=== PATIENT | female | born 1950 | race African-American/Black ===

== ENCOUNTER 2020-04-30 12:33 | Emergency (ER) | payer OTHER, SELFPAY ==
--- NOTE | ~2020-04-30 | CT_ITS ---
EXAMINATION: CT brain wo con DATE: 04/30/2020 16:44 INDICATION: Weakness. TECHNIQUE: Computed tomography (CT) of the head was performed without intravenous contrast. The mA wa s adjusted according to patient size. Iterative reconstruction technique was employed. The dose-lengt h product was 681.00 mGy-cm. COMPARISON: None FINDINGS: There is no intracranial hemorrhage, acute infarction, or abnormal intracranial mass lesion . The ventricles are normal in size. There are likely changes of ocular lens replacement surgeries. T here are mucous retention cysts in the maxillary sinuses. There is mild mucosal thickening in the par anasal sinuses. The mastoid air cells are normal. IMPRESSION: 1. Normal brain. Reviewed, dictated and finalized at location A. IMPRESSION: 1. Normal brain.
--- NOTE | ~2020-04-30 | XR_ITS ---
EXAMINATION: XR chest 2V DATE: 04/30/2020 13:10 INDICATION: Shortness of breath. Chest pain. TECHNIQUE: Frontal and lateral views of the chest were obtained. COMPARISON: Chest CT 12/08/2009 FINDINGS: There are airspace opacities at left lung base. No pleural effusion or pneumothorax. Cardio megaly is noted. There are surgical clips in right axilla. IMPRESSION: 1. Airspace opacities at left lung base, consistent with atelectasis versus pneumonia. 2. Cardiomegaly. Reviewed, dictated and finalized at location A. IMPRESSION: 1. Airspace opacities at left lung base, consistent with atelectasis versus pne umonia. 2. Cardiomegaly.
--- NOTE | 2020-04-30 12:38 | ECG_ITS ---
Measurements Intervals Atco Rate: 50 P: 36 TN: 202 QRS: -23 QRSD: 101 T: 4 QT: 461 QTc: 422 Interpretive Statements SINUS BRADYCARDIA VOLTAGE CRITERIA FOR LVH BASELINE ARTIFACT- I, II, AVR BORDERLINE ECG Electronically Signed On 04-30-2020 15:52:04 CDT by Maxi Castro D.O.
[2020-04-30 13:04] VITALS: BP 139/74; PULSE 54; RESP 14; TEMP 36.3; O2SAT 99
[2020-04-30 13:12] LABS: Add Urine Microscopic? NO; Appearance Urine Clear (Clear); Bilirubin Urine Negative (Negative); Blood Urine Negative (Negative); Color Urine Straw (Yellow); Glucose Urine UA Negative (Negative); Ketones Urine Negative (Negative); Leukocyte Esterase Ur Negative LEU/UL (Negative); Nitrate Urine Negative (Negative); Protein Urine Negative (Negative); Urobilinogen Urine Negative mg/dL (<2.0)
[2020-04-30 14:36] LABS: Basophils Percent Auto 0.3 % (0.2-1.2); Eosinophils Percent Auto 0.9 % (0-4.4); Hematocrit 42.1 % (37.0-47.0); Immature Granulocyte Absolute 0.01 K/mm3 (0.00-0.031); Immature Granulocyte Percent A 0.3 % (0-0.5); Lymphocytes Absolute Auto 1.38 K/mm3 (0.9-3.2); Lymphocytes Percent Auto 42.1 % (18.3-44.2); Mean Corpuscular HGB Conc 30.9 g/dl (32-36); Mean Corpuscular Hemoglobin 29.1 pg (26-34); Mean Corpuscular Volume 94.2 fl (80-100); Mean Platelet Volume 9.2 fl (7.4-10.4); Monocytes Absolute Auto 0.3 K/mm3 (0.1-0.6); Monocytes Percent Auto 7.9 % (2.6-8.5); Neutrophils Absolute Auto 1.6 K/mm3 (1.3-6.7); Neutrophils Percent Auto 48.5 % (45.5-73.1); Platelet Count Result 171 k/mm3 (150-375); Red Blood Count 4.47 M/mm3 (4.2-5.4); Red Cell Distribution Width 13.9 % (11.5-14.5); White Blood Count 3.3 K/mm3 (4.5-10.0)
[2020-04-30 14:47] LABS: INR 2.1; Lipase 83 U/L (23-300); Prothrombin Time 23.4 Seconds (11.1-14.7)
[2020-04-30 14:48] LABS: Partial Thromboplastin Time 33.3 SECONDS (22.3-36.8)
[2020-04-30 14:49] LABS: Blood Urea Nitrogen 19 mg/dL (7-17); Calcium 9.1 mg/dL (8.4-10.2); Carbon Dioxide 34 mmol/L (22-30); Chloride 97 mmol/L (98-107); Estimated CRCL calculation 48 ml/min; Estimated Glomerular Filt Rate > 60; Glucose 127 mg/dL (65-105); Potassium 3.9 mmol/L (3.4-5.0); Sodium 136 mmol/L (137-145)
[2020-04-30 15:00] LABS: Troponin I < 0.012 ng/mL (0.000-0.034)
[2020-04-30 15:22] VITALS: BP 155/83; PULSE 52; RESP 19
--- NOTE | 2020-04-30 15:30 | ED.CHESTPAIN ---
HPI - Chest Pain General Chief Complaint: Chest Pain Stated Complaint: SOB, CP, weakness, nausea Time Seen by Provider: 04/30/20 15:28 Source: patient and EMS Mode of arrival: EMS Limitations: no limitations History of Present Illness HPI narrative: Patient is a 70-year-old female who presents for evaluation of various symptoms including chest pressure, leg weakness, shortness of breath which is currently resolved. Patient states she noticed some chest pressure over the last 24 hours which is now resolved. She denies chest pain. No jaw pain, arm pain, or neck pain. No back pain. No pain with deep inspiration, no cough. Patient states that time she has felt short of breath with ambulation. Patient denies leg swelling, but reports weakness in her legs. She states that she has been ambulatory, but at times notices that her left leg is weak. Patient denies any abdominal pain, but reports nausea. She denies headache or vision changes. Related Data Home Medications Medication Instructions Recorded Confirmed acetaminophen 500 mg capsule 500 mg PO Q6H PRN 03/24/20 amiodarone 200 mg tablet 200 mg PO DAILY 03/24/20 furosemide 80 mg tablet 80 mg PO BID 03/24/20 losartan 100 mg tablet 100 mg PO DAILY 03/24/20 metoprolol tartrate 50 mg tablet 50 mg PO Q12H 03/24/20 potassium chloride 20 mEq 20 meq PO BID 03/24/20 tablet,extended release warfarin 2.5 mg tablet 2.5 mg PO DAILY 03/24/20 Allergies Allergy/AdvReac Type Severity Reaction Status Date / Time meperidine [From Demerol] Allergy Unknown Dizziness Verified 03/24/20 14:30 Review of Systems Review of Systems: Narrative: CONSTITUTIONAL: Denies fever, chills, or sweats. EYES: Denies visual changes, redness, or discharge. ENT: Denies rhinorrhea, congestion, sore throat, or otalgia. CARDIOVASCULAR: Reports chest pressure, now resolved, denies palpitations or edema RESPIRATORY: Denies cough, reports recurrent shortness of breath but none currently GASTROINTESTINAL: Denies abdominal pain, reports nausea without vomiting GENITOURINARY: Denies dysuria or hematuria. SKIN: Denies rash or itching. MUSCULOSKELETAL: Denies back pain, joint pain, or myalgia. NEUROLOGIC: Denies headache, reports left leg weakness PMFSH Past Medical History Medical History Abscess of Bartholin's gland Anemia Atrial fibrillation Benign hypertension Candidiasis Carpal tunnel syndrome Class 3 severe obesity due to excess calories with body mass index (BMI) of 40.0 to 44.9 in adult Diabetes Edema of lower extremity Hidradenitis suppurativa History of gastrointestinal procedure Hypertension Hypertensive disorder Impacted cerumen Incomplete uterovaginal prolapse Increased frequency of urination Lipoma of axilla Malignant tumor of breast Memory impairment Morbid obesity Open wound of anterior abdominal wall Osteoarthritis Pain in limb Sleep apnea Systemic lupus erythematosus Visual disturbance Vitamin D deficiency White blood cell disorder Surgical History Surgical History H/O colonoscopy H/O hernia repair H/O mastectomy History of delivery 3x History of esophagogastroduodenoscopy (EGD) Hx of total knee arthroplasty Family History Family History Mother Hypertension Breast cancer Hypothyroidism Heart disease Family history of cancer Father Heart disease Alzheimer disease Sibling Renal failure syndrome Diabetes mellitus Hypertension Sibling Diabetes mellitus Hypertension Social History Social History Smoking status: Former smoker Tobacco type: cigarettes Alcohol intake: never Substance use: never Gender identity (if verbalized by the patient): Female Exam Narrative: Exam Narrative: GENERAL: Awake, alert, conversant HEAD
[2020-04-30 16:14] LABS: Troponin I < 0.012 ng/mL (0.000-0.034)
[2020-04-30 17:22] VITALS: BP 155/80; PULSE 53; RESP 19; O2SAT 96
[2020-04-30] MEDS: ASPIRIN 81 MG CHEWABLE TABLET 324 MG PO (17:22)
[2020-04-30 17:41] VITALS: BP 150/84; PULSE 54; RESP 20; O2SAT 20
[2020-05-01 13:49] LABS: SARS-CoV-2 RNA PCR Negative
== END 2020-04-30 17:43 | disposition home or self-care (01) ==
PROVIDERS: Emergency Provider Emergency Medicine; PCP Family Medicine
DX: J18.9 Pneumonia, unspecified organism (principal); R07.89 Other chest pain; I48.91 Unspecified atrial fibrillation; Z79.01 Long term (current) use of anticoagulants; E11.9 Type 2 diabetes mellitus without complications; I10 Essential (primary) hypertension; M19.90 Unspecified osteoarthritis, unspecified site; G47.30 Sleep apnea, unspecified; M32.9 Systemic lupus erythematosus, unspecified; E55.9 Vitamin D deficiency, unspecified; Z90.10 Acquired absence of unspecified breast and nipple; Z96.659 Presence of unspecified artificial knee joint; E66.01 Morbid (severe) obesity due to excess calories; Z68.29 Body mass index [BMI] 29.0-29.9, adult; Z86.2 Personal history of diseases of the blood and blood-forming organs and certain disorders involving the immune mechanism
CPT/HCPCS: 36415; 70450; 71046; 80048; 81003; 83690; 84484; 85025; 85610; 85730; 87635; 93005; 99284; A9270; C9803; U0003

== ENCOUNTER 2020-06-22 07:08 | Outpatient (CLI) | payer OTHER, SELFPAY ==
--- NOTE | ~2020-06-22 | MR_ITS ---
EXAMINATION: MR lumbar spine wo con DATE: 06/22/2020 08:17 INDICATION: Low back pain. Chronic bilateral buttock and hip pain radiating down the legs. TECHNIQUE: Magnetic resonance imaging (MRI) of the lumbar spine was performed without intravenous con trast. Sequences included sagittal T2-weighted FSE, sagittal T2-weighted FS FSE, sagittal T1-weighted FSE, and axial T2-weighted FSE. COMPARISON: None FINDINGS: There is 8 degrees dextrocurvature of lumbar spine. There is 3 mm anterolisthesis of L4 on L5. Vertebral body heights are normal. There is moderately decreased disc height at L4-L5. There is l igamentum flavum hypertrophy at the disc levels from L1-L2 through L4-L5. The distal spinal cord sign al intensity is normal. The conus medullaris is at L1-L2. There are cysts in the kidneys measuring up to 13 mm on the right. The following disc levels are specifically discussed: L1-L2: There is a central protrusion. There is mild bilateral facet joint osteoarthritis. There is no neural foraminal stenosis. There is mild central canal stenosis. L2-L3: The disc is bulging and has an annular fissure. There is moderate right and mild left facet justice int osteoarthritis. There is mild bilateral neural foraminal stenosis. There is mild central canal st enosis. L3-L4: The disc is bulging and has an annular fissure. There is moderate right and severe left facet joint osteoarthritis. There is mild right and moderate left neural foraminal stenosis. There is mild central canal stenosis. L4-L5: The disc is bulging and has an annular fissure. There is severe bilateral facet joint osteoart hritis. There is moderate bilateral neural foraminal stenosis. There is severe central canal stenosis . L5-S1: The disc does not extend beyond the endplate margin. There is severe bilateral facet joint ost eoarthritis. There is mild bilateral neural foraminal stenosis. There is no central canal stenosis. IMPRESSION: 1. Severe lumbar spondylosis, worst at L4-L5. Reviewed, dictated and finalized at location A.
== END 2020-06-22 07:09 | disposition home or self-care (01) ==
PROVIDERS: PCP Family Medicine; Visit Provider Orthopaedic Surgery
DX: M47.896 Other spondylosis, lumbar region (principal)
CPT/HCPCS: 72148

== ENCOUNTER 2020-08-01 12:58 | Outpatient (CLI) | payer OTHER, SELFPAY ==
[2020-08-01 14:18] LABS: INR 1.6; Prothrombin Time 18.5 Seconds (11.1-14.7)
== END 2020-08-01 12:59 | disposition home or self-care (01) ==
PROVIDERS: PCP Family Medicine; Visit Provider Nurse Practitioner Family
DX: Z51.81 Encounter for therapeutic drug level monitoring (principal); Z79.01 Long term (current) use of anticoagulants
CPT/HCPCS: 36415; 85610

== ENCOUNTER 2020-09-18 13:11 | Emergency (ER) | payer OTHER, SELFPAY ==
--- NOTE | ~2020-09-18 | XR_ITS ---
EXAMINATION: XR chest 2V DATE: 09/18/2020 15:52 INDICATION: Weakness. Atrial fibrillation. Congestive heart failure. TECHNIQUE: Frontal and lateral views of the chest were obtained. COMPARISON: Chest 2 views 04/30/2020, chest CT 12/08/2009 FINDINGS: There are patchy airspace opacities in the mid and lower lung zones. No pleural effusion or pneumothorax. Cardiomegaly is noted. There are surgical clips in right axilla. IMPRESSION: 1. Patchy airspace opacities in the mid and lower lung zones, consistent with pulmonary edema versus pneumonia. 2. Cardiomegaly. Reviewed, dictated and finalized at location A. [employer] IMPRESSION: 1. Patchy airspace opacities in the mid and lower lung zones, consistent with p ulmonary edema versus pneumonia. 2. Cardiomegaly.
[2020-09-18 13:30] VITALS: BP 154/72; PULSE 65; RESP 17; TEMP 36.5; O2SAT 98
[2020-09-18 15:23] VITALS: BP 141/71; PULSE 54; RESP 15; O2SAT 98
[2020-09-18 15:37] LABS: Basophils Percent Auto 0.3 % (0.2-1.2); Hematocrit 35.1 % (37.0-47.0); Hemoglobin 11.1 g/dL (12.0-15.0); Immature Granulocyte Absolute 0.01 K/mm3 (0.00-0.031); Immature Granulocyte Percent A 0.3 % (0-0.5); Lymphocytes Absolute Auto 1.09 K/mm3 (0.9-3.2); Lymphocytes Percent Auto 36.7 % (18.3-44.2); Mean Corpuscular HGB Conc 31.6 g/dl (32-36); Mean Corpuscular Volume 91.6 fl (80-100); Mean Platelet Volume 8.9 fl (7.4-10.4); Monocytes Absolute Auto 0.2 K/mm3 (0.1-0.6); Monocytes Percent Auto 6.7 % (2.6-8.5); Neutrophils Absolute Auto 1.6 K/mm3 (1.3-6.7); Platelet Count Result 315 k/mm3 (150-375); Red Blood Count 3.83 M/mm3 (4.2-5.4)
[2020-09-18 15:53] LABS: Alanine Aminotransferase 28 U/L (4-35); Albumin Level 3.6 g/dL (3.5-5.1); Alkaline Phosphatase 97 U/L (38-126); Anion Gap 3 mmol/L (8-16); Aspartate Amino Transferase 37 U/L (14-36); Bilirubin,Total 0.3 mg/dL (0.2-1.3); Blood Urea Nitrogen 17 mg/dL (7-17); Calcium 9.3 mg/dL (8.4-10.2); Carbon Dioxide 35 mmol/L (22-30); Chloride 102 mmol/L (98-107); Estimated CRCL calculation 71 ml/min; Estimated Glomerular Filt Rate > 60; Glucose 146 mg/dL (65-105); Potassium 4.2 mmol/L (3.4-5.0); Sodium 140 mmol/L (137-145)
[2020-09-18 15:57] VITALS: BP 155/78; PULSE 54; RESP 20; O2SAT 98
--- NOTE | 2020-09-18 16:04 | PC.NURSE ---
Called lab to add on BNP
--- NOTE | 2020-09-18 16:36 | PC.NURSE ---
PT AMBULATED TO BATHROOM STANDBY ASSIST WITH STEADY GAIT
[2020-09-18 16:37] VITALS: BP 163/79; PULSE 56; RESP 20; O2SAT 99
[2020-09-18 16:43] LABS: Add Urine Microscopic? YES; Appearance Urine Clear (Clear); Bilirubin Urine Negative (Negative); Blood Urine Negative (Negative); Color Urine Yellow (Yellow); Glucose Urine UA Negative (Negative); Ketones Urine Negative (Negative); Leukocyte Esterase Ur Negative LEU/UL (Negative); Mucus Urine Rare /lpf; Nitrate Urine Negative (Negative); Protein Urine Negative (Negative); RBC Urine 0-2 /hpf (0-2); Specific Grav Ur 1.021 (1.001-1.035); Squamous Epithelial Cell Urine Few /hpf (Few); WBC Urine 0-3 /hpf
--- NOTE | 2020-09-18 17:05 | ED.WEAKNESS ---
HPI - Weakness General Chief complaint: Weakness Stated complaint: weakness Time Seen by Provider: 09/18/20 15:53 History of Present Illness HPI Narrative: Patient is a 70-year-old female who presents ER with weakness. Ongoing for last 2 weeks. Associated with sinus congestion and occasional cough. No orthopnea or weight gain or swelling of the legs. Denies chest pain. No known sick contacts. No loss of smell or taste. No alleviating factors. Related Data Home Medications Medication Instructions Recorded Confirmed acetaminophen 500 mg capsule 500 mg PO Q6H PRN 03/24/20 07/06/20 amiodarone 200 mg tablet 200 mg PO DAILY 03/24/20 07/06/20 furosemide 80 mg tablet 80 mg PO BID 03/24/20 07/06/20 losartan 100 mg tablet 100 mg PO DAILY 03/24/20 07/06/20 metoprolol tartrate 50 mg tablet 50 mg PO Q12H 03/24/20 07/06/20 potassium chloride 20 mEq 20 meq PO BID 03/24/20 07/06/20 tablet,extended release warfarin 2.5 mg tablet 2.5 mg PO DAILY 03/24/20 07/06/20 cholecalciferol (vitamin D3) 1,250 1,250 mcg PO WEEKLY 07/06/20 07/06/20 mcg (50,000 unit) capsule Allergies Allergy/AdvReac Type Severity Reaction Status Date / Time meperidine [From Demerol] Allergy Unknown Dizziness Verified 03/24/20 14:30 Review of Systems Review of Systems: All systems reviewed & are unremarkable except as noted in HPI and below Constitutional: Constitutional: Denies chills, Denies fever(s) and Denies weakness ENT: Reports nasal congestion and Denies sore throat Cardiovascular: Cardiovascular: Denies chest pain and Denies radiating jaw, neck or arm pain Respiratory: Respiratory: Reports cough, Denies dyspnea and Denies wheezing Gastrointestinal: Gastrointestinal: Denies abdominal pain, Denies nausea and Denies vomiting [facility] Past Medical History Medical History (Updated 09/18/20 @ 17:56 by Bryson Cid MD) Abscess of Bartholin's gland Anemia Atrial fibrillation Benign hypertension Candidiasis Carpal tunnel syndrome Class 3 severe obesity due to excess calories with body mass index (BMI) of 40.0 to 44.9 in adult Diabetes Edema of lower extremity Hidradenitis suppurativa History of gastrointestinal procedure Hypertension Hypertensive disorder Impacted cerumen Incomplete uterovaginal prolapse Increased frequency of urination Lipoma of axilla Malignant tumor of breast Memory impairment Morbid obesity Open wound of anterior abdominal wall Osteoarthritis Pain in limb Sleep apnea Systemic lupus erythematosus Visual disturbance Vitamin D deficiency White blood cell disorder Surgical History Surgical History H/O colonoscopy H/O hernia repair H/O mastectomy History of delivery 3x History of esophagogastroduodenoscopy (EGD) Hx of total knee arthroplasty Family History Family History Mother Hypertension Breast cancer Hypothyroidism Heart disease Family history of cancer Father Heart disease Alzheimer disease Sibling Renal failure syndrome Diabetes mellitus Hypertension Sibling Diabetes mellitus Hypertension Social History Social History Smoking status: Former smoker Tobacco type: cigarettes Alcohol intake: never Substance use: never Gender identity (if verbalized by the patient): Female Exam Narrative: Exam Narrative: GENERAL: Well-appearing, well-nourished, and in no acute distress. HEAD: Normocephalic, atraumatic. CHEST: Clear to auscultation. No respiratory distress. HEART: Regular rate and rhythm. Normal peripheral pulses. ABDOMEN: Soft, nontender, nondistended. EXTREMITIES: Normal range of motion. Trace edema. SKIN: Warm, dry, no rash. NEURO: Alert and oriented x3. PSYCH: Normal mood and affect. Course Course Emergency Course: Suspect Covid pneumonia but because is not confirmed patient will be start
[2020-09-18 17:24] LABS: NT Pro B Type Natriuretic Pept 227 PG/ML (5-100)
[2020-09-18 17:41] VITALS: BP 143/82; PULSE 60; RESP 20; O2SAT 99
[2020-09-18 18:12] VITALS: BP 141/78; PULSE 57; RESP 20; O2SAT 100
[2020-09-19 13:43] LABS: SARS-CoV-2 RNA PCR Positive
== END 2020-09-18 18:23 | disposition home or self-care (01) ==
PROVIDERS: Emergency Provider Emergency Medicine; PCP Family Medicine
DX: U07.1 COVID-19 (principal); J12.89 Other viral pneumonia; D64.9 Anemia, unspecified; I48.91 Unspecified atrial fibrillation; E11.9 Type 2 diabetes mellitus without complications; I10 Essential (primary) hypertension; M19.90 Unspecified osteoarthritis, unspecified site; G47.30 Sleep apnea, unspecified; E55.9 Vitamin D deficiency, unspecified; M32.9 Systemic lupus erythematosus, unspecified; E66.01 Morbid (severe) obesity due to excess calories; Z68.43 Body mass index [BMI] 50.0-59.9, adult; Z79.01 Long term (current) use of anticoagulants; Z85.3 Personal history of malignant neoplasm of breast; Z90.10 Acquired absence of unspecified breast and nipple; Z96.659 Presence of unspecified artificial knee joint; Z87.891 Personal history of nicotine dependence
CPT/HCPCS: 36415; 71046; 80053; 81001; 83880; 85025; 87635; 99283; C9803; U0003

== ENCOUNTER 2020-11-17 08:03 | Outpatient (CLI) | payer OTHER, SELFPAY ==
[2020-11-17 08:31] LABS: INR 1.1; Prothrombin Time 14.7 Seconds (11.1-14.7)
== END 2020-11-17 08:04 | disposition home or self-care (01) ==
PROVIDERS: Family Provider Family Medicine; PCP Family Medicine; Visit Provider Nurse Practitioner Family
DX: Z51.81 Encounter for therapeutic drug level monitoring (principal); Z79.01 Long term (current) use of anticoagulants
CPT/HCPCS: 36415; 85610

== ENCOUNTER 2021-01-04 08:00 | Outpatient (RCR) | payer OTHER, SELFPAY ==
--- NOTE | 2020-11-16 10:28 | PTOPEVAL ---
PHYSICAL THERAPY EVALUATION AND PLAN OF CARE 11-16-2020 Thank you for referring Ivanna Beckman to [facility].? She is scheduled to be seen for therapy? 2x/week for 4 weeks, for aquatic therapy and land treatments. Please review, sign, date and return this plan of care AUBREY. I agree with and certify that the following plan of care is medically necessary. Referring Physician Date Attending Provider: RAVI Sprague *PT Outpatient Evaluation Document 11/16/20 09:10 ELAN (Rec: 11/16/20 10:28 ELAN [id number]) Outpatient Past Medical History Past Medical History Source of Past Medical History Patient Neurological History Hx Neurological Disorders No Significant History Cardiovascular History Hx Atrial Fibrillation Yes: meds Hx Congestive Heart Failure Yes: meds Hx Hypertension Yes: meds Respiratory History Hx Sleep Apnea Yes: CPAP machine for sleep Gastrointestinal History Hx Cholecystectomy Yes Hx Gastroesophageal Reflux Disease Yes: meds Hx Hernia Yes: hernia surgery Genitourinary History Hx Other Genitourinary Disorders Yes: overactive bladder Musculoskeletal History Hx Arthritis Yes: all over body ; most pain in spine and shoulders, hands/fingers Hx Orthopedic Surgery Yes: R TKR~ 2016; need to have L TKR- putting it off Hematological History Hx Anemia Yes Endocrine History Hx Diabetes Yes: meds HEENT History Hx Other HEENT Disorders Yes: sinus and allergy issues Integumentary History Hx Skin Disorders No Significant History Reproductive History Hx Section Yes: 3x Hx Other Reproductive Disorders Yes: prolapse uterus Other History Hx Cancer Yes: breast cancer/mastectomy- surgery only treatment Hx Other Medical Conditions Yes: obesity Evaluation Information Problem Diagnosis low back pain, radiculopathy Onset about one year ago Subjective Information gradual increase in pain, no Query Text:As Reported By Patient/ recent injury or trauma to her Family back; have had 2 injections in back, have helped, to have 3rd injection tomorrow; Previous Treatments Previous Treatments For This Problem PT at another facility, in 2019,helped slightly-exercises for back; Prior Level of Function Activity Level (Last 3 Months) Occupation retired Cooking Yes Cleaning No Laundry Yes Driving No
--- NOTE | 2020-12-14 09:47 | PTOPEVAL ---
PHYSICAL THERAPY REEVALUATION AND UPDATED PLAN OF CARE 12-14-20 Refer to the clinical summary below for her status with today's reevaluation, compared to the initial evaluation. PT treatment is to continue 2x/week for 3 weeks. Thank you for referring Ivanna Beckman to [facility].? Please review, sign, date and return this plan of care [facility]. I agree with and certify that the following plan of care is medically necessary. Referring Physician Date Attending Provider: RAVI Sprague PT Outpatient Re-Evaluation Document 12/14/20 09:05 ELAN (Rec: 12/14/20 09:47 ELAN [id number]) Subjective Information Ivanna reports: like the water Query Text:As Reported By Patient/ exercises; easier to move and Family do exercises, compared to when did on land before; want to continue the water exercises to get better; will look into a fitness center with a pool, to continue water exercises; has been doing her leg exercises at home; Pain Assessment Timing of Pain Assessment Timing of Pain Assessment Assessment Pain Scale Pain Scale Used Numeric (1 - 10) Self Report Pain Assessment Bilateral Back Reported Pain Level 4 Pain Description Aching,Throbbing Radicular Pain Location into R and L LE, to ankle 75% day; was down to toes,not that far ~ 1wk ago Pain Frequency Chronic,Continuous Lowest Pain Intensity 3 Greatest Pain Intensity 5 Pain Aggravating Factors Sitting Other Pain Aggravating Factors cold weather; sit tolerance 2 hours, pain when go from sit to stand Pain Score Pain Score 4: Self Report Additional Pain Score Comments getting out of bed hurts; Oswestry self assessment functional score of 44% limitation in activity tolerance Interventions Used Interventions Used By Clinicians Exercise Pain Relief Interventions Used By Medication,Position Change Patient Other Alleviating Interventions take acetaminaphen PRN- not daily, mostly take when leaving home/going out Lower Extremity Muscle Strength Testing General Lower Extremity Strength Gross Lower Extremity Strength supine: SLR R 20/ L 12 reps; hip abduction R 30/ L x 20 reps; Posture Posture Standing Position Posture Evaluation View
--- NOTE | 2020-12-25 10:50 | PCPTNOTE ---
Patient called & cancelled scheduled appointment this date due to no transportation.
--- NOTE | 2021-01-04 08:44 | PTOPEVAL ---
PHYSICAL THERAPY DISCHARGE 01-04-21 Refer to the clinical summary below for her status, compared to the last reevaluation. She will be discharged from PT services at this time. The goals were partially achieved. Thank you for referring Ivanna Beckman to [facility].? Please review, sign, date and return this discharge AUBREY. I agree with and certify that the following plan of care is medically necessary. Referring Physician Date Attending Provider: RAVI Sprague Document 01/04/21 08:00 ELAN (Rec: 01/04/21 08:44 ELAN [id number]) Assessment Status Discharge Subjective Information Ivanna reports: walking is Query Text:As Reported By Patient/ better and pain is not as Family intense in the past week; can stand a little longer and stand up a little straighter; have been more active- going out and doing more; use cane when go out, but in the house do not always use it- have been better and leave it behind when going room/room; more pain in shoulders and hands- whole body hurts sometimes; has not joined a fitness center yet; and she agrees to discharge from PT. Pain Assessment Timing of Pain Assessment Timing of Pain Assessment Assessment Pain Scale Pain Scale Used Numeric (1 - 10) Self Report Pain Assessment Bilateral Back Reported Pain Level 4 Pain Description Aching,Throbbing Radicular Pain Location R and L LE radicular to feet- numb/tingling,intermittent with activity Pain Frequency Chronic,Continuous Lowest Pain Intensity 4 Greatest Pain Intensity 6 Pain Aggravating Factors Exercise/Activity,Prolonged Position,Walking,Weight Bearing/Standing Other Pain Aggravating Factors when awaken in AM; Pain Behaviors Anxious,Grimacing,Guarding Pain Score Pain Score 4: Self Report Additional Pain Score Comments Oswestry self assessment functional score 44% limitation in activity Interventions Used Interventions Used By Clinicians Education,Exercise Lower Extremity Muscle Strength Testing General Lower Extremity Strength Gross Lower Extremity Strength supine SLR: L 30/ R 30 reps; supine/sit from mat, indep, labored with increased time
== END 2021-01-05 10:50 | disposition home or self-care (01) ==
LOC: ANHPT 08:00
PROVIDERS: Family Provider Family Medicine; PCP Family Medicine; Visit Provider Nurse Practitioner Family
DX: M54.5 Low back pain (principal); M54.16 Radiculopathy, lumbar region
CPT/HCPCS: 97014; 97110; 97113; 97162; G0283

== ENCOUNTER 2021-01-05 13:31 | Outpatient (CLI) | payer OTHER, SELFPAY ==
--- NOTE | ~2021-01-05 | US_ITS ---
EXAMINATION: US venous doppler UE RT DATE: 01/05/2021 14:02 INDICATION: Right upper limb edema. TECHNIQUE: Grayscale ultrasound images without and with compression and Doppler ultrasound images of the right upper extremity veins were obtained. COMPARISON: None. FINDINGS: The visualized portions of the right internal jugular vein, subclavian vein, axillary vein, brachial veins, basilic vein, cephalic vein, radial vein, and ulnar vein are patent. IMPRESSION: 1. No deep venous thrombosis. Reviewed, dictated and finalized at location A.
== END 2021-01-05 13:32 | disposition home or self-care (01) ==
PROVIDERS: PCP Family Medicine; Visit Provider Family Medicine
DX: R60.0 Localized edema (principal)
CPT/HCPCS: 93971

== ENCOUNTER 2021-04-13 08:04 | Outpatient (CLI) | payer OTHER, SELFPAY ==
[2021-04-13 08:42] LABS: INR 1.2; Prothrombin Time 16.1 Seconds (11.1-14.7)
== END 2021-04-13 08:05 | disposition home or self-care (01) ==
PROVIDERS: PCP Family Medicine; Visit Provider Nurse Practitioner Family
DX: Z79.01 Long term (current) use of anticoagulants (principal)
CPT/HCPCS: 36415; 85610

== ENCOUNTER 2021-05-29 18:39 | Emergency (ER) | payer OTHER, SELFPAY ==
[2021-05-29 18:39] VITALS: BP 163/77; PULSE 70; RESP 20; TEMP 36.9; O2SAT 99
--- NOTE | 2021-05-29 19:33 | ED.GENADULT ---
HPI - General Adult General Chief complaint: Unspecified Stated complaint: BIT TONGUE Time Seen by Provider: 05/29/21 19:04 History of Present Illness HPI narrative: 71 yo female on eliquis presents to the ED c/o tongue laceration. She accidentally bit the tip of her tongue a few hours ago and she has not been able to get it to stop bleeding since that time. No dizziness, weakness, SOB. Additionally she mentions that her tongue has been peeling constantly. Related Data Home Medications Medication Instructions Recorded Confirmed acetaminophen 500 mg capsule 500 mg PO Q6H PRN 03/24/20 11/03/20 amiodarone 200 mg tablet 200 mg PO DAILY 03/24/20 11/03/20 furosemide 80 mg tablet 80 mg PO BID 03/24/20 11/03/20 losartan 100 mg tablet 100 mg PO DAILY 03/24/20 11/03/20 metoprolol tartrate 50 mg tablet 50 mg PO Q12H 03/24/20 11/03/20 potassium chloride 20 mEq 20 meq PO BID 03/24/20 11/03/20 tablet,extended release warfarin 2.5 mg tablet 2.5 mg PO DAILY 03/24/20 11/03/20 cholecalciferol (vitamin D3) 1,250 1,250 mcg PO WEEKLY 07/06/20 11/03/20 mcg (50,000 unit) capsule glipizide 5 mg tablet 5 mg PO DAILY 11/03/20 11/03/20 pregabalin 75 mg capsule 75 mg PO BID 11/03/20 11/03/20 Allergies Allergy/AdvReac Type Severity Reaction Status Date / Time meperidine [From Demerol] Allergy Unknown Dizziness Verified 05/29/21 18:51 Review of Systems Review of Systems: All systems reviewed & are unremarkable except as noted in HPI and below PMFSH Past Medical History Medical History Abscess of Bartholin's gland Anemia Atrial fibrillation Benign hypertension Candidiasis Carpal tunnel syndrome Class 3 severe obesity due to excess calories with body mass index (BMI) of 40.0 to 44.9 in adult Diabetes Edema of lower extremity Hidradenitis suppurativa History of gastrointestinal procedure Hypertension Hypertensive disorder Impacted cerumen Incomplete uterovaginal prolapse Increased frequency of urination Lipoma of axilla Malignant tumor of breast Memory impairment Morbid obesity Open wound of anterior abdominal wall Osteoarthritis Pain in limb Sleep apnea Systemic lupus erythematosus Visual disturbance Vitamin D deficiency White blood cell disorder Surgical History Surgical History H/O colonoscopy H/O hernia repair H/O mastectomy History of delivery 3x History of esophagogastroduodenoscopy (EGD) Hx of total knee arthroplasty Family History Family History Mother Hypertension Breast cancer Hypothyroidism Heart disease Family history of cancer Father Heart disease Alzheimer disease Sibling Renal failure syndrome Diabetes mellitus Hypertension Sibling Diabetes mellitus Hypertension Social History Social History Smoking status: Former smoker Tobacco type: cigarettes Alcohol intake: never Substance use: never Gender identity (if verbalized by the patient): Female Exam Const: General: cooperative, comfortable and no acute distress Nutritional Appearance: average body habitus Orientation/consciousness: patient oriented x3 HENMT: Head: normal to inspection Mouth: Yes moist mucous membranes abnormal (shedding of MM) Other: 1 cm laceration to tongue with active bleeding Resp: Effort & Inspection: normal respiratory effort Auscultation: clear to auscultation bilaterally Cardio: Rate: regular rate Rhythm: regular rhythm Skin: General skin exam: normal color Neuro: General: patient oriented x3 and moves all extremities Cognition (Neuro): normal cognition Course Vital Signs Vital signs: Vital Signs Temperature 36.9 C 05/29/21 18:39 Pulse Rate 70 05/29/21 18:39 Respiratory Rate 20 05/29/21 18:39 Blood Pressure 163/77 H 05/29/21 18:39 Pulse Ox
[2021-05-29] MEDS: SILVER NITRATE (*SP) STICK 1 EACH TOPICAL (20:11)
[2021-05-29] MEDS: LIDO 1%/EPINEPHRINE 1:100,000 20 ML VIAL INFILTRATE (20:11)
[2021-05-29 20:37] VITALS: BP 130/62; PULSE 62; RESP 18; O2SAT 100
== END 2021-05-29 21:04 | disposition home or self-care (01) ==
PROVIDERS: Emergency Provider Emergency Medicine; PCP Family Medicine
DX: S01.512A Laceration without foreign body of oral cavity, initial encounter (principal); I10 Essential (primary) hypertension; I48.91 Unspecified atrial fibrillation; E11.9 Type 2 diabetes mellitus without complications; M19.90 Unspecified osteoarthritis, unspecified site; Z85.3 Personal history of malignant neoplasm of breast; G47.30 Sleep apnea, unspecified; M32.9 Systemic lupus erythematosus, unspecified; E55.9 Vitamin D deficiency, unspecified; E66.01 Morbid (severe) obesity due to excess calories; Z68.43 Body mass index [BMI] 50.0-59.9, adult; Z79.01 Long term (current) use of anticoagulants; Z87.891 Personal history of nicotine dependence; Z90.10 Acquired absence of unspecified breast and nipple; Z96.659 Presence of unspecified artificial knee joint; X58.XXXA Exposure to other specified factors, initial encounter
CPT/HCPCS: 41250; 99283

== ENCOUNTER 2021-06-02 09:17 | Outpatient (CLI) | payer OTHER, SELFPAY ==
--- NOTE | ~2021-06-02 | XR_ITS ---
EXAMINATION: XR chest 2V DATE: 06/02/2021 09:48 INDICATION: Shortness of breath. TECHNIQUE: Frontal and lateral views of the chest were obtained. COMPARISON: Chest 2 views 09/18/2020 FINDINGS: There are mild airspace opacities in left lower lung zone. No pleural effusion or pneumotho rax. Cardiomegaly is noted. There are surgical clips in right axilla. IMPRESSION: 1. Mild airspace opacities in left lower lung zone, consistent with atelectasis versus pneumonia. 2. Cardiomegaly. Reviewed, dictated and finalized at location A.
== END 2021-06-02 09:18 | disposition home or self-care (01) ==
LOC: ANHIMG 09:25
PROVIDERS: PCP Family Medicine; Visit Provider Internal Medicine Cardiovascular Disease
DX: J12.81 Pneumonia due to SARS-associated coronavirus (principal); J44.9 Chronic obstructive pulmonary disease, unspecified; R06.02 Shortness of breath; R53.83 Other fatigue; I51.9 Heart disease, unspecified
CPT/HCPCS: 71046

== ENCOUNTER 2021-06-12 09:37 | Emergency (ER) | payer OTHER, SELFPAY ==
[2021-06-12 09:42] VITALS: BP 146/76; PULSE 66; RESP 18; TEMP 36.8; O2SAT 95
[2021-06-12 10:17] LABS: Add Urine Microscopic? YES; Appearance Urine Cloudy (Clear); Bacteria Urine Trace /hpf; Bilirubin Urine Negative (Negative); Blood Urine 1+ (Negative); Color Urine Yellow (Yellow); Glucose Urine UA Negative (Negative); Ketones Urine Negative (Negative); Leukocyte Esterase Ur 3+ LEU/UL (Negative); Mucus Urine Rare /lpf; Nitrate Urine Negative (Negative); Protein Urine Negative (Negative); Specific Grav Ur 1.017 (1.001-1.035); Squamous Epithelial Cell Urine Few /hpf (Few); WBC Urine >75 /hpf
--- NOTE | 2021-06-12 10:34 | ED.FEMALEGU ---
HPI - Female Genitourinary General Chief complaint: Urogenital-Female <Eva Hamilton PA-C - Last Filed: 06/12/21 10:40> Stated complaint: bladder infection <Eva Hamilton PA-C - Last Filed: 06/12/21 10:40> Time Seen by Provider: 06/12/21 10:10 <Eva Hamilton PA-C - Last Filed: 06/12/21 10:40> Source: patient <ZOE Jason Last Filed: 06/12/21 10:40> Mode of arrival: ambulatory <ZOE Jason Last Filed: 06/12/21 10:40> Limitations: no limitations <OZE Jason Last Filed: 06/12/21 10:40> History of Present Illness HPI Narrative: This is a 71-year-old female that presents to the emergency department for urinary symptoms x3 days. Reports dysuria and frequency. Denies fever, abdominal pain, vomiting, flank pain, hematuria. <Eva Hamilton PA-C - Last Filed: 06/12/21 10:40> Related Data Home medications: Home Medications Medication Instructions Recorded Confirmed acetaminophen 500 mg capsule 500 mg PO Q6H PRN 03/24/20 06/07/21 amiodarone 200 mg tablet 200 mg PO DAILY 03/24/20 06/07/21 furosemide 80 mg tablet 80 mg PO BID 03/24/20 06/07/21 losartan 100 mg tablet 100 mg PO DAILY 03/24/20 06/07/21 metoprolol tartrate 50 mg tablet 50 mg PO Q12H 03/24/20 06/07/21 potassium chloride 20 mEq 20 meq PO BID 03/24/20 06/07/21 tablet,extended release cholecalciferol (vitamin D3) 1,250 1,250 mcg PO WEEKLY 07/06/20 06/07/21 mcg (50,000 unit) capsule glipizide 5 mg tablet 5 mg PO DAILY 11/03/20 06/07/21 pregabalin 75 mg capsule 75 mg PO BID 11/03/20 06/07/21 rivaroxaban 20 mg tablet 20 mg PO DAILY 06/07/21 06/07/21 <Eva Hamilton PA-C - Last Filed: 06/12/21 10:40> Allergies/Adverse reactions: Allergies Allergy/AdvReac Type Severity Reaction Status Date / Time meperidine [From Demerol] Allergy Unknown Dizziness Verified 06/07/21 08:52 <Eva Hamilton PA-C - Last Filed: 06/12/21 10:40> Review of Systems Review of Systems: CONSTITUTIONAL: Denies fever GASTROINTESTINAL: Denies abdominal pain, nausea, vomiting GENITOURINARY: Reports dysuria. Denies hematuria. <ZOE Jason Last Filed: 06/12/21 10:40> All systems reviewed & are unremarkable except as noted in HPI and below <Eva Hamilton PA-C - Last Filed: 06/12/21 10:40> [facility] Past Medical History Medical History: Medical History Abscess of Bartholin's gland Anemia Atrial fibrillation Benign hypertension Candidiasis Carpal tunnel syndrome Class 3 severe obesity due to excess calories with body mass index (BMI) of 40.0 to 44.9 in adult Diabetes Edema of lower extremity Hidradenitis suppurativa History of gastrointestinal procedure Hypertension Hypertensive disorder Impacted cerumen Incomplete uterovaginal prolapse Increased frequency of urination Lipoma of axilla Malignant tumor of breast Memory impairment Morbid obesity Open wound of anterior abdominal wall Osteoarthritis Pain in limb Sleep apnea Systemic lupus erythematosus Visual disturbance Vitamin D deficiency White blood cell disorder <Eva Hamilton PA-C - Last Filed: 06/12/21 10:40> Surgical History Surgical History: Surgical History H/O colonoscopy H/O hernia repair H/O mastectomy History of delivery 3x History of esophagogastroduodenoscopy (EGD) Hx of total knee arthroplasty <ZOE Jason Last Filed: 06/12/21 10:40> Family History Family History: Family History Mother Hypertension Breast cancer Hypothyroidism Heart disease Family history of cancer Father Heart disease Alzheimer disease Sibling Renal failure syndrome Diabetes mellitus Hypertension Sibling Diabetes mellitus Hypertension <Eva Hamilton PA-C - Last Filed: 06/12/21 10:40> Social History Social History
[2021-06-12] MEDS: CEFDINIR 300 MG CAPSULE PO (11:02)
== END 2021-06-12 11:16 | disposition home or self-care (01) ==
PROVIDERS: Emergency Provider General Practice; PCP Family Medicine
DX: N30.00 Acute cystitis without hematuria (principal); I48.91 Unspecified atrial fibrillation; Z79.01 Long term (current) use of anticoagulants; I10 Essential (primary) hypertension; E11.9 Type 2 diabetes mellitus without complications; E66.01 Morbid (severe) obesity due to excess calories; Z68.42 Body mass index [BMI] 45.0-49.9, adult; G47.30 Sleep apnea, unspecified; M32.9 Systemic lupus erythematosus, unspecified; E55.9 Vitamin D deficiency, unspecified; Z90.10 Acquired absence of unspecified breast and nipple; Z85.3 Personal history of malignant neoplasm of breast; Z87.891 Personal history of nicotine dependence
CPT/HCPCS: 81001; 87077; 87086; 87088; 87186; 99283; A9270

== ENCOUNTER 2021-07-05 11:17 | Outpatient (CLI) | payer OTHER, SELFPAY | END 2021-07-05 11:18 | disposition home or self-care (01) | PROVIDERS: PCP Family Medicine | DX: R39.15 Urgency of urination (principal) | CPT/HCPCS: 87086; 87088 ==

== ENCOUNTER 2021-09-15 07:52 | Outpatient (CLI) | payer OTHER, SELFPAY ==
--- NOTE | 2021-09-15 15:02 | WPDPFTINT ---
PFT Procedure Performed PFT Procedure Performed Plethysmography (Lung Vol) Diffusing Cap (DLCO) Flow Vol Loop Spirometry w/o Bronchodil PFT Interpretation This is a pulmonary function test with spirometry, plethysmography and diffusing capacity. The test was performed and results interpreted in accordance with the 2019 and 2005 ATS/ERS Task Force guidelines respectively using the Global Lung Function Initiative-2012 reference equations. Patient demonstrated good effort and cooperation. Reproducibility criteria were met. The quality of the spirometry maneuver was Grade A. Findings: Spirometry: The the contour the inspiratory and expiratory flow tracing are normal. The FVC is 2.30 L, 84% predicted. The FEV1 is 1.58 L, 75% predicted. The FEV1: FVC ratio 69%. Plethysmography: The total lung capacity is 5.33 L, 107% predicted. The functional residual capacity is 3.33 L, 101% predicted. The residual volume is 2.87 L, 127% predicted. Diffusing capacity: The absolute diffusion capacity is 23.2, 106% predicted. The diffusing capacity corrected for alveolar volume is 5.40, 133% predicted. Impression: The spirometry is normal without evidence of an obstructive abnormality. The lung volumes are normal. The diffusing capacity is normal. There are no prior studies for comparison
== END 2021-09-15 07:53 | disposition home or self-care (01) ==
LOC: ANHPFT 07:55
PROVIDERS: PCP Family Medicine; Visit Provider Family Medicine
DX: R06.02 Shortness of breath (principal); R55 Syncope and collapse
CPT/HCPCS: 94375; 94726; 94729

== ENCOUNTER 2021-09-21 12:02 | Emergency (ER) | payer OTHER, SELFPAY ==
[2021-09-21 12:23] VITALS: BP 155/73; PULSE 55; RESP 16; TEMP 37.1; O2SAT 98
--- NOTE | 2021-09-21 12:37 | ED.FEMALEGU ---
HPI - Female Genitourinary General Chief complaint: Urogenital-Female Stated complaint: uti Time Seen by Provider: 09/21/21 12:38 Source: patient and RN notes reviewed Mode of arrival: ambulatory Limitations: no limitations History of Present Illness HPI Narrative: 71-year-old female with history of diabetes and hypertension presents with concern for 4-day history of dysuria, frequency, suprapubic pressure. She denies vomiting, reports nausea. She denies new back pain. Denies fever, body aches, chills. MD elicited complaint: UTI Related Data Home Medications Medication Instructions Recorded Confirmed amiodarone 200 mg tablet 200 mg PO DAILY 03/24/20 06/07/21 furosemide 80 mg tablet 80 mg PO BID 03/24/20 06/07/21 losartan 100 mg tablet 100 mg PO DAILY 03/24/20 06/07/21 metoprolol tartrate 50 mg tablet 50 mg PO Q12H 03/24/20 06/07/21 potassium chloride 20 mEq 20 meq PO BID 03/24/20 06/07/21 tablet,extended release cholecalciferol (vitamin D3) 1,250 1,250 mcg PO WEEKLY 07/06/20 06/07/21 mcg (50,000 unit) capsule glipizide 5 mg tablet 5 mg PO DAILY 11/03/20 06/07/21 pregabalin 75 mg capsule 75 mg PO BID 11/03/20 06/07/21 rivaroxaban 20 mg tablet 20 mg PO DAILY 06/07/21 06/07/21 Allergies Allergy/AdvReac Type Severity Reaction Status Date / Time meperidine [From Demerol] Allergy Unknown Dizziness Verified 09/21/21 12:08 Review of Systems Review of Systems: CONSTITUTIONAL: Denies malaise, chills, sweats, or fever. GASTROINTESTINAL: Denies abdominal pain, vomiting, diarrhea, bloody, or mucous stools. Reports nausea GENITOURINARY: Reports dysuria, frequency, suprapubic pressure. Denies flank pain or hematuria. MUSCULOSKELETAL: Denies myalgia. All systems reviewed & are unremarkable except as noted in HPI and below PMFSH Past Medical History Medical History Abscess of Bartholin's gland Anemia Atrial fibrillation Benign hypertension Candidiasis Carpal tunnel syndrome Class 3 severe obesity due to excess calories with body mass index (BMI) of 40.0 to 44.9 in adult Diabetes Edema of lower extremity Hidradenitis suppurativa History of gastrointestinal procedure Hypertension Hypertensive disorder Impacted cerumen Incomplete uterovaginal prolapse Increased frequency of urination Lipoma of axilla Malignant tumor of breast Memory impairment Morbid obesity Open wound of anterior abdominal wall Osteoarthritis Pain in limb Sleep apnea Systemic lupus erythematosus Visual disturbance Vitamin D deficiency White blood cell disorder Surgical History Surgical History H/O colonoscopy H/O hernia repair H/O mastectomy History of delivery 3x History of esophagogastroduodenoscopy (EGD) Hx of total knee arthroplasty Family History Family History Mother Hypertension Breast cancer Hypothyroidism Heart disease Family history of cancer Father Heart disease Alzheimer disease Sibling Renal failure syndrome Diabetes mellitus Hypertension Sibling Diabetes mellitus Hypertension Social History Social History Smoking status: Former smoker Tobacco type: cigarettes Alcohol intake: never Substance use: never Gender identity (if verbalized by the patient): Female Sexual Orientation (if Verbalized by the Patient): Straight or Heterosexual Comments At time of signature, agree with nursing past medical, surgical, social and family history. There is no relevant family history pertinent to the presenting complaint Exam Narrative: GENERAL: Well-appearing, well-nourished, and in no acute distress. HEAD: Normocephalic. EYES: PERRLA, conjunctivae clear. NECK: Supple. No lymphadenopathy CHEST: Clear to auscultation. No respiratory distress. HEART: Regular rate and rhythm. ABDOMEN: Soft, non
== END 2021-09-21 13:00 | disposition home or self-care (01) ==
PROVIDERS: Emergency Provider Nurse Practitioner; PCP Family Medicine
DX: N39.0 Urinary tract infection, site not specified (principal); Z87.891 Personal history of nicotine dependence; D64.9 Anemia, unspecified; I48.91 Unspecified atrial fibrillation; E11.9 Type 2 diabetes mellitus without complications; I10 Essential (primary) hypertension; M19.90 Unspecified osteoarthritis, unspecified site; G47.30 Sleep apnea, unspecified; M32.9 Systemic lupus erythematosus, unspecified
CPT/HCPCS: 81003; 87077; 87086; 87088; 87186; 99213; G0463

== ENCOUNTER 2021-10-07 09:47 | Emergency (ER) | payer OTHER, SELFPAY ==
[2021-10-07 10:01] VITALS: BP 156/88; PULSE 55; RESP 16; TEMP 36.4; O2SAT 99
--- NOTE | 2021-10-07 10:11 | ECG_ITS ---
Measurements Intervals [place] Rate: 52 P: [place]: 0 QRS: -28 QRSD: 102 T: 17 QT: 452 QTc: 422 Interpretive Statements SINUS BRADYCARDIA WITH FIRST DEGREE AV BLOCK VOLTAGE CRITERIA FOR LVH ABNORMAL ECG Electronically Signed On 10-07-2021 12:06:29 CERTIFIED TUMOR REGISTRAR by Maxi Castro D.O.
--- NOTE | 2021-10-07 10:16 | ED.GENADULT ---
HPI - General Adult General Chief complaint: Weakness Stated complaint: Weak and Tired Source: patient and family Mode of arrival: ambulatory Limitations: no limitations History of Present Illness HPI narrative: Patient is a 71-year-old -[place]ong[place] female who presents to the [facility] via POV for evaluation of weakness that began approximately 3 weeks ago. Additionally, she reports fatigue, dry cough, a little shortness of breath, left chest pain, left shoulder pain, and left arm pain. She also reports feeling gassy for approximately 1 week. Denies taking OTC meds for symptoms. Nothing improves or worsen symptoms. She states she had a visited her PCP a few days ago and had high blood pressure therefore her PCP prescribed her hydralazine although she has yet to take this medication. She was diagnosed at this facility with a UTI on September 21, 2021. Related Data Home Medications Medication Instructions Recorded Confirmed amiodarone 200 mg tablet 200 mg PO DAILY 03/24/20 10/07/21 furosemide 80 mg tablet 80 mg PO BID 03/24/20 10/07/21 losartan 100 mg tablet 100 mg PO DAILY 03/24/20 10/07/21 metoprolol tartrate 50 mg tablet 50 mg PO Q12H 03/24/20 10/07/21 potassium chloride 20 mEq 20 meq PO BID 03/24/20 10/07/21 tablet,extended release cholecalciferol (vitamin D3) 1,250 1,250 mcg PO WEEKLY 07/06/20 10/07/21 mcg (50,000 unit) capsule glipizide 5 mg tablet 5 mg PO DAILY 11/03/20 10/07/21 pregabalin 75 mg capsule 75 mg PO BID 11/03/20 10/07/21 rivaroxaban 20 mg tablet 20 mg PO DAILY 06/07/21 10/07/21 Allergies Allergy/AdvReac Type Severity Reaction Status Date / Time meperidine [From Demerol] Allergy Unknown Dizziness Verified 10/07/21 10:04 Review of Systems Review of Systems: Pertinent negatives: fever, chills, sweats, change in appetite, poor p.o. intake, headache, dizziness, lymphadenopathy, vision changes, swelling, erythema, syncope, vertigo, LOC, seizure activity, memory loss, difficulty with coordination/gait/equilibrium, paresthesias, abdominal pain, nausea, vomiting, diarrhea, constipation, and heart palpitations/murmurs. PMFSH Past Medical History Medical History Abscess of Bartholin's gland Anemia Atrial fibrillation Benign hypertension Candidiasis Carpal tunnel syndrome Class 3 severe obesity due to excess calories with body mass index (BMI) of 40.0 to 44.9 in adult Diabetes Edema of lower extremity Hidradenitis suppurativa History of gastrointestinal procedure Hypertension Hypertensive disorder Impacted cerumen Incomplete uterovaginal prolapse Increased frequency of urination Lipoma of axilla Malignant tumor of breast Memory impairment Morbid obesity Open wound of anterior abdominal wall Osteoarthritis Pain in limb Sleep apnea Systemic lupus erythematosus Visual disturbance Vitamin D deficiency White blood cell disorder Surgical History Surgical History H/O colonoscopy H/O hernia repair H/O mastectomy History of delivery 3x History of esophagogastroduodenoscopy (EGD) Hx of total knee arthroplasty Family History Family History Mother Hypertension Breast cancer Hypothyroidism Heart disease Family history of cancer Father Heart disease Alzheimer disease Sibling Renal failure syndrome Diabetes mellitus Hypertension Sibling Diabetes mellitus Hypertension Social History Social History Smoking status: Former smoker Tobacco type: cigarettes Alcohol intake: never Substance use: never Gender identity (if verbalized by the patient): Female Sexual Orientation (if Verbalized by the Patient): Straight or Heterosexual Comments I have reviewed and agree with the patient's past medical, surgical, social, and fa
== END 2021-10-07 11:10 | disposition short-term general hospital (02) ==
PROVIDERS: Emergency Provider Nurse Practitioner Family; PCP Family Medicine
DX: R53.1 Weakness (principal); R07.9 Chest pain, unspecified; I44.0 Atrioventricular block, first degree; Z20.822 Contact with and (suspected) exposure to COVID-19; Z87.891 Personal history of nicotine dependence; I48.91 Unspecified atrial fibrillation; I10 Essential (primary) hypertension; E11.9 Type 2 diabetes mellitus without complications; E66.01 Morbid (severe) obesity due to excess calories; Z68.43 Body mass index [BMI] 50.0-59.9, adult; M19.90 Unspecified osteoarthritis, unspecified site; M32.9 Systemic lupus erythematosus, unspecified; E55.9 Vitamin D deficiency, unspecified; Z85.3 Personal history of malignant neoplasm of breast; Z90.10 Acquired absence of unspecified breast and nipple
CPT/HCPCS: 81003; 87426; 87804; 93005; 99215; C9803; G0463

== ENCOUNTER 2021-10-07 11:29 | Emergency (ER) | payer OTHER, SELFPAY ==
[2021-10-07] VITALS (8 sets, daily range): BP systolic 136–153; BP diastolic 70–88; PULSE 51–68; RESP 15–24; TEMP 36.2; O2SAT 94–100
--- NOTE | ~2021-10-07 | XR_ITS ---
EXAMINATION: XR chest 2V DATE: 10/07/2021 12:51 INDICATION: Chest pain and cough. TECHNIQUE: Frontal and lateral views of the chest were obtained. COMPARISON: Chest 2 views 06/02/2021, chest CT 12/08/2009 FINDINGS: There is mild atelectasis in the lower lung zones. No pleural effusion or pneumothorax. Car diomegaly is noted. There are surgical clips in right axilla. IMPRESSION: 1. Mild atelectasis in the lower lung zones. 2. Cardiomegaly. Reviewed, dictated and finalized at location A. OR CLINICAL CONSULTANT
--- NOTE | 2021-10-07 11:44 | ECG_ITS ---
Measurements Intervals [place] Rate: 56 P: 255 [place]: 168 QRS: -18 QRSD: 109 T: 37 QT: 451 QTc: 436 Interpretive Statements SINUS BRADYCARDIA BORDERLINE AV CONDUCTION DELAY BASELINE ARTIFACT- I, II, III, AVR, AVL, AVF, V1-V3 BORDERLINE ECG Electronically Signed On 10-07-2021 13:19:52 STAGE TECHNICIAN by Maxi Castro D.O.
[2021-10-07 12:06] LABS: Eosinophils Percent Auto 0.7 % (0-4.4); Hematocrit 38.2 % (37.0-47.0); Hemoglobin 12.1 g/dL (12.0-15.0); Lymphocytes Absolute Auto 1.31 K/mm3 (0.9-3.2); Lymphocytes Percent Auto 46.3 % (18.3-44.2); Mean Corpuscular HGB Conc 31.7 g/dl (32-36); Mean Corpuscular Hemoglobin 29.2 pg (26-34); Mean Platelet Volume 8.9 fl (7.4-10.4); Monocytes Absolute Auto 0.2 K/mm3 (0.1-0.6); Monocytes Percent Auto 6.4 % (2.6-8.5); Neutrophils Absolute Auto 1.3 K/mm3 (1.3-6.7); Neutrophils Percent Auto 46.6 % (45.5-73.1); Platelet Count Result 188 k/mm3 (150-375); Red Blood Count 4.15 M/mm3 (4.2-5.4); Red Cell Distribution Width 14.6 % (11.5-14.5)
[2021-10-07 12:12] LABS: Alanine Aminotransferase 30 U/L (4-35); Albumin Level 4.3 g/dL (3.5-5.1); Alkaline Phosphatase 83 U/L (38-126); Anion Gap 4 mmol/L (8-16); Aspartate Amino Transferase 32 U/L (14-36); Bilirubin,Total 0.5 mg/dL (0.2-1.3); Blood Urea Nitrogen 18 mg/dL (7-17); Calcium 9.5 mg/dL (8.4-10.2); Carbon Dioxide 29 mmol/L (22-30); Chloride 104 mmol/L (98-107); Estimated CRCL calculation 59 ml/min; Estimated Glomerular Filt Rate 54; Glucose 108 mg/dL (65-110); Lipase 59 U/L (23-300); Potassium 4.4 mmol/L (3.4-5.0); Sodium 137 mmol/L (137-145)
[2021-10-07 12:13] LABS: INR 2.3
[2021-10-07 12:14] LABS: Partial Thromboplastin Time 34.4 SECONDS (22.3-36.8)
[2021-10-07 12:26] LABS: Troponin I < 0.012 ng/mL (0.000-0.034)
[2021-10-07] MEDS: ASPIRIN 81 MG CHEWABLE TABLET 324 MG PO (13:24)
--- NOTE | 2021-10-07 14:32 | PC.NURSE ---
Pt to restroom to provide urine sample.
[2021-10-07 15:12] LABS: Troponin I < 0.012 ng/mL (0.000-0.034)
--- NOTE | 2021-10-07 15:22 | ED.WEAKNESS ---
HPI - Weakness General Chief complaint: Weakness Stated complaint: weakness x3 weeks Time Seen by Provider: 10/07/21 12:41 History of Present Illness HPI Narrative: Patient is a 71-year-old female who presents ER with weakness and fatigue. Ongoing for 3 weeks. Associated with cough that is wet but nonproductive. Denies fevers or chills or sweats. She was seen at an urgent care today and had a negative Covid and flu swab. Patient reports she is also been having discomfort in her left upper chest wall moving to her shoulder. Is worse with movement but not necessarily exertion. Usually when she is using her arm she feels a discomfort. Unsure of any alleviating factors. She does take Xarelto. Related Data Home Medications Medication Instructions Recorded Confirmed amiodarone 200 mg tablet 200 mg PO DAILY 03/24/20 10/07/21 furosemide 80 mg tablet 80 mg PO BID 03/24/20 10/07/21 losartan 100 mg tablet 100 mg PO DAILY 03/24/20 10/07/21 metoprolol tartrate 50 mg tablet 50 mg PO Q12H 03/24/20 10/07/21 potassium chloride 20 mEq 20 meq PO BID 03/24/20 10/07/21 tablet,extended release cholecalciferol (vitamin D3) 1,250 1,250 mcg PO WEEKLY 07/06/20 10/07/21 mcg (50,000 unit) capsule glipizide 5 mg tablet 5 mg PO DAILY 11/03/20 10/07/21 pregabalin 75 mg capsule 75 mg PO BID 11/03/20 10/07/21 rivaroxaban 20 mg tablet 20 mg PO DAILY 06/07/21 10/07/21 Allergies Allergy/AdvReac Type Severity Reaction Status Date / Time meperidine [From Demerol] Allergy Unknown Dizziness Verified 10/07/21 10:04 Review of Systems Review of Systems: All systems reviewed & are unremarkable except as noted in HPI and below Constitutional: Constitutional: Denies chills, Reports fatigue, Denies fever(s) and Reports weakness ENT: Denies sore throat Cardiovascular: Cardiovascular: Reports chest pain, Denies rapid heart rate and Reports radiating jaw, neck or arm pain Respiratory: Respiratory: Reports cough, Denies dyspnea and Denies wheezing Gastrointestinal: Gastrointestinal: Denies nausea and Denies vomiting [facility] Past Medical History Medical History Abscess of Bartholin's gland Anemia Atrial fibrillation Benign hypertension Candidiasis Carpal tunnel syndrome Class 3 severe obesity due to excess calories with body mass index (BMI) of 40.0 to 44.9 in adult Diabetes Edema of lower extremity Hidradenitis suppurativa History of gastrointestinal procedure Hypertension Hypertensive disorder Impacted cerumen Incomplete uterovaginal prolapse Increased frequency of urination Lipoma of axilla Malignant tumor of breast Memory impairment Morbid obesity Open wound of anterior abdominal wall Osteoarthritis Pain in limb Sleep apnea Systemic lupus erythematosus Visual disturbance Vitamin D deficiency White blood cell disorder Surgical History Surgical History H/O colonoscopy H/O hernia repair H/O mastectomy History of delivery 3x History of esophagogastroduodenoscopy (EGD) Hx of total knee arthroplasty Family History Family History Mother Hypertension Breast cancer Hypothyroidism Heart disease Family history of cancer Father Heart disease Alzheimer disease Sibling Renal failure syndrome Diabetes mellitus Hypertension Sibling Diabetes mellitus Hypertension Social History Social History Smoking status: Former smoker Tobacco type: cigarettes Alcohol intake: never Substance use: never Gender identity (if verbalized by the patient): Female Sexual Orientation (if Verbalized by the Patient): Straight or Heterosexual Exam Narrative: GENERAL: Well-appearing, well-nourished, and in no acute distress. HEAD: Normocephalic, atraumatic. EYES: PERRL and EOMI. ENT: Mucous
== END 2021-10-07 16:25 | disposition home or self-care (01) ==
PROVIDERS: Emergency Provider Emergency Medicine; PCP Family Medicine
DX: R53.1 Weakness (principal); I48.91 Unspecified atrial fibrillation; I10 Essential (primary) hypertension; E11.9 Type 2 diabetes mellitus without complications; Z87.891 Personal history of nicotine dependence
CPT/HCPCS: 36415; 71046; 80053; 83690; 84484; 85025; 85610; 85730; 93005; 99284; A9270

== ENCOUNTER 2021-10-14 10:12 | Emergency (ER) | payer OTHER, SELFPAY ==
[2021-10-14 10:29] VITALS: BP 142/64; PULSE 55; RESP 16; O2SAT 98
--- NOTE | 2021-10-14 11:03 | ED.FEMALEGU ---
HPI - Female Genitourinary General Chief complaint: Urogenital-Female Stated complaint: uti Source: patient and RN notes reviewed Mode of arrival: ambulatory History of Present Illness HPI Narrative: This is a 71-year-old female who presented to urgent care with complaints of painful urination that she has been experiencing for 3 days. He denies taking anything at home for. The patient denies SOB, CP, palpitation, extremity numbness, lightheadedness, dizziness, constipation, diarrhea, chills, hematuria, urgency frequency, pelvic pain, abdominal pain, incontinence or fever. UA positive for leukocytes Related Data Home Medications Medication Instructions Recorded Confirmed amiodarone 200 mg tablet 200 mg PO DAILY 03/24/20 10/07/21 furosemide 80 mg tablet 80 mg PO BID 03/24/20 10/07/21 losartan 100 mg tablet 100 mg PO DAILY 03/24/20 10/07/21 metoprolol tartrate 50 mg tablet 50 mg PO Q12H 03/24/20 10/07/21 potassium chloride 20 mEq 20 meq PO BID 03/24/20 10/07/21 tablet,extended release cholecalciferol (vitamin D3) 1,250 1,250 mcg PO WEEKLY 07/06/20 10/07/21 mcg (50,000 unit) capsule rivaroxaban 20 mg tablet 20 mg PO DAILY 06/07/21 10/07/21 acetaminophen 10/14/21 atorvastatin 10/14/21 chlorhexidine gluconate 10/14/21 dapagliflozin [Farxiga] mg 10/14/21 hydralazine 10/14/21 solifenacin mg PO 10/14/21 Allergies Allergy/AdvReac Type Severity Reaction Status Date / Time meperidine [From Demerol] Allergy Unknown Dizziness Verified 10/07/21 10:04 Review of Systems Review of Systems: A 14 organ system Review of Systems was performed and pertinent positives included in the HPI, otherwise remaining ROS is negative. [facility] Past Medical History Medical History Abscess of Bartholin's gland Anemia Atrial fibrillation Benign hypertension Candidiasis Carpal tunnel syndrome Class 3 severe obesity due to excess calories with body mass index (BMI) of 40.0 to 44.9 in adult Diabetes Edema of lower extremity Hidradenitis suppurativa History of gastrointestinal procedure Hypertension Hypertensive disorder Impacted cerumen Incomplete uterovaginal prolapse Increased frequency of urination Lipoma of axilla Malignant tumor of breast Memory impairment Morbid obesity Open wound of anterior abdominal wall Osteoarthritis Pain in limb Sleep apnea Systemic lupus erythematosus Visual disturbance Vitamin D deficiency White blood cell disorder Surgical History Surgical History H/O colonoscopy H/O hernia repair H/O mastectomy History of delivery 3x History of esophagogastroduodenoscopy (EGD) Hx of total knee arthroplasty Family History Family History Mother Hypertension Breast cancer Hypothyroidism Heart disease Family history of cancer Father Heart disease Alzheimer disease Sibling Renal failure syndrome Diabetes mellitus Hypertension Sibling Diabetes mellitus Hypertension Social History Social History Smoking status: Former smoker Tobacco type: cigarettes Alcohol intake: never Substance use: never Gender identity (if verbalized by the patient): Female Sexual Orientation (if Verbalized by the Patient): Straight or Heterosexual Exam Narrative: GENERAL: This is a well-nourished, well-developed patient, in no apparent distress. HEAD: normocephalic, atraumatic. EYES: PERRL. Sclera clear/white. Vision is grossly intact. EARS: External ears normal, auditory canals clear and without drainage, TMs normal without perforation. Hearing grossly intact. NOSE: External nose normal with no obvious nasal discharge, nares without redness, no rhinorrhea. THROAT: Mucous membranes moist, posterior pharynx clear. NECK: Neck supple, non-tender without lymphadenopath
== END 2021-10-14 11:14 | disposition home or self-care (01) ==
PROVIDERS: Emergency Provider Nurse Practitioner; PCP Family Medicine
DX: N39.0 Urinary tract infection, site not specified (principal); I48.91 Unspecified atrial fibrillation; E11.9 Type 2 diabetes mellitus without complications; I10 Essential (primary) hypertension
CPT/HCPCS: 81003; 87077; 87086; 87186; 99213; G0463

== ENCOUNTER 2021-11-08 09:55 | Outpatient (CLI) | payer OTHER, SELFPAY ==
--- NOTE | ~2021-11-08 | MMUS_ITS ---
EXAMINATION: MM diagnostic kianna LT w osmany, US breast LT complete HISTORY: Left breast thickening TECHNIQUE: Additional 3-D tomosynthesis images of the left breast were performed and synthetic 2-D im ages were generated. CAD analysis was submitted and interpreted. High resolution complete left breast ultrasound was performed. COMPARISON: None BREAST PARENCHYMAL COMPOSITION: Breast composed of scattered areas of fibroglandular density. FINDINGS: MAMMOGRAPHIC FINDINGS: There is asymmetry in the upper outer quadrant of the left breast with possible architectural distort ion superiorly, best seen on medial lateral spot view. No discrete mass or suspicious calcifications are identified. ULTRASOUND: Complete bilateral US of all 4 quadrants of the the left and retroareolar region was reviewed. Normal heterogeneous echotexture without focal mass. No findings to correspond to the area of mammographic concern. IMPRESSION: 1. Asymmetric soft tissue upper aspect of the left breast without sonographic correlate. 2. Comparison to previous outside mammograms recommended. BI-RADS Category 0: Incomplete: Needs additional imaging evaluation. Reviewed, dictated and finalized at location B. AL SALES REPRESENTATIVE IMPRESSION: 1. Asymmetric soft tissue upper aspect of the left breast without sonographic c orrelate. 2. Comparison to previous outside mammograms recommended. BI-RADS Category 0: Incomplete: Needs additional imaging evaluation.
--- NOTE | ~2021-11-08 | US_ITS ---
EXAMINATION: US abdomen limited EXAM DATE: 11/08/2021 10:31 INDICATION: Abnormal CT. TECHNIQUE: Multiple grayscale and Doppler images of the abdomen right upper quadrant were obtained (geneva y a technologist who performed the scan) and subsequently reviewed. There is no prior study for otf barbour. No recent prior abnormal CT at this institution. FINDINGS: The pancreatic head and body are normal in appearance. The pancreatic tail is not visualized. The l iver has normal echogenicity and contour. There are no focal liver lesions identified. There is no evidence of intrahepatic biliary duct dilation. Portal venous flow was seen in the hepatopedal, nor mal direction and has normal Doppler waveform. No right-sided hydronephrosis. Common bile duct measures 5 mm, which is normal. The gallbladder fossa is unremarkable. IMPRESSION: 1. Unremarkable abdominal ultrasound exam. Reviewed, dictated and finalized at location G. CH AND PROSIZE MIXER
== END 2021-11-08 09:56 | disposition home or self-care (01) ==
PROVIDERS: PCP Family Medicine; Visit Provider Family Medicine
DX: R93.5 Abnormal findings on diagnostic imaging of other abdominal regions, including retroperitoneum (principal); N63.20 Unspecified lump in the left breast, unspecified quadrant; R92.8 Other abnormal and inconclusive findings on diagnostic imaging of breast
CPT/HCPCS: 76641; 76705; 77061; 77065; G0279

== ENCOUNTER 2022-01-04 07:40 | Outpatient (CLI) | payer OTHER, SELFPAY ==
--- NOTE | ~2022-01-04 | MR_ITS ---
EXAMINATION: MR brain/brain stem wo con DATE: 01/04/2022 08:41 INDICATION: Dizziness. TECHNIQUE: Magnetic resonance imaging (MRI) of the brain and brainstem was performed without intraven ous contrast. Sequences included sagittal and axial T1-weighted FSE, axial diffusion-weighted FS EPI, axial T2*-weighted GRE, axial T2-weighted FLAIR Propeller, and axial T2-weighted Propeller. Apparent diffusion coefficient (ADC) maps were created. COMPARISON: Head CT 04/30/2020 FINDINGS: There are scattered areas of nonspecific increased T2-weighted signal intensity in the cere bral white matter, which is within normal limits for the patient's age. There is no intracranial hemo rrhage, acute infarction, or abnormal intracranial mass lesion. The ventricles are normal in size. Th ere are likely changes of ocular lens replacement surgeries. There are mucous retention cysts in the maxillary sinuses. The mastoid air cells are normal. IMPRESSION: 1. Normal aging brain. Reviewed, dictated and finalized at location A. IMPRESSION: 1. Normal aging brain.
== END 2022-01-04 07:41 | disposition home or self-care (01) ==
LOC: ANHIMG 07:46
PROVIDERS: PCP Family Medicine; Visit Provider Family Medicine
DX: R42 Dizziness and giddiness (principal); R53.1 Weakness; J34.1 Cyst and mucocele of nose and nasal sinus
CPT/HCPCS: 70551

== ENCOUNTER 2022-03-07 12:23 | Emergency (ER) | payer OTHER, SELFPAY ==
--- NOTE | 2022-03-07 12:29 | ED.FEMALEGU ---
HPI - Female Genitourinary General Chief complaint: Urogenital-Female Stated complaint: UTI Time Seen by Provider: 03/07/22 12:29 Source: patient, family, RN notes reviewed and old records reviewed Mode of arrival: ambulatory Limitations: no limitations History of Present Illness HPI Narrative: 72-year-old female with a history of UTIs presents to the [facility] with complaints of I think I have another UTI. Symptoms started 2 days ago. No treatment prior to arrival. Patient reports that urinary frequency, urgency and suprapubic pressure for 2 days. Denies flank pain, abdominal pain. Denies fevers. No nausea vomiting or diarrhea. MD elicited complaint: UTI Related Data Home Medications Medication Instructions Recorded Confirmed amiodarone 200 mg tablet 200 mg PO DAILY 03/24/20 03/07/22 furosemide 80 mg tablet 80 mg PO BID 03/24/20 03/07/22 losartan 100 mg tablet 100 mg PO DAILY 03/24/20 03/07/22 metoprolol tartrate 50 mg tablet 50 mg PO Q12H 03/24/20 03/07/22 potassium chloride 20 mEq 20 meq PO BID 03/24/20 03/07/22 tablet,extended release cholecalciferol (vitamin D3) 1,250 1,250 mcg PO WEEKLY 07/06/20 03/07/22 mcg (50,000 unit) capsule rivaroxaban 20 mg tablet 20 mg PO DAILY 06/07/21 03/07/22 acetaminophen 500 mg PO DAILY 10/14/21 03/07/22 atorvastatin 80 mg PO DAILY 10/14/21 03/07/22 dapagliflozin [Farxiga] 10 mg PO DAILY 10/14/21 03/07/22 hydralazine 25 mg PO DAILY 10/14/21 03/07/22 glipizide 5 mg PO DAILY 03/07/22 03/07/22 Allergies Allergy/AdvReac Type Severity Reaction Status Date / Time meperidine [From Demerol] Allergy Unknown Dizziness Verified 03/07/22 12:44 Review of Systems Review of Systems: All systems reviewed & are unremarkable except as noted in HPI and below Constitutional: Constitutional: Reports no additional constitutional complaints, Denies chills and Denies fatigue Eyes: Eyes: Reports no additional eye complaints ENT: Reports system reviewed and no additional complaints, except as documented Cardiovascular: Cardiovascular: Reports no additional cardiovascular complaints Respiratory: Respiratory: Reports no additional respiratory complaints Gastrointestinal: Gastrointestinal: Reports no additional gastrointestinal complaints, Denies abdominal pain, Denies diarrhea, Denies nausea and Denies vomiting Genitourinary: Genitourinary: Reports as per HPI, Reports nocturia, Reports dysuria, Denies flank pain, Denies urinary incontinence, Reports urinary hesitancy, Reports urinary urgency and Denies vaginal discharge Musculoskeletal: Musculoskeletal: Reports no additional musculoskeletal complaints and Denies back pain Integumentary/Breasts: Skin/Breast: Reports system reviewed and no additional complaints, except as docu Neurologic: Reports system reviewed and no additional complaints, except as documented Psychiatric: Psychiatric: Reports no additional psychiatric complaints Endocrine: Endocrine: Denies fatigue Allergic/Immunologic: Allergic/Immunologic: Reports no additional allergic/immunologic complaints PMFSH Past Medical History Medical History Abscess of Bartholin's gland Anemia Atrial fibrillation Benign hypertension Candidiasis Carpal tunnel syndrome Class 3 severe obesity due to excess calories with body mass index (BMI) of 40.0 to 44.9 in adult Diabetes Edema of lower extremity Hidradenitis suppurativa History of gastrointestinal procedure Hypertension Hypertensive disorder Impacted cerumen Incomplete uterovaginal prolapse Increased frequency of urination Lipoma of axilla Malignant tumor of breast Memory impairment Morbid obesity Open wound of anterior abdominal wall Osteoarthritis Pain in limb Sleep apnea Systemic lupus erythematosus Visual disturbance Vitamin D deficiency White blood cell disorder Surgical History Surgical History H/O colonoscop
[2022-03-07 12:34] VITALS: BP 156/70; PULSE 56; RESP 16; TEMP 36.8; O2SAT 96
== END 2022-03-07 13:00 | disposition home or self-care (01) ==
PROVIDERS: Emergency Provider Nurse Practitioner; PCP Family Medicine
DX: N39.0 Urinary tract infection, site not specified (principal); Z87.891 Personal history of nicotine dependence; I48.91 Unspecified atrial fibrillation; I10 Essential (primary) hypertension; E66.01 Morbid (severe) obesity due to excess calories; Z68.41 Body mass index [BMI] 40.0-44.9, adult; E11.9 Type 2 diabetes mellitus without complications; M19.90 Unspecified osteoarthritis, unspecified site; G47.30 Sleep apnea, unspecified; M32.9 Systemic lupus erythematosus, unspecified; E55.9 Vitamin D deficiency, unspecified; Z85.3 Personal history of malignant neoplasm of breast; Z90.10 Acquired absence of unspecified breast and nipple
CPT/HCPCS: 81003; 87086; 87088; 99213; G0463

== ENCOUNTER 2022-06-07 13:31 | Emergency (ER) | payer OTHER, SELFPAY ==
[2022-06-07 13:41] VITALS: BP 223/106; PULSE 67; RESP 20; TEMP 36.6; O2SAT 100
--- NOTE | 2022-06-07 13:43 | ED.FEMALEGU ---
HPI - Female Genitourinary General Chief complaint: Urogenital-Female Stated complaint: UTI Symptoms Time Seen by Provider: 06/07/22 13:41 Source: patient, RN notes reviewed and old records reviewed Mode of arrival: ambulatory Limitations: no limitations History of Present Illness HPI Narrative: 72-year-old female presents to the [facility] with I think I have a UTI. Patient originally had a left mastectomy. Reports frequency and urgency, no burning as of yet for the last 2 days. States it feels like her last UTIs. Per patient her sugars were 116 this morning MD elicited complaint: UTI Related Data Home Medications Medication Instructions Recorded Confirmed amiodarone 200 mg tablet 200 mg PO DAILY 03/24/20 06/07/22 furosemide 80 mg tablet 80 mg PO BID 03/24/20 06/07/22 losartan 100 mg tablet 100 mg PO DAILY 03/24/20 06/07/22 metoprolol tartrate 50 mg tablet 50 mg PO Q12H 03/24/20 06/07/22 potassium chloride 20 mEq 20 meq PO BID 03/24/20 06/07/22 tablet,extended release cholecalciferol (vitamin D3) 1,250 1,250 mcg PO WEEKLY 07/06/20 06/07/22 mcg (50,000 unit) capsule rivaroxaban 20 mg tablet (Xarelto) 20 mg PO DAILY 06/07/21 06/07/22 acetaminophen 500 mg tablet 500 mg PO DAILY 10/14/21 06/07/22 atorvastatin 80 mg tablet 80 mg PO DAILY 10/14/21 06/07/22 dapagliflozin 10 mg tablet 10 mg PO DAILY 10/14/21 06/07/22 (Farxiga) hydralazine 25 mg tablet 25 mg PO DAILY 10/14/21 06/07/22 glipizide 5 mg tablet, extended 5 mg PO DAILY 03/07/22 06/07/22 release 24 hr Allergies Allergy/AdvReac Type Severity Reaction Status Date / Time meperidine [From Demerol] Allergy Unknown Dizziness Verified 06/07/22 13:32 Review of Systems Review of Systems: All systems reviewed & are unremarkable except as noted in HPI and below Constitutional: Constitutional: Reports no additional constitutional complaints, Denies chills and Denies fatigue Eyes: Eyes: Reports no additional eye complaints ENT: Reports system reviewed and no additional complaints, except as documented Cardiovascular: Cardiovascular: Reports no additional cardiovascular complaints Respiratory: Respiratory: Reports no additional respiratory complaints Gastrointestinal: Gastrointestinal: Reports no additional gastrointestinal complaints, Denies abdominal pain, Denies diarrhea, Denies nausea and Denies vomiting Genitourinary: Genitourinary: Reports as per HPI (Urgency, frequency), Denies hematuria, Reports dysuria, Denies flank pain and Denies vaginal discharge Musculoskeletal: Musculoskeletal: Reports no additional musculoskeletal complaints and Denies back pain Integumentary/Breasts: Skin/Breast: Reports system reviewed and no additional complaints, except as docu Neurologic: Reports system reviewed and no additional complaints, except as documented Psychiatric: Psychiatric: Reports no additional psychiatric complaints Endocrine: Endocrine: Denies fatigue Allergic/Immunologic: Allergic/Immunologic: Reports no additional allergic/immunologic complaints [facility] Past Medical History Medical History (Updated 06/07/22 @ 19:43 by Bernie Peterson APRN) Abscess of Bartholin's gland Anemia Atrial fibrillation Benign hypertension Candidiasis Carpal tunnel syndrome Class 3 severe obesity due to excess calories with body mass index (BMI) of 40.0 to 44.9 in adult Diabetes Edema of lower extremity Hidradenitis suppurativa History of gastrointestinal procedure Hypertension Hypertensive disorder Impacted cerumen Incomplete uterovaginal prolapse Increased frequency of urination Lipoma of axilla Malignant tumor of breast Memory impairment Morbid obesity Open wound of anterior abdominal wall Osteoarthritis Pain in limb Sleep apnea Systemic lupus erythematosus Visual disturbance Vitamin D deficiency White blood cell disorder Surgical History Surgical History (Updated 06/07/22 @ 13:52 by Bernie Peterson APRN) H/O colonoscopy H/O hernia repair H/O left
[2022-06-07 14:00] VITALS: BP 153/73
== END 2022-06-07 14:05 | disposition home or self-care (01) ==
PROVIDERS: Emergency Provider Nurse Practitioner; PCP Family Medicine
DX: N39.0 Urinary tract infection, site not specified (principal); Z87.891 Personal history of nicotine dependence; I48.91 Unspecified atrial fibrillation; I10 Essential (primary) hypertension; E66.01 Morbid (severe) obesity due to excess calories; Z68.42 Body mass index [BMI] 45.0-49.9, adult; E11.9 Type 2 diabetes mellitus without complications; M19.90 Unspecified osteoarthritis, unspecified site; G47.30 Sleep apnea, unspecified; M32.9 Systemic lupus erythematosus, unspecified; E55.9 Vitamin D deficiency, unspecified; Z90.12 Acquired absence of left breast and nipple
CPT/HCPCS: 81003; 87077; 87086; 87186; 99213; G0463

== ENCOUNTER 2022-09-09 10:26 | Outpatient (CLI) | payer OTHER, SELFPAY ==
[2022-09-09 10:50] LABS: Basophils Percent Auto 0.4 % (0.2-1.2); Eosinophils Percent Auto 0.2 % (0-4.4); Hematocrit 33.5 % (37.0-47.0); Lymphocytes Absolute Auto 0.68 K/mm3 (0.9-3.2); Lymphocytes Percent Auto 13.7 % (18.3-44.2); Mean Corpuscular HGB Conc 29.9 g/dl (32-36); Mean Corpuscular Hemoglobin 30.1 pg (26-34); Mean Corpuscular Volume 100.9 fl (80-100); Monocytes Absolute Auto 0.5 K/mm3 (0.1-0.6); Monocytes Percent Auto 10.1 % (2.6-8.5); Neutrophils Absolute Auto 3.6 K/mm3 (1.3-6.7); Neutrophils Percent Auto 73.6 % (45.5-73.1); Nucleated Red Blood Cells Perc 0.4 % (0.0-0.2); Platelet Count Result 118 k/mm3 (150-375); Red Blood Count 3.32 M/mm3 (4.2-5.4); Red Cell Distribution Width 20.4 % (11.5-14.5)
[2022-09-09 11:04] LABS: Alanine Aminotransferase 23 U/L (6-35); Albumin Level 4.1 g/dL (3.5-5.1); Alkaline Phosphatase 95 U/L (38-126); Aspartate Amino Transferase 21 U/L (14-36); Bilirubin,Total 0.7 mg/dL (0.2-1.3)
[2022-09-09 11:11] LABS: Platelet Estimate Decreased (Adequate)
[2022-09-09 11:12] LABS: Hypochromasia 1+ (NORMAL)
[2022-09-09 11:13] LABS: Anisocytosis 2+ (NORMAL); Target Cells 1+ (NORMAL)
[2022-09-09 11:14] LABS: Ovalocytes 1+ (NORMAL); Schistocytes 1+ (NORMAL)
[2022-09-09 11:15] LABS: Hemoglobin A1C 6.8 % (<5.7)
[2022-09-09 12:27] LABS: Folic Acid 13.5 ng/mL (2.76->20); Vitamin B12 > 1000.0 pg/mL (239-931)
== END 2022-09-09 10:27 | disposition home or self-care (01) ==
PROVIDERS: PCP Family Medicine; Visit Provider Family Medicine
DX: E78.5 Hyperlipidemia, unspecified (principal); E11.9 Type 2 diabetes mellitus without complications; E53.8 Deficiency of other specified B group vitamins; I10 Essential (primary) hypertension
CPT/HCPCS: 36415; 80076; 82607; 82746; 83036; 85025

== ENCOUNTER 2022-09-29 17:18 | Inpatient (IN) | payer OTHER, SELFPAY ==
--- NOTE | ~2022-09-29 | CT_ITS ---
EXAMINATION: CT abdomen pelvis w con DATE: 09/29/2022 21:25 INDICATION: Abdomen pain. Hematochezia. TECHNIQUE: Computed tomography (CT) of the abdomen and pelvis was performed with 100 cc Omnipaque 350 intravenous contrast. The dose-length product was 1635.00 mGy-cm. Automated exposure control and ite rative reconstruction technique were employed. COMPARISON: CT dated 07/24/2009 FINDINGS: There is a 5 mm right lower lobe nodule, unchanged from prior examination, benign. There is a 4 mm left lower lobe nodule, unchanged from prior study. Small right pleural effusion. Cardiomegal y. Small hiatal hernia. There is hepatomegaly. There are cholecystectomy clips. The spleen, pancreas, adrenal glands are unremarkable. There are small bilateral subcentimeter renal hypodensities, too sm all to characterize. The largest in the left kidney measures 1.9 cm and is compatible with a cyst. No hydronephrosis. Nonobstructive bowel gas pattern. There is a ventral hernia containing nonobstructed bowel. There is fecal impaction of the rectum which is moderately distended. There is mild perirecta l fatty infiltration, although no significant rectal wall thickening. Severe lumbar spondylosis with grade 1 degenerative spondylolisthesis at L4-5. There is mild osteoarthritis of the hips. There is mi ld dextroscoliosis of the thoracolumbar spine. IMPRESSION: 1. Small right pleural effusion. 2: Cardiomegaly. 3: Ventral hernia containing nonobstructed bowel. 4: Moderate fecal impaction of the rectum with mild surrounding perirectal infiltration. Cannot excl ude early stercoral proctitis. 5: Hepatomegaly. Reviewed, dictated and finalized at location A. E ASSEMBLER IMPRESSION: 1. Small right pleural effusion. 2: Cardiomegaly. 3: Ventral hernia containing nonobstructed bowel. 4: Moderate fecal impaction of the rectum with mild surrounding perirectal inf iltration. Cannot exclude early stercoral proctitis. 5: Hepatomegaly.
--- NOTE | ~2022-09-29 | XR_ITS ---
EXAMINATION: XR abdomen/kub 1V DATE: 10/02/2022 13:53 INDICATION: Constipation. TECHNIQUE: A supine view of the abdomen on 3 radiographs was obtained. COMPARISON: CT abdomen and pelvis 09/29/2022 FINDINGS: There are no dilated loops of bowel. There is a large volume of stool in the colon. There i s a ventral hernia containing bowel. Surgical clips in the right upper quadrant are likely from diogenes cystectomy. IMPRESSION: 1. Ventral hernia containing nonobstructed bowel. Reviewed, dictated and finalized at location A. RD MITIGATION OFFICER
[2022-09-29 17:24] VITALS: BP 159/101; PULSE 64; RESP 16; TEMP 36.2; O2SAT 98
[2022-09-29 17:53] LABS: Alanine Aminotransferase 22 U/L (6-35); Albumin Level 4.1 g/dL (3.5-5.1); Alkaline Phosphatase 82 U/L (38-126); Anion Gap 4 mmol/L (8-16); Aspartate Amino Transferase 19 U/L (14-36); Blood Urea Nitrogen 17 mg/dL (7-17); Calcium 8.5 mg/dL (8.4-10.2); Carbon Dioxide 29 mmol/L (22-30); Chloride 102 mmol/L (98-107); Estimated CRCL calculation 79 ml/min; Estimated Glomerular Filt Rate > 60; Glucose 134 mg/dL (65-110); Lipase 69 U/L (23-300); Potassium 4.3 mmol/L (3.4-5.0); Sodium 135 mmol/L (137-145)
[2022-09-29 17:58] LABS: Hematocrit 34.3 % (37.0-47.0); Hemoglobin 10.7 g/dL (12.0-15.0); Immature Platelet Fraction Pct 4.3 % (0.9-11.2); Mean Corpuscular HGB Conc 31.2 g/dl (32-36); Mean Corpuscular Hemoglobin 31.1 pg (26-34); Mean Corpuscular Volume 99.7 fl (80-100); Mean Platelet Volume 10.7 fl (7.4-10.4); Platelet Count Result 75 k/mm3 (150-375); Red Blood Count 3.44 M/mm3 (4.2-5.4); Red Cell Distribution Width 19.2 % (11.5-14.5); White Blood Count 2.2 K/mm3 (4.5-10.0)
[2022-09-29 18:36] LABS: Band Neutrophils Percent 3 % (0-6); Lymphocytes Absolute Manual 0.22 K/mm3 (1.1-4.5); Lymphocytes Percent Manual 10 % (18-44); Monocytes Absolute Manual 0.11 K/mm3 (0.1-0.90); Monocytes Percent Manual 5 % (3-9); Neutrophils Absolute Manual 1.87 K/mm3 (1.7-7.2); Neutrophils Percent Manual 82 % (46-73); Nucleated Red Blood Cells 1 %; Platelet Estimate Decreased (Adequate); Total Cells Counted 100
[2022-09-29 18:37] LABS: Anisocytosis 2+ (NORMAL); Burr Cells 2+ (NORMAL); Schistocytes None Seen (NORMAL)
[2022-09-29 20:40] VITALS: BP 152/64; PULSE 62; RESP 18; O2SAT 100
--- NOTE | 2022-09-29 21:06 | ED.ABDPAIN ---
HPI - Abdominal Pain General Chief Complaint: Abdominal Pain <Eva Hamilton PA-C - Last Filed: 09/30/22 02:04> Stated Complaint: CONSTIPATION X1WK <Eva Hamliton PA-C - Last Filed: 09/30/22 02:04> Time Seen by Provider: 09/29/22 20:27 <Eva Hamilton PA-C - Last Filed: 09/30/22 02:04> Source: patient <ZOE Jason Last Filed: 09/30/22 02:04> Mode of arrival: ambulatory <ZOE Jason Last Filed: 09/30/22 02:04> Limitations: no limitations <ZOE Jason Last Filed: 09/30/22 02:04> History of Present Illness HPI narrative: This is a 72 year old female that presents to the ER for abdominal pain and constipation. Ongoing over the last week. Reports she does have chronic problems with constipation. She has been taking laxatives the last couple of days with little relief. She has history of breast cancer and is currently on chemotherapy. Her last Chemo was 09/23. Reports she has seen bright red blood on the tissue when she wipes. She is on Rivaroxaban for history of atrial fibrillation. Denies fever or vomiting. <Eva Hamilton PA-C - Last Filed: 09/30/22 02:04> Related Data Home Medications: Home Medications Medication Instructions Recorded Confirmed amiodarone 200 mg tablet 200 mg PO DAILY 03/24/20 10/04/22 losartan 100 mg tablet 100 mg PO DAILY 03/24/20 10/04/22 metoprolol tartrate 50 mg tablet 50 mg PO Q12H 03/24/20 10/04/22 potassium chloride 20 mEq 20 meq PO BID 03/24/20 10/04/22 tablet,extended release cholecalciferol (vitamin D3) 1,250 1,250 mcg PO WEEKLY 07/06/20 10/04/22 mcg (50,000 unit) capsule rivaroxaban 20 mg tablet (Xarelto) 20 mg PO DAILY 06/07/21 10/04/22 acetaminophen 500 mg tablet 500 mg PO DAILY 10/14/21 10/04/22 atorvastatin 80 mg tablet 80 mg PO DAILY 10/14/21 10/04/22 dapagliflozin 10 mg tablet 10 mg PO DAILY 10/14/21 10/04/22 ([facility]) hydralazine 25 mg tablet 25 mg PO DAILY 10/14/21 10/04/22 glipizide 5 mg tablet, extended 5 mg PO DAILY 03/07/22 10/04/22 release 24 hr furosemide 80 mg tablet 80 mg PO DAILY 09/30/22 10/04/22 letrozole 2.5 mg tablet 2.5 mg PO DAILY 09/30/22 10/04/22 venlafaxine 37.5 mg 37.5 mg PO DAILY 09/30/22 10/04/22 capsule,extended release 24 hr <Eva Hamilton PA-C - Last Filed: 09/30/22 02:04> Allergies/Adverse Reactions: Allergies Allergy/AdvReac Type Severity Reaction Status Date / Time meperidine [From Demerol] Allergy Unknown Dizziness Verified 09/27/22 09:30 <Eva Hamilton PA-C - Last Filed: 09/30/22 02:04> Review of Systems Review of Systems: CONSTITUTIONAL: Denies fever ENT: Denies congestion, sore throat RESPIRATORY: Denies cough CARDIOVASCULAR: Denies chest pain GASTROINTESTINAL: Reports abdominal pain. Denies nausea, vomiting, or diarrhea. GENITOURINARY: Denies dysuria or hematuria. SKIN: Denies rash MUSCULOSKELETAL: Denies back pain NEUROLOGIC: Denies weakness. PSYCHIATRIC: Denies anxiety <Eva Hamilton PA-C - Last Filed: 09/30/22 02:04> All systems reviewed & are unremarkable except as noted in HPI and below <Eva Hamilton PA-C - Last Filed: 09/30/22 02:04> [facility] Past Medical History Medical History: Medical History (Updated 10/04/22 @ 18:17 by Nader Valdes MD) Abscess of Bartholin's gland Anemia Atrial fibrillation Benign hypertension Candidiasis Carpal tunnel syndrome Class 3 severe obesity due to excess calories with body mass index (BMI) of 40.0 to 44.9 in adult Congestive heart failure Diabetes Edema of lower extremity Hidradenitis suppurativa History of gastrointestinal procedure Hypertension Hypertensive disorder Impacted cerumen Incomplete uterovaginal prolapse Increased frequency of urination Lipoma of axilla Malignant tumor of breast Memory impairment Morbid obesity Open wound of anterior abdominal wall Osteoarthritis Pain in limb Sleep apnea Systemic lupus erythematosus Visual disturbance Vitamin D defi
[2022-09-29 21:46] LABS: INR 1.5; Prothrombin Time 17.3 Seconds (11.1-14.7)
[2022-09-29 21:47] LABS: Partial Thromboplastin Time 28.2 SECONDS (22.3-36.8)
[2022-09-29 22:14] LABS: Appearance Urine Clear (Clear); Bilirubin Urine Negative (Negative); Blood Urine Trace-intact (Negative); Color Urine Yellow (Yellow); Glucose Urine UA 3+ mg/dL (Negative); Ketones Urine Negative (Negative); Leukocyte Esterase Ur Negative LEU/UL (Negative); Nitrate Urine Negative (Negative); Protein Urine Negative (Negative); Specific Grav Ur <= 1.005 (1.001-1.035)
[2022-09-29] MEDS: BISACODYL 10 MG SUPPOSITORY RECTAL (22:25)
[2022-09-29 22:30] LABS: Bacteria Urine Trace /hpf; Mucus Urine Rare /lpf; Squamous Epithelial Cell Urine Occasional /hpf (Few); WBC Urine 0-3 /hpf
[2022-09-29 22:36] LABS: Add Urine Microscopic? YES
[2022-09-30] VITALS (9 sets, daily range): BP systolic 138–176; BP diastolic 62–89; PULSE 59–72; RESP 14–28; TEMP 36.4–37.3; O2SAT 90–100; BMI 44.2
[2022-09-30] MEDS: diphenhydrAMINE HCl INJ 50 MG/ML VIAL 25 MG IV PUSH (03:14)
[2022-09-30] MEDS: MAGNESIUM HYDROXIDE SUSP 30 ML UDC PO (03:15)
--- NOTE | 2022-09-30 04:55 | ADMGEN ---
This patient, Ivanna Beckman, was admitted to [facility] Room 304-01. Patient/family oriented to hospital policies and general routines including ID bracelet, bed and alarms, visiting hours, pain management, procedures, bathroom and other care routines, personal items, smoking policy, room service/diet, and visiting hours. Information on how to activate the Rapid Response Team has been discussed. Patient/Family are encouraged to report perceived risks to care and to ask questions if they do not understand what they are told or what they should do.
--- NOTE | 2022-09-30 05:34 | PC.NURSE ---
This patient, Ivanna Beckman, was transferred to [facility] on 09/29/22 at 2030. Personal belongings sent with patient. Report given to Susan by day shift nurse, Gillian. Appropriate documentation sent with patient.
--- NOTE | 2022-09-30 05:41 | PC.NURSE ---
Patient was found unresponsive by staff while doing vital signs. Patient was last seen around 0500 asleep in bed. Pulse was checked by several staff plus Charge nurse, chest was not rising and falling. Patient is a DNR
--- NOTE | 2022-09-30 08:14 | PM.IMHP ---
H&P: HPI History of Present Illness Date/Time: 09/30/22 08:14 Chief Complaint: Constipation Narrative: 72-year-old female with a history of diabetes, AFib, hypertension, breast cancer, CHF in a medically induced tremor. Patient presents to the ED on 09/29/2022 due to constipation, rectal pain and blood on her toilet paper. Patient states that her last bowel movement was 09/23/2022. Patient does have a history of constipation states that she typically has up to 3 bowel movements a week. Patient does take MiraLax intermittently. Patient stated that she arrived to the ER due to [facility] telling her that she needed to go due to blood on the toilet paper. Patient's hemoglobin stable. White blood cell count 2.2. No evidence of UTI on UA. CT scan of abdomen and pelvis showed fecal impaction with mild surrounding perirectal infiltration cannot exclude early proctitis. Patient was given suppository and milk of magnesia in the ER without relief. Patient admitted to observation. Further questioning of patient patient states that she had 3 laxatives at home and was not sure of what kind. Patient also states that she tried MiraLax a couple times without any success. Patient is not on chronic MiraLax but says that she takes it occasionally. Patient does have history of breast cancer and is currently on chemotherapy. Patient's last chemotherapy was 09/23. On 09/30/2022 patient was started on biscodyl suppository q.a.m., MiraLax b.i.d., Colace b.i.d. and soapsuds suppository. Patient did have a medium-sized bowel movement after suppository was given. Patient states that there was no blood in the stool or on the toilet paper. She was only in a minimal amount of pain. Patient denies nausea, vomiting, fever, shortness of breath, and chest pain. Patient's white count was 1.1. ANC was 0.6. Neutropenia most likely due to chemotherapy. Review of Systems Review of Systems: All systems reviewed & are unremarkable except as noted in HPI and below PMFSH Past Medical History Medical History (Updated 09/30/22 @ 15:53 by Saira Morley PA-C) Abscess of Bartholin's gland Anemia Atrial fibrillation Benign hypertension Candidiasis Carpal tunnel syndrome Class 3 severe obesity due to excess calories with body mass index (BMI) of 40.0 to 44.9 in adult Congestive heart failure Diabetes Edema of lower extremity Hidradenitis suppurativa History of gastrointestinal procedure Hypertension Hypertensive disorder Impacted cerumen Incomplete uterovaginal prolapse Increased frequency of urination Lipoma of axilla Malignant tumor of breast Memory impairment Morbid obesity Open wound of anterior abdominal wall Osteoarthritis Pain in limb Sleep apnea Systemic lupus erythematosus Visual disturbance Vitamin D deficiency White blood cell disorder Surgical History Surgical History (Updated 09/30/22 @ 15:54 by Saira Morley PA-C) H/O colonoscopy H/O hernia repair H/O left mastectomy 05/12/22 H/O mastectomy right and left 04/2022 History of delivery 3x History of cholecystectomy History of esophagogastroduodenoscopy (EGD) Hx of total knee arthroplasty Family History Family History Mother Hypertension Breast cancer Hypothyroidism Heart disease Family history of cancer Father Heart disease Alzheimer disease Sibling Renal failure syndrome Diabetes mellitus Hypertension Sibling Diabetes mellitus Hypertension Social History Social History (Updated 09/30/22 @ 15:54 by Saira Morley PA-C) Social History: Patient has a 20 pack-year smoking history. Patient states that she quit smoking 20 years ago. Patient occasionally drinks alcohol but has not since her breast cancer diagnosis. Smoking status: Former smoker Tobacco type: cigarettes Alcohol intake: never Substance use: never Lack of Transportation: No Lack of Food: Never True Current Ho
[2022-09-30 08:40] LABS: Glucose Point of Care 99 mg/dl (65-105)
[2022-09-30 08:51] LABS: Hematocrit 33.3 % (37.0-47.0); Hemoglobin 10.2 g/dL (12.0-15.0); Immature Platelet Fraction Pct 4.2 % (0.9-11.2); Mean Corpuscular HGB Conc 30.6 g/dl (32-36); Mean Corpuscular Volume 101.2 fl (80-100); Platelet Count Result 66 k/mm3 (150-375); Red Blood Count 3.29 M/mm3 (4.2-5.4); Red Cell Distribution Width 19.1 % (11.5-14.5)
[2022-09-30 09:08] LABS: Anion Gap 4 mmol/L (8-16); Blood Urea Nitrogen 15 mg/dL (7-17); Calcium 8.6 mg/dL (8.4-10.2); Carbon Dioxide 31 mmol/L (22-30); Chloride 102 mmol/L (98-107); Estimated CRCL calculation 78 ml/min; Estimated Glomerular Filt Rate > 60; Glucose 106 mg/dL (65-110); Potassium 3.8 mmol/L (3.4-5.0); Sodium 137 mmol/L (137-145)
[2022-09-30 10:35] LABS: White Blood Count 1.1 K/mm3 (4.5-10.0)
[2022-09-30 11:13] LABS: Basophils Percent Auto 1.9 % (0.2-1.2); Eosinophils Percent Auto 1.9 % (0-4.4); Hematocrit 34.6 % (37.0-47.0); Hemoglobin 10.5 g/dL (12.0-15.0); Immature Platelet Fraction Pct 4.7 % (0.9-11.2); Lymphocytes Absolute Auto 0.27 K/mm3 (0.9-3.2); Lymphocytes Percent Auto 25.7 % (18.3-44.2); Mean Corpuscular HGB Conc 30.3 g/dl (32-36); Mean Corpuscular Hemoglobin 30.5 pg (26-34); Mean Corpuscular Volume 100.6 fl (80-100); Mean Platelet Volume 11.4 fl (7.4-10.4); Monocytes Absolute Auto 0.2 K/mm3 (0.1-0.6); Monocytes Percent Auto 15.2 % (2.6-8.5); Neutrophils Absolute Auto 0.6 K/mm3 (1.3-6.7); Neutrophils Percent Auto 55.3 % (45.5-73.1); Platelet Count Result 64 k/mm3 (150-375); Red Blood Count 3.44 M/mm3 (4.2-5.4); Red Cell Distribution Width 19.3 % (11.5-14.5)
[2022-09-30 11:31] LABS: White Blood Count 1.1 K/mm3 (4.5-10.0)
[2022-09-30 11:56] LABS: Glucose Point of Care 117 mg/dl (65-105)
[2022-09-30] MEDS: polyethylene glycoL 3350 17 GM POWD.PACK PO ×2 (12:33→17:39)
[2022-09-30] MEDS: DOCUSATE SODIUM 100 MG CAPSULE PO ×2 (12:33→20:46)
[2022-09-30] MEDS: POTASSIUM CHLORIDE 20 MEQ TABLET.ER PO ×2 (12:33→17:39)
[2022-09-30] MEDS: ATORVASTATIN 40 MG TABLET 80 MG PO (12:33)
[2022-09-30] MEDS: EMPAGLIFLOZIN 25 MG TABLET PO (12:34)
[2022-09-30] MEDS: ACETAMINOPHEN 500 MG TABLET PO (12:34)
[2022-09-30] MEDS: METOPROLOL TARTRATE 50 MG TAB PO ×2 (12:34→20:46)
[2022-09-30] MEDS: LOSARTAN POTASSIUM 100 MG TABLET PO (12:34)
[2022-09-30] MEDS: hydrALAZINE HCL 25 MG TABLET PO (12:34)
[2022-09-30] MEDS: AMIODARONE HCL 200 MG TABLET PO (12:35)
--- NOTE | 2022-09-30 15:13 | PCDIET ---
Brief nutrition note: Pt screened for MST 4, -24-33 lb weight loss and poor appetite. Pt has been in testing today, not able to see. Will follow up on Monday for full assessment. Minerva Ferguson RD LDN
[2022-09-30 16:36] LABS: Glucose Point of Care 138 mg/dl (65-105)
[2022-09-30] MEDS: RIVAROXABAN 20 MG TABLET PO (17:39)
[2022-09-30 22:11] LABS: Glucose Point of Care 135 mg/dl (65-105)
[2022-10-01 06:00] VITALS: BP 121/62; PULSE 54; RESP 20; TEMP 37.3; O2SAT 100
[2022-10-01 08:08] LABS: Potassium 4.3 mmol/L (3.4-5.0)
--- NOTE | 2022-10-01 08:22 | PM.IMPN ---
Progress Note: A&P Assessment and Plan (1) Fecal impaction: Code(s): K56.41 - Fecal impaction Status: Acute Assessment and Plan: -bisacodyl suppository scheduled -miralax BID scheduled. -soap suds enema -Colace BID -acetaminophen 650 mg q6 prn -Zosyn discontinued due to low probability of proctitis. Patient does not have a white blood cell count nor is she febrile. -medium size BM yesterday -another edema ordered (2) Neutropenia: Code(s): D70.9 - Neutropenia, unspecified Status: Acute Assessment and Plan: 09/30 White blood cell count 1.1 Absolute neutrophil count 0.6 continue to monitor CBC with diff Most likely due to recent chemotherapy 10/01 White blood cell count 0.6 ANC today 0.1 Oncology/hematology consulted and following patient. Appreciate their recommendations. Patient put on neutropenic precautions (3) Malignant tumor of breast: Code(s): C50.919 - Malignant neoplasm of unspecified site of unspecified female breast Status: Acute Assessment and Plan: Last chemotherapy 09/23 Patient has medication induced tremor due to a type of nausea vomiting medication given to her by oncologist. Patient has discontinued this medication on 09/23 Tremor still persist. (4) Hypertension: Code(s): I10 - Essential (primary) hypertension Status: Acute Assessment and Plan: Continue hydralazine, losartan, metoprolol as BP allows. (5) Atrial fibrillation: Code(s): I48.91 - Unspecified atrial fibrillation Status: Acute Assessment and Plan: Continue amiodarone and Xarelto (6) Diabetes: Code(s): E11.9 - Type 2 diabetes mellitus without complications Status: Acute Assessment and Plan: Continue farxiga, glipazide Time Spent With Patient Time with patient: Greater than 35 minutes Subjective Date/time seen: 10/01/22 08:22 Interval history: 72-year-old female with a history of diabetes, AFib, hypertension, breast cancer, CHF in a medically induced tremor.? Patient is sitting in chair eating breakfast during the interview. Patient has had 1 bowel movement since she has been in the hospital. Patient states that she still having some rectal discomfort but it has improved since her arrival to the ED. Patient denies abdominal pain, nausea, vomiting, fever, body aches, cough, chest pain, shortness a breath. Review of Systems Review of Systems: All systems reviewed & are unremarkable except as noted in HPI and below Exam Narrative: GENERAL: Comfortable, no acute distress, morbidly obese HENMT: moist mucous membranes EYES: EOM intact b/l NECK: no lymphadenopathy RESPIRATORY: clear to auscultation CARDIO: irregular rhythm, rate controlled CHEST: double mastectomy GI: soft, nontender, bowel sounds present SKIN: no rashes EXTREMITIES: no edema, redness or tenderness Objective Data Vital Signs Vital Signs: Vital Signs - 24 hr 09/30/22 12:34 09/30/22 12:35 09/30/22 14:00 Temperature 99.1 F Pulse Rate 72 72 63 Respiratory Rate 20 Blood Pressure 155/63 H Pulse Oximetry 98 Oxygen Delivery 09/30/22 20:46 09/30/22 22:16 09/30/22 20:00 Temperature Pulse Rate 72 Respiratory Rate 28 H Blood Pressure Pulse Oximetry Oxygen Delivery Autopap Room Air 09/30/22 22:00 10/01/22 06:00 Temperature 97.5 F L 99.1 F Pulse Rate 59 L 54 L Respiratory Rate 16 20 Blood Pressure 138/62 121/62 Pulse Oximetry 90 100 Oxygen Delivery Intake/Output Intake/Output: Intake & Output 09/28/22 09/29/22 09/30/22 10/01/22 23:59 23:59 23:59 23:59 Intake Total 1270 Output Total 200 Balance 1070 Meds/Results Medications: Active Medications Generic Name Dose Route Start Last Admin Trade Name Freq PRN Reason Stop Dose Admin Acetaminophen 500 mg 09/30/22 09:00 09/30/22 12:34 Acetaminophen 500 Mg Tablet PO 500 mg DAILY JOSE MIGUEL Administration Amiodarone HCl
[2022-10-01 08:31] VITALS: PULSE 66
[2022-10-01 08:31] LABS: Glucose Point of Care 95 mg/dl (65-105)
[2022-10-01] MEDS: AMIODARONE HCL 200 MG TABLET PO (08:31)
[2022-10-01] MEDS: POTASSIUM CHLORIDE 20 MEQ TABLET.ER PO ×2 (08:31→17:03)
[2022-10-01] MEDS: METOPROLOL TARTRATE 50 MG TAB PO ×2 (08:31→21:25)
[2022-10-01] MEDS: polyethylene glycoL 3350 17 GM POWD.PACK PO ×2 (08:31→17:03)
[2022-10-01] MEDS: BISACODYL 10 MG SUPPOSITORY RECTAL (08:31)
[2022-10-01] MEDS: DOCUSATE SODIUM 100 MG CAPSULE PO ×2 (08:31→21:25)
[2022-10-01] MEDS: hydrALAZINE HCL 25 MG TABLET PO (08:31)
[2022-10-01] MEDS: ACETAMINOPHEN 500 MG TABLET PO (08:31)
[2022-10-01] MEDS: EMPAGLIFLOZIN 25 MG TABLET PO (08:31)
[2022-10-01] MEDS: LOSARTAN POTASSIUM 100 MG TABLET PO (08:31)
[2022-10-01] MEDS: ATORVASTATIN 40 MG TABLET 80 MG PO (08:31)
[2022-10-01] MEDS: glipiZIDE 5 MG TABLET PO (08:31)
[2022-10-01 08:46] LABS: Alanine Aminotransferase 19 U/L (6-35); Albumin Level 3.4 g/dL (3.5-5.1); Alkaline Phosphatase 76 U/L (38-126); Anion Gap 4 mmol/L (8-16); Aspartate Amino Transferase 15 U/L (14-36); Basophils Percent Auto 1.8 % (0.2-1.2); Blood Urea Nitrogen 13 mg/dL (7-17); Calcium 8.3 mg/dL (8.4-10.2); Carbon Dioxide 30 mmol/L (22-30); Chloride 103 mmol/L (98-107); Eosinophils Percent Auto 5.4 % (0-4.4); Estimated CRCL calculation 78 ml/min; Estimated Glomerular Filt Rate > 60; Glucose 104 mg/dL (65-110); Hematocrit 31.2 % (37.0-47.0); Hemoglobin 9.8 g/dL (12.0-15.0); Immature Platelet Fraction Pct 5.8 % (0.9-11.2); Lymphocytes Absolute Auto 0.22 K/mm3 (0.9-3.2); Lymphocytes Percent Auto 39.3 % (18.3-44.2); Mean Corpuscular HGB Conc 31.4 g/dl (32-36); Mean Corpuscular Hemoglobin 31.7 pg (26-34); Mean Platelet Volume 11.2 fl (7.4-10.4); Monocytes Absolute Auto 0.2 K/mm3 (0.1-0.6); Monocytes Percent Auto 33.9 % (2.6-8.5); Neutrophils Absolute Auto 0.1 K/mm3 (1.3-6.7); Neutrophils Percent Auto 19.6 % (45.5-73.1); Platelet Count Result 60 k/mm3 (150-375); Potassium 4.6 mmol/L (3.4-5.0); Red Blood Count 3.09 M/mm3 (4.2-5.4); Red Cell Distribution Width 19.4 % (11.5-14.5); Sodium 137 mmol/L (137-145)
[2022-10-01 09:22] LABS: Acanthocytes 2+ (NORMAL); Ovalocytes 2+ (NORMAL); White Blood Count 0.6 K/mm3 (4.5-10.0)
[2022-10-01 09:23] LABS: Platelet Estimate Decreased (Adequate); Schistocytes 1+ (NORMAL); Tear Drop Cells 2+ (NORMAL)
[2022-10-01 11:56] LABS: Glucose Point of Care 79 mg/dl (65-105)
[2022-10-01] MEDS: FILGRASTIM-SNDZ 300 MCG/0.5 ML SYRINGE SUB-Q (11:57)
[2022-10-01 16:26] VITALS: BP 137/63; PULSE 60; RESP 18; TEMP 36.9; O2SAT 99
[2022-10-01 17:02] LABS: Glucose Point of Care 65 mg/dl (65-105)
[2022-10-01] MEDS: RIVAROXABAN 20 MG TABLET PO (17:03)
[2022-10-01 21:25] VITALS: PULSE 62
[2022-10-01 21:31] LABS: Glucose Point of Care 77 mg/dl (65-105)
[2022-10-01 22:00] VITALS: BP 144/50; PULSE 61; RESP 18; TEMP 36.9; O2SAT 97
[2022-10-02] VITALS (7 sets, daily range): BP systolic 132–146; BP diastolic 43–84; PULSE 60–68; RESP 14–24; TEMP 36.3–37.1; O2SAT 98–100
[2022-10-02 07:57] LABS: Basophils Percent Auto 0.7 % (0.2-1.2); Eosinophils Percent Auto 2.7 % (0-4.4); Hematocrit 33.1 % (37.0-47.0); Hemoglobin 9.9 g/dL (12.0-15.0); Immature Granulocyte Absolute 0.02 K/mm3 (0.00-0.031); Immature Granulocyte Percent A 1.4 % (0-0.5); Immature Platelet Fraction Pct 6.4 % (0.9-11.2); Lymphocytes Percent Auto 20.3 % (18.3-44.2); Mean Corpuscular HGB Conc 29.9 g/dl (32-36); Mean Corpuscular Hemoglobin 30.7 pg (26-34); Mean Corpuscular Volume 102.8 fl (80-100); Mean Platelet Volume 11.9 fl (7.4-10.4); Monocytes Absolute Auto 0.4 K/mm3 (0.1-0.6); Monocytes Percent Auto 23.6 % (2.6-8.5); Neutrophils Absolute Auto 0.8 K/mm3 (1.3-6.7); Neutrophils Percent Auto 51.3 % (45.5-73.1); Platelet Count Result 67 k/mm3 (150-375); Red Blood Count 3.22 M/mm3 (4.2-5.4); Red Cell Distribution Width 19.3 % (11.5-14.5)
[2022-10-02 08:10] LABS: Alanine Aminotransferase 18 U/L (6-35); Albumin Level 3.5 g/dL (3.5-5.1); Alkaline Phosphatase 72 U/L (38-126); Anion Gap 4 mmol/L (8-16); Aspartate Amino Transferase 16 U/L (14-36); Bilirubin,Total 0.6 mg/dL (0.2-1.3); Blood Urea Nitrogen 14 mg/dL (7-17); Calcium 8.4 mg/dL (8.4-10.2); Carbon Dioxide 28 mmol/L (22-30); Chloride 101 mmol/L (98-107); Estimated CRCL calculation 70 ml/min; Estimated Glomerular Filt Rate > 60; Glucose 80 mg/dL (65-110); Potassium 3.9 mmol/L (3.4-5.0); Sodium 133 mmol/L (137-145)
[2022-10-02 08:16] LABS: Glucose Point of Care 84 mg/dl (65-105)
[2022-10-02] MEDS: hydrALAZINE HCL 25 MG TABLET PO (08:37)
[2022-10-02] MEDS: DOCUSATE SODIUM 100 MG CAPSULE PO ×2 (08:38→20:25)
[2022-10-02] MEDS: POTASSIUM CHLORIDE 20 MEQ TABLET.ER PO ×2 (08:38→17:05)
[2022-10-02] MEDS: EMPAGLIFLOZIN 25 MG TABLET PO (08:38)
[2022-10-02] MEDS: ACETAMINOPHEN 500 MG TABLET PO (08:38)
[2022-10-02] MEDS: LOSARTAN POTASSIUM 100 MG TABLET PO (08:38)
[2022-10-02] MEDS: polyethylene glycoL 3350 17 GM POWD.PACK PO (08:38)
[2022-10-02] MEDS: glipiZIDE 5 MG TABLET PO (08:38)
[2022-10-02] MEDS: AMIODARONE HCL 200 MG TABLET PO (08:38)
[2022-10-02] MEDS: ATORVASTATIN 40 MG TABLET 80 MG PO (08:38)
[2022-10-02] MEDS: METOPROLOL TARTRATE 50 MG TAB PO ×2 (08:38→20:25)
[2022-10-02] MEDS: BISACODYL 10 MG SUPPOSITORY RECTAL (08:39)
[2022-10-02] MEDS: FILGRASTIM-SNDZ 300 MCG/0.5 ML SYRINGE SUB-Q (08:40)
--- NOTE | 2022-10-02 08:40 | PM.IMPN ---
Progress Note: A&P Assessment and Plan (1) Fecal impaction: Code(s): K56.41 - Fecal impaction Status: Acute Assessment and Plan: -bisacodyl suppository scheduled -miralax increase to t.i.d.. -soap suds enema -Colace BID -acetaminophen 650 mg q6 prn -Zosyn discontinued due to low probability of proctitis. Patient does not have a white blood cell count nor is she febrile. -medium size bowel movement on 09/30/2022 -patient has had small palpable sized bowel movements but nothing substantial on 10/02/2022 -continue soapsuds enema as needed -KUB findings: There are no dilated loops of bowel. There is large volume of stool in the colon. Ventral hernia containing bowel. Surgical clips in the right upper quadrant likely from cholecystectomy. (2) Neutropenia: Code(s): D70.9 - Neutropenia, unspecified Status: Acute Assessment and Plan: 09/30 White blood cell count 1.1 Absolute neutrophil count 0.6 continue to monitor CBC with diff Most likely due to recent chemotherapy 10/01 White blood cell count 0.6 ANC today 0.1 Oncology/hematology consulted and following patient. Appreciate their recommendations. Patient put on neutropenic precautions 10/02 Patient started on Neupogen per Hematology/Oncology (3) Malignant tumor of breast: Code(s): C50.919 - Malignant neoplasm of unspecified site of unspecified female breast Status: Acute Assessment and Plan: Last chemotherapy 09/23 Patient has medication induced tremor due to a type of nausea vomiting medication given to her by oncologist. Patient has discontinued this medication on 09/23 Tremor still persists. (4) Hypertension: Code(s): I10 - Essential (primary) hypertension Status: Acute Assessment and Plan: Continue hydralazine, losartan, metoprolol as BP allows. (5) Atrial fibrillation: Code(s): I48.91 - Unspecified atrial fibrillation Status: Acute Assessment and Plan: Continue amiodarone and Xarelto (6) Diabetes: Code(s): E11.9 - Type 2 diabetes mellitus without complications Status: Acute Assessment and Plan: Continue farxiga, glipazide Time Spent With Patient Time with patient: Greater than 35 minutes Subjective Date/time seen: 10/02/22 08:40 Interval history: 72-year-old female with a history of diabetes, AFib, hypertension, breast cancer, CHF in a medically induced tremor.? Patient states that she has had several small pebble size bowel movements. Patient is still having some rectal pain when she tries to use the bathroom. But otherwise denies abdominal pain, nausea, vomiting, fever, dizziness, shortness of breath and chest pain. Review of Systems Review of Systems: All systems reviewed & are unremarkable except as noted in HPI and below Exam Narrative: GENERAL: Comfortable, no acute distress, morbidly obese, resting tremor HENMT: moist mucous membranes EYES: EOM intact b/l NECK: no lymphadenopathy RESPIRATORY: clear to auscultation CARDIO: irregular rhythm, rate controlled CHEST: double mastectomy GI: soft, nontender, bowel sounds present SKIN: no rashes EXTREMITIES: no edema, redness or tenderness Objective Data Vital Signs Vital Signs: Vital Signs - 24 hr 10/01/22 09:41 10/01/22 16:26 10/01/22 21:25 Temperature 98.5 F Pulse Rate 60 62 Respiratory Rate 18 Blood Pressure 137/63 Pulse Oximetry 99 Oxygen Delivery Room Air 10/02/22 01:32 10/01/22 22:00 10/02/22 06:00 Temperature 98.5 F 98.7 F Pulse Rate 61 60 Respiratory Rate 24 H 18 17 Blood Pressure 144/50 H 140/43 L Pulse Oximetry 97 98 Oxygen Delivery Autopap Intake/Output Intake/Output: Intake & Output 09/29/22 09/30/22 10/01/22 10/02/22 23:59 23:59 23:59 23:59 Intake Total 1270 1415 Output Total 200 850 900 Balance 1070 565 -900 Meds/Results Medications: Active Medications Generi
[2022-10-02 08:57] LABS: White Blood Count 1.5 K/mm3 (4.5-10.0)
[2022-10-02 12:07] LABS: Glucose Point of Care 97 mg/dl (65-105)
[2022-10-02] MEDS: VENLAFAXINE HCL XR 37.5 MG CAP PO (14:18)
[2022-10-02] MEDS: LETROZOLE (*CHEMO) 2.5 MG TABLET PO (14:18)
[2022-10-02 16:58] LABS: Glucose Point of Care 79 mg/dl (65-105)
[2022-10-02] MEDS: RIVAROXABAN 20 MG TABLET PO (17:05)
[2022-10-02 20:57] LABS: Glucose Point of Care 97 mg/dl (65-105)
[2022-10-03 05:10] VITALS: BP 143/64; PULSE 60; RESP 12; TEMP 36.2; O2SAT 100
[2022-10-03] MEDS: glipiZIDE 5 MG TABLET PO (06:03)
[2022-10-03 06:58] LABS: Hematocrit 32.5 % (37.0-47.0); Hemoglobin 9.9 g/dL (12.0-15.0); Immature Platelet Fraction Pct 6.2 % (0.9-11.2); Mean Corpuscular HGB Conc 30.5 g/dl (32-36); Mean Corpuscular Hemoglobin 30.2 pg (26-34); Mean Corpuscular Volume 99.1 fl (80-100); Mean Platelet Volume 11.7 fl (7.4-10.4); Platelet Count Result 80 k/mm3 (150-375); Red Blood Count 3.28 M/mm3 (4.2-5.4); Red Cell Distribution Width 19.3 % (11.5-14.5); White Blood Count 7.4 K/mm3 (4.5-10.0)
[2022-10-03 07:05] LABS: Alanine Aminotransferase 22 U/L (6-35); Albumin Level 3.8 g/dL (3.5-5.1); Alkaline Phosphatase 89 U/L (38-126); Anion Gap 5 mmol/L (8-16); Aspartate Amino Transferase 23 U/L (14-36); Bilirubin,Total 0.7 mg/dL (0.2-1.3); Blood Urea Nitrogen 12 mg/dL (7-17); Calcium 8.5 mg/dL (8.4-10.2); Carbon Dioxide 30 mmol/L (22-30); Chloride 103 mmol/L (98-107); Estimated CRCL calculation 70 ml/min; Estimated Glomerular Filt Rate > 60; Glucose 76 mg/dL (65-110); Potassium 4.4 mmol/L (3.4-5.0); Sodium 138 mmol/L (137-145)
[2022-10-03 08:24] LABS: Glucose Point of Care 67 mg/dl (65-105)
[2022-10-03] MEDS: DOCUSATE SODIUM 100 MG CAPSULE PO ×2 (08:39→20:08)
[2022-10-03] MEDS: ATORVASTATIN 40 MG TABLET 80 MG PO (08:40)
[2022-10-03] MEDS: ACETAMINOPHEN 500 MG TABLET PO (08:40)
[2022-10-03 08:41] VITALS: PULSE 58
[2022-10-03] MEDS: METOPROLOL TARTRATE 50 MG TAB PO ×2 (08:41→20:08)
[2022-10-03] MEDS: LETROZOLE (*CHEMO) 2.5 MG TABLET PO (08:41)
[2022-10-03 08:42] VITALS: PULSE 58
[2022-10-03] MEDS: VENLAFAXINE HCL XR 37.5 MG CAP PO (08:42)
[2022-10-03] MEDS: hydrALAZINE HCL 25 MG TABLET PO (08:42)
[2022-10-03] MEDS: AMIODARONE HCL 200 MG TABLET PO (08:42)
[2022-10-03] MEDS: EMPAGLIFLOZIN 25 MG TABLET PO (08:42)
[2022-10-03] MEDS: LOSARTAN POTASSIUM 100 MG TABLET PO (08:42)
[2022-10-03] MEDS: LACTULOSE 20 GM/30 ML UDC PO (08:43)
[2022-10-03] MEDS: POTASSIUM CHLORIDE 20 MEQ TABLET.ER PO ×2 (08:43→16:42)
[2022-10-03] MEDS: FILGRASTIM-SNDZ 300 MCG/0.5 ML SYRINGE SUB-Q (08:48)
[2022-10-03 08:57] LABS: Glucose Point of Care 82 mg/dl (65-105)
[2022-10-03 10:53] LABS: Band Neutrophils Percent 25 % (0-6); Eosinophils Absolute Manual 0.14 K/mm3 (0.02-0.5); Eosinophils Percent Manual 2 % (0-4); Lymphocytes Absolute Manual 0.88 K/mm3 (1.1-4.5); Metamyelocytes Percent 3 %; Monocytes Absolute Manual 0.59 K/mm3 (0.1-0.90); Monocytes Percent Manual 8 % (3-9); Neutrophils Absolute Manual 5.55 K/mm3 (1.7-7.2); Neutrophils Percent Manual 50 % (46-73); Nucleated Red Blood Cells 1 %; Total Cells Counted 100
[2022-10-03 10:55] LABS: Acanthocytes 1+ (NORMAL); Ovalocytes 1+ (NORMAL); Schistocytes 1+ (NORMAL)
[2022-10-03 10:56] LABS: Poikilocytosis 2+ (NORMAL); Tear Drop Cells 1+ (NORMAL)
[2022-10-03 11:59] LABS: Glucose Point of Care 80 mg/dl (65-105)
--- NOTE | 2022-10-03 13:19 | PM.IMPN ---
Progress Note: A&P Assessment and Plan (1) Fecal impaction: Code(s): K56.41 - Fecal impaction Status: Acute Assessment and Plan: -bisacodyl suppository scheduled -miralax increase to t.i.d.. -soap suds enema -Colace BID -acetaminophen 650 mg q6 prn -Zosyn discontinued due to low probability of proctitis. Patient does not have a white blood cell count nor is she febrile. -medium size bowel movement on 09/30/2022 -patient has had small pebble sized bowel movements but nothing substantial on 10/02/2022 -continue soapsuds enema as needed -KUB findings: There are no dilated loops of bowel. There is large volume of stool in the colon. Ventral hernia containing bowel. Surgical clips in the right upper quadrant likely from cholecystectomy. 10/03 -enema and suppository canceled due to neutropenia. -Patient started on lactulose q.d. along with Colace. -probable discharge tomorrow. (2) Neutropenia: Code(s): D70.9 - Neutropenia, unspecified Status: Acute Assessment and Plan: 09/30 White blood cell count 1.1 Absolute neutrophil count 0.6 continue to monitor CBC with diff Most likely due to recent chemotherapy 10/01 White blood cell count 0.6 ANC today 0.1 Oncology/hematology consulted and following patient. Appreciate their recommendations. Patient put on neutropenic precautions 10/02 Patient started on Neupogen per Hematology/Oncology 10/03 Patient white blood cell count today 7.4. Neutropenic protocols discontinue Advise follow-up with oncologist/demurrage agent (3) Malignant tumor of breast: Code(s): C50.919 - Malignant neoplasm of unspecified site of unspecified female breast Status: Acute Assessment and Plan: Last chemotherapy 09/23 Patient has medication induced tremor due to a type of nausea vomiting medication given to her by oncologist. Patient has discontinued this medication on 09/23 Tremor still persists. (4) Hypertension: Code(s): I10 - Essential (primary) hypertension Status: Acute Assessment and Plan: Continue hydralazine, losartan, metoprolol as BP allows. (5) Atrial fibrillation: Code(s): I48.91 - Unspecified atrial fibrillation Status: Acute Assessment and Plan: Continue amiodarone and Xarelto (6) Diabetes: Code(s): E11.9 - Type 2 diabetes mellitus without complications Status: Acute Assessment and Plan: Continue farxiga, glipazide Subjective Date/time seen: 10/03/22 13:19 Interval history: 72-year-old female with a history of diabetes, AFib, hypertension, breast cancer, CHF in a medically induced tremor.? Patient states that she has had several small pebble size bowel movements. Patient states that rectal pain has resolved but is still unable to have a bowel movement. Patient denies chest pain, shortness a breath, nausea, vomiting, abdominal pain, diarrhea, fever, cough. Review of Systems Review of Systems: All systems reviewed & are unremarkable except as noted in HPI and below Exam Narrative: GENERAL: Comfortable, no acute distress, morbidly obese, resting tremor HENMT: moist mucous membranes EYES: EOM intact b/l NECK: no lymphadenopathy RESPIRATORY: clear to auscultation CARDIO: irregular rhythm, rate controlled CHEST: double mastectomy GI: soft, nontender, bowel sounds present SKIN: no rashes EXTREMITIES: no edema, redness or tenderness Objective Data Vital Signs Vital Signs: Vital Signs - 24 hr 10/02/22 14:00 10/02/22 20:25 10/02/22 21:30 Temperature 98.7 F 97.4 F L Pulse Rate 63 64 62 Respiratory Rate 16 14 Blood Pressure 146/84 H 132/59 L Pulse Oximetry 100 100 Oxygen Delivery 10/02/22 20:00 10/03/22 05:10 10/02/22 23:05 Temperature 97.2 F L Pulse Rate 60 62 Respiratory Rate 12 23 H Blood Pressure 143/64 H Pulse Oximetry 100 98 Oxygen Delivery Room Air [employer] 10/03/22 08:41 12
[2022-10-03 13:42] VITALS: BMI 44.2
[2022-10-03 14:00] VITALS: BP 114/67; PULSE 58; RESP 24; TEMP 37; O2SAT 98
[2022-10-03 16:47] LABS: Glucose Point of Care 57 mg/dl (65-105)
[2022-10-03] MEDS: RIVAROXABAN 20 MG TABLET PO (16:59)
[2022-10-03 17:07] LABS: Glucose Point of Care 64 mg/dl (65-105)
[2022-10-03 18:15] LABS: Glucose Point of Care 93 mg/dl (65-105)
[2022-10-03 20:08] VITALS: PULSE 59
[2022-10-03 21:52] LABS: Glucose Point of Care 84 mg/dl (65-105)
[2022-10-03 22:00] VITALS: BP 154/73; PULSE 64; RESP 23; TEMP 36.6; O2SAT 100
[2022-10-04 06:00] VITALS: BP 146/64; PULSE 108; RESP 15; TEMP 36.6; O2SAT 100
[2022-10-04 06:43] LABS: Basophils Percent Auto 0.1 % (0.2-1.2); Eosinophils Absolute Auto 0.1 K/mm3 (0-0.3); Eosinophils Percent Auto 0.4 % (0-4.4); Hematocrit 31.7 % (37.0-47.0); Hemoglobin 9.6 g/dL (12.0-15.0); Immature Granulocyte Absolute 1.37 K/mm3 (0.00-0.031); Immature Platelet Fraction Pct 5.8 % (0.9-11.2); Lymphocytes Absolute Auto 0.84 K/mm3 (0.9-3.2); Lymphocytes Percent Auto 6.1 % (18.3-44.2); Mean Corpuscular HGB Conc 30.3 g/dl (32-36); Mean Corpuscular Hemoglobin 30.8 pg (26-34); Mean Corpuscular Volume 101.6 fl (80-100); Mean Platelet Volume 10.6 fl (7.4-10.4); Monocytes Absolute Auto 1.2 K/mm3 (0.1-0.6); Monocytes Percent Auto 8.4 % (2.6-8.5); Neutrophils Absolute Auto 10.3 K/mm3 (1.3-6.7); Nucleated Red Blood Cells Perc 0.3 % (0.0-0.2); Platelet Count Result 94 k/mm3 (150-375); Red Blood Count 3.12 M/mm3 (4.2-5.4); Red Cell Distribution Width 19.8 % (11.5-14.5); White Blood Count 13.7 K/mm3 (4.5-10.0)
[2022-10-04 06:48] LABS: Alanine Aminotransferase 22 U/L (6-35); Albumin Level 3.5 g/dL (3.5-5.1); Alkaline Phosphatase 123 U/L (38-126); Anion Gap 1 mmol/L (8-16); Aspartate Amino Transferase 24 U/L (14-36); Bilirubin,Total 0.5 mg/dL (0.2-1.3); Blood Urea Nitrogen 10 mg/dL (7-17); Calcium 8.7 mg/dL (8.4-10.2); Carbon Dioxide 32 mmol/L (22-30); Chloride 101 mmol/L (98-107); Estimated CRCL calculation 70 ml/min; Estimated Glomerular Filt Rate > 60; Glucose 78 mg/dL (65-110); Potassium 4.1 mmol/L (3.4-5.0); Sodium 134 mmol/L (137-145)
[2022-10-04 07:45] LABS: Glucose Point of Care 83 mg/dl (65-105)
[2022-10-04 08:05] LABS: Acanthocytes 1+ (NORMAL); Burr Cells 1+ (NORMAL); Ovalocytes 1+ (NORMAL); Platelet Estimate Decreased (Adequate)
[2022-10-04 08:06] LABS: Schistocytes None Seen (NORMAL)
[2022-10-04 08:43] VITALS: PULSE 54
[2022-10-04] MEDS: AMIODARONE HCL 200 MG TABLET PO (08:43)
[2022-10-04] MEDS: hydrALAZINE HCL 25 MG TABLET PO (08:44)
[2022-10-04] MEDS: ACETAMINOPHEN 500 MG TABLET PO (08:44)
[2022-10-04] MEDS: POTASSIUM CHLORIDE 20 MEQ TABLET.ER PO (08:44)
[2022-10-04] MEDS: LETROZOLE (*CHEMO) 2.5 MG TABLET PO (08:44)
[2022-10-04] MEDS: LOSARTAN POTASSIUM 100 MG TABLET PO (08:44)
[2022-10-04] MEDS: VENLAFAXINE HCL XR 37.5 MG CAP PO (08:44)
[2022-10-04 08:45] VITALS: PULSE 54
[2022-10-04] MEDS: METOPROLOL TARTRATE 50 MG TAB PO (08:45)
[2022-10-04] MEDS: LACTULOSE 20 GM/30 ML UDC PO (08:45)
[2022-10-04] MEDS: ATORVASTATIN 40 MG TABLET 80 MG PO (08:45)
[2022-10-04] MEDS: DOCUSATE SODIUM 100 MG CAPSULE PO (08:45)
[2022-10-04] MEDS: EMPAGLIFLOZIN 25 MG TABLET PO (08:45)
--- NOTE | 2022-10-04 08:54 | PM.IMPN ---
Progress Note: A&P Assessment and Plan (1) Fecal impaction: Code(s): K56.41 - Fecal impaction Status: Acute Assessment and Plan: -bisacodyl suppository scheduled -miralax increase to t.i.d.. -soap suds enema -Colace BID -acetaminophen 650 mg q6 prn -Zosyn discontinued due to low probability of proctitis. Patient does not have a white blood cell count nor is she febrile. -medium size bowel movement on 09/30/2022 -patient has had small pebble sized bowel movements but nothing substantial on 10/02/2022 -continue soapsuds enema as needed -KUB findings: There are no dilated loops of bowel. There is large volume of stool in the colon. Ventral hernia containing bowel. Surgical clips in the right upper quadrant likely from cholecystectomy. 10/03 -enema and suppository canceled due to neutropenia. -Patient started on lactulose q.d. along with Colace. -probable discharge tomorrow. (2) Neutropenia: Code(s): D70.9 - Neutropenia, unspecified Status: Acute Assessment and Plan: 09/30 White blood cell count 1.1 Absolute neutrophil count 0.6 continue to monitor CBC with diff Most likely due to recent chemotherapy 10/01 White blood cell count 0.6 ANC today 0.1 Oncology/hematology consulted and following patient. Appreciate their recommendations. Patient put on neutropenic precautions 10/02 Patient started on Neupogen per Hematology/Oncology 10/03 Patient white blood cell count today 7.4. Neutropenic protocols discontinue Advise follow-up with oncologist/button breaker (3) Malignant tumor of breast: Code(s): C50.919 - Malignant neoplasm of unspecified site of unspecified female breast Status: Acute Assessment and Plan: Last chemotherapy 09/23 Patient has medication induced tremor due to a type of nausea vomiting medication given to her by oncologist. Patient has discontinued this medication on 09/23 Tremor still persists. (4) Hypertension: Code(s): I10 - Essential (primary) hypertension Status: Acute Assessment and Plan: Continue hydralazine, losartan, metoprolol as BP allows. (5) Atrial fibrillation: Code(s): I48.91 - Unspecified atrial fibrillation Status: Acute Assessment and Plan: Continue amiodarone and Xarelto (6) Diabetes: Code(s): E11.9 - Type 2 diabetes mellitus without complications Status: Acute Assessment and Plan: Continue farxiga, glipazide Subjective Date/time seen: 10/04/22 08:54 Interval history: 72-year-old female with a history of diabetes, AFib, hypertension, breast cancer, CHF in a medically induced tremor.? Exam Narrative: GENERAL: Comfortable, no acute distress, morbidly obese, resting tremor HENMT: moist mucous membranes EYES: EOM intact b/l NECK: no lymphadenopathy RESPIRATORY: clear to auscultation CARDIO: irregular rhythm, rate controlled CHEST: double mastectomy GI: soft, nontender, bowel sounds present SKIN: no rashes EXTREMITIES: no edema, redness or tenderness Objective Data Vital Signs Vital Signs: Vital Signs - 24 hr 10/03/22 14:00 10/03/22 20:08 10/03/22 20:00 Temperature 98.6 F Pulse Rate 58 L 59 L Respiratory Rate 24 H Blood Pressure 114/67 Pulse Oximetry 98 Oxygen Delivery Room Air 10/03/22 22:00 10/04/22 06:00 10/04/22 08:43 Temperature 97.8 F 98 F Pulse Rate 64 108 H 54 L Respiratory Rate 23 H 15 Blood Pressure 154/73 H 146/64 H Pulse Oximetry 100 100 Oxygen Delivery 10/04/22 08:45 Temperature Pulse Rate 54 L Respiratory Rate Blood Pressure Pulse Oximetry Oxygen Delivery Intake/Output Intake/Output: Intake & Output 10/01/22 10/02/22 10/03/22 10/04/22 23:59 23:59 23:59 23:59 Intake Total 1415 1380 1180 300 Output Total 850 1900 800 950 Balance 565 -520 380 -650 Meds/Results Medications: Active Medications Generic Name Dose Route Start Las
[2022-10-04 11:32] LABS: Glucose Point of Care 122 mg/dl (65-105)
--- NOTE | 2022-10-04 11:46 | PM.DS ---
DS: Admitting Diagnosis Discharge Date 10/04/22 Admitting Diagnosis constipation DS: Discharge Diagnosis Discharge Diagnosis (1) Fecal impaction: Code(s): K56.41 - Fecal impaction Status: Acute (2) Neutropenia: Code(s): D70.9 - Neutropenia, unspecified Status: Acute (3) Malignant tumor of breast: Code(s): C50.919 - Malignant neoplasm of unspecified site of unspecified female breast Status: Acute (4) Hypertension: Code(s): I10 - Essential (primary) hypertension Status: Acute (5) Atrial fibrillation: Code(s): I48.91 - Unspecified atrial fibrillation Status: Acute (6) Diabetes: Code(s): E11.9 - Type 2 diabetes mellitus without complications Status: Acute DS: Summary Hospital Course Reason for hospitalization: constipation Hospital Course: 72-year-old female with a history we of breast cancer, diabetes, hypertension and CHF. Presented to the ER on 09/29/2022 with chief complaint of constipation and bright red blood per rectum. On admission Patient started on MiraLax b.i.d., Colace b.i.d. suppository q.a.m. and soap suds enema. Patient had bowel movement on 1st day of admission. Patient was found to have a white blood cell count of 1.1 with the absolute neutrophil count of 0.06 on admission. Patient had chemotherapy on 09/23 and this was most likely the source of her neutropenia. Next day on 10/01/2022 patient's white blood cell count was 0.6 and ANC was 0.1. Patient was placed on neutropenic precautions and hematology/oncology consulted. Patient was put on Neupogen. Patient's enema and suppositories discontinued. White blood cell count has increased over patient's stay and patient is no longer needing neutropenic precautions. On discharge patient's white blood cell count 13.7, This is most likely reactive due to patient's recent chemotherapy. Patient denies fever, nausea, vomiting, diarrhea, body aches, chills , urinary symptoms and cough. patient has had small bowel movements during her stay and has flatulence. Patient being discharged in continuing p.o. laxatives at home. Time Spent with Patient Time attestation: Total time spent providing and/or coordinating discharge services: Exam Narrative: GENERAL: Comfortable, no acute distress, morbidly obese, resting tremor HENMT: moist mucous membranes EYES: EOM intact b/l NECK: no lymphadenopathy RESPIRATORY: clear to auscultation CARDIO: irregular rhythm, rate controlled CHEST: double mastectomy GI: soft, nontender, bowel sounds present SKIN: no rashes EXTREMITIES: no edema, redness or tenderness DS: Data Data Completed and Pending Labs on day of discharge: Labs from last 24 hours 10/04/22 10/04/22 10/04/22 11:28 07:41 06:01 WBC RBC Hgb Hct MCV MCH MCHC RDW Plt Count MPV Immature Gran % (Auto) Neut % (Auto) Lymph % (Auto) [place] % (Auto) Eos % (Auto) Baso % (Auto) Lymph # (Auto) [place] # (Auto) Eos # (Auto) Baso # (Auto) Abs Immat Gran (auto) Absolute Neuts (auto) Absolute Nucleated RBC Nucleated RBC % Platelet Estimate % Immature Plt Fraction Ovalocytes [place] Cells Acanthocytes (Spur) Schistocytes Sodium 134 L Potassium 4.1 Chloride 101 Carbon Dioxide 32 H Anion Gap 1 L BUN 10 Creatinine 0.90 Estim Creat Clear Calc 70 Estimated GFR > 60 Glucose 78 POC Capillary Glucose 122 H 83 Calcium 8.7 Total Bilirubin 0.5 AST 24 ALT 22 Alkaline Phosphatase 123 Total Protein 6.0 L Albumin 3.5 10/04/22 10/03/22 10/03/22 06:01 20:07 18:03 WBC 13.7 H RBC 3.12 L Hgb 9.6 L Hct 31.7 L MCV 101.6 H MCH 30.8 MCHC 30.3 L RDW 19.8 H Plt Count 94 L MPV 10.6 H Immature Gran % (Auto) 10.0 H Neut % (Auto) 75.0 H Lymph % (Auto) 6.1 L [place] % (Auto) 8.4 Eos % (Auto) 0.4 Baso %
--- NOTE | 2022-10-04 18:13 | PDONCCN ---
HPI - Date of Consult Date/Time: 10/04/22 18:13 Requesting Physician: Yolette Baez DO Primary Care Provider: Mimi Patrick, - Consult Narrative Reason for consult: Breast cancer neutropenia Narrative: Ivanna Beckman is a 72 year old female with history of stage III breast cancer status post lumpectomy and currently receiving chemotherapy and received chemotherapy on October 03 came into the hospital with constipation. Patient also has a history of atrial fibrillation, diabetes, hypertension and tremors. CT scan of abdomen pelvis showed fecal impaction with perirectal infiltration and proctitis. She was given milk of magnesium the ER without much relief. Labs showed WBC count of 1.1. Patient informed me that she receive Neulasta the day after her last chemotherapy. She denies any fevers and chills. Complain of tiredness and fatigue. Review of Systems - Review of Systems All systems reviewed & are unremarkable except as noted in HPI and [facility] Medical History: Medical History (Last Updated 09/30/22 @ 15:53 by Saira Morley PA-C) Abscess of Bartholin's gland Anemia Atrial fibrillation Benign hypertension Candidiasis Carpal tunnel syndrome Class 3 severe obesity due to excess calories with body mass index (BMI) of 40.0 to 44.9 in adult Congestive heart failure Diabetes Edema of lower extremity Hidradenitis suppurativa History of gastrointestinal procedure Hypertension Hypertensive disorder Impacted cerumen Incomplete uterovaginal prolapse Increased frequency of urination Lipoma of axilla Malignant tumor of breast Memory impairment Morbid obesity Open wound of anterior abdominal wall Osteoarthritis Pain in limb Sleep apnea Systemic lupus erythematosus Visual disturbance Vitamin D deficiency White blood cell disorder Surgical History: Surgical History (Last Updated 09/30/22 @ 15:54 by Saira Morley PA-C) H/O colonoscopy H/O hernia repair H/O left mastectomy 05/12/22 H/O mastectomy right and left 04/2022 History of delivery 3x History of cholecystectomy History of esophagogastroduodenoscopy (EGD) Hx of total knee arthroplasty Family History: Family History (Last Reviewed 09/30/22 @ 15:52 by Saira Morley PA-C) Mother Hypertension Breast cancer Hypothyroidism Heart disease Family history of cancer Father Heart disease Alzheimer disease Sibling Renal failure syndrome Diabetes mellitus Hypertension Sibling Diabetes mellitus Hypertension - Social History Social History: Social History (Last Updated 09/30/22 @ 15:54 by Saira Morley PA-C) Gender Identity: Gender identity (if verbalized by the patient): Female Sexual Orientation: Sexual Orientation (if Verbalized by the Patient): Straight or Heterosexual Alcohol Use: Alcohol intake: never Substance Use: Substance use: never Others: Spiritual care concerns: No Smoking Status: Smoking status: Former smoker Tobacco type: cigarettes Social Determinants of Health: Has the Lack of Transportation Kept You From Medical Appointments or From Getting Medications?: No Within the Past 12 Months, Were You Worried Whether Your Food Would Run Out Before You Got Money to Buy More?: Never True What is Your Housing Situation Today?: I Have Housing Are You Worried That in the Next 2 Months, You May Not Have Your Own Housing to Live In?: No Do You Have Trouble Paying Your Heating Or Electricity Bill?: No Do You Have Trouble Paying For Medicines?: No Are You Currently Unemployed and Looking for Work?: No Highest Level of Education Completed: High School Diploma/GED Do You Have Trouble With Childcare or the Care of a Family Member?: No Exam - Vital Signs Vital Signs - 24 hr 10/03/22 20:08 10/03/22 20:00 10/03/22 22:00 Temperature 36.6 C Pulse Rate 59 L 64 Respiratory Rate 23 H Blood Pressure
== END 2022-10-04 13:30 | disposition home or self-care (01) | DRG 247 ==
LOC: ANHED 09-30 02:04 → ANH3MEDSUR 09-30 03:40
PROVIDERS: Emergency Medicine; Internal Medicine Critical Care Medicine; Physician Assistant; Admitting Provider Internal Medicine; Emergency Provider Emergency Medicine; PCP Family Medicine; Visit Provider Internal Medicine
DX: K56.41 Fecal impaction (principal); I48.20 Chronic atrial fibrillation, unspecified; D70.1 Agranulocytosis secondary to cancer chemotherapy; M32.9 Systemic lupus erythematosus, unspecified; E66.01 Morbid (severe) obesity due to excess calories; I11.0 Hypertensive heart disease with heart failure; I50.9 Heart failure, unspecified; G25.1 Drug-induced tremor; C50.919 Malignant neoplasm of unspecified site of unspecified female breast; T45.0X5A Adverse effect of antiallergic and antiemetic drugs, initial encounter; T45.1X5A Adverse effect of antineoplastic and immunosuppressive drugs, initial encounter; E11.9 Type 2 diabetes mellitus without complications; E55.9 Vitamin D deficiency, unspecified; K43.9 Ventral hernia without obstruction or gangrene; M19.90 Unspecified osteoarthritis, unspecified site; R06.81 Apnea, not elsewhere classified; Z96.659 Presence of unspecified artificial knee joint; Z90.13 Acquired absence of bilateral breasts and nipples; Z79.01 Long term (current) use of anticoagulants; Z87.891 Personal history of nicotine dependence; Z68.41 Body mass index [BMI] 40.0-44.9, adult; Z79.84 Long term (current) use of oral hypoglycemic drugs
CPT/HCPCS: 36415; 74018; 74177; 80048; 80053; 81001; 82948; 83690; 83735; 84132; 85025; 85027; 85055; 85610; 85730; 94660; 96365; 96375; 97110; 97116; 97161; 97165; 97535; 99285; A9270; G0378; G0379; J1200; J2543; Q5101; Q9967

== ENCOUNTER 2023-02-15 13:06 | Emergency (ER) | payer OTHER, SELFPAY ==
[2023-02-15 13:10] VITALS: BP 164/81; PULSE 66; RESP 14; TEMP 36.8; O2SAT 97
--- NOTE | 2023-02-15 13:53 | ED.SKABFB ---
HPI - Skin/Abscess/Foreign Bdy General Chief complaint: Skin/Abscess/Foreign Body Stated complaint: boils Time Seen by Provider: 02/15/23 13:21 History of Present Illness HPI narrative: 73-year-old female presents to the emergency room for evaluation of multiple open wounds to her abdomen, pelvic region and gluteal region. Patient states that she has had multiple boils that have recently began draining. Patient denies fever. States has been putting Aquaphor on her wounds. Related Data Home Medications Medication Instructions Recorded Confirmed amiodarone 200 mg tablet 200 mg PO DAILY 03/24/20 10/04/22 losartan 100 mg tablet 100 mg PO DAILY 03/24/20 10/04/22 metoprolol tartrate 50 mg tablet 50 mg PO Q12H 03/24/20 10/04/22 potassium chloride 20 mEq 20 meq PO BID 03/24/20 10/04/22 tablet,extended release cholecalciferol (vitamin D3) 1,250 1,250 mcg PO WEEKLY 07/06/20 10/04/22 mcg (50,000 unit) capsule rivaroxaban 20 mg tablet (Xarelto) 20 mg PO DAILY 06/07/21 10/04/22 acetaminophen 500 mg tablet 500 mg PO DAILY 10/14/21 10/04/22 atorvastatin 80 mg tablet 80 mg PO DAILY 10/14/21 10/04/22 dapagliflozin 10 mg tablet 10 mg PO DAILY 10/14/21 10/04/22 (Farxiga) hydralazine 25 mg tablet 25 mg PO DAILY 10/14/21 10/04/22 glipizide 5 mg tablet, extended 5 mg PO DAILY 03/07/22 10/04/22 release 24 hr furosemide 80 mg tablet 80 mg PO DAILY 09/30/22 10/04/22 letrozole 2.5 mg tablet 2.5 mg PO DAILY 09/30/22 10/04/22 venlafaxine 37.5 mg 37.5 mg PO DAILY 09/30/22 10/04/22 capsule,extended release 24 hr Allergies Allergy/AdvReac Type Severity Reaction Status Date / Time meperidine [From Demerol] Allergy Unknown Dizziness Verified 09/27/22 09:30 Review of Systems Review of Systems: CONSTITUTIONAL: Denies fever, chills, or sweats. EYES: Denies visual changes, redness, or discharge. ENT: Denies rhinorrhea, congestion, sore throat, or otalgia. CARDIOVASCULAR: Denies chest pain, palpitations, or edema. RESPIRATORY: Denies cough or dyspnea. GASTROINTESTINAL: Denies abdominal pain, nausea, vomiting, or diarrhea. GENITOURINARY: Denies dysuria or hematuria. SKIN: Ulcers per HPI MUSCULOSKELETAL: Denies back pain, joint pain, or myalgia. NEUROLOGIC: Denies headache, numbness, dizziness, or weakness. PSYCHIATRIC: Denies anxiety or depression. [facility] Past Medical History Medical History Abscess of Bartholin's gland Anemia Atrial fibrillation Benign hypertension Candidiasis Carpal tunnel syndrome Class 3 severe obesity due to excess calories with body mass index (BMI) of 40.0 to 44.9 in adult Congestive heart failure Diabetes Edema of lower extremity Hidradenitis suppurativa History of gastrointestinal procedure Hypertension Hypertensive disorder Impacted cerumen Incomplete uterovaginal prolapse Increased frequency of urination Lipoma of axilla Malignant tumor of breast Memory impairment Morbid obesity Open wound of anterior abdominal wall Osteoarthritis Pain in limb Sleep apnea Systemic lupus erythematosus Visual disturbance Vitamin D deficiency White blood cell disorder Surgical History Surgical History H/O colonoscopy H/O hernia repair H/O left mastectomy 05/12/22 H/O mastectomy right and left 04/2022 History of delivery 3x History of cholecystectomy History of esophagogastroduodenoscopy (EGD) Hx of total knee arthroplasty Family History Family History Mother Hypertension Breast cancer Hypothyroidism Heart disease Family history of cancer Father Heart disease Alzheimer disease Sibling Renal failure syndrome Diabetes mellitus Hypertension Sibling Diabetes mellitus Hypertension Social History Social History Social History: Patient has a 20 pack-year smok
== END 2023-02-15 14:12 | disposition home or self-care (01) ==
PROVIDERS: Emergency Provider Nurse Practitioner Family; PCP Family Medicine
DX: L89.891 Pressure ulcer of other site, stage 1 (principal); I48.91 Unspecified atrial fibrillation; I50.9 Heart failure, unspecified; I11.0 Hypertensive heart disease with heart failure; E11.9 Type 2 diabetes mellitus without complications; E66.01 Morbid (severe) obesity due to excess calories; Z68.41 Body mass index [BMI] 40.0-44.9, adult; M32.9 Systemic lupus erythematosus, unspecified; M19.90 Unspecified osteoarthritis, unspecified site; E55.9 Vitamin D deficiency, unspecified; G47.30 Sleep apnea, unspecified; Z90.13 Acquired absence of bilateral breasts and nipples; Z90.49 Acquired absence of other specified parts of digestive tract; Z96.659 Presence of unspecified artificial knee joint; Z87.891 Personal history of nicotine dependence; Z79.01 Long term (current) use of anticoagulants; Z79.84 Long term (current) use of oral hypoglycemic drugs
CPT/HCPCS: 87070; 87205; 99283

== ENCOUNTER 2023-05-24 09:00 | Outpatient (RCR) | payer OTHER, SELFPAY ==
--- NOTE | 2023-05-01 14:28 | PTOPEVAL1 ---
Assessment and note entered by Kasey Cook, PT Evaluation Information Assessment Status Evaluation Diagnosis R and L shoulder rotator cuff tear and tendinopathy Onset about one year Subjective Information gradual increase in pain of shoulders--worse after having to hold arms up for radiation; had ultrasound testing and was told there were rotator cuff tears; had injection into R shoulder last week, helped a little with the pain; activity: R handed; live alone; son helps with cleaning and comes to her home to help her about 4x/wk; is limited with walking and activity due to SOB and back pain; problems with arms- not strong, not able to lift arms much and trouble opening things with hands; is able to do bathing and dressing, but more pain and hard to do; have not had any falls in the past 6 months; Reported Pain Level Pain Score Self Report Additional Pain Score Comments pain range in the past week: R shoulder 0-9/10 & L shoulder 0-8/10; neck pain R lateral neck to shoulder, seems to be connected to shoulder pain; R shoulder pain over top, anterior and lateral-- in the joint - down arm to fingers at worst- all numb; L shoulder pain: entire shoulder, in the joint - no radicular pain into L arm increase pain: move arm, cold weather; decrease pain: rest, acetaminophen; do not use heating pad- instruct on PRN use Assessment PT Clinical Summary Ivanna has the diagnosis of R and L rotator cuff tears and tendinopathy. Also pain into R fingers with numbness and neck pain. She reports onset of pain with radiation for breast cancer, and having to hold her arms up over her head during the treatment. Medical history includes back pain, obesity, a- fib, HTN, diabetes, systemic lupus, breast cancer R and L with radiation and chemotherapy. With the evaluation, she has decreased R and L shoulder ROM and strength with poor standing position of her neck and shoulders; decreased cervical rotation to R and L with increase pain and spasms over upper traps. NO ultrasound or electrical stim due to breast cancer. Skilled PT service
--- NOTE | 2023-05-01 14:29 | OPREHPOC ---
Outpatient Therapy Plan of Care This is a Multidisciplinary Plan of Care that may contain components documented by all disciplines (PT, OT, and ST.) PT Problem 1 PT Problem #1 Knowledge Deficit PT Goal 1 Goal 1* indep with home exercise program PT Problem 2 PT Problem #2 Pain PT Goal 1 Goal 1* pain R shoulder rating of 6/10 at worst 2* pain L shoulder rating of 6/10 at worst 3* pain into R LE to forearm at worst PT Problem 3 PT Problem #3 Impaired Strength PT Goal 1 Goal in sitting, active ROM x 5 reps: 1* R shoulder flexion 100' 2* R shoulder abduction 80' 3* L shoulder flexion 110' 4* L shoulder abduction 80' 5* R shoulder IR- reach behind back, palm to waist 6* L shoulder IR- reach behind back, palm to above waist
--- NOTE | 2023-05-24 09:16 | PTOPDC ---
Assessment and note entered by Kasey Cook, PT Evaluation Information Assessment Status Discharge Diagnosis R and L shoulder rotator cuff tear and tendinopathy Onset about one year Subjective Information Ivanna reports: therapy is going well for her shoulders; is moving better, can reach behind back to wash it; is able to do all of her normal things at home; doing the exercises at home; Reported Pain Level Pain Score Self Report Additional Pain Score Comments pain range in the past week 0-4/10; R shoulder into upper arm- proximal to elbow; L shoulder and medial upper arm/arm pit Assessment PT Clinical Summary Ivanna has received 6 PT sessions. Compared to the initial evaluation: R and L shoulder pain rating has decreased; active flexion , abduction, IR and ER motions all increased R and L; strength has improved with all motions of R and L shoulder; education completed for HEP. All of the goals were achieved. Discharge PT services, to continue with HEP. Plan of Care PT Services Indicated No
== END 2023-07-17 10:18 | disposition home or self-care (01) ==
LOC: ANHPT 09:00
PROVIDERS: PCP Family Medicine
DX: M75.121 Complete rotator cuff tear or rupture of right shoulder, not specified as traumatic (principal); M75.112 Incomplete rotator cuff tear or rupture of left shoulder, not specified as traumatic
CPT/HCPCS: 97110; 97140; 97162

== ENCOUNTER 2023-06-21 15:33 | Emergency (ER) | payer OTHER, SELFPAY ==
[2023-06-21 15:41] VITALS: BP 209/94; PULSE 60; RESP 16; TEMP 36.2; O2SAT 98
--- NOTE | 2023-06-21 17:06 | ED.GENADULT ---
HPI - General Adult General Chief complaint: Skin/Abscess/Foreign Body Stated complaint: red patches of skin Time Seen by Provider: 06/21/23 16:35 History of Present Illness HPI narrative: Patient is a 73-year-old female who presents ER with red patches to her arms bilaterally. Ongoing for 3 weeks. They sting and itch. No fevers or chills or sweats. No swelling to the arms or legs. No new creams or soaps or scents. Has not seen her PCP. Patient also reporting chronic low sciatic back pain. She has been taking Tylenol at home. She is on a blood thinner and cannot take any anti-inflammatories. No new trauma. No Neuse numbness or tingling to the legs or groin. Related Data Home Medications Medication Instructions Recorded Confirmed amiodarone 200 mg tablet 200 mg PO DAILY 03/24/20 10/04/22 losartan 100 mg tablet 100 mg PO DAILY 03/24/20 10/04/22 metoprolol tartrate 50 mg tablet 50 mg PO Q12H 03/24/20 10/04/22 rivaroxaban 20 mg tablet (Xarelto) 20 mg PO DAILY 06/07/21 10/04/22 acetaminophen 500 mg tablet 500 mg PO DAILY 10/14/21 10/04/22 atorvastatin 80 mg tablet 80 mg PO DAILY 10/14/21 10/04/22 dapagliflozin propanediol 10 mg 10 mg PO DAILY 10/14/21 10/04/22 tablet (Farxiga) hydralazine 25 mg tablet 25 mg PO DAILY 10/14/21 10/04/22 letrozole 2.5 mg tablet 2.5 mg PO DAILY 09/30/22 10/04/22 venlafaxine 37.5 mg 37.5 mg PO DAILY 09/30/22 10/04/22 capsule,extended release 24 hr ergocalciferol (vitamin D2) 1,250 1,250 mcg PO 03/28/23 mcg (50,000 unit) capsule (Vitamin D2) Allergies Allergy/AdvReac Type Severity Reaction Status Date / Time meperidine [From Demerol] Allergy Unknown Dizziness Verified 03/28/23 09:27 Review of Systems Review of Systems: All systems reviewed & are unremarkable except as noted in HPI and below Constitutional: Constitutional: Denies chills and Denies fever(s) ENT: Denies nasal congestion and Denies sore throat Cardiovascular: Cardiovascular: Denies chest pain and Denies rapid heart rate Musculoskeletal: Musculoskeletal: Reports back pain, Denies arthralgias, Denies joint swelling and Denies muscle cramps Integumentary/Breasts: Skin/Breast: Reports pruritus, Reports erythema and Reports rash Neurologic: Denies focal weakness and Denies numbness PMFSH Past Medical History Medical History Abscess of Bartholin's gland Anemia Atrial fibrillation Benign hypertension Candidiasis Carpal tunnel syndrome Class 3 severe obesity due to excess calories with body mass index (BMI) of 40.0 to 44.9 in adult Congestive heart failure Diabetes Edema of lower extremity Hidradenitis suppurativa History of gastrointestinal procedure Hypertension Hypertensive disorder Impacted cerumen Incomplete uterovaginal prolapse Increased frequency of urination Lipoma of axilla Malignant tumor of breast Memory impairment Morbid obesity Open wound of anterior abdominal wall Osteoarthritis Pain in limb Sleep apnea Systemic lupus erythematosus Visual disturbance Vitamin D deficiency White blood cell disorder Surgical History Surgical History H/O colonoscopy H/O hernia repair H/O left mastectomy 05/12/22 H/O mastectomy right and left 04/2022 History of delivery 3x History of cholecystectomy History of esophagogastroduodenoscopy (EGD) Hx of total knee arthroplasty Family History Family History Mother Hypertension Breast cancer Hypothyroidism Heart disease Family history of cancer Father Heart disease Alzheimer disease Sibling Renal failure syndrome Diabetes mellitus Hypertension Sibling Diabetes mellitus Hypertension Social History Social History Social History: Patient has a 20 pack-year smoking history. Patient states that she quit smo
== END 2023-06-21 17:34 | disposition home or self-care (01) ==
PROVIDERS: Emergency Provider Emergency Medicine; PCP Family Medicine
DX: L30.9 Dermatitis, unspecified (principal); M54.30 Sciatica, unspecified side; I48.91 Unspecified atrial fibrillation; I11.0 Hypertensive heart disease with heart failure; I50.9 Heart failure, unspecified; E11.9 Type 2 diabetes mellitus without complications; Z87.891 Personal history of nicotine dependence
CPT/HCPCS: 99283

== ENCOUNTER 2023-10-25 10:15 | Outpatient (RCR) | payer OTHER, SELFPAY ==
--- NOTE | 2023-09-27 10:28 | PTOPEVAL1 ---
Assessment and note entered by Ryland Delvalle Evaluation Information Assessment Status Evaluation Diagnosis nontraumatic tear right rotator cuff, bilateral shoulder pain Onset 03/28/23 Subjective Information Pt. reports that she developed bilateral shoulder pain about 6 months ago. She recalls that she had recent radiation treatment for breast cancer that required her to have her arms overhead. She states that pain developed shortly after having been in that position. She had recent testing that revealed rotator cuff tear in both shoulders. She reports that her pain will come and go, and is mostly noted with movement. She reports that pain will occasionally wake her at night. She reports pain is noted with reaching overhead, trying to reach across with washing under her arms and with laying on her side. She reports that she has trouble getting into her overhead cabinets at home. She reports that her goal is to decrease her bilateral shoulder pain. Reported Pain Level Pain Score 4,3: Self Report Assessment PT Clinical Summary Pt. is a 73 year old female who enters the clinic with bilateral shoulder pain. She presents with impaired active ROM at bilateral shoulder joints in all planes, impaired proximal u.e. strength, pain and functional decline. Continued skilled PT is indicated in order to improve these areas to allow for improved efficiency with overhead tasks and to decrease pain. Plan of Care Interventions Electrical Stimulation,Hot Pack/Cold Pack,Manual Therapy,Neuro Re-education,Patient/Caregiver Educati,Therapeutic Activities,Therapeutic Exercise PT Services Indicated Yes Treatment Frequency and 2x/week x 10 visits Duration These treatments will address the objective and functional deficits as defined above. The patient will be advanced safely and appropriately in order for the patient to progress towards his/her prior level of function. Additional exercises will be introduced and as well as a comprehensive home exercise program upon discharge, if needed, ?to ensure carryover of functional gains achieved in the clinic. This treatment plan has been reviewed and agreement upon by the patient.
--- NOTE | 2023-09-27 10:30 | OPREHPOC ---
Outpatient Therapy Plan of Care This is a Multidisciplinary Plan of Care that may contain components documented by all disciplines (PT, OT, and ST.) PT Problem 1 PT Problem #1 Knowledge Deficit PT Goal 1 Goal Independent with a HEP addressing strength and mobility at the bilateral u.e. Target Visit 2 PT Problem 2 PT Problem #2 Impaired Range of Motion PT Goal 1 Goal Pt. will achieve 135 degrees bilateral shoulder flexion active ROM to assist with improved ability to complete grooming activities and reaching in overhead cabinets Target Visit 10 PT Problem 3 PT Problem #3 Pain PT Goal 1 Goal pt. will report pain reduction to 3/10 at worst at both right and left shoulder with all overhead movements. Target Visit 10 PT Problem 4 PT Problem #4 Impaired Functional Mobil PT Goal 1 Goal Pt. will improve Quick DASH score to less than 40% limitation indicating improvement in overall function and comfort. Target Visit 10
--- NOTE | 2023-10-25 11:10 | PTOPDC ---
Assessment and note entered by Ryland Delvalle Discharge Information Assessment Status Discharge Diagnosis nontraumatic tear right rotator cuff, bilateral shoulder pain Onset 03/28/23 Subjective Information Pt. reports that her shoulder pain and mobility have improved slightly. She notes that she can reach overhead to do her hair with more ease. She reports that she is still limited by pain, but it is less intense. she reports that she will continue with her HEP and is ready for discharge at this time. Reported Pain Level Pain Score 7,3,3: Self Report Assessment PT Clinical Summary Pt. has demonstrated excellent progress in regards to shoulder strength and mobility. She continues to have mild proximal u.e. weakness, but much improved since eval. She demonstrates significant improvement in her Quick DASH score. She is encouraged to continue with her HEP and will be discharged from our care. Plan of Care PT Services Indicated D/C from PT to an independent HEP.
== END 2023-10-25 12:09 | disposition home or self-care (01) ==
LOC: ANHPT 10:15
PROVIDERS: PCP Family Medicine
DX: M75.121 Complete rotator cuff tear or rupture of right shoulder, not specified as traumatic (principal)
CPT/HCPCS: 97014; 97110; 97140; 97161; G0283

== ENCOUNTER 2024-03-05 16:09 | Emergency (ER) | payer OTHER, SELFPAY ==
[2024-03-05] VITALS (17 sets, daily range): BP systolic 135–177; BP diastolic 63–68; PULSE 66–72; RESP 16–18; TEMP 36.2–36.8; O2SAT 96–100
--- NOTE | ~2024-03-05 | CT_ITS ---
EXAMINATION: CT abdomen pelvis w con DATE: 03/05/2024 20:04 INDICATION: UTI sx's, recent botox procedure to bladder TECHNIQUE: Computed tomography (CT) of the abdomen and pelvis was performed with 100 mL Omnipaque-350 intravenous contrast. Automated exposure control and iterative reconstruction technique were employe d. The dose-length product was 1580.29 mGy-cm. COMPARISON: 09/29/2022. FINDINGS: Lower thorax: Cardiomegaly. Mitral calcification. Bibasilar scarring. Liver: Enlarged. Biliary/Gallbladder: Gallbladder is absent. No bile duct dilation. Pancreas: No mass or duct dilation. Spleen: Normal. Adrenals:No mass. Kidneys: No suspicious mass, obstructing stone, or hydronephrosis. Multiple bilateral simple renal cy sts and hypodensities that are too small to characterize. GI tract: No small or large bowel dilation. Normal appendix. Mesentery/Peritoneum: No ascites, mass, or free air. Retroperitoneum: No mass. Pelvis: Normal urinary bladder, uterus, and ovaries. Soft Tissues: Anterior abdominal wall diastasis. Bones: No acute osseous finding. IMPRESSION: No acute abdominopelvic process. Reviewed, dictated and finalized at location K.
--- NOTE | 2024-03-05 18:13 | ED.FEMALEGU ---
HPI - Female Genitourinary General Chief complaint: Urogenital-Female <ZOE Michele Last Filed: 03/05/24 18:20> Stated complaint: UTI symptoms <ZOE Michele Last Filed: 03/05/24 18:20> Time Seen by Provider: 03/05/24 18:13 <ZOE Michele Last Filed: 03/05/24 18:20> Focused HPI: Patient is a 74 y/o female who presents to the ED with c/o urinary complaints. Patient reports she underwent Botox procedure on her bladder on 02/26 at [facility] by Dr. Hamilton, urogynecologist. She developed dysuria, frequency, urgency, small amount of intermittent hematuria a few days after the procedure. She was Rx'd Macrobid and has since finished this, but c/o persistent sx's. She also reports yellow vaginal discharge. Denies significant abdominal or back pain, fever, N/V. GENERAL: Elderly, morbidly obese with BMI of 42.7, and in no acute distress. HEAD: Normocephalic, atraumatic. CHEST: Clear to auscultation. ?No respiratory distress. HEART: Regular rate and rhythm.? NEURO: ?Alert and oriented x3. Patient screened in triage and initial orders placed.? ?Additional care and disposition to be based upon?diagnostic testing and treatment. <Milly Holly PA-C - Last Filed: 03/05/24 18:20> Source: patient <ZOE Michele Last Filed: 03/05/24 18:20> Mode of arrival: ambulatory <ZOE Michele Last Filed: 03/05/24 18:20> Limitations: no limitations <ZOE Michele Last Filed: 03/05/24 18:20> History of Present Illness HPI Narrative: patient is a 74-year-old female presents emergency department with chief complaint of urinary symptoms. The patient reports that she had a recent bladder Botox procedure and was treated with prophylactic antibiotics patient states she has urinary frequency and dysuria reports that she continues to have symptoms and reported that she had some yellowish vaginal discharge. the patient denies fevers reports she has had some fullness present in her suprapubic region denies flank pain <Rolando Matthew MD - Last Filed: 03/05/24 20:51> Related Data Home medications: Home Medications Medication Instructions Recorded Confirmed amiodarone 200 mg tablet 200 mg PO DAILY 03/24/20 10/04/22 losartan 100 mg tablet 100 mg PO DAILY 03/24/20 10/04/22 metoprolol tartrate 50 mg tablet 50 mg PO Q12H 03/24/20 10/04/22 rivaroxaban 20 mg tablet (Xarelto) 20 mg PO DAILY 06/07/21 10/04/22 acetaminophen 500 mg tablet 500 mg PO DAILY 10/14/21 10/04/22 atorvastatin 80 mg tablet 80 mg PO DAILY 10/14/21 10/04/22 dapagliflozin propanediol 10 mg 10 mg PO DAILY 10/14/21 10/04/22 tablet (Farxiga) hydralazine 25 mg tablet 25 mg PO DAILY 10/14/21 10/04/22 letrozole 2.5 mg tablet 2.5 mg PO DAILY 09/30/22 10/04/22 venlafaxine 37.5 mg 37.5 mg PO DAILY 09/30/22 10/04/22 capsule,extended release 24 hr ergocalciferol (vitamin D2) 1,250 1,250 mcg PO 03/28/23 mcg (50,000 unit) capsule (Vitamin D2) <Milly Holly PA-C - Last Filed: 03/05/24 18:20> Allergies/Adverse reactions: Allergies Allergy/AdvReac Type Severity Reaction Status Date / Time meperidine [From Demerol] Allergy Unknown Dizziness Verified 03/28/23 09:27 vancomycin Allergy Unknown Verified 03/05/24 16:16 <Milly Holly PA-C - Last Filed: 03/05/24 18:20> Review of Systems Review of Systems: A 10 system review of systems was completed on the patient and is negative except for what is stated in the HPI. Nursing and ancillary documentation was reviewed. <Rolando Matthew MD - Last Filed: 03/05/24 20:51> PMFSH Past Medical History Medical History: Medical History Abscess of Bartholin's gland Anemia Atrial fibrillation Benign hypertension Candidiasis Carpal tunnel syndrome Class 3 severe obesity due to exces
[2024-03-05 18:54] LABS: Basophils Percent Auto 0.2 % (0.2-1.2); Eosinophils Percent Auto 0.5 % (0-4.4); Hemoglobin 11.6 g/dL (12.0-15.0); Immature Granulocyte Absolute 0.03 K/mm3 (0.00-0.031); Immature Granulocyte Percent A 0.5 % (0-0.5); Lymphocytes Absolute Auto 0.94 K/mm3 (0.9-3.2); Lymphocytes Percent Auto 16.6 % (18.3-44.2); Mean Corpuscular HGB Conc 30.5 g/dl (32-36); Mean Corpuscular Hemoglobin 29.8 pg (26-34); Mean Corpuscular Volume 97.7 fl (80-100); Mean Platelet Volume 9.4 fl (7.4-10.4); Monocytes Absolute Auto 0.4 K/mm3 (0.1-0.6); Monocytes Percent Auto 7.4 % (2.6-8.5); Neutrophils Absolute Auto 4.2 K/mm3 (1.3-6.7); Neutrophils Percent Auto 74.8 % (45.5-73.1); Platelet Count Result 160 k/mm3 (150-375); Red Blood Count 3.89 M/mm3 (4.2-5.4); Red Cell Distribution Width 15.8 % (11.5-14.5); White Blood Count 5.7 K/mm3 (4.5-10.0)
[2024-03-05 18:55] LABS: Appearance Urine Cloudy (Clear); Bacteria Urine Rare /hpf; Bilirubin Urine Negative (Negative); Blood Urine Non-Hemolyzed Trace (Negative); Budding Yeast Urine Present /hpf; Color Urine Yellow (Yellow); Glucose Urine UA 3+ mg/dL (Negative); Ketones Urine Negative (Negative); Leukocyte Esterase Ur 2+ LEU/UL (Negative); Need Manual Microscopic Reviewed; Nitrate Urine Negative (Negative); Non Pathogenic Casts 0-2; Protein Urine Negative (Negative); RBC Urine 0-2 /hpf (0-2); Squamous Epithelial Cell Urine Occasional /hpf (Few); WBC Urine 51-100 /hpf (0-3)
[2024-03-05 18:58] LABS: Specific Grav Ur 1.034 (1.001-1.035)
[2024-03-05 19:10] LABS: Add Urine Microscopic? YES
[2024-03-05 19:10] LABS: Alanine Aminotransferase 23 U/L (6-35); Alkaline Phosphatase 72 U/L (38-126); Anion Gap 6 mmol/L (4-12); Aspartate Amino Transferase 25 U/L (14-36); Bilirubin,Total 0.6 mg/dL (0.2-1.3); Blood Urea Nitrogen 16 mg/dL (7-17); Calcium 9.7 mg/dL (8.4-10.2); Carbon Dioxide 26 mmol/L (22-30); Chloride 108 mmol/L (98-107); Estimated CRCL calculation 67 ml/min; Estimated Glomerular Filt Rate > 60; Glucose 107 mg/dL (65-110); Lactic Acid Reflex 0.7 mmol/L (0.7-2.0); Potassium 4.2 mmol/L (3.4-5.0); Sodium 140 mmol/L (137-145)
== END 2024-03-05 22:05 | disposition home or self-care (01) ==
PROVIDERS: Physician Assistant; Emergency Provider Emergency Medicine; PCP Family Medicine
DX: N30.00 Acute cystitis without hematuria (principal); E66.01 Morbid (severe) obesity due to excess calories; Z68.41 Body mass index [BMI] 40.0-44.9, adult; I48.91 Unspecified atrial fibrillation; I50.9 Heart failure, unspecified; E55.9 Vitamin D deficiency, unspecified; M32.9 Systemic lupus erythematosus, unspecified; E11.9 Type 2 diabetes mellitus without complications; I11.0 Hypertensive heart disease with heart failure; Z79.01 Long term (current) use of anticoagulants; Z87.891 Personal history of nicotine dependence
CPT/HCPCS: 36415; 74177; 80053; 81001; 83605; 85025; 87086; 87088; 96365; 99284; J0696; Q9967

== ENCOUNTER 2024-08-07 12:36 | Emergency (ER) | payer OTHER, SELFPAY ==
--- NOTE | ~2024-08-07 | XR_ITS ---
XR chest 2V Ordering provider: Bryson Cid MD History: 74 years Female with . sob, ELEVATED HR . Comparison: October 07, 2021 FINDINGS: MEDIASTINUM: The cardiac silhouette is moderately enlarged. Slightly prominent right hilum. LUNGS: No infiltrates, effusions or pneumothorax. Prominent markings in the lower lobes more on the left. Early pneumonia is not excluded. OTHER: No free air under the diaphragm. IMPRESSION: Prominent markings in the lower lobes. Early pneumonia cannot be excluded. Follow-up advised. Reviewed, dictated and finalized at location A. IMPRESSION: Prominent markings in the lower lobes. Early pneumonia cannot be excluded. Foll ow-up advised.
--- NOTE | ~2024-08-07 | CT_ITS ---
CT brain wo con Ordering provider: Bryson Cid MD History: 74 years Female with . right leg weakness . Comparison: None. Technique: CT of the head without contrast. Radiation reduction technique utilized.The dose-length product was 605.33 mGy-cm. FINDINGS: BRAIN PARENCHYMA AND CSF SPACES: No midline shift, mass effect or hemorrhage. The brain parenchyma a nd CSF spaces are otherwise normal. Empty sella turcica. VISUALIZED PARANASAL SINUSES: Bilateral maxillary sinus disease. MASTOIDS: Well aerated. BONES: The bones appear intact. SOFT TISSUES: Visualized nasopharynx is normal. Superficial soft tissues are normal. IMPRESSION: No acute intracranial findings. Reviewed, dictated and finalized at location A.
--- NOTE | 2024-08-07 12:40 | ECG_ITS ---
Test Date: 2024-08-07 12:54:40 Measurements Intervals [place] Rate: 55 P: 21 MO: 198 QRS: -11 QRSD: 105 T: 46 QT: 461 QTc: 444 Interpretive Statements SINUS BRADYCARDIA POSSIBLE LEFT VENTRICULAR HYPERTROPHY [VOLTAGE CRITERIA PLUS LAE OR QRS WIDENING] No previous ECG available for comparison Electronically Signed On 08-07-2024 13:07:00 CDT by Kris Moon M.D.
[2024-08-07 12:47] VITALS: BP 184/76; PULSE 55; RESP 20; TEMP 36.8; O2SAT 100
[2024-08-07 13:14] LABS: Basophils Percent Auto 0.4 % (0.2-1.2); Eosinophils Percent Auto 0.9 % (0-4.4); Hemoglobin 12.1 g/dL (12.0-15.0); Lymphocytes Absolute Auto 0.72 K/mm3 (0.9-3.2); Lymphocytes Percent Auto 31.2 % (18.3-44.2); Mean Corpuscular HGB Conc 31.8 g/dl (32-36); Mean Corpuscular Hemoglobin 31.2 pg (26-34); Mean Corpuscular Volume 97.9 fl (80-100); Mean Platelet Volume 9.5 fl (7.4-10.4); Monocytes Absolute Auto 0.3 K/mm3 (0.1-0.6); Monocytes Percent Auto 10.8 % (2.6-8.5); Neutrophils Absolute Auto 1.3 K/mm3 (1.3-6.7); Neutrophils Percent Auto 56.7 % (45.5-73.1); Platelet Count Result 165 k/mm3 (150-375); Red Blood Count 3.88 M/mm3 (4.2-5.4); White Blood Count 2.3 K/mm3 (4.5-10.0)
[2024-08-07 13:26] LABS: Alanine Aminotransferase 19 U/L (6-35); Albumin Level 4.1 g/dL (3.5-5.1); Alkaline Phosphatase 59 U/L (38-126); Anion Gap 8 mmol/L (4-12); Aspartate Amino Transferase 28 U/L (14-36); Bilirubin,Total 0.8 mg/dL (0.2-1.3); Blood Urea Nitrogen 16 mg/dL (7-17); Calcium 9.2 mg/dL (8.4-10.2); Carbon Dioxide 25 mmol/L (22-30); Chloride 104 mmol/L (98-107); Estimated CRCL calculation 76 ml/min; Estimated Glomerular Filt Rate > 60; Glucose 118 mg/dL (65-110); Potassium 4.6 mmol/L (3.4-5.0); Sodium 137 mmol/L (137-145)
[2024-08-07 13:45] VITALS: BP 163/82; PULSE 55; RESP 16; O2SAT 100
[2024-08-07 14:30] VITALS: BP 177/79; PULSE 52; RESP 18; O2SAT 100
[2024-08-07 15:11] LABS: NT Pro B Type Natriuretic Pept 627 pg/mL (19.9-100)
[2024-08-07 15:40] LABS: INR 1.4; Partial Thromboplastin Time 31.9 Seconds (22.3-36.8); Prothrombin Time 17.2 Seconds (11.1-14.7)
--- NOTE | 2024-08-07 16:08 | PC.NURSE ---
Ambulatory in [place]. Pt reports sob while walking, spo2 lowest of 95%.
--- NOTE | 2024-08-07 16:56 | ED.SOB ---
HPI - SOB/Dyspnea General Chief Complaint: Shortness of Breath/Dyspnea Stated Complaint: SOB & weakness Time Seen by Provider: 08/07/24 13:00 History of Present Illness HPI Narrative: Patient is a 74-year-old female who presents ER with shortness of breath and weakness. Worsening over last 2-3 months. No significant twisting frame changer last couple days. No fevers or chills or sweats. No productive cough. Short of breath with walking. No chest pain. No alleviating factors. Reports she has sciatica on that causes right leg discomfort and weakness at times. no new edema orthopnea. Related Data Home Medications Medication Instructions Recorded Confirmed amiodarone 200 mg tablet 200 mg PO DAILY 03/24/20 06/17/24 losartan 100 mg tablet 100 mg PO DAILY 03/24/20 06/17/24 metoprolol tartrate 50 mg tablet 50 mg PO Q12H 03/24/20 06/17/24 rivaroxaban 20 mg tablet (Xarelto) 20 mg PO DAILY 06/07/21 06/17/24 acetaminophen 500 mg tablet 500 mg PO DAILY 10/14/21 06/17/24 atorvastatin 80 mg tablet 80 mg PO DAILY 10/14/21 06/17/24 dapagliflozin propanediol 10 mg 10 mg PO DAILY 10/14/21 06/17/24 tablet (Farxiga) hydralazine 25 mg tablet 25 mg PO DAILY 10/14/21 06/17/24 letrozole 2.5 mg tablet 2.5 mg PO DAILY 09/30/22 06/17/24 venlafaxine 37.5 mg 37.5 mg PO DAILY 09/30/22 06/17/24 capsule,extended release 24 hr ergocalciferol (vitamin D2) 1,250 1,250 mcg PO 03/28/23 06/17/24 mcg (50,000 unit) capsule (Vitamin D2) Allergies Allergy/AdvReac Type Severity Reaction Status Date / Time meperidine [From Demerol] Allergy Unknown Dizziness Verified 08/07/24 12:47 vancomycin Allergy Unknown Verified 08/07/24 12:47 Review of Systems Review of Systems: All systems reviewed & are unremarkable except as noted in HPI and below Constitutional: Constitutional: Reports no additional constitutional complaints ENT: Reports system reviewed and no additional complaints, except as documented Cardiovascular: Cardiovascular: Reports no additional cardiovascular complaints Respiratory: Respiratory: Reports no additional respiratory complaints Gastrointestinal: Gastrointestinal: Reports no additional gastrointestinal complaints Neurologic: Reports system reviewed and no additional complaints, except as documented [facility] Past Medical History Medical History Abscess of Bartholin's gland Anemia Atrial fibrillation Benign hypertension Candidiasis Carpal tunnel syndrome Class 3 severe obesity due to excess calories with body mass index (BMI) of 40.0 to 44.9 in adult Congestive heart failure Diabetes Edema of lower extremity Hidradenitis suppurativa History of gastrointestinal procedure Hypertension Hypertensive disorder Impacted cerumen Incomplete uterovaginal prolapse Increased frequency of urination Lipoma of axilla Malignant tumor of breast Memory impairment Morbid obesity Open wound of anterior abdominal wall Osteoarthritis Pain in limb Sleep apnea Systemic lupus erythematosus Visual disturbance Vitamin D deficiency White blood cell disorder Surgical History Surgical History H/O colonoscopy H/O hernia repair H/O left mastectomy 05/12/22 H/O mastectomy right and left 04/2022 History of delivery 3x History of cholecystectomy History of esophagogastroduodenoscopy (EGD) Hx of total knee arthroplasty Family History Family History Mother Hypertension Breast cancer Hypothyroidism Heart disease Family history of cancer Father Heart disease Alzheimer disease Sibling Renal failure syndrome Diabetes mellitus Hypertension Sibling Diabetes mellitus Hypertension Social History Social History Social History: Patient has a 20 pack-year smoking history. Patient states that she quit smoking 20 years ago. P
== END 2024-08-07 18:18 | disposition home or self-care (01) ==
PROVIDERS: Emergency Provider Emergency Medicine; PCP Nurse Practitioner Family
DX: R06.00 Dyspnea, unspecified (principal); I48.91 Unspecified atrial fibrillation; I11.0 Hypertensive heart disease with heart failure; I50.9 Heart failure, unspecified; E11.9 Type 2 diabetes mellitus without complications; E55.9 Vitamin D deficiency, unspecified; E66.813 Obesity, class 3; Z68.41 Body mass index [BMI] 40.0-44.9, adult; M32.9 Systemic lupus erythematosus, unspecified; M19.90 Unspecified osteoarthritis, unspecified site; G47.30 Sleep apnea, unspecified; Z96.659 Presence of unspecified artificial knee joint; Z85.3 Personal history of malignant neoplasm of breast; Z87.891 Personal history of nicotine dependence; Z90.13 Acquired absence of bilateral breasts and nipples; Z90.49 Acquired absence of other specified parts of digestive tract; Z79.899 Other long term (current) drug therapy; Z79.01 Long term (current) use of anticoagulants; R00.1 Bradycardia, unspecified; R94.31 Abnormal electrocardiogram [ECG] [EKG]
CPT/HCPCS: 36415; 70450; 71046; 80053; 83880; 85025; 85610; 85730; 93005; 96360; 99284

== ENCOUNTER 2024-09-09 11:42 | Outpatient (CLI) | payer OTHER, SELFPAY ==
--- NOTE | ~2024-09-09 | XR_ITS ---
XR chest 2V Ordering provider: Afshan Spears MD History: 74 years Female with . SOB, lower extremity weakness . Comparison: None. FINDINGS: MEDIASTINUM: The cardiac silhouette is slightly enlarged. Prominent both mahin. LUNGS: No infiltrates, effusions or pneumothorax. Emphysematous changes of the lungs. OTHER: No free air under the diaphragm. Degenerative changes of the spine. IMPRESSION: No acute cardiopulmonary pathology. Cardiomegaly. Reviewed, dictated and finalized at location A. [employer]
[2024-09-09 16:23] LABS: Alanine Aminotransferase 24 U/L (6-35); Albumin Level 4.2 g/dL (3.5-5.1); Alkaline Phosphatase 69 U/L (38-126); Anion Gap 8 mmol/L (4-12); Aspartate Amino Transferase 32 U/L (14-36); Bilirubin,Total 0.4 mg/dL (0.2-1.3); Blood Urea Nitrogen 22 mg/dL (7-17); Calcium 9.5 mg/dL (8.4-10.2); Carbon Dioxide 30 mmol/L (22-30); Chloride 102 mmol/L (98-107); Cholesterol 226 mg/dL (0-200); Estimated Glomerular Filt Rate > 60; Glucose 85 mg/dL (65-110); HDL Direct 56 mg/dL; Potassium 4.3 mmol/L (3.4-5.0); Sodium 140 mmol/L (137-145); Triglycerides 115 mg/dL (<150)
[2024-09-09 16:35] LABS: NT Pro B Type Natriuretic Pept 414 pg/mL (19.9-100)
[2024-09-09 16:38] LABS: LDL Cholesterol Direct 101 mg/dL
[2024-09-09 16:56] LABS: Total Triiodothyronine (T3) 0.89 NG/ML (0.97-1.69)
[2024-09-09 17:24] LABS: Hemoglobin A1C 6.4 % (<5.7)
== END 2024-09-09 11:43 | disposition home or self-care (01) ==
LOC: ANHIMG 11:49
PROVIDERS: PCP Nurse Practitioner Family; Visit Provider Internal Medicine Cardiovascular Disease
DX: I11.9 Hypertensive heart disease without heart failure (principal); I48.91 Unspecified atrial fibrillation; E78.5 Hyperlipidemia, unspecified; E11.9 Type 2 diabetes mellitus without complications; R55 Syncope and collapse; M54.9 Dorsalgia, unspecified; R53.83 Other fatigue; M12.9 Arthropathy, unspecified; E66.9 Obesity, unspecified; C50.919 Malignant neoplasm of unspecified site of unspecified female breast; G47.30 Sleep apnea, unspecified; R60.9 Edema, unspecified; B97.21 SARS-associated coronavirus as the cause of diseases classified elsewhere; Z13.6 Encounter for screening for cardiovascular disorders
CPT/HCPCS: 36415; 71046; 80053; 80061; 83036; 83880; 84439; 84443; 84480

== ENCOUNTER 2024-09-30 07:12 | Outpatient (CLI) | payer OTHER, SELFPAY | END 2024-09-30 07:13 | disposition home or self-care (01) | LOC: ANHPFT 07:14 | PROVIDERS: PCP Nurse Practitioner Family; Visit Provider Internal Medicine Cardiovascular Disease | DX: J44.9 Chronic obstructive pulmonary disease, unspecified (principal); Z91.89 Other specified personal risk factors, not elsewhere classified | CPT/HCPCS: 94375; 94726; 94729 ==

== ENCOUNTER 2024-09-30 12:56 | Emergency (ER) | payer OTHER, SELFPAY ==
[2024-09-30 13:11] VITALS: BP 160/62; PULSE 55; RESP 16; TEMP 36.6; O2SAT 98
[2024-09-30 13:19] LABS: EDUAAPPEAR Cloudy; EDUABILI Negative (Negative); EDUABLOOD Negative (Negative); EDUACOLOR1 Yellow; EDUAGLUCOSE 3+ (Negative); EDUAKETONE Negative (Negative); EDUALEUKO Trace (Negative); EDUANITRATE Positive (Negative); EDUAPH 5.5; EDUAPROTEIN Negative (Negative)
[2024-09-30 13:44] LABS: Glucose Point of Care 81 mg/dl (65-105)
--- NOTE | 2024-09-30 13:53 | ED.FEMALEGU ---
HPI - Female Genitourinary General Chief complaint: Urogenital-Female Stated complaint: UTI Time Seen by Provider: 09/30/24 14:17 Source: patient, RN notes reviewed and old records reviewed Mode of arrival: ambulatory Limitations: no limitations History of Present Illness HPI Narrative: Patient presents with complaints of 2 weeks of foul-smelling urine. Patient self caths, reports that she gets frequent UTIs. She denies any fever, chills, sweats. She denies any abdominal pain or back pain. Only clue that she hand that she has UTI is foul-smelling urine and darkened urine. Related Data Home Medications Medication Instructions Recorded Confirmed amiodarone 200 mg tablet 200 mg PO DAILY 03/24/20 06/17/24 losartan 100 mg tablet 100 mg PO DAILY 03/24/20 06/17/24 metoprolol tartrate 50 mg tablet 50 mg PO Q12H 03/24/20 06/17/24 rivaroxaban 20 mg tablet (Xarelto) 20 mg PO DAILY 06/07/21 06/17/24 acetaminophen 500 mg tablet 500 mg PO DAILY 10/14/21 06/17/24 atorvastatin 80 mg tablet 80 mg PO DAILY 10/14/21 06/17/24 dapagliflozin propanediol 10 mg 10 mg PO DAILY 10/14/21 06/17/24 tablet (Farxiga) hydralazine 25 mg tablet 25 mg PO DAILY 10/14/21 06/17/24 letrozole 2.5 mg tablet 2.5 mg PO DAILY 09/30/22 06/17/24 venlafaxine 37.5 mg 37.5 mg PO DAILY 09/30/22 06/17/24 capsule,extended release 24 hr ergocalciferol (vitamin D2) 1,250 1,250 mcg PO 03/28/23 06/17/24 mcg (50,000 unit) capsule (Vitamin D2) Allergies Allergy/AdvReac Type Severity Reaction Status Date / Time meperidine [From Demerol] Allergy Unknown Dizziness Verified 08/07/24 12:47 vancomycin Allergy Unknown Verified 08/07/24 12:47 Review of Systems Review of Systems: All systems reviewed & are unremarkable except as noted in HPI and below Constitutional: Constitutional: Reports as per HPI and Reports no additional constitutional complaints ENT: Reports system reviewed and no additional complaints, except as documented Cardiovascular: Cardiovascular: Reports as per HPI and Reports no additional cardiovascular complaints Respiratory: Respiratory: Reports as per HPI and Reports no additional respiratory complaints Gastrointestinal: Gastrointestinal: Reports no additional gastrointestinal complaints Genitourinary: Genitourinary: Reports no additional female genitourinary complaints, Reports as per HPI and Reports other (Darkened and foul-smelling urine) [facility] Past Medical History Medical History Abscess of Bartholin's gland Anemia Atrial fibrillation Benign hypertension Candidiasis Carpal tunnel syndrome Class 3 severe obesity due to excess calories with body mass index (BMI) of 40.0 to 44.9 in adult Congestive heart failure Diabetes Edema of lower extremity Hidradenitis suppurativa History of gastrointestinal procedure Hypertension Hypertensive disorder Impacted cerumen Incomplete uterovaginal prolapse Increased frequency of urination Lipoma of axilla Malignant tumor of breast Memory impairment Morbid obesity Open wound of anterior abdominal wall Osteoarthritis Pain in limb Sleep apnea Systemic lupus erythematosus Visual disturbance Vitamin D deficiency White blood cell disorder Surgical History Surgical History H/O colonoscopy H/O hernia repair H/O left mastectomy 05/12/22 H/O mastectomy right and left 04/2022 History of delivery 3x History of cholecystectomy History of esophagogastroduodenoscopy (EGD) Hx of total knee arthroplasty Family History Family History Mother Hypertension Breast cancer Hypothyroidism Heart disease Family history of cancer Father Heart disease Alzheimer disease Sibling Renal failure syndrome Diabetes mellitus Hypertension Sibling Diabetes mellitus Hypertension Social History Social History Social History: Patient has a 20 pack-year smoking history. Patient states that she quit smoking 20 years ago. Patient occasionally drinks alcohol but has not since her breast cancer diagnosis. Smoking status: Former smoker Tobacco type: cigarettes Alcohol intake: never Substance use: never Lack of Transportation: No Lack of Food: Never True Current Housing: I Have Housing Concerned About Future Housing: No Difficulty Paying Gas/Electric Bills: No Difficulty Paying for Meds: No Currently Unemployed: No Education: High School Diploma/GED Difficulty w/ Childcare or Family Care: No Living arrangements: alone Gender identity (if verbalized by the patient): Female Sexual Orientation (if Verbalized by the Patient): Straight or Heterosexual Spiritual care concerns: No Comments At the time of my signature, I reviewed and agree with the nursing past medical, surgical, social, and family history. There is no relevant family history pertinent to the patient complaint. Exam Const: General: cooperative, no acute distress, alert and awake Orientation/consciousness: oriented to person, oriented to place and oriented to time Other: Smells of urine HENMT: Head: normal to inspection Resp: Effort & Inspection: normal respiratory effort and able to speak in complete sentences Auscultation: clear to auscultation bilaterally, no crackles, no rales, no rhonchi and no wheezes Cardio: Palpation: normal PMI Rate: regular rate Rhythm: regular rhythm Heart sounds: S1 normal heart sound present and S2 normal heart sound present Neuro: General: oriented to person, oriented to place and oriented to time Cranial nerves: Yes CN's II-XII intact bilaterally Psych: Appearance: grossly normal Thought process: Normal thought process present Insight: Good insight present (Psych) Judgement: Good judgement present (Psych) Course Course Level of Care: Express Care Visit Vital Signs Vital signs: Vital Signs Temperature 97.9 F 09/30/24 13:11 Pulse Rate 55 L 09/30/24 13:11 Respiratory Rate 16 09/30/24 13:11 Blood Pressure 160/62 H 09/30/24 13:11 Pulse Oximetry 98 09/30/24 13:11 Oxygen Delivery Room Air 09/30/24 13:11 Temperature 97.9 F 09/30/24 13:11 Pulse Rate 55 L 09/30/24 13:11 Respiratory Rate 16 09/30/24 13:11 Blood Pressure 160/62 H 09/30/24 13:11 Pulse Oximetry 98 09/30/24 13:11 Oxygen Delivery Room Air 09/30/24 13:11 Reviewed MDM - Female Genitourinary MDM Narrative Medical decision making narrative: UA concerning for UTI. Start Macrobid. Follow with primary care provider. Patient nontoxic appearing, stable for discharge home on p.o. antibiotic therapy. Culture is pending. Discharge instructions reviewed with patient, as well as provided in writing per nursing staff. The instructions also include specific and strict return/GO TO THE ER as well as f/u information. All questions have been answered, and the patient deny any further questions with discharge and discharge plan. Some parts of this dictation were generated by voice recognition software and may contain typographical and/or grammatical inaccuracies. Differential Diagnosis Differential diagnosis: Likely urinary tract infection and cystitis Medical Records Attestation: I reviewed the patient's medical records. Lab Data Attestation: I reviewed the patient's lab results. Labs: Lab Results 09/30/24 09/30/24 Range/Units 13:07 13:41 POC Capillary Glucose 81 (65-105) mg/dl POC Urine Color Yellow POC Urine Clarity Cloudy POC Urine pH 5.5 POC Ur Specif [place] 1.010 POC Urine Protein Negative (Negative) POC Ur Glucose (UA) 3+ (Negative) POC Urine Ketones Negative (Negative) POC Urine Blood Negative (Negative) POC Urine Nitrite Positive (Negative) POC Urine Bilirubin Negative (Negative) POC Urine Urobilinogen 1.0 POC U Leukocyte Esteras Trace (Negative) Discharge Plan Discharge Clinical Impression: Acute UTI Patient Disposition: Home, Self-Care Condition: Stable Instructions: Antibiotic Form, Urinary Tract Infection in Women (ED) Additional Instructions: Take medications as prescribed. Follow with primary care provider. Emergency department for new or worse symptoms Patient Language: [place] Prescriptions: New nitrofurantoin monohyd/m-cryst [Macrobid] 100 mg capsule 100 mg PO Q12H 7 Days Qty: 14 0RF Rx Instructions: must administer with a meal/food No Action atorvastatin 80 mg tablet 80 mg PO DAILY hydralazine 25 mg tablet 25 mg PO DAILY acetaminophen 500 mg tablet 500 mg PO DAILY Farxiga 10 mg tablet 10 mg PO DAILY ergocalciferol (vitamin D2) [Vitamin D2] 1,250 mcg (50,000 unit) capsule 1,250 mcg PO amiodarone 200 mg tablet 200 mg PO DAILY losartan 100 mg tablet 100 mg PO DAILY metoprolol tartrate 50 mg tablet 50 mg PO Q12H Xarelto 20 mg tablet 20 mg PO DAILY Rx Instructions: must administer with evening meal venlafaxine 37.5 mg capsule,extended release 24hr 37.5 mg PO DAILY letrozole 2.5 mg tablet 2.5 mg PO DAILY polyethylene glycol 3350 [ClearLax] 17 gram powder in packet 17 g PO BID Qty: 100 0RF tramadol 50 mg tablet 50 mg PO Q6H PRN (Reason: pain) Qty: 14 0RF doxycycline hyclate 100 mg tablet 100 mg PO BID Qty: 14 0RF Follow-up/Referrals: Maurice,Severiano Johnson APRN [Primary Care Provider] - 2 Weeks Time of Disposition: 14:25
== END 2024-09-30 15:40 | disposition home or self-care (01) ==
PROVIDERS: Emergency Provider Nurse Practitioner Family; PCP Nurse Practitioner Family
DX: N39.0 Urinary tract infection, site not specified (principal); B96.20 Unspecified Escherichia coli [E. coli] as the cause of diseases classified elsewhere; Z87.891 Personal history of nicotine dependence; I48.91 Unspecified atrial fibrillation; I11.0 Hypertensive heart disease with heart failure; I50.9 Heart failure, unspecified; E11.9 Type 2 diabetes mellitus without complications; M32.9 Systemic lupus erythematosus, unspecified; E66.01 Morbid (severe) obesity due to excess calories; Z68.41 Body mass index [BMI] 40.0-44.9, adult; M19.90 Unspecified osteoarthritis, unspecified site; E55.9 Vitamin D deficiency, unspecified; Z85.3 Personal history of malignant neoplasm of breast; Z90.13 Acquired absence of bilateral breasts and nipples
CPT/HCPCS: 81003; 82948; 87077; 87086; 87186; 99213; G0463

== ENCOUNTER 2024-11-22 08:12 | Emergency (ER) | payer OTHER, SELFPAY ==
[2024-11-22 08:15] VITALS: BP 143/68; PULSE 58; RESP 20; TEMP 37; O2SAT 98
--- NOTE | 2024-11-22 08:36 | ED_ITS ---
HPI - Female Genitourinary General Chief complaint: Urogenital-Female Stated complaint: UTI Time Seen by Provider: 11/22/24 08:40 Source: patient and RN notes reviewed Mode of arrival: ambulatory Limitations: no limitations History of Present Illness HPI Narrative: 74-year-old female presents concern for urine frequency and slightly foul- smelling urine. She reports history of overactive bladder. She reports wor sened in the last 2 days with increased urine frequency. She reports she has had in her urine for 1 week. She denies fever, aches, chills, sweats, nausea, vomiting, back pain, abdominal pain MD elicited complaint: UTI Related Data Home Medications ?Medication ?Instructions ?Recorded ?Confirmed ?Last Taken ?Type amiodarone 200 mg tablet 200 mg PO DAILY 03/24/20 06/17/24 09/29/22 History metoprolol tartrate 50 mg tablet 50 mg PO Q12H 03/24/20 06/17/24 09/29/22 History rivaroxaban 20 mg tablet (Xarelto) 20 mg PO DAILY 06/07/21 06/17/24 09/29/22 History acetaminophen 500 mg tablet 500 mg PO DAILY 10/14/21 06/17/24 09/29/22 History atorvastatin 80 mg tablet 80 mg PO DAILY 10/14/21 06/17/24 09/29/22 History dapagliflozin propanediol 10 mg 10 mg PO DAILY 10/14/21 06/17/24 09/29/22 History tablet (Farxiga) hydralazine 25 mg tablet 25 mg PO DAILY 10/14/21 06/17/24 09/29/22 History letrozole 2.5 mg tablet 2.5 mg PO DAILY 09/30/22 06/17/24 Unknown History venlafaxine 37.5 mg 37.5 mg PO DAILY 09/30/22 06/17/24 Unknown History capsule,extended release 24 hr ergocalciferol (vitamin D2) 1,250 1,250 mcg PO 03/28/23 06/17/24 Unknown History mcg (50,000 unit) capsule (Vitamin D2) furosemide 20 mg tablet mg 11/22/24 Unknown History Allergies Allergy/AdvReac Type Severity Reaction Status Date / Time meperidine (From Demerol) Allergy Unknown Dizziness Verified 11/22/24 08:26 vancomycin Allergy Unknown Verified 11/22/24 08:26 Review of Systems Review of Systems: CONSTITUTIONAL: Denies malaise, chills, sweats, or fever. CARDIOVASCULAR: Denies chest pain, palpitations, or edema. RESPIRATORY: Denies cough or dyspnea. GASTROINTESTINAL: Denies abdominal pain, nausea, vomiting, diarrhea GENITOURINARY: Denies dysuria, suprapubic pressure. Reports urine frequency, urgency, foul-smelling urine. Denies flank pain or hematuria. SKIN: Denies rash or itching. MUSCULOSKELETAL: Denies back pain or myalgia. All systems reviewed & are unremarkable except as noted in HPI and below PMFSH Past Medical History Medical History Abscess of Bartholin's gland Anemia Atrial fibrillation Benign hypertension Candidiasis Carpal tunnel syndrome Class 3 severe obesity due to excess calories with body mass index (BMI) of 40.0 to 44.9 in adult Congestive heart failure Diabetes Edema of lower extremity Hidradenitis suppurativa History of gastrointestinal procedure Hypertension Hypertensive disorder Impacted cerumen Incomplete uterovaginal prolapse Increased frequency of urination Lipoma of axilla Malignant tumor of breast Memory impairment Morbid obesity Open wound of anterior abdominal wall Osteoarthritis Pain in limb Sleep apnea Systemic lupus erythematosus Visual disturbance Vitamin D deficiency White blood cell disorder Surgical History Surgical History H/O colonoscopy H/O hernia repair H/O left mastectomy 05/12/22 H/O mastectomy right and left 04/2022 History of delivery 3x History of cholecystectomy History of esophagogastroduodenoscopy (EGD) Hx of total knee arthroplasty Family History Family History Mother Hypertension Breast cancer Hypothyroidism Heart disease Family history of cancer Father Heart disease Alzheimer disease Sibling Renal failure syndrome Diabetes mellitus Hypertension Sibling Diabetes mellitus Hypertension Social History Social History Social History: Patient has a 20 pack-year smoking history. Patient states that she quit smoking 20 years ago. Patient occasionally drinks alcohol but has not since her breast cancer diagnosis. Smoking status: Former smoker Tobacco type: cigarettes Alcohol intake: never Substance use: never Lack of Transportation: No Lack of Food: Never True Current Housing: I Have Housing Concerned About Future Housing: No Difficulty Paying Gas/Electric Bills: No Difficulty Paying for Meds: No Currently Unemployed: No Education: High School Diploma/GED Difficulty w/ Childcare or Family Care: No Living arrangements: alone Gender identity (if verbalized by the patient): Female Sexual Orientation (if Verbalized by the Patient): Straight or Heterosexual Spiritual care concerns: No Comments At time of signature, agree with nursing past medical, surgical, social and family history. There is no relevant family history pertinent to the presenting complaint Exam Narrative: GENERAL: Well-appearing, well-nourished, and in no acute distress. HEAD: Normocephalic. EYES: PERRLA, conjunctivae clear. NECK: Supple. No lymphadenopathy CHEST: Clear to auscultation. No respiratory distress. HEART: Regular rate and rhythm. ABDOMEN: Soft, nontender upon palpation, nondistended, normal active bowel sounds, no palpable or pulsatile masses, no guarding. No CVA tenderness SKIN: Warm, dry, no rash. NEURO: Alert and oriented x3. PSYCH: Normal mood and affect Course Course Emergency Course: Patient is aware of diagnosis, understands and agrees to treatment plan. Anticipatory guidance given. Patient agrees to follow-up as directed and is aware of reasons to seek care at the emergency department. Portions of this record may have been created with voice recognition software Level of Care: Express Care Visit Vital Signs Vital signs: Reviewed. MDM - Female Genitourinary MDM Narrative Medical decision making narrative: Exam findings and UA show no acute concerns or changes; patient is non-toxic appearing and is in no distress. Patient is appropriate for outpatient treatment and follow-up. Differential Diagnosis Differential diagnosis: Likely urinary tract infection and cystitis Critical Care Time Critical Care Time Critical Care Time: No Discharge Plan Discharge Clinical Impression: Urine frequency Patient Disposition: Home, Self-Care Condition: Stable Instructions: Urinary Urgency and Frequency (DC) Additional Instructions: We will send a urine culture to the lab; if the culture identifies an organism that requires antibiotic, you will receive a phone call from an urgent care staff member and an appropriate antibiotic will be prescribed. -Increase water intake. Tylenol/ibuprofen as needed for pain or fever -Follow-up with your primary care provider or seek ER visit if condition worsens with high fever, nausea, vomiting and severe back pain. Patient Language: [place] Prescriptions: No Action furosemide 20 mg tablet atorvastatin 80 mg tablet 80 mg PO DAILY hydralazine 25 mg tablet 25 mg PO DAILY acetaminophen 500 mg tablet 500 mg PO DAILY Farxiga 10 mg tablet 10 mg PO DAILY ergocalciferol (vitamin D2) [Vitamin D2] 1,250 mcg (50,000 unit) capsule 1,250 mcg PO amiodarone 200 mg tablet 200 mg PO DAILY metoprolol tartrate 50 mg tablet 50 mg PO Q12H Xarelto 20 mg tablet 20 mg PO DAILY Rx Instructions: must administer with evening meal venlafaxine 37.5 mg capsule,extended release 24hr 37.5 mg PO DAILY letrozole 2.5 mg tablet 2.5 mg PO DAILY polyethylene glycol 3350 [ClearLax] 17 gram powder in packet 17 g PO BID Qty: 100 0RF tramadol 50 mg tablet 50 mg PO Q6H PRN (Reason: pain) Qty: 14 0RF Follow-up/Referrals: Richards,Severiano Johnson APRN [Primary Care Provider] - Time of Disposition: 08:52
[2024-11-22 08:51] LABS: EDUAAPPEAR Clear; EDUABILI Negative (Negative); EDUABLOOD Negative (Negative); EDUACOLOR1 Yellow; EDUAGLUCOSE 2+ (Negative); EDUAKETONE Negative (Negative); EDUALEUKO Negative (Negative); EDUANITRATE Negative (Negative); EDUAPH 5.5; EDUAPROTEIN Negative (Negative); EDUAUROBILI 0.2
== END 2024-11-22 09:05 | disposition home or self-care (01) ==
PROVIDERS: Emergency Provider Nurse Practitioner; PCP Nurse Practitioner Family
DX: R35.0 Frequency of micturition (principal); Z87.891 Personal history of nicotine dependence; I48.91 Unspecified atrial fibrillation; I11.0 Hypertensive heart disease with heart failure; I50.9 Heart failure, unspecified; E11.9 Type 2 diabetes mellitus without complications; M32.9 Systemic lupus erythematosus, unspecified; E66.01 Morbid (severe) obesity due to excess calories; Z68.41 Body mass index [BMI] 40.0-44.9, adult; M19.90 Unspecified osteoarthritis, unspecified site; Z85.3 Personal history of malignant neoplasm of breast; Z90.13 Acquired absence of bilateral breasts and nipples; Z79.01 Long term (current) use of anticoagulants
CPT/HCPCS: 81003; 87086; 87186; 99213; G0463

== ENCOUNTER 2024-12-23 09:09 | Emergency (ER) | payer OTHER, SELFPAY ==
--- NOTE | 2024-12-23 09:19 | ED.FEMALEGU ---
HPI - Female Genitourinary General Chief complaint: Urogenital-Female Stated complaint: urinary issue Time Seen by Provider: 12/23/24 09:40 Source: patient, RN notes reviewed and old records reviewed Mode of arrival: ambulatory Limitations: no limitations History of Present Illness HPI Narrative: 74-year-old female presents to the [facility] with concerns of a continued UTI. Patient was seen 1 month ago. Continuing to have pressure, discomfort with urination, increased fatigue. Was placed on Bactrim and subsequently changed to Augmentin. Reviewed the microbiology Patient reports symptoms have gotten worse over last couple of days. Since she was seen last has not followed up with urology. Has taken Tylenol Related Data Home Medications ?Medication ?Instructions ?Recorded ?Confirmed ?Last Taken ?Type amiodarone 200 mg tablet 200 mg PO DAILY 03/24/20 06/17/24 09/29/22 History metoprolol tartrate 50 mg tablet 50 mg PO Q12H 03/24/20 06/17/24 09/29/22 History rivaroxaban 20 mg tablet (Xarelto) 20 mg PO DAILY 06/07/21 06/17/24 09/29/22 History atorvastatin 80 mg tablet 80 mg PO DAILY 10/14/21 06/17/24 09/29/22 History dapagliflozin propanediol 10 mg 10 mg PO DAILY 10/14/21 06/17/24 09/29/22 History tablet (Farxiga) letrozole 2.5 mg tablet 2.5 mg PO DAILY 09/30/22 06/17/24 Unknown History venlafaxine 37.5 mg 37.5 mg PO DAILY 09/30/22 06/17/24 Unknown History capsule,extended release 24 hr ergocalciferol (vitamin D2) 1,250 1,250 mcg PO 03/28/23 06/17/24 Unknown History mcg (50,000 unit) capsule (Vitamin D2) losartan 100 mg tablet mg 12/23/24 Unknown History sacubitril 24 mg-valsartan 26 mg tablet 12/23/24 Unknown History tablet (Entresto) Allergies Allergy/AdvReac Type Severity Reaction Status Date / Time meperidine (From Demerol) Allergy Unknown Dizziness Verified 12/23/24 09:37 vancomycin Allergy Unknown Verified 12/23/24 09:37 Review of Systems Review of Systems: All systems reviewed & are unremarkable except as noted in HPI and below Constitutional: Constitutional: Reports no additional constitutional complaints ENT: Reports system reviewed and no additional complaints, except as documented Cardiovascular: Cardiovascular: Reports no additional cardiovascular complaints, Denies chest pain and Denies dyspnea Respiratory: Respiratory: Reports no additional respiratory complaints, Denies chest congestion, Denies cough and Denies dyspnea Genitourinary: Genitourinary: Reports as per HPI Musculoskeletal: Musculoskeletal: Reports no additional musculoskeletal complaints Integumentary/Breasts: Skin/Breast: Reports system reviewed and no additional complaints, except as docu PMFSH Past Medical History Medical History Congestive heart failure Hypertension History of gastrointestinal procedure Sleep apnea Diabetes Abscess of Bartholin's gland Visual disturbance Hidradenitis suppurativa Carpal tunnel syndrome White blood cell disorder Candidiasis Class 3 severe obesity due to excess calories with body mass index (BMI) of 40.0 to 44.9 in adult Osteoarthritis Memory impairment Hypertensive disorder Vitamin D deficiency Anemia Malignant tumor of breast Morbid obesity Open wound of anterior abdominal wall Incomplete uterovaginal prolapse Lipoma of axilla Impacted cerumen Increased frequency of urination Benign hypertension Edema of lower extremity Systemic lupus erythematosus Pain in limb Atrial fibrillation Surgical History Surgical History History of cholecystectomy H/O left mastectomy 05/12/22 H/O hernia repair H/O mastectomy right and left 04/2022 H/O colonoscopy History of esophagogastroduodenoscopy (EGD) History of delivery 3x Hx of total knee arthroplasty Family History Family History Mother Hypertension Breast cancer Hypothyroidism Heart disease Family history of cancer Father Heart disease Alzheimer disease Sibling Renal failure syndrome Diabetes mellitus Hypertension Sibling Diabetes mellitus Hypertension Social History Social History Social History: Patient has a 20 pack-year smoking history. Patient states that she quit smoking 20 years ago. Patient occasionally drinks alcohol but has not since her breast cancer diagnosis. Smoking status: Former smoker Tobacco type: cigarettes Alcohol intake: never Substance use: never Lack of Transportation: No Lack of Food: Never True Current Housing: I Have Housing Concerned About Future Housing: No Difficulty Paying Gas/Electric Bills: No Difficulty Paying for Meds: No Currently Unemployed: No Education: High School Diploma/GED Difficulty w/ Childcare or Family Care: No Living arrangements: alone Gender identity (if verbalized by the patient): Female Sexual Orientation (if Verbalized by the Patient): Straight or Heterosexual Spiritual care concerns: No Comments At the time of my signature, I reviewed and agree with the nursing past medical, surgical, social, and family history. There is no relevant family history pertinent to the patient complaint. Exam Const: General: cooperative, healthy appearing, comfortable, no acute distress, well developed, alert and well nourished Nutritional Appearance: well nourished and obese morbidly obese Orientation/consciousness: patient oriented x3 Limitations: no limitations HENMT: Head: normal to inspection Eyes: General: appearance normal, both eyes and all related structures Alignment and Position: alignment normal Neck: Neck: normal visual inspection, full ROM, no lymphadenopathy and no meningeal signs Chest: Chest palpation & inspection: normal inspection of the chest Resp: Effort & Inspection: normal respiratory effort and able to speak in complete sentences Auscultation: clear to auscultation bilaterally, no crackles, no rales, no rhonchi and no wheezes Cardio: Rate: regular rate GI: GI Palp: No abdominal tenderness : General: Yes no CVA tenderness Skin: General skin exam: normal color and no rashes or lesions noted Neuro: General: patient oriented x3, gait normal, moves all extremities and no meningeal signs Cognition (Neuro): normal cognition Speech: normal speech Gait exam (Neuro): Normal gait present Extrem: General: normal to inspection, full ROM, capillary refill normal and normal gait Psych: Appearance: grossly normal and well kempt Mental Status: mental status grossly normal Speech and movement: Normal speech and movement present and Clear speech present Affect: normal affect Attitude: cooperative Course Course Level of Care: Express Care Visit Vital Signs Vital signs: Vital Signs Temperature 99.0 F 12/23/24 09:22 Pulse Rate 54 L 12/23/24 09:22 Respiratory Rate 16 12/23/24 09:22 Blood Pressure 154/86 H 12/23/24 09:22 Pulse Oximetry 98 12/23/24 09:22 Oxygen Delivery Room Air 12/23/24 09:22 Temperature 99.0 F 12/23/24 09:22 Pulse Rate 54 L 12/23/24 09:22 Respiratory Rate 16 12/23/24 09:22 Blood Pressure 154/86 H 12/23/24 09:22 Pulse Oximetry 98 12/23/24 09:22 Oxygen Delivery Room Air 12/23/24 09:22 Reviewed MDM - Female Genitourinary MDM Narrative Medical decision making narrative: Patient sitting in exam room. Nontoxic, vitals are stable except blood pressure mildly elevated. Patient presents with continued urinary symptoms. Patient with nitrates in urine, will cover with antibiotic. Encouraged patient to call urologist for further Evaluation. Discussed in great detail signs and symptoms proceed to the emergency room which she verbalized understand Discharge instructions reviewed with patient, as well as provided in writing per nursing staff. The instructions also include specific and strict return/GO TO THE ER as well as f/u information. All questions have been answered, and the patient deny any further questions with discharge and discharge plan. Some parts of this dictation were generated by voice recognition software and may contain typographical and/or grammatical inaccuracies. Differential Diagnosis Differential diagnosis: Likely urinary tract infection and cystitis Lab Data Labs: Lab Results 12/23/24 12/23/24 Range/Units 09:52 10:09 POC Capillary Glucose 124 H (65-105) mg/dl POC Urine Color Yellow POC Urine Clarity Clear POC Urine pH 5.5 POC Ur Specif [place] 1.015 POC Urine Protein Negative (Negative) POC Ur Glucose (UA) 3+ (Negative) POC Urine Ketones Negative (Negative) POC Urine Blood Negative (Negative) POC Urine Nitrite Positive (Negative) POC Urine Bilirubin Negative (Negative) POC Urine Urobilinogen 0.2 POC U Leukocyte Esteras Negative (Negative) Reviewed Critical Care Time Critical Care Time Critical Care Time: No Discharge Plan Discharge Clinical Impression: Acute UTI Patient Disposition: Home, Self-Care Condition: Stable Instructions: Antibiotic Form, Urinary Tract Infection in Older Adults (ED) Additional Instructions: Increased water intake Take Tylenol as needed for pain Take antibiotic as prescribed Today your urine dip showed a probability of a UTI. You have been prescribed an antibiotic. Your urine will be sent to our lab for a culture. If at that time a bacteria grows that is not covered by the antibiotic prescribed you will be notified. Follow-up with primary care for follow-up as well as a blood pressure check. Today your blood pressure check is 154/86. Due to ongoing or frequent UTIs the most important part of your care is following up with urology. Call today and try to get a close follow-up. For new or worsening symptoms go directly to the emergency room Patient Language: [place] Prescriptions: New cefuroxime axetil 500 mg tablet 500 mg PO BID Qty: 10 0RF No Action atorvastatin 80 mg tablet 80 mg PO DAILY Farxiga 10 mg tablet 10 mg PO DAILY losartan 100 mg tablet sacubitril-valsartan [Entresto] 24-26 mg tablet ergocalciferol (vitamin D2) [Vitamin D2] 1,250 mcg (50,000 unit) capsule 1,250 mcg PO amiodarone 200 mg tablet 200 mg PO DAILY metoprolol tartrate 50 mg tablet 50 mg PO Q12H Xarelto 20 mg tablet 20 mg PO DAILY Rx Instructions: must administer with evening meal venlafaxine 37.5 mg capsule,extended release 24hr 37.5 mg PO DAILY letrozole 2.5 mg tablet 2.5 mg PO DAILY polyethylene glycol 3350 [ClearLax] 17 gram powder in packet 17 g PO BID Qty: 100 0RF tramadol 50 mg tablet 50 mg PO Q6H PRN (Reason: pain) Qty: 14 0RF Follow-up/Referrals: Hernesto Molina MD [Primary Care Provider] - 3 Days ([facility] follow up. Blood pressure check, 154/86) Time of Disposition: 09:58
[2024-12-23 09:22] VITALS: BP 154/86; PULSE 54; RESP 16; TEMP 37.2; O2SAT 98
[2024-12-23 09:55] LABS: Glucose Point of Care 124 mg/dl (65-105)
[2024-12-23 10:10] LABS: EDUAAPPEAR Clear; EDUABILI Negative (Negative); EDUABLOOD Negative (Negative); EDUACOLOR1 Yellow; EDUAGLUCOSE 3+ (Negative); EDUAKETONE Negative (Negative); EDUALEUKO Negative (Negative); EDUANITRATE Positive (Negative); EDUAPH 5.5; EDUAPROTEIN Negative (Negative); EDUASPGRAVITY 1.015; EDUAUROBILI 0.2
== END 2024-12-23 10:00 | disposition home or self-care (01) ==
PROVIDERS: Emergency Provider Nurse Practitioner; PCP Family Medicine
DX: N39.0 Urinary tract infection, site not specified (principal); B96.20 Unspecified Escherichia coli [E. coli] as the cause of diseases classified elsewhere; I11.0 Hypertensive heart disease with heart failure; I50.9 Heart failure, unspecified; E11.9 Type 2 diabetes mellitus without complications; M32.9 Systemic lupus erythematosus, unspecified; M19.90 Unspecified osteoarthritis, unspecified site; E66.01 Morbid (severe) obesity due to excess calories; Z68.41 Body mass index [BMI] 40.0-44.9, adult; I48.91 Unspecified atrial fibrillation; Z79.01 Long term (current) use of anticoagulants
CPT/HCPCS: 81003; 82948; 87086; 87186; 99213; G0463

== ENCOUNTER 2025-01-10 13:39 | Emergency (ER) | payer OTHER, SELFPAY ==
--- NOTE | 2025-01-10 13:45 | ED_ITS ---
HPI - Female Genitourinary General Chief complaint: Urogenital-Female Stated complaint: urinary issue Time Seen by Provider: 01/10/25 13:50 Source: patient Mode of arrival: ambulatory Limitations: no limitations History of Present Illness HPI Narrative: Ivanna is a 74-year-old female patient presenting to the clinic today requesting for her urine to be tested. She has had frequent recurrent UTIs and finished the antibiotics (cefuroxime) and is just wanting her urine checked. States she is still having some urinary frequency. Denies any fevers, chills, body aches, back pain, or abdominal pain. Related Data Home Medications ?Medication ?Instructions ?Recorded ?Confirmed ?Last Taken ?Type amiodarone 200 mg tablet 200 mg PO DAILY 03/24/20 06/17/24 09/29/22 History metoprolol tartrate 50 mg tablet 50 mg PO Q12H 03/24/20 06/17/24 09/29/22 History rivaroxaban 20 mg tablet (Xarelto) 20 mg PO DAILY 06/07/21 06/17/24 09/29/22 History atorvastatin 80 mg tablet 80 mg PO DAILY 10/14/21 06/17/24 09/29/22 History dapagliflozin propanediol 10 mg 10 mg PO DAILY 10/14/21 06/17/24 09/29/22 History tablet (Farxiga) letrozole 2.5 mg tablet 2.5 mg PO DAILY 09/30/22 06/17/24 Unknown History ergocalciferol (vitamin D2) 1,250 1,250 mcg PO 03/28/23 06/17/24 Unknown History mcg (50,000 unit) capsule (Vitamin D2) losartan 100 mg tablet mg 12/23/24 Unknown History sacubitril 24 mg-valsartan 26 mg tablet 12/23/24 Unknown History tablet (Entresto) Allergies Allergy/AdvReac Type Severity Reaction Status Date / Time meperidine (From Demerol) Allergy Unknown Dizziness Verified 01/10/25 13:51 vancomycin Allergy Unknown Verified 01/10/25 13:51 Review of Systems Review of Systems: Pertinent positives per HPI. Patient denies any fever, chills, rash, headache, visual changes, dizziness, cough, shortness of breath, chest pain, palpitations, nausea, vomiting, diarrhea, constipation, abdominal pain. [facility] Past Medical History Medical History Congestive heart failure Hypertension History of gastrointestinal procedure Sleep apnea Diabetes Abscess of Bartholin's gland Visual disturbance Hidradenitis suppurativa Carpal tunnel syndrome White blood cell disorder Candidiasis Class 3 severe obesity due to excess calories with body mass index (BMI) of 40.0 to 44.9 in adult Osteoarthritis Memory impairment Hypertensive disorder Vitamin D deficiency Anemia Malignant tumor of breast Morbid obesity Open wound of anterior abdominal wall Incomplete uterovaginal prolapse Lipoma of axilla Impacted cerumen Increased frequency of urination Benign hypertension Edema of lower extremity Systemic lupus erythematosus Pain in limb Atrial fibrillation Surgical History Surgical History History of cholecystectomy H/O left mastectomy 05/12/22 H/O hernia repair H/O mastectomy right and left 04/2022 H/O colonoscopy History of esophagogastroduodenoscopy (EGD) History of delivery 3x Hx of total knee arthroplasty Family History Family History Mother Hypertension Breast cancer Hypothyroidism Heart disease Family history of cancer Father Heart disease Alzheimer disease Sibling Renal failure syndrome Diabetes mellitus Hypertension Sibling Diabetes mellitus Hypertension Social History Social History Social History: Patient has a 20 pack-year smoking history. Patient states that she quit smoking 20 years ago. Patient occasionally drinks alcohol but has not since her breast cancer diagnosis. Smoking status: Former smoker Tobacco type: cigarettes Alcohol intake: never Substance use: never Lack of Transportation: No Lack of Food: Never True Current Housing: I Have Housing Concerned About Future Housing: No Difficulty Paying Gas/Electric Bills: No Difficulty Paying for Meds: No Currently Unemployed: No Education: High School Diploma/GED Difficulty w/ Childcare or Family Care: No Living arrangements: alone Gender identity (if verbalized by the patient): Female Sexual Orientation (if Verbalized by the Patient): Straight or Heterosexual Spiritual care concerns: No Comments At the time of my signature, I reviewed and agree with the nursing past medical, surgical, social, and family history. There is no relevant family history pertinent to the patient complaint. Exam Narrative: General: Well-developed, morbidly obese, in no apparent distress. Head: Normocephalic, atraumatic. Cardio: Regular rate and rhythm, s1 and s2 normal, no murmur appreciated. Resp: Clear to auscultation bilaterally, no rhonchi, rales, wheezing or rubs. Abdomen: Soft, pliable, bowel sounds present in all quadrants, non-tender to palpation, no organomegly, no CVAT tenderness. Course Course Emergency Course: Portions of this record may have been created with voice recognition software. Level of Care: Express Care Visit Vital Signs Vital signs: Vital Signs Temperature 37.1 C 01/10/25 13:55 Pulse Rate 60 01/10/25 13:55 Respiratory Rate 16 01/10/25 13:55 Blood Pressure 179/69 H 01/10/25 13:55 Pulse Oximetry 98 01/10/25 13:55 Oxygen Delivery Room Air 01/10/25 13:55 Temperature 37.1 C 01/10/25 13:55 Pulse Rate 60 01/10/25 13:55 Respiratory Rate 16 01/10/25 13:55 Blood Pressure 179/69 H 01/10/25 13:55 Pulse Oximetry 98 01/10/25 13:55 Oxygen Delivery Room Air 01/10/25 13:55 Vital signs reviewed MDM - Female Genitourinary MDM Narrative Medical decision making narrative: At the time of visit patient is resting comfortably on the exam table. Patient appears to be nontoxic. Labs: Urinalysis positive for nitrates, protein, glucose. We will send for culture. Plan: When reviewing the sensitivity in culture that was completed on December 25, 2024 patient was placed on cefuroxime and it appears that this is resistant to the E coli bacteria that is growing. Patient reports that she finished this antibiotic and has not had any relief of her symptoms. Looking at the culture and sensitivity report from 12/25/24. Augmentin is susceptible so I will place her on a 10 day course of Augmentin and have her have a close follow-up with her PCP/urogynecologist. If symptoms worsen she may need to go to the ER for IV antibiotics. Supportive measures were discussed with the patient and they voiced understanding discharge instructions and agrees to treatment plan. Return precautions reviewed Differential Diagnosis Differential diagnosis: Likely urinary tract infection and cystitis Discharge Plan Discharge Clinical Impression: Acute lower UTI Patient Disposition: Home, Self-Care Condition: Stable Instructions: Antibiotic Form, Urinary Tract Infection in Older Adults (ED) Additional Instructions: Urinalysis positive for nitrates, protein, and 3+ glucose. Take Augmentin as prescribed Increase fluids and stay well hydrated Wipe front to back. May use wet wipes. Avoid tub baths If sexually active- pee before and after intercourse. Wear cotton panties Avoid tight clothing up against the genitals Follow up with your PCP in 1 week if symptoms persist. 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 as scheduled Patient Language: Macedonian Prescriptions: New amoxicillin-pot clavulanate 875-125 mg tablet 1 tablet PO Q12H 10 Days Qty: 20 0RF No Action atorvastatin 80 mg tablet 80 mg PO DAILY Farxiga 10 mg tablet 10 mg PO DAILY losartan 100 mg tablet sacubitril-valsartan [Entresto] 24-26 mg tablet ergocalciferol (vitamin D2) [Vitamin D2] 1,250 mcg (50,000 unit) capsule 1,250 mcg PO amiodarone 200 mg tablet 200 mg PO DAILY metoprolol tartrate 50 mg tablet 50 mg PO Q12H Xarelto 20 mg tablet 20 mg PO DAILY Rx Instructions: must administer with evening meal letrozole 2.5 mg tablet 2.5 mg PO DAILY polyethylene glycol 3350 [ClearLax] 17 gram powder in packet 17 g PO BID Qty: 100 0RF Follow-up/Referrals: Hernesto Molina MD [Primary Care Provider] - Time of Disposition: 14:06 Quality NIHSS Nursing Documentation ED NIHSS nursing documentation: reviewed/agree
[2025-01-10 13:55] VITALS: BP 179/69; PULSE 60; RESP 16; TEMP 37.1; O2SAT 98
[2025-01-10 14:24] LABS: EDUAAPPEAR Clear; EDUABILI Negative (Negative); EDUABLOOD Negative (Negative); EDUACOLOR1 Yellow; EDUAGLUCOSE 3+ (Negative); EDUAKETONE Negative (Negative); EDUALEUKO Negative (Negative); EDUANITRATE Positive (Negative); EDUAPH 5.5; EDUAPROTEIN Trace (Negative); EDUASPGRAVITY 1.015; EDUAUROBILI 0.2
== END 2025-01-10 14:10 | disposition home or self-care (01) ==
PROVIDERS: Emergency Provider Nurse Practitioner Family; PCP Family Medicine
DX: N39.0 Urinary tract infection, site not specified (principal); Z87.891 Personal history of nicotine dependence; I11.0 Hypertensive heart disease with heart failure; I50.9 Heart failure, unspecified; E11.9 Type 2 diabetes mellitus without complications; M32.9 Systemic lupus erythematosus, unspecified; M19.90 Unspecified osteoarthritis, unspecified site; Z68.42 Body mass index [BMI] 45.0-49.9, adult; E66.01 Morbid (severe) obesity due to excess calories; I48.91 Unspecified atrial fibrillation; E55.9 Vitamin D deficiency, unspecified; Z79.01 Long term (current) use of anticoagulants
CPT/HCPCS: 81003; 87086; 87186; 99213; G0463

== ENCOUNTER 2025-04-14 07:27 | Outpatient (CLI) | payer OTHER, SELFPAY ==
--- NOTE | 2025-04-14 14:41 | WPDPFTINT ---
PFT Procedure Performed PFT Procedure Performed Plethysmography (Lung Vol) Diffusing Cap (DLCO) Flow Vol Loop Spirometry w/o Bronchodil PFT Interpretation This is a pulmonary function test with spirometry, plethysmography and diffusing capacity. The test was performed and results interpreted in accordance with the 2019 and 2005 ATS/ERS Task Force guidelines respectively using the Global Lung Function Initiative-2012 reference equations. Patient demonstrated good effort and cooperation. Reproducibility criteria were met. The quality of the spirometry maneuver was Grade A. Findings: Spirometry: The contour the inspiratory and expiratory flow tracing are normal. The FVC is 2.33 L, 89% predicted. The FEV1 is 1.62 L, 81% predicted. The FEV1: FVC ratio 70%. Plethysmography: The total lung capacity is 4.96 L, 99% predicted. The functional residual capacity is 3.23 L, 98% predicted. The residual volume is 2.52 L, 108% predicted. Diffusing capacity: The diffusing capacity unadjusted for hemoglobin and carboxyhemoglobin is 19.6, 91% predicted. The diffusing capacity adjusted for alveolar volume is 4.82, 120% predicted. In comparison to previous pulmonary function testing on 09/15/2021 the FVC is unchanged from 2.30 L to 2.33 L. The FEV1 is unchanged from 1.58 L to 1.62 L. The total lung capacity is unchanged from 5.33 L to 4.96 L. The functional residual capacity is unchanged from 3.33 L to 3.23 L. The residual volume is unchanged from 2.87 L to 2.52 L. The diffusing capacity unadjusted for hemoglobin and carboxyhemoglobin is decreased from 23.2 to 19.6. The diffusing capacity unadjusted for hemoglobin and carboxyhemoglobin is unchanged from 5.40 to 4.82. Impression: The spirometry is normal without evidence of an obstructive abnormality. The lung volumes are normal. The diffusing capacity is normal. In comparison to previous pulmonary function testing on 09/15/2021 there has been a greater than anticipated time dependent increase in the diffusing capacity unadjusted for hemoglobin and carboxyhemoglobin with no significant change in the FVC, FEV1, total lung capacity, functional residual capacity, residual volume and diffusing capacity adjusted for alveolar volume. Clinical correlation is recommended.
== END 2025-04-14 07:28 | disposition home or self-care (01) ==
PROVIDERS: PCP Family Medicine; Visit Provider Internal Medicine
DX: I50.42 Chronic combined systolic (congestive) and diastolic (congestive) heart failure (principal)
CPT/HCPCS: 94375; 94726; 94729

== ENCOUNTER 2025-04-22 08:16 | Emergency (ER) | payer OTHER, SELFPAY ==
[2025-04-22 08:25] VITALS: BP 180/64; PULSE 51; RESP 16; TEMP 36.2; O2SAT 96
[2025-04-22 08:45] LABS: EDUAAPPEAR Clear; EDUABILI Negative (Negative); EDUABLOOD Negative (Negative); EDUACOLOR1 Yellow; EDUAGLUCOSE 3+ (Negative); EDUAKETONE Negative (Negative); EDUALEUKO Trace (Negative); EDUANITRATE Negative (Negative); EDUAPH 5.5; EDUAPROTEIN Negative (Negative); EDUASPGRAVITY 1.015; EDUAUROBILI 0.2
--- NOTE | 2025-04-22 08:53 | ED.FEMALEGU ---
HPI - Female Genitourinary General Chief complaint: Urogenital-Female Stated complaint: urinary irritation Time Seen by Provider: 04/22/25 08:40 Source: patient and RN notes reviewed Mode of arrival: ambulatory Limitations: no limitations History of Present Illness HPI Narrative: 75-year-old female presents Express Care complaining of urinary symptoms for approximately 4 months. Patient states she was last here in December with urinary symptoms was treated with a UTI with Augmentin. Patient reports having increased frequency, hesitancy, and incontinence. Patient is scheduled to see urologist for her urinary symptoms is currently being evaluated by them. Does have a history of an overactive bladder. Patient denies any fevers, abdominal pain, dysuria, hematuria, flank pain, back pain, body aches, chills, vaginal bleeding, vaginal discharge, vaginal itchiness, nausea, vomiting, diarrhea, or weakness. Patient has not taken anything [id number] for symptoms. Patient has a history of atrial fibrillation, hypertension, and heart failure. Related Data Home Medications ?Medication ?Instructions ?Recorded ?Confirmed ?Last Taken ?Type amiodarone 200 mg tablet 200 mg PO DAILY 03/24/20 06/17/24 09/29/22 History metoprolol tartrate 50 mg tablet 50 mg PO Q12H 03/24/20 06/17/24 09/29/22 History rivaroxaban 20 mg tablet (Xarelto) 20 mg PO DAILY 06/07/21 06/17/24 09/29/22 History atorvastatin 80 mg tablet 80 mg PO DAILY 10/14/21 06/17/24 09/29/22 History dapagliflozin propanediol 10 mg 10 mg PO DAILY 10/14/21 06/17/24 09/29/22 History tablet (Farxiga) letrozole 2.5 mg tablet 2.5 mg PO DAILY 09/30/22 06/17/24 Unknown History ergocalciferol (vitamin D2) 1,250 1,250 mcg PO 03/28/23 06/17/24 Unknown History mcg (50,000 unit) capsule (Vitamin D2) losartan 100 mg tablet mg 12/23/24 Unknown History sacubitril 24 mg-valsartan 26 mg tablet 12/23/24 Unknown History tablet (Entresto) Allergies Allergy/AdvReac Type Severity Reaction Status Date / Time meperidine (From Demerol) Allergy Unknown Dizziness Verified 04/22/25 08:17 vancomycin Allergy Unknown Verified 04/22/25 08:17 Review of Systems Review of Systems: CONSTITUTIONAL: Denies fever, chills, body aches, or sweats. EYES: Denies visual changes, redness, or discharge. ENT: Denies rhinorrhea, congestion, sore throat, or otalgia. CARDIOVASCULAR: Denies chest pain, palpitations, or edema. RESPIRATORY: Denies cough or dyspnea. GASTROINTESTINAL: Denies abdominal pain, nausea, vomiting, or diarrhea. GENITOURINARY: Positive for hesitancy, increased frequency, incontinence. Negative for hematuria, suprapubic pain, vaginal bleeding, vaginal discharge. SKIN: Denies rash or itching. MUSCULOSKELETAL: Denies back pain, joint pain, or myalgia. NEUROLOGIC: Denies headache, numbness, or weakness. PSYCHIATRIC: Denies anxiety or depression. All other systems reviewed are negative, except as documented in HPI. COUNTS INCLUDE 234 BEDS AT THE [facility] Past Medical History Medical History Congestive heart failure Hypertension History of gastrointestinal procedure Sleep apnea Diabetes Abscess of Bartholin's gland Visual disturbance Hidradenitis suppurativa Carpal tunnel syndrome White blood cell disorder Candidiasis Class 3 severe obesity due to excess calories with body mass index (BMI) of 40.0 to 44.9 in adult Osteoarthritis Memory impairment Hypertensive disorder Vitamin D deficiency Anemia Malignant tumor of breast Morbid obesity Open wound of anterior abdominal wall Incomplete uterovaginal prolapse Lipoma of axilla Impacted cerumen Increased frequency of urination Benign hypertension Edema of lower extremity Systemic lupus erythematosus Pain in limb Atrial fibrillation Surgical History Surgical History History of cholecystectomy H/O left mastectomy 05/12/22 H/O hernia repair H/O mastectomy right and left 04/2022 H/O colonoscopy History of esophagogastroduodenoscopy (EGD) History of delivery 3x Hx of total knee arthroplasty Family History Family History Mother Hypertension Breast cancer Hypothyroidism Heart disease Family history of cancer Father Heart disease Alzheimer disease Sibling Renal failure syndrome Diabetes mellitus Hypertension Sibling Diabetes mellitus Hypertension Social History Social History (Reviewed 04/22/25 @ 08:57 by BRUCE Michaels Social History: Patient has a 20 pack-year smoking history. Patient states that she quit smoking 20 years ago. Patient occasionally drinks alcohol but has not since her breast cancer diagnosis. Smoking status: Former smoker Tobacco type: cigarettes Alcohol intake: never Substance use: never Lack of Transportation: No Lack of Food: Never True Current Housing: I Have Housing Concerned About Future Housing: No Difficulty Paying Gas/Electric Bills: No Difficulty Paying for Meds: No Currently Unemployed: No Education: High School Diploma/GED Difficulty w/ Childcare or Family Care: No Living arrangements: alone Gender identity (if verbalized by the patient): Female Sexual Orientation (if Verbalized by the Patient): Straight or Heterosexual Spiritual care concerns: No Comments At the time of my signature, I reviewed and agree with the nursing past medical, surgical, social, and family history. There is no relevant family history pertinent to the patient complaint. Exam Narrative: GENERAL: This is a well-nourished, well-developed adult, in no apparent distress. They are non ill-appearing, nontoxic appearing. Patient is obese. Physical exam limited due to large body habitus. Patient uses a walker. HEAD: normocephalic, atraumatic. EYES: Sclera clear/white. Vision is grossly intact. Conjunctiva normal bilaterally. Extraocular movements intact. EARS: External ears normal,Hearing grossly intact. NOSE: External nose normal THROAT: Mucous membranes moist NECK: Normal range of motion CARDIOVASCULAR: Regular rate and rhythm. Normal S1-S2. No clicks, gallops, rubs, murmurs. RESPIRATORY: Respiratory rate normal, respiratory effort nonlabored, no respiratory distress. Lung sounds clear to auscultation throughout. Lung sounds equal bilaterally. No adventitious lung sounds. GASTROINTESTINAL: Abdomen large, soft, flat, non-tender, nondistended. Bowel sounds are active. No hepato-splenomegaly, or palpable masses. No guarding or rigidity. No rebound tenderness. SKIN: warm, Dry, intact with no suspicious lesions or rash, good texture and turgor. NEURO: awake, alert, and oriented to person, place and time. There were no obvious focal neurologic abnormalities. EXTREMITIES: No joint tenderness, effusion, or edema noted. BACK: Nontender without deformity. No CVA tenderness. Course Course Emergency Course: Portions of this record may have been created with voice recognition software Level of Care: Express Care Visit Vital Signs Vital signs: Vital Signs Temperature 97.2 F L 04/22/25 08:25 Pulse Rate 51 L 04/22/25 08:25 Respiratory Rate 16 04/22/25 08:25 Blood Pressure 180/64 H 04/22/25 08:25 Pulse Oximetry 96 04/22/25 08:25 Oxygen Delivery Room Air 04/22/25 08:25 Temperature 97.2 F L 04/22/25 08:25 Pulse Rate 51 L 04/22/25 08:25 Respiratory Rate 16 04/22/25 08:25 Blood Pressure 180/64 H 04/22/25 08:25 Pulse Oximetry 96 04/22/25 08:25 Oxygen Delivery Room Air 04/22/25 08:25 MDM - Female Genitourinary MDM Narrative Medical decision making narrative: Urine dipstick shows glucose and leukocytes. Urine culture pending. Patient's symptoms are not consistent with urinary tract infection. No CVA tenderness or suprapubic pain. There are leukocytes presents, no nitrates, no blood, urine yellow and clear. Through shared decision making with patient she has elected to go ahead and wait for urine culture results prior to starting any antibiotic therapy. Patient is hemodynamically stable without any systemic signs of infection. Patient's symptoms may be related to the Farxiga she is taking as well, advice her to discuss this medication with her long term care social worker and to continue following up with urology for her urinary symptoms. Discussed physical exam findings. Advised supportive measures and signs/symptoms to go to the ER including but not limited to abdominal pain, fevers, nausea, vomiting, hematuria, dysuria, confusion, weakness. Pt is appropriate for outpt treatment and f/u. Differential Diagnosis Differential diagnosis: Likely urinary tract infection, cystitis and other (Pyelonephritis, overactive bladder, urinary incontinence, medication side effect) Lab Data Attestation: I reviewed the patient's lab results. Labs: Lab Results 04/22/25 Range/Units 08:36 POC Urine Color Yellow POC Urine Clarity Clear POC Urine pH 5.5 POC Ur Specif [place] 1.015 POC Urine Protein Negative (Negative) POC Ur Glucose (UA) 3+ (Negative) POC Urine Ketones Negative (Negative) POC Urine Blood Negative (Negative) POC Urine Nitrite Negative (Negative) POC Urine Bilirubin Negative (Negative) POC Urine Urobilinogen 0.2 POC U Leukocyte Esteras Trace (Negative) Discharge Plan Discharge Clinical Impression: Increased urinary frequency Patient Disposition: Home Condition: Stable Instructions: Urinary Urgency and Frequency (DC) Additional Instructions: Your urine will be sent of for a culture to determine if bacteria is causing your symptoms. If the culture shows a UTI, you will be notified and an antibiotic will be called in for you. you will need to follow up with your PCP for further evaluation and treatment if symptoms persist, call today to schedule follow-up appointment in 3-5 days. Go to the ER for any worsening symptoms such as abdominal pain, fevers, nausea, vomiting, weakness, confusion, or any other serious concerns. Patient Language: Maltese Prescriptions: No Action atorvastatin 80 mg tablet 80 mg PO DAILY Farxiga 10 mg tablet 10 mg PO DAILY losartan 100 mg tablet sacubitril-valsartan [Entresto] 24-26 mg tablet ergocalciferol (vitamin D2) [Vitamin D2] 1,250 mcg (50,000 unit) capsule 1,250 mcg PO amiodarone 200 mg tablet 200 mg PO DAILY metoprolol tartrate 50 mg tablet 50 mg PO Q12H Xarelto 20 mg tablet 20 mg PO DAILY Rx Instructions: must administer with evening meal letrozole 2.5 mg tablet 2.5 mg PO DAILY polyethylene glycol 3350 [ClearLax] 17 gram powder in packet 17 g PO BID Qty: 100 0RF Follow-up/Referrals: Hernesto Molina MD [Primary Care Provider] - Time of Disposition: 08:51
== END 2025-04-22 08:55 | disposition home or self-care (01) ==
PROVIDERS: PCP Family Medicine
DX: R35.0 Frequency of micturition (principal); Z87.891 Personal history of nicotine dependence; I11.0 Hypertensive heart disease with heart failure; I50.9 Heart failure, unspecified; E11.9 Type 2 diabetes mellitus without complications; M19.90 Unspecified osteoarthritis, unspecified site; E55.9 Vitamin D deficiency, unspecified; E66.01 Morbid (severe) obesity due to excess calories; Z68.41 Body mass index [BMI] 40.0-44.9, adult; M32.9 Systemic lupus erythematosus, unspecified; I48.91 Unspecified atrial fibrillation; Z85.3 Personal history of malignant neoplasm of breast; Z90.13 Acquired absence of bilateral breasts and nipples; Z79.01 Long term (current) use of anticoagulants
CPT/HCPCS: 81003; 87086; 87186; 99213; G0463

== ENCOUNTER 2025-05-08 09:51 | Outpatient (CLI) | payer OTHER, SELFPAY ==
--- OUTSIDE RECORDS SUMMARY | 2025-05-08 10:05 | XMS_ITS ---
Author Organization [facility] Address [address] [place] [address] Care Team Providers Care Curriculum Assistant Name Role Phone Lesli Kinney MD Unavailable [phone] Monika Doyle MD Unavailable Aft, Doreen Oliva MD PhD Unavailable [phone] Pamella Henry PhD Unavailable [phone] Stephen Phan NP Primary Care Provider [phone] Active Problems Problem Noted Date Diagnosed Date Chronic combined systolic and diastolic heart fa ilure 04/08/2025 USP (current) use of aromatase inhibitors 03/24/2025 Uterine polyp 12/08/2022 Overview (12/08/2022): Added automatically from request for surgery [id number] History of bilateral breast cancer 11/29/2022 Postmenopausal bleeding 10/31/2022 Overview (01/20/2023): - 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 Alternative sources include urinary vs. Rectal - Patient reports last pap was in 2015 and no history of abnormal paps, unable to obtain records - 10/31 exam without any identified bleeding, no obvious cancers or masses - Pelvic US 12/05: EMS 1.9mm, fluid within endometrial cavity, polyp seen [id number] - s/p hysteroscopy, polypectomy 12/22/22, 3 polyps visualized, benign pathology, no e/o hyperplasia or malignancy Plan: - CTM symptoms Encounter for person encountering health service s 07/04/2022 Urge urinary incontinence 05/18/2021 Overview (05/18/2021): Added automatically from request for surgery [id number] OAB (overactive bladder) 05/18/2021 Overview (05/18/2021): Added automatically from request for surgery [id number] Urinary incontinence 03/17/2021 Vaginal prolapse 03/17/2021 Overview (01/20/2023): - St 3 uterovaginal prolapse on IGY - Previously tried pessary with outside provider, reports they tried two types but it fell out in clinic - Attempted pessary placement in OR on 12/22/22, but per op note: pessary placement was attempted with size 3 and 5 gellhorn pessary but aborted due to difficult placement - post op visit 01/20: discussed options include trying to fit pessary in clinic vs surgical management. Declined pessary fitting. Reports she would like to discuss surgical options. Referral to urogynecology placed for urgency urinary incontinence and pelvic organ prolapse Discussed importance of medical/cardiac clearance prior to surgery. Patient last saw merchandising lead 3 months ago. Renal lesion 03/17/2021 Malignant neoplasm of overla pping sites of left breast in female, estrogen receptor positive 04/19/2018 Cancer Staging:Pathologic stage from 05/12/2022:No Stage Recommended(ypT3, pN2a, cM0, G2, ER+, AR+, HER2-) - Signed by Kurt Wheeler MD on 06/30/2022 Monoclonal gammopathy 04/19/2018 Open wound 12/17/2010 Hypertension 11/30/2010 Diabetes mellitus 11/30/2010 Current Treatment and Therapy Plans IV Maintenance Therapy Plan* Plan Start Date:07/15/2022 Plan Provider:Lesli Kinney MD Linked Problems Malignant neoplasm of overla pping sites of left breast in female, estrogen receptor positive (HCC) Treatment Medications No medications scheduled. Past Treatment and Therapy Plans Oncology Chemotherapy Treatment Plan Name Start Date Discontinue Date Treatment Medications Discontinue Reason Plan Provider Cycles CMF: (Cyclophospham christy IV / Methotrexate IVP / Fluorouracil IVP) 21 Day Cycles - Breast 07/15/20 22 05/01/2025 cycloPHOSphamide IVPB in 250 mL (vial 200 mg/mL)([id number])fluo rouracil (ADRUCIL)methotre xate 25 mg/mL Automatic discontinuation of dormant plans Lesli Kinney MD 6 of 6 cycles started Radiation Treatments * Course [id number]/06/2022 - 01/06/2023 Treatment Period Energy Fraction Dose Fractions Total Dose Plans Planned [facility] 12/26/2022 - 01/06/2023 266 10 / 2,660 [facility] 12/06/2022 - 12/13/2022 266 6 / 4,256 Reference Points Delivered [facility] [address] 12/06/2022 - 01/06/2023 4,256 Lifetime Dose Tracking * Chemical Lifetime Dose Automatic Entry Manual Entr y Fluoro Time 2.177 minutes 2.177 minutes 0 minutes cyclophosphamide 3,668.75 mg/m2 (9,360 mg) 3,668.75 mg/m2 (9,360 mg) 0 mg/m2 (0 mg) Air kerma at the reference point (Ka,r) 140.28 mGy 140.28 mGy 0 mGy DLP 6,911 mGycm 6,911 mGycm 0 mGycm Resolved Problems Problem Noted Date Diagnosed Date Resolved Date Malignant neoplasm of left breast 04/06/2022 06/27/2022
--- OUTSIDE RECORDS SUMMARY | 2025-05-08 10:05 | XMS_ITS | Encounter Summary ---
Author Organization [facility] Address [address] [place] [address] Care Team Providers Care Card Folder Name Role Phone Unavailable Primary Care Provider Unavailabl e Reason for Visit * Diagnostic Imaging (Routine) - Closed Specialty Diagnoses / Procedures Referred By Contac t Referred To Contact Procedures Breast Imaging Diagnostic Outside Reference Aft, Doreen Oliva MD PhD [address] [place] [id number] Phone: tel: fax: Referral ID Status Reason Start Date Expiration Date Visits Re quested Visits Authorized [id number] Closed 01/20/2022 02/19/2023 1 1 Encounter Details Date Type Department Care Team (Late st Contact Info) Description 01/06/2017 Hospital Encounter [facility] [address] [place] [address] [id number] Social History Tobacco Use Types Packs/Day Years [...] on file Legal 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 Never 10/04/2023 9:33 AM AUTOMOTIVE MAINTENANCE TECHNICIAN Nelia Cabrera i Q2: How many drinks containing alcohol do you have on a typical day when you are drinking? Patient does not drink 03/29/2023 9:24 AM CDT Tano Hays RN Q3: How often do you have six or more drinks on one occasion? Never 12/22/2022 2:31 PM AUTOMOTIVE MAINTENANCE TECHNICIAN Patricia Gerardo, ISIS documented as of this [...] only and have not been reviewed by [facility]. There will be no report generated by a [facility]iologist. Narrative [facility] - 01/20/2022 4:39 PM CDT EXAMINATION: Images For Reference Purposes Only us Doreen Patricia MD PhD IMG MAMMO PROCEDURES Final Result [facility] documented in this encounter Visit Diagnoses Not on filedocumented in this encounter
--- OUTSIDE RECORDS SUMMARY | 2025-05-08 10:05 | XMS_ITS | Clinical Summary ---
Author Organization [facility] Address [address] [place] [address] Care Team Providers Care Laboratory Animal Facility Supervisor Name Role Phone Mimi Patrick MD Primary Care Provider [phone] Source Comments [facility],non-owned Affiliates and Associated Physician Practices is amultiple site organization consisting of ambulatory clinics and hospital sitesin [place], [place], [place] and [place]. This disclosure is being madepursuant to the Care Everywhere program and may not contain all information available regarding this patient. Last updated 18.[facility] Allergies Active Allergy Reactions Criticality Noted Date Comments Limonene Dizziness High 07/08/2013 Meperidine Other Low 05/02/2017 Dizziness and confusion Medications * Be aware that medications may not be up to date on this document. Alwaysverify current medications with the patient. metoprolol tartrate (LOPRESSOR) 50 MG tablet 4 7 Active losartan (COZAAR) 100 MG tablet Take 100 mg by mouth once daily Active amiodarone (CORDARONE) 200 MG tablet Take 200 mg by mouth once daily Active warfarin (COUMADIN) 2.5 MG tablet Take 2.5 mg by mouth once daily 0 Active furosemide (LASIX) 40 MG tablet Take 40 mg by mouth once daily 8 Active Potassium (POTASSIMIN PO) Take 20 mEq by mouth Active acetaminophen (TYLENOL) 500 MG tablet Take 500 mg by mouth every 4 hours as needed for Fever or Pain Maximum allowable Acetaminophen amount = 4 Grams (4000 mg) / 24 hours. Active VITAMIN D PO Take 50,000 mg by mouth Active GLIPIZIDE ER PO Take 5 mg by mouth Active atorvastatin (LIPITOR) 80 MG tablet Take 80 mg by mouth at bedtime Active [place]-3 Fatty Acids (FISH OIL) 1000 MG capsule Active Active Problems Problem Noted Date Diagnosed Date FAZRAD positive 05/24/2021 Family History Medical History Relation Name Comments Hypertension Brother None Known Father None Known Maternal Aunt None Known Maternal Grandfather Osteoporosis Maternal Grandmother None Known Maternal Uncle Diabetes - Type 2 Mother Hypertension Mother Osteoporosis Mother Psoriasis Other Diabetes - Type 2 Paternal Aunt None Known Paternal Grandfather None Known Paternal Grandmother None Known Paternal Uncle Diabetes - Type 2 Sister 1 Hypertension Sister 2 Asthma Neg Hx CVA Neg Hx Cancer - Breast Neg Hx Cancer - Other Neg Hx Cancer - Skin, Melanoma Neg Hx Cancer - Skin, Non Melanoma Neg Hx Eczema Neg Hx Hemophilia Neg Hx Relation Name Status Comments Brother Father Maternal Aunt Maternal Grandfather Maternal Grandmother Maternal Uncle Mother Other Paternal Aunt Paternal Grandfather Paternal Grandmother Paternal Uncle Sister 1 Sister 2 Social History Tobacco Use Types Packs/Day Years Used Date Smoking Tobacco: Former Cigarettes Smokeless Tobacco: Never Alcohol Use Standard Drinks/Week Comments No 0 (1 standard drink = 0.6 oz pur e alcohol) Comments Unknown Sex and Gender Information Value Date Recorded Sex Assigned at Not on file 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 Gender Identity Not on file Sexual Orientation Not on file Last Filed Vital Signs Vital Sign Reading Time Taken Comments Blood Pressure 124/88 05/24/2021 10:25 AM CDT Pulse 68 05/16/2017 8:36 AM CDT Temperature 36.8 C (98.3 F) 05/24/2021 10:25 AM CDT Respiratory Rate - - Oxygen Saturation - - Inhaled Oxygen Concentration - - Weight 150 kg (330 lb 12.8 oz) 05/24/2021 10:25 AM CDT Height 172.7 cm (5' 8) 05/24/2021 10:25 AM CDT Body Mass Index 50.3 05/24/2021 10:25 AM CDT Plan of Treatment Health Maintenance Due Date Last Done Comments BONE DENSITY TESTING 1950 HEPATITIS C SCREENING 01/23/1967 DTAP/TDAP/TD VACCINES (1 - Tdap) 01/28/1968 PNEUMOCOCCAL VACCINE 50+ (1 of 1 - PCV) 1999 ZOSTER VACCINE (1 of 2) 1999 Respiratory Syncytial Virus (RSV) Vaccine Pt: or over 60 yrs (1 - 1-dose 75+ series) 01/28/2024 COVID-19 VACCINE ( season) 2024 DEPRESSION SCREENING 10/23/2024 INFLUENZA VACCINE (#1) 2025 7, 09/26/2016, 03/17/2016, Additional history exists HEPATITIS B VACCINE Aged Out No longe r eligible based on patient's age to complete this topic HIB VACCINE Aged Out No longer eligi ble based on patient's age to complete this topic HPV VACCINE Aged Out No longer eligi ble based on patient's age to complete this topic MENINGOCOCCAL (Group B) VACCINE SHARED DECISION-MAKING Aged Out No longer eligible based on patient's age to complete this topic MENINGOCOCCAL GROUPS A/C/Y/W VACCINE Aged Out No longer eligible based on patient's age to complete this topic Insurance * Guarantor: Ivanna Beckman Account Type Relation to Patient Date of Phone Billing Address Personal/Family Self 1950 [address] [place] [address] [facility] Care Teams Laboratory Animal Facility Supervisor Relationship Specialty Start Date End Date Mimi Patrick MD [address] [place] [address] PCP - General 02/20/17
--- OUTSIDE RECORDS SUMMARY | 2025-05-08 10:05 | XMS_ITS | Clinical Summary ---
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
--- OUTSIDE RECORDS SUMMARY | 2025-05-08 10:05 | XMS_ITS | Referral Summary ---
Author Organization [facility] Address [address] [place] [address] Care Team Providers Care Mobile Home Servicer Name Role Phone Lesli Kinney MD Unavailable [phone] Monika Doyle MD Unavailable Aft, Doreen Oliva MD PhD Unavailable Pamella Henry PhD Unavailable [phone] Stephen Phan NP Primary Care Provider [phone] Encounters Date Type Department Care Team Description 05/05/2025 Telephone [facility] Obstetrics and Gynecology [address] [facility] 7th Floor [address] [place] [address] Clarissa Clay RN 04/16/2025 Telephone [facility] Medical [facility] Cardiology [address] [place] [address] [place] [phone] Fareed Hyde MD 04/16/2025 Results Follow-Up [facility] Cardiology [address] [facility] [address] [place] [phone] Jennifer Orlando RN Transthoracic Echo (TTE) Complete W Doppler/CF 04/15/2025 11:15 AM CDT Ancillary Procedure [facility] Cardiology [address] [place] [address] [address] [place] [address] Chronic combined systolic and diastolic heart failure (HCC) 04/14/2025 Telephone [facility] Cardiology [address] [facility] [address] [place] [address] Fareed Hyde MD 04/09/2025 Orders Only [facility] Oncology [address] [facility] [address] [place] [address] Patricia Goyal RN Malignant neoplasm of left breast in female, estrogen receptor positive, unspecified site of breast (HCC) 04/08/2025 10:00 AM CDT Office Visit [facility] Medical Group Cardiology [address] [facility] [address] [place] [address] Fareed Hyde MD Shortness of breath (Primary Dx); Lipid screening; Chronic combined systolic and diastolic heart failure (HCC) 03/28/2025 8:45 AM CDT Office Visit [facility] Oncology [address] [facility] Floor 8 [place] [address] Lesli Kinney MD Malignant neoplasm of overlapping sites of left breast in female, estrogen receptor positive (HCC) (Primary Dx); 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 03/19/2025 Telephone [facility] [address] [place] [address] 3rd Floor [address] [place] [address] Deborah Peterson RN 03/06/2025 Telephone [facility] [address] [place] [address] 3rd Floor [address] [place] [address] Ronnell Naik MD 03/03/2025 1:00 PM CDT Office Visit [facility] [address] [place] [address] 3rd Floor [address] [place] [address] Urinary frequency (Primary Dx); Retention of urine; Recurrent UTI; Incomplete uterovaginal prolapse 02/27/2025 8:30 AM CDT Clinical Support [address] 5th [place] [address] [place] [address] Post-menopausal (Primary Dx); Malignant neoplasm of overlapping sites of left breast in female, estrogen receptor positive (HCC); 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; Other specified disorders of bone density and structure, left thigh; longterm (current) use of anticoagulants from Last 3 Months Allergies Active Allergy Reactions Criticality Noted Date Comments Meperidine Other (See comments) Low 08/24/2015 (Demerol) Dizziness and confusion Vancomycin Hives,Itching,Rash Medium 07/19/2021 Medications metoprolol (LOPRESSOR) 50 mg tabletIndication s:hypertension Take 1 tablet (50 mg total) by mouth 2 (two) times a day 04/17/20 18 Active ergocalciferol (VITAMIN D) 50,000 unit capsuleIndicatio ns:Vitamin D Deficiency,Maggy y Take 1 capsule (50,000 Units total) by mouth once a week monday 0 04/05/20 18 Active amiodarone (PACERONE) 200 mg tabletIndication s:A Fib Take 1 tablet (200 mg total) by mouth nightly 02/28/20 21 Active OneTouch Delica Plus Lancet 33 gauge misc every morning Daily in the morning 07/07/20 21 Active Farxiga 10 mg tabletIndication s:type 2 diabetes mellitus Take 1 tablet (10 mg total) by mouth every morning 01/08/[address] (PROTONIX) 40 mg EC tabletIndication s:Stress Ulcer Prophylaxis,hear tburn Take 1 tablet (40 mg total) by mouth every morning 01/16/20 22 Active OneTouch Verio test strips strip 03/17/20 22 Active polyethylene glycol (MIRALAX) 17 gram/dose powderIndication s:constipation Take 17 g by mouth as needed 05/13/20 22 Active Xarelto 20 mg tabletIndication s:atrial fibrillation Take 1 tablet (20 mg total) by mouth nightly Hold Xarelto for 5 days after surgery and then start taking normally. 12/04/19 23 Active acetaminophen (TYLENOL) 500 mg tablet Take 1 tablet (500 mg total) by mouth every 6 (six) hours as needed for pain Active atorvastatin (LIPITOR) 80 mg tablet Take 1 tablet (80 mg total) by mouth nightly 04/02/20 23 Active furosemide (LASIX) 20 mg tablet Take 1 tablet (20 mg total) by mouth daily 12/01/19 25 Active Entresto 24-26 mg tablet Take 1 tablet by mouth 2 (two) times a day Active hydrALAZINE (APRESOLINE) 50 mg tablet Take 1 tablet (50 mg total) by mouth 3 (three) times a day 12/01/19 25 Active letrozole (FEMARA) 2.5 mg tabletIndication s:Early Breast Cancer HR Positive and Postmenopausal,b reast cancer Take 1 tablet (2.5 mg total) by mouth every morning 90 tablet 3 04/09/20 25 026 Active letrozole (FEMARA) 2.5 mg tabletIndication s:Early Breast Cancer HR Positive and Postmenopausal,b reast cancer Take 1 tablet (2.5 mg total) by mouth every morning 90 tablet 3 04/05/20 24 025 Discontinued Active Problems Problem Noted Date Diagnosed Date Chronic combined systolic and diastolic heart fa ilure 04/08/2025 longterm (current) use of aromatase inhibitors 03/24/2025 Uterine polyp 12/08/2022 Overview (12/08/2022): Added automatically from request for surgery [id number] History of bilateral breast cancer 11/29/2022 Postmenopausal bleeding 10/31/2022 Overview (01/20/2023): - P/w 2 episodes of 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 Alternative sources include urinary vs. Rectal - Patient reports last pap was in 2015 and no history of abnormal paps, unable to obtain records - 10/31 exam without any identified bleeding, no obvious cancers or masses - Pelvic US 12/05: EMS 1.9mm, fluid within endometrial cavity, polyp seen [id number] - s/p hysteroscopy, polypectomy 12/22/22, 3 polyps visualized, benign pathology, no e/o hyperplasia or malignancy Plan: - CTM symptoms Encounter for person encountering health service s 07/04/2022 Urge urinary incontinence 05/18/2021 Overview (05/18/2021): Added automatically from request for surgery [id number] OAB (overactive bladder) 05/18/2021 Overview (05/18/2021): Added automatically from request for surgery [id number] Urinary incontinence 03/17/2021 Vaginal prolapse 03/17/2021 Overview [...] clearance prior to surgery. 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 Renal lesion 03/17/2021 Malignant neoplasm of overla pping sites of left breast in female, estrogen receptor positive 04/19/2018 Cancer Staging:Pathologic stage from 05/12/2022:No Stage Recommended(ypT3, pN2a, cM0, G2, ER+, UT+, HER2-) - Signed by Kurt Wheeler MD on 06/30/2022 Monoclonal gammopathy 04/19/2018 Open wound 12/17/2010 Hypertension 11/30/2010 Diabetes mellitus 11/30/2010 Resolved Problems Problem Noted Date Diagnosed Date Resolved Date Malignant neoplasm of left breast 04/06/2022 06/27/2022 Immunizations Immunization Administration Dates Next Due Influenza, Unspecified 04/04/2017,2015,03/17/2016,09/04/2015, 5,11/18/2014,09/23/2014,07/22/2014,05/27/2014, 014,01/23/2014,10/17/2013 [facility]OSTER LIVE 04/04/2017,09/26/2016 Social History Tobacco Use Types Packs/Day Years Used Date Smoking Tobacco: Former Cigarettes 1 31.7 1 969 - 07/09/2000 Smokeless Tobacco: Never Tobacco Cessation:Counseling Given: Not Answered Alcohol Use Standard Drinks/Week Comments No 0 [...] on file 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 Gender Identity Female 04/20/2018 8:43 AM CDT Sexual Orientation Not on file Last Filed Vital Signs Vital Sign Reading Time Taken Comments Blood Pressure 136/70 04/08/2025 9:23 AM CDT Pulse 61 04/08/2025 9:23 AM CDT Temperature 36.6 C (97.8 F) 03/28/2025 8:28 AM CDT Respiratory Rate 16 04/08/2025 9:23 AM CDT Oxygen Saturation 99% 04/08/2025 9:23 AM CDT Inhaled Oxygen Concentration - - Weight 129.7 kg (286 lb) 04/08/2025 9:23 AM CDT Height 172.7 cm (5' 8) 04/08/2025 9:23 AM CDT Body Mass Index 43.49 04/08/2025 9:23 AM CDT Plan of Treatment Not on file Medical Devices Implanted Type Area Teacher Adventure Education Device Identifier Shelf Expiration Date Model / Serial / Lot Rt Total Knee Arthroplasty Knee Explanted Type Area Teacher Adventure Education Device Identifier Shelf Expiration Date Model / Serial / Lot Metronic Inc [id number] Interstim 100cm Percutaneous Electrode Insulated Kit - [id number] Implanted:Qty: 1 on 07/19/2021 by Antony Mark MD at [facility] Explanted:Qty: 1 on 08/02/2021 by Brian Arana MD at [facility] Neurostimulator Left: Other - see comments Medtronic Inc 04/29/2023 [id number] / / [id number] Description:Implant intact Metronic Inc [id number] Interstim 28cm Quadripolar Mri Hub Associate Neurostimulator - [id number] Implanted:Qty: 1 on 07/19/2021 by Antony Mark MD at [facility] Explanted:Qty: 1 on 08/02/2021 by Brian Arana MD at [facility] Neurostimulator Left: Other - see comments [employer] 10/01/2022 [id number] / / [id number] Description:Implanted in the lower back Explant intact [employer] Powerport Clearvue Airguard 8fr 1 Lumen Lightweight Intermediate Latex Free [id number] - [id number] Implanted:Qty: 1 on 07/14/2022 by Doreen Patricia MD PhD at [facility] Explanted:Qty: 1 on 11/29/2022 by Doreen Patricia MD PhD at [facility] Right: Chest [employer] [id number] / / Procedures Procedure Name Priority Date/Time Associated Diagnosis Comments TRANSTHORACIC ECHO (TTE) COMPLETE W DOPPLER/CF WO CONTRAST Routine 04/15/2025 12:45 PM CDT Chronic combined systolic and diastolic heart failure (HCC) POCT LIPID PANEL Routine 04/08/2025 9:13 AM CDT Lipid screening ELECTROCARDIOGRAM REPORT Routine 04/08/2025 Shortness of breath Lipid screening URINALYSIS, MICROSCOPIC ONLY Routine 03/03/2025 4:16 PM CDT Recurrent UTI URINE CULTURE Routine 03/03/2025 4:16 PM CDT URINALYSIS AND REFLEX TO MICROSCOPIC AND CULTURE Routine 03/03/2025 4:16 PM CDT Recurrent UTI DEXA AXIAL SKELETON BONE DENSITY 1 OR MORE SITES Schedule Routine, Read Routine (OP Routine) 02/27/2025 8:49 AM CDT Malignant neoplasm of overlapping sites of left breast in female, estrogen receptor positive (HCC) 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 [place] [address] [address] [address] [facility] [address], [place] [address] P:[phone] P:[phone] Echocardiographic Report Patient Name: IVANNA BECKMAN E : 1950 Study Date: 04/15/2025 11:26:22 AM Gender: F Leg Man: Raisa Canales)([place]), [facility] Location: [facility] Provider: FAREED HYDE Height(Cm): 173 BSA: 2.5 Weight(Kg): 129.7 Heart Rate: 61 BP: 136 / 70 Quality: Good Order Provider: FAREED HYDE PROCEDURES: Echocardiographic Report: Transthoracic echocardiogram with complete 2D, M-Mode, and color Doppler examination. With Strain Analysis. INDICATIONS: I50.42 Chronic combined systolic (congestive) and diastolic (congestive) heart failure. MEASUREMENTS: 2D/MM Value Range Doppler Value Range EF Mod BP 64 % [ 54 - 74 ] GUNNAR Vmax 2.15 cm2 [ 2.00 - 4.00 ] Estimated EF 60-65 % AV Mean PG 5 mmHg LVIDd 2D 5.78 cm [ 3.80 - 5.20 ] AV Peak Kirby 1.62 m/s [ 1.00 - 1.70 ] LVIDs 2D 3.79 cm [ 2.20 - 3.50 ] AV Peak PG 11 mmHg LVPWd 2D 1.06 cm [ 0.60 - 0.90 ] AV VTI 40.24 cm IVSd 2D 1.06 cm [ 0.60 - 0.90 ] LVOT Diam 2.00 cm [ 1.70 - 2.10 ] LA Volume Index 72 cc/m2 [ 16 - 34 ] LVOT Peak Kirby 1.01 m/s [ 0.70 - 1.10 ] LVOT VTI 22.33 cm PV Peak Kirby 0.93 m/s [ 0.40 - 0.80 ] TR Peak Kirby 3.40 m/s [ 1.00 - 2.80 ] TR Peak PG 46 mmHg 2D/MM Value Range Doppler Value Range - FINDINGS: Interpretation Site: Exam was interpreted at [facility]. Left Ventricle: Normal left ventricular systolic function. No focal wall motion abnormalities. Mild concentric left ventricular hypertrophy. Mild enlargement of left ventricle cavity. Diastolic dysfunction is present. Ejection fraction is measured at 64 %. Ejection Fraction is visually estimated to be 60-65 %. Global Longitudinal Strain is -21 %. GLS is normal. Right Ventricle: Normal right ventricular size. Normal right ventricular systolic function. Left Atrium: There is severe enlargement of left atrium. Right Atrium: There is mild enlargement of right atrium. Atrial Septum: Normal atrial septum. Mitral Valve: Mitral valve leaflets appear mildly thickened. Mild mitral annular calcification. Moderate mitral valve regurgitation. The regurgitation jet is eccentrically directed which may underestimate the severity of mitral regurgitation. There is no hemodynamically significant mitral stenosis by Doppler. Aortic Valve: No evidence of hemodynamically significant aortic stenosis by Doppler. Valve area of 2.1 cm2. Aortic cusps appear moderately calcified. Trileaflet aortic valve. Mild aortic valve regurgitation. Tricuspid Valve: Normal appearance of the tricuspid valve. Severe pulmonary hypertension based on right ventricular systolic pressure. Estimated peak RVSP is 61 mmHg. Moderate tricuspid regurgitation. Pulmonic Valve: Normal appearance of the pulmonic valve. No pulmonic stenosis. Moderate pulmonic regurgitation. Pericardium: Trivial pericardial effusion. Aorta: No aortic root dilation. IVC: Dilated inferior vena cava with poor inspiratory collapse consistent with elevated right atrial pressures. CONCLUSIONS: Normal left ventricular systolic function. No focal wall motion abnormalities. Mild concentric left ventricular hypertrophy. Mild enlargement of left ventricle cavity. Diastolic dysfunction is present. Ejection fraction is measured at 64 %. Ejection Fraction is visually estimated to be 60-65 %. Global Longitudinal Strain is -21 %. GLS is normal. There is severe enlargement of left atrium. There is mild enlargement of right atrium. Mitral valve leaflets appear mildly thickened. Mild mitral annular calcification. Moderate mitral valve regurgitation. The regurgitation jet is eccentrically directed which may underestimate the severity of mitral regurgitation. Valve area of 2.1 cm2. Aortic cusps appear moderately calcified. Mild aortic valve regurgitation. Severe pulmonary hypertension based on right ventricular systolic pressure. Estimated peak RVSP is 61 mmHg. Moderate tricuspid regurgitation. Moderate pulmonic regurgitation. Normal sinus rhythm. Electronically Signed By: Colby Lynn MD 04/15/2025 1:43:03 PM CDT Procedure Note Colby Lynn MD - 04/15/2025 [facility] Medical Group Cardiology [address] [facility] [address], [place] [address] [address] [facility] [address] [place], [place] [address] P:[phone] P:[phone] Echocardiographic Report Patient Name: IVANNA BECKMAN E : 1950 Study Date: 04/15/2025 11:26:22 AM Gender: F Leg Man: Raisa Canales)(CT), [facility] Location: [facility] Provider: FAREED HYDE Height(Cm): 173 BSA: 2.5 Weight(Kg): 129.7 Heart Rate: 61 BP: 136 / 70 Quality: Good Order Provider: FAREED HYDE PROCEDURES: Echocardiographic Report: Transthoracic echocardiogram with complete 2D, M-Mode, and color Dopplerexamination. With Strain Analysis. INDICATIONS: I50.42 Chronic combined systolic (congestive) and diastolic (congestive)heart failure. MEASUREMENTS: 2D/MM Value Range Doppler ValueRange EF Mod BP 64 % [ 54 - 74 ] GUNNAR Vmax 2.15cm2 [ 2.00 - 4.00 ] Estimated EF 60-65 % AV Mean PG 5mmHg LVIDd 2D 5.78 cm [ 3.80 - 5.20 ] AV Peak Kirby 1.62m/s [ 1.00 - 1.70 ] LVIDs 2D 3.79 cm [ 2.20 - 3.50 ] AV Peak PG 11mmHg LVPWd 2D 1.06 cm [ 0.60 - 0.90 ] AV VTI 40.24cm IVSd 2D 1.06 cm [ 0.60 - 0.90 ] LVOT Diam 2.00 cm[ 1.70 - 2.10 ] LA Volume Index 72 cc/m2 [ 16 - 34 ] LVOT Peak Kirby 1.01m/s [ 0.70 - 1.10 ] LVOT VTI 22.33 cm PV Peak Kirby 0.93 m/s [ 0.40 - 0.80 ] TR Peak Kirby 3.40 m/s [ 1.00 - 2.80 ] TR Peak PG 46 mmHg 2D/MM Value Range Doppler ValueRange - FINDINGS: Interpretation Site: Exam was interpreted at [facility]. Left Ventricle: Normal left ventricular systolic function. No focal wall motionabnormalities. Mild concentric left ventricular hypertrophy. Mild enlargement of leftventricle cavity. Diastolic dysfunction is present. Ejection fraction is measured at 64 %.Ejection Fraction is visually estimated to be 60-65 %. Global Longitudinal Strainis -21 %. GLS is normal. Right Ventricle: Normal right ventricular size. Normal right ventricular systolicfunction. Left Atrium: There is severe enlargement of left atrium. Right Atrium: There is mild enlargement of right atrium. Atrial Septum: Normal atrial septum. Mitral Valve: Mitral valve leaflets appear mildly thickened. Mild mitral annularcalcification. Moderate mitral valve regurgitation. The regurgitation jet iseccentrically directed which may underestimate the severity of mitral regurgitation. There is nohemodynamically significant mitral stenosis by Doppler. Aortic Valve: No evidence of hemodynamically significant aortic stenosis by Doppler.Valve area of 2.1 cm2. Aortic cusps appear moderately calcified. Trileaflet aortic valve.Mild aortic valve regurgitation. Tricuspid Valve: Normal appearance of the tricuspid valve. Severe pulmonary hypertensionbased on right ventricular systolic pressure. Estimated peak RVSP is 61 mmHg. Moderatetricuspid regurgitation. Pulmonic Valve: Normal appearance of the pulmonic valve. No pulmonic stenosis. Moderatepulmonic regurgitation. Pericardium: Trivial pericardial effusion. Aorta: No aortic root dilation. IVC: Dilated inferior vena cava with poor inspiratory collapse consistent withelevated right atrial pressures. CONCLUSIONS: Normal left ventricular systolic function. No focal wall motionabnormalities. Mild concentric left ventricular hypertrophy. Mild enlargement of leftventricle cavity. Diastolic dysfunction is present. Ejection fraction is measured at 64 %.Ejection Fraction is visually estimated to be 60-65 %. Global Longitudinal Strainis -21 %. GLS is normal. There is severe enlargement of left atrium. There is mild enlargement of right atrium. Mitral valve leaflets appear mildly thickened. Mild mitral annularcalcification. Moderate mitral valve regurgitation. The regurgitation jet iseccentrically directed which may underestimate the severity of mitral regurgitation. Valve area of 2.1 cm2. Aortic cusps appear moderately calcified. Mildaortic valve regurgitation. Severe pulmonary hypertension based on right ventricular systolicpressure. Estimated peak RVSP is 61 mmHg. Moderate tricuspid regurgitation. Moderate pulmonic regurgitation. Normal sinus rhythm. Electronically Signed By: Colby Lynn MD 04/15/2025 1:43:03 PM CDT us Fareed Hyde MD CV ECHO PROCEDURES Final Result * POCT lipid panel (04/08/2025 9:13 AM CDT) Cholesterol, POC 169 <200 MG/DL HDL, POC 57 >=40 mg/dL Triglycerides, POC 80 <=149 mg/dL LDL Cholesterol POC 96 <=129 mg/dL Chol/HDL Ratio, POC 1.7 NONE Non-HDL Cholesterol, POC 113 NONE mg/dL Cholesterol Total, POC 169 30 - 199 mg/dL Capillary blood 04/08/2025 9 :13 AM CDT Fareed Hyde MD POINT OF CARE TEST ORDERABLES Fi nal Result * Electrocardiogram Report (04/08/2025) 04/08/2025 Fareed Hyde MD ECG ORDERABLES Edited Result - Final * (ABNORMAL) Urinalysis reflex to microscopic and culture Urine, clean voided (03/03/2025 4:16 PM CDT) Color, ur Yellow Yellow Clarity, ur Cloudy(A) Clear [facility] Specific gravity, ur 1.029 1.003 - 1.030 [facility] pH, urine 5.5 [facility] Comment: Interpretive Data U rine pH is affected by diet, medications, systemic acid-base disturbances, and renal tubular function. pH may affect urinary stone formation. For example, urine pH below 6.0 may help reduce the tendency for calcium phosphate stones and pH greater than 6.0 may reduce the tendency for uric acid stone formation. Source: [facility] NeuralStem Current Interpretive Data was last revised on 2017 Protein, ur ql Negative Negative [facility] Glucose, ur ql 4+(A) Negative [facility] Ketones, ur Negative Negative [facility] Bilirubin, ur Negative Negative [facility] Blood, ur Negative Negative [facility] Urobilinogen, ur <2.0 <2.0 mg/dL [facility] Nitrite, ur Negative Negative [facility] Leukocyte esterase, ur 2+(A) Negative [facility] UA reflex comment Reflex to microscopic UA will be performed. [facility] Urine, clean voided 03/03/2025 4:16 PM CDT 03/03/2025 4:40 PM CDT Ronnell Naik MD LAB MICROBIOLOGY - GENERA L ORDERABLES Final Result Performing Organization Address City/[facility] de Phone Number [facility] Department [place] [address] * (ABNORMAL) Urinalysis, microscopic only (03/03/2025 4:16 PM CDT) WBC, ur 21-50(A) 0 - 5 /HPF RBC, ur 0-2 0 - 2 /HPF [facility] Epithelial cells, squamous, ur 1-5 0 - 5 /HPF [facility] Bacteria, ur 2+(A) [facility] Mucous, ur Present(A) [facility] Culture Reflex Comment Reflex to urine culture will be performed. [facility] Urine, clean voided 03/03/2025 4:16 PM CDT 03/03/2025 4:40 PM CDT Ronnell Naik MD LAB URINE ORDERABLES Kimberli l Result Performing Organization Address [facility] de Phone Number [facility] Department [place] [address] * (ABNORMAL) Urine culture Urine, clean voided (03/03/2025 4:16 PM CDT) Report Final Report: Greater than or equal to 100,000 colonies/mL of Escherichia coli Plus growth of clinically insignificant bacterial johnathan. (.) Organism ESCHERICHIA COLI [facility] Organism PLUS GROWTH OF CLINICALLY INSIGNIFICANT JOHNATHAN. [facility] Urine, clean voided 03/03/2025 4:16 PM CDT 03/03/2025 8:26 PM CDT Narrative [facility] - 03/05/2025 11:16 AM CDT Urine culture reflexed based upon urinalysis results. Testing performed by [facility] ([phone]) Organism Antibiotic Method Susceptibility Escherichia coli Ampicillin INTERPRETATION Intermediate Escherichia coli Cefazolin INTERPRETATION Susceptible Escherichia coli Nitrofurantoin INTERPRETATION Susceptible Escherichia coli Gentamicin INTERPRETATION Susceptible Escherichia coli Trimethoprim with Sulfamethoxazole IN TERPRETATION Susceptible Escherichia coli Meropenem INTERPRETATION Susceptible Escherichia coli Cefepime INTERPRETATION Susceptible Escherichia coli Ciprofloxacin INTERPRETATION Susceptible Escherichia coli Ceftazidime INTERPRETATION Susceptible Escherichia coli Ceftriaxone INTERPRETATION Susceptible Escherichia coli Piperacillin/Tazobactam INTERPRETATIO N Susceptible Escherichia coli Cephalexin INTERPRETATION Susceptible Escherichia coli Cefuroxime-axetil INTERPRETATION Susceptible Escherichia coli Cefdinir INTERPRETATION Susceptible us Ronnell Naik MD LAB MICROBIOLOGY - GENERA L ORDERABLES Final Result [facility] Department [place] [address] * Dexa Axial Skeleton Bone Density 1 or 2 Site (02/27/2025 8:49 AM CDT) Anatomical Region Laterality Modality Body N/A Radiographic Ashley ging Narrative 02/27/2025 9:49 AM CDT Patient Name: Ivanna Beckman Date of : 1950 Date of scan: 02/27/2025 Bone mineral density was performed on a HoloUnata Discovery Densitometer. Based on machine cross-calibration and precision studies the least significant changes of this densitometer is 0.024 g/cm2 at the spine, 0.020 g/cm2 at the total proximal femur, and 0.014g/cm2 at the forearm. HISTORY: This is a 75 y.o. postmenopausal female with a history of breast cancer and vitamin D deficiency. She reports that she quit smoking about 24 years ago. Her smoking use included cigarettes. She started smoking about 56 years ago. She has a 31.7 pack-year smoking history. She has never used smokeless tobacco. Currently on treatment with vitamin D, aromatase inhibitor, anticoagulants, and diuretics, previously treated with tamoxifen, and current complaint of arm pain, back pain, and leg pain. INDICATIONS: Menopause status, treatment monitoring, vitamin D deficiency, and aromatase inhibitor therapy. FINDINGS: BONE MINERAL DENSITY OF THE LUMBAR SPINE Bone Mineral Density (BMD) of the lumbar spine was measured from L1-L3 and the average density was calculated to be 1.168 gm/cm2. This corresponds to a T-score (standard deviations from the mean of young adults) of 1.4. When compared to the previous study of 02/24/2023 there has been a -0.085 gm/cm (-6.8%) decrease in bone density that is considered significant. BONE MINERAL DENSITY OF THE PROXIMAL FEMUR Bone Mineral Density (BMD) of the left hip total was found to be 0.989 gm/cm2. This corresponds to a T-score standard deviations from the mean of young adults of 0.4. Femoral neck is 0.677 gm/cm2 with a T-score (standard deviations from the mean of young adults) of -1.6. When compared to the previous study of 02/24/2023 there has been a -0.063 gm/cm (-6.0%) decrease in bone density that is considered significant. SUMMARY: Bone mineral density shows evidence of low bone mass at the proximal femur and moderately increased fracture risk (Osteopenia). There has been a significant decrease in bone density since previous measurement. L4 excluded from bone mineral density analysis of the lumbar spine due to bone density being more than 1 standard deviation discrepant relative to one adjacent vertebra. Clinical correlation is recommended. Please note that the previous lumbar spine scan has been reanalyzed to also exclude L4. ADDITIONAL COMMENTS: Postmenopausal Women and Men Over 50: Diagnostic criteria: Osteoporosis: BMD at or below -2.5 T-score; Osteopenia (low bone mass): BMD between -1.0 and -2.5 T-score. If the patient has a history of a fragility fracture, a fracture that occurred with trauma equivalent to a fall from a standing position or less, then the diagnosis is osteoporosis regardless of bone density. Following recommendations from the International Society of Clinical Densitometry, we use reference standards for calculating and reporting T scores for all women and men above 50, since fracture rate is the same for people with similar bone density regardless of ethnicity, and the reference is the largest available. The history and data sections of the bone mineral density scan were prepared by Silvia Dang(Hallie)(Simeon)(BD) CBDT who is accredited by the International Society of Clinical Densitometry. The overall patient assessment and scan interpretation were performed by Juliet Santo M.D. who is certified by the International Society of Clinical Densitometry. [id number] Lesli Kinney MD Aminah DXA PROCEDURES F inal Result * eGFR (01/30/2025 8:49 AM CDT) eGFR 73 >=60 mL/min/1. 73 m2 Comment: Interpretive Data Reference Interval Normal >/= 90 mL/min/1.73m2 Mildly decreased* 60 - 89 mL/min/1.73m2 Mildly to moderately decreased 45 - 59 mL/min/1.73m2 Moderately to severely decreased 30 - 44 mL/min/1.73m2 Severely decreased 15 - 29 mL/min/1.73m2 Kidney Failure < 15 mL/min/1.73m2 *Relative to young adult level Estimated glomerular filtration rate is determined by the 2020 CKD-EPI equation recommended by the National Kidney Foundation (A Unifying Approach to GFR Estimation: Recommendations of the NKF-ASK Task Force on Reassessing the Inclusion of Race in Diagnosing Kidney Disease, JASN 2020). The CKD-EPI equation should not be used for patients with unstable renal function and has not been validated in children and those over 70. Current interpretive data was last reviewed 2021. Blood 01/30/2025 8:49 AM CDT 01/30/2025 9:10 AM CDT us Kathi Wick NP LAB BLOOD ORDERABLES Final R esult [facility] Department [place] [address] * (ABNORMAL) Hemoglobin A1c (10/06/2023 9:07 AM SENIOR JAVA DATA ARCHITECT) Pathologist [facility] Hgb A1C 6.9(H) 4.0 - 5.6 % [facility] Estimated Average Glucose 151 mg/dL [facility] Comment: The ADA recommends reporting an estimated Average Glucose (eAG) with all Hemoglobin A1c results using the equation derived from a study of 507 normal and diabetic adults. Minority populations were underrepresented and children were not included. (Diabetes Care 2020; 43(S1): S66-S76). The eAG is not equivalent to a fasting glucose. Blood 10/06/2023 9:07 AM SENIOR JAVA DATA ARCHITECT 10/06/2023 9:19 AM SENIOR JAVA DATA ARCHITECT us Mimi Patrick MD LAB BLOOD ORDERABLES Fin al Result [facility] Department [place] [address] from Last 3 Months or Most Recently Relevant to Health Maintenance Insurance [facility] Advance Directives For more information, please contact: [phone] * Full Code (Latest Code Status on File) Date Activated Date Inactivated Comments 05/12/2022 6:55 PM 05/13/2022 9:06 PM Care Teams Mobile Home Servicer Relationship Specialty Start Date End Date Stephen Phan BEAM WARPER [address] [place] [address] PCP - General Family Practice 04/08/25 Lesli Kinney MD [address] [place] [address] Medical Oncologist/Counselor Manager Medical Oncology 05/17/22 Monika Doyle MD [address] [facility] [address] [place] [address] Radiation Oncologist Radiation Oncology 06/27/22 Doreen Patricia MD PhD [address] [place] [address] Surgeon Surgical Oncology 06/27/22 Pamella Henry, PhD [address] [place] [address] Nurse Practitioner Radiation Oncology 01/16/23
--- OUTSIDE RECORDS SUMMARY | 2025-05-08 10:05 | XMS_ITS | Clinical Summary ---
Author Organization [facility] Address [address] [place] [address] Care Team Providers Care Wellness Program Coordinator Name Role Phone Lesli Kinney MD Unavailable [phone] Monika Doyle MD Unavailable Aft, Doreen Oliva MD PhD Unavailable [phone] Pamella Henry PhD Unavailable [phone] Stephen Phan NP Primary Care Provider Allergies Active Allergy Reactions Criticality Noted Date [...] (12/08/2022): Added automatically from request for surgery [id number] History of bilateral breast cancer 11/29/2022 Postmenopausal bleeding 10/31/2022 Overview (01/20/2023): - P/w 2 episodes of possible 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 Alternative sources include urinary vs. Rectal - Patient reports last pap was in 2016 and no history of abnormal paps, unable to obtain records - 10/31 exam without any identified bleeding, no obvious cancers or masses - Pelvic US 12/05: EMS 1.9mm, fluid within endometrial cavity, polyp seen [id number] - s/p hysteroscopy, polypectomy 12/22/22, 3 polyps visualized, benign pathology, no e/o hyperplasia or malignancy Plan: - CTM symptoms Encounter for person encountering health service s 07/04/2022 Urge urinary incontinence 05/18/2021 Overview (05/18/2021): Added automatically from request for surgery [id number] OAB (overactive bladder) 05/18/2021 Overview (05/18/2021): Added automatically from request for surgery [id number] Urinary incontinence 03/17/2021 Vaginal prolapse 03/17/2021 Overview [...] clearance prior to surgery. Patient last saw iso coordinator 3 months ago. Renal lesion 03/17/2021 Malignant neoplasm of overla pping sites of left breast in female, estrogen receptor positive 04/19/2018 Cancer Staging:Pathologic stage from 05/12/2022:No Stage Recommended(ypT3, pN2a, cM0, G2, ER+, ID+, HER2-) - Signed by Kurt Wheeler MD on 06/30/2022 Monoclonal gammopathy 04/19/2018 Open wound 12/17/2010 Hypertension 11/30/2010 Diabetes mellitus 11/30/2010 Resolved Problems Problem Noted Date Diagnosed Date Resolved Date Malignant neoplasm of left breast 04/06/2022 06/27/2022 Encounters Date Type Department Care Team Description 05/05/2025 Telephone [facility] Obstetrics and Gynecology [address] [facility] [facility] [address] 7th [address] [place] [address] Clarissa Clay RN 04/16/2025 Telephone [facility] Cardiology [address] [address] [address] [place] [address] Fareed Hyde MD 04/16/2025 Results Follow-Up [facility] Cardiology [address] [facility] [address], [place] [address] Jennifer Orlando RN Transthoracic Echo (TTE) Complete W Doppler/CF 04/15/2025 11:15 AM CDT Ancillary Procedure [facility] Cardiology [address] [place] [address] [address] [place] [address] Chronic combined systolic and diastolic heart failure (HCC) 04/14/2025 Telephone [facility] Cardiology [address] [place] [address] [place] [phone] Fareed Hyde MD 04/09/2025 Orders Only [facility] Oncology [address] [facility] [address] [place] [phone] Patricia Goyal RN Malignant neoplasm of left breast in female, estrogen receptor positive, unspecified site of breast (HCC) 04/08/2025 10:00 AM CDT Office Visit [facility] Cardiology [address] [place] [address] [address] [place] [phone] Fareed Hyde MD Shortness of breath (Primary Dx); Lipid screening; Chronic combined systolic and diastolic heart failure (HCC) 03/28/2025 8:45 AM CDT Office Visit [facility] Oncology [address] [facility] Floor [address] [place] [phone] NirmalLesli rodriguez MD Malignant neoplasm of overlapping sites of left breast in female, estrogen receptor positive (HCC) (Primary Dx); longterm (current) use of aromatase inhibitors 03/19/2025 Telephone [facility] [address] [place] [address] Health 3rd Floor [address] [place] [phone] Deborah Peterson RN 03/06/2025 Telephone [facility] [address] [place] [address] 3rd Floor [address] [place] [phone] Ronnell Naik MD 03/03/2025 1:00 PM CDT Office Visit [facility] [address] [place] [address] 3rd Floor [address] [place] [phone] Urinary frequency (Primary Dx); Retention of urine; Recurrent UTI; Incomplete uterovaginal prolapse 02/27/2025 8:30 AM CDT Clinical Support [address] 5th [place] [address] [place] [phone] Post-menopausal (Primary Dx); Malignant neoplasm of overlapping sites of left breast in female, estrogen receptor positive (HCC); intermodal dispatcher (current) use of aromatase inhibitors; Other specified disorders of bone density and structure, left thigh; intermodal dispatcher (current) use of anticoagulants from Last 3 Months Immunizations Immunization Administration Dates Next Due Influenza, Unspecified 04/04/2017,2015,03/17/2016,09/04/2015, 5,11/18/2014,09/23/2014,07/22/2014,05/27/2014, 014,01/23/2014,10/17/2013 ZOSTER LIVE 04/04/2017,09/26/2016 Surgical History Surgery Date Site/Laterality Comments COLONOSCOPY 10/23/2019 - 10/22/2020 REPLACEMENT TOTAL KNEE 06/23/2012 - 07/22/2012 Right CATARACT EXTRACTION 10/23/2017 - 10/22/2018 Bilateral cataract surgery CHOLECYSTECTOMY 10/23/1989 - 10/22/1990 SECTION 1980,1981,1984 HERNIA REPAIR 10/23/2010 - 10/22/2011 w/ mesh BREAST BIOPSY 02/02/2022 Left US GUIDED BIOPSY LYMPH NODE SUPERFICIAL LEFT 02/02/2022 N/A MASTECTOMY 10/23/2010 - 10/22/2011 Right CYST REMOVAL back, chest and under arm BLADDER SURGERY 07/19/2021 InsterStim 1 insertion BLADDER SURGERY 08/02/2021 Removal InterStim CATARACT EXTRACTION 10/23/2017 - 10/22/2018 MASTECTOMY 05/12/2022 Left PORTACATH PLACEMENT 07/14/2022 Right removed FLUORO GUIDED INJECTION SHOULDER RIGHT 04/27/2023 Right Medical History Medical History Date Comments Breast cancer (HCC) Right Breast CA dx s/p mastectomy 2011 with recurrence Left 01/2022 s/p mastectomy, chemo (last 10/2022) and radiation (last 12/12/2022) Hypertension Constipation Back pain Sleep apnea CPAP machine nig htly with O2 Overweight Heart disease Arthritis Breast cancer, right breast (HCC) 04/19/2018 Malignant neoplasm of right breast (HCC) 04/06/2022 Malignant neoplasm of left b reast (HCC) 04/06/2022 Diabetes mellitus, type 2 (HCC) Dxd ~2007 Hiatal hernia Atrial fibrillation (HCC) Prolapsed uterus Kidney cysts Congestive heart failure (CHF) (HCC) On home oxygen therapy History of chemotherapy 10/2022 Open wound 12/17/2010 Family History Medical History Relation Name Comments Kidney disease Brother 1 Kidney disease Brother 2 Stomach cancer Maternal Grandmother Breast cancer Mother Diabetes type II Sister Hypertension Son 1 Sleep apnea Son 1 Hypertension Son 2 Sleep apnea Son 2 Anesthesia problems Neg Hx Relation Name Status Comments Brother 1 Brother 2 Maternal Grandmother Mother Sister Alive Son 1 Alive Son 2 Alive Social History Tobacco Use Types Packs/Day Years [...] on file Legal Sex Female 9:06 AM 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 Gender Identity Female 04/20/2018 8:43 AM CDT Sexual Orientation Not on file Obstetrics History Para Term AB IAB SAB Ectopic Multiple Livin g Live Births 5 5 Date Outcome GA Total Labor Labor/2nd/3rd Weight Sex Type Anes PTL Khadijah A1 A5 Name Clin Para Para Para Para Para Last Filed Vital Signs Vital Sign Reading [...] 04/08/2025 9:23 AM CDT Plan of Treatment Health Maintenance Due Date Last Done Comments Albumin Creatinine Ratio, Urine 1950 Depression Screening 1950 Hepatitis C Screening 1950 Dilated Eye Exam 1950 Foot Exam 1950 DTaP/Tdap/Td Vaccine (1 - Tdap) 01/28/1960 Hepatitis B Screening 1967 Pneumococcal vaccine 65+ (1 of 2 - PCV) 01/28/1968 Well Visit 65+ 2014 Zoster Vaccine (1 of 2) 05/30/2017 04/04/2017, 09/26 Fall Risk Assessment 12/23/2023 12/22/2022, 06/30/20 22 Hemoglobin A1C 04/06/2024 10/06/2023, 08/05/2022 Influenza Vaccine (#1) 2025 7, 09/26/2016, 03/17/2016, Additional history exists eGFR 01/30/2026 01/30/2025, 07/23, 05/02/2024, Additional history exists Lipid Panel 04/08/2026 04/08/2025, 09/22, 08/05/2022 Osteoporosis Screening-Bone Density Scan 02/27/2027 02/27/2025, 02/24/2023 Medical Devices Implanted Type Area Floor Coverer Device Identifier Shelf Expiration Date Model / Serial / Lot Rt Total Knee Arthroplasty Knee Explanted Type Area Floor Coverer Device Identifier Shelf Expiration Date Model / Serial / Lot Metronic Inc [id number] Interstim 100cm Percutaneous Electrode Insulated Kit - [id number] Implanted:Qty: 1 on 07/19/2021 by Antony Mark MD at [facility] Explanted:Qty: 1 on 08/02/2021 by Brian Arana MD at [facility] Neurostimulator Left: Other - see comments [employer] 04/29/2023 [id number] / / [id number] Description:Implant intact [employer] [id number] Interstim 28cm Quadripolar Mri Warehouse Receiving Clerk Neurostimulator - [id number] Implanted:Qty: 1 on 07/19/2021 by Antony Mark MD at [facility] Explanted:Qty: 1 on 08/02/2021 by Brian Arana MD at [facility] Neurostimulator Left: Other - see comments [employer] 10/01/2022 [id number] / / [id number] Description:Implanted in the lower back Explant intact [employer] Powerport Clearvue Airguard 8fr 1 Lumen Lightweight Intermediate Latex Free [id number] - [id number] Implanted:Qty: 1 on 07/14/2022 by Doreen Patricia MD PhD at [facility] Explanted:Qty: 1 on 11/29/2022 by Doreen Patricia MD PhD at [facility] Right: Chest [employer] [id number] / / Procedures Procedure Name Priority Date/Time [...] breast in female, estrogen receptor positive (HCC) intermodal dispatcher (current) use of aromatase inhibitors EGFR Routine 01/30/2025 8:49 AM CDT Neutropenia, unspecified type HEMOGLOBIN A1C Routine 10/06/2023 9:07 AM RECRUITING SPECIALIST from Last 3 Months or Most Recently Relevant to Health Maintenance Results * TRANSTHORACIC ECHO (TTE) COMPLETE W DOPPLER/CF WO CONTRAST (04/15/2025 12:45 PM CDT) Estimated EF 60-65 % CONS SCIMAGE EF Mod BP 64 % CONS SCIMAGE Anatomical Region Laterality Modality Ultrasound 04/15/2025 11:2 6 AM CDT Narrative 04/15/2025 1:43 PM CDT [facility] Cardiology [address], [place] [address] [address] [facility] [address], [address] [address] P:[phone] P:[phone] Echocardiographic Report Patient Name: IVANNA BECKMAN E : 1950 Study Date: 04/15/2025 11:26:22 AM Gender: F Clinical Application Consultant: Raisa Canales)(CT), [facility] Location: [facility] Provider: FAREED HYDE Height(Cm): 173 BSA: 2.5 [...] FINDINGS: Interpretation Site: Exam was interpreted at [facility]. Left Ventricle: Normal left ventricular systolic function. [...] Procedure Note Colby Lynn MD - 04/15/2025 [facility] Cardiology [address] [facility] [address], [place] [address] [address], [place] [address] P:[phone] P:[phone] Echocardiographic Report Patient Name: IVANNA BECKMAN E : 1950 Study Date: 04/15/2025 11:26:22 AM Gender: F Clinical Application Consultant: Raisa Canales)(CT), [facility] Location: [facility] Provider: FAREED HYDE Height(Cm): 173 BSA: 2.5 [...] FINDINGS: Interpretation Site: Exam was interpreted at [facility]. Left Ventricle: Normal left ventricular systolic function. [...] Capillary blood 04/08/2025 9 :13 AM CDT us Fareed Hyde MD POINT OF CARE TEST ORDERABLES Fi nal Result * Electrocardiogram Report (04/08/2025) 04/08/2025 us Fareed Hyde MD ECG ORDERABLES Edited Result - Final * (ABNORMAL) Urinalysis reflex to microscopic and culture Urine, clean voided (03/03/2025 4:16 PM CDT) Color, ur Yellow Yellow Clarity, ur Cloudy(A) Clear [facility] Specific gravity, ur 1.029 1.003 - 1.030 C[facility]ER B[facility] pH, urine 5.5 [facility] Comment: Interpretive Data U rine pH is affected by diet, medications, systemic acid-base disturbances, and renal tubular function. pH may affect urinary stone formation. For example, urine pH below 6.0 may help reduce the tendency for calcium phosphate stones and pH greater than 6.0 may reduce the tendency for uric acid stone formation. Source: [facility] Current Interpretive Data was last revised on 2017 Protein, ur ql Negative Negative [facility] Glucose, ur ql 4+(A) Negative [facility] Ketones, ur Negative Negative [facility] Bilirubin, ur Negative Negative [facility] Blood, ur Negative Negative [facility] Urobilinogen, ur <2.0 <2.0 mg/dL [facility] Nitrite, ur Negative Negative [facility] Leukocyte esterase, ur 2+(A) Negative [facility] UA reflex comment Reflex to microscopic UA will be performed. [facility] Urine, clean voided 03/03/2025 4:16 PM CDT 03/03/2025 4:40 PM CDT us Ronnell Naik MD LAB MICROBIOLOGY - GENERA L ORDERABLES Final Result [facility] Department [place] [address] * (ABNORMAL) Urinalysis, microscopic only (03/03/2025 4:16 PM CDT) WBC, ur 21-50(A) 0 - 5 /HPF RBC, ur 0-2 0 - 2 /HPF [facility] Epithelial cells, squamous, ur 1-5 0 - 5 /HPF [facility] Bacteria, ur 2+(A) [facility] Mucous, ur Present(A) [facility] Culture Reflex Comment Reflex to urine culture will be performed. [facility] Urine, clean voided 03/03/2025 4:16 PM CDT 03/03/2025 4:40 PM CDT us Ronnell Naik MD LAB URINE ORDERABLES Kimberli l Result Performing Organization Address [facility] de Phone Number [facility] Department [place] [address] * (ABNORMAL) Urine culture Urine, clean voided (03/03/2025 4:16 PM CDT) Report Final Report: Greater than or equal to 100,000 colonies/mL of Escherichia coli Plus growth of clinically insignificant bacterial johnathan. (.) Organism ESCHERICHIA COLI [facility] Organism PLUS GROWTH OF CLINICALLY INSIGNIFICANT JOHNATHAN. [facility] Urine, clean voided 03/03/2025 4:16 PM CDT 03/03/2025 8:26 PM CDT Narrative [facility] - 03/05/2025 11:16 AM CDT Urine culture reflexed based upon urinalysis results. Testing performed by [facility] ([phone]) Organism Antibiotic Method Susceptibility Escherichia coli Ampicillin [...] INTERPRETATION Susceptible Escherichia coli Cefdinir INTERPRETATION Susceptible Ronnell Naik MD LAB MICROBIOLOGY - GENERA L ORDERABLES Final Result Performing Organization Address [facility] Co de Phone Number [facility] Department [place] [address] * Dexa Axial Skeleton Bone Density 1 or 2 Site (02/27/2025 8:49 AM CDT) Anatomical Region Laterality Modality Body N/A Radiographic Ashley ging Narrative 02/27/2025 9:49 AM CDT Patient Name: Ivanna Beckman Date of : 1950 Date of scan: 02/27/2025 Bone mineral density was performed on a Hologic Discovery Densitometer. Based on machine cross-calibration and [...] by the International Society of Clinical Densitometry. [id number] Lesli Kinney MD [facility] [place]XA PROCEDURES F inal Result * eGFR [...] NP LAB BLOOD ORDERABLES Final R esult Performing Organization Address [facility] Co de Phone Number [facility] [place] [address] * (ABNORMAL) Hemoglobin A1c (10/06/2023 9:07 AM RECRUITING SPECIALIST) Hgb A1C 6.9(H) 4.0 - 5.6 % [facility] Estimated Average Glucose 151 mg/dL [facility] Comment: The ADA recommends reporting an estimated Average Glucose (eAG) with all Hemoglobin A1c results using the equation derived from a study of 507 normal and diabetic adults. Minority populations were underrepresented and children were not included. (Diabetes Care 2020; 43(S1): S66-S76). The eAG is not equivalent to a fasting glucose. Blood 10/06/2023 9:07 AM RECRUITING SPECIALIST 10/06/2023 9:19 AM RECRUITING SPECIALIST us Mimi Patrick MD LAB BLOOD ORDERABLES Fin al Result Performing Organization Address [facility] Co de Phone Number [facility] [place] [address] from Last 3 Months or Most Recently Relevant to Health Maintenance Insurance [facility] Advance Directives For more information, please contact: [phone] * Full Code (Latest Code Status on File) Date Activated Date Inactivated Comments 05/12/2022 6:55 PM 05/13/2022 9:06 PM Care Teams Wellness Program Coordinator Relationship Specialty Start Date End Date Stephen Phan NP [address] [place] [address] PCP - General Family Practice 04/08/25 Lesli Kinney MD [address] [place] [address] Medical Oncologist/Small Electric Engine Technician Medical Oncology 05/17/22 Monika Doyle MD [address] [facility] [address] [place] [address] Radiation Oncologist Radiation Oncology 06/27/22 AftDoreen MD PhD [address] [place] [address] Surgeon Surgical Oncology 06/27/22 Pamella Henry, PhD [address] [place] [address] Nurse Practitioner Radiation Oncology 01/16/23
--- OUTSIDE RECORDS SUMMARY | 2025-05-08 10:06 | XMS_ITS | Data Portability ---
Author Organization [facility] [employer], Main Office Address [address] [place] [address] Care Team Providers Care Humidifier Attendant Name Role Phone CATALINA PATRICK Primary Care Provider CATALINA PATRICK Referring Provider [phone] Assessment No assessment recorded. Plan of Treatment Reminders Order Date Submit Date Provider Last Modified By Organization Details Last Modified Time Details Appointments None recorded. Lab urinalysis, dipstick 2023 024 [facility] [address], [place], [address], 4 11:55:46 urinalysis complete, reflex culture 2023 024 [facility] (Lab), [address] [place], [address], 4 22:35:13 CBC w/ auto diff 2023 024 [email or web address] Not available 4 10:07:31 BMP, serum or plasma 2023 024 [email or web address] [email or web address] Not available 4 10:07:50 vitamin D3, 25-hydroxy, serum 2023 024 lauraou [email or web address] Not available 4 10:08:06 HbA1c (hemoglobin A1c), blood 2023 024 [email or web address] Not available 4 10:08:22 CBC w/ auto diff 2023 024 [email or web address] Not available 4 14:06:06 ferritin, serum or plasma 2023 024 [email or web address] Not available 4 10:08:50 iron + total iron-bindin g capacity (TIBC), serum 2023 024 [place] [id number] Not available 4 10:09:06 vitamin B12, serum 2023 024 [place] [address] Not available 4 10:09:19 lipid panel, serum 2023 024 [place] [address] Not available 4 10:07:02 hepatic function panel, serum 2023 024 [place] [address] Not available 4 10:07:17 vitamin D3, 25-hydroxy, serum 2022 023 [email or web address] Not available 4 08:00:42 CBC w/ auto diff 2022 023 [email or web address] Not available 4 08:00:41 BMP, serum or plasma 2022 023 [email or web address] Not available 4 08:00:42 HbA1c (hemoglobin A1c), blood 2022 023 [email or web address] 477 Not available 4 08:00:42 BMP, serum or plasma 2022 023 [email or web address] 477 Not available 4 08:00:42 lipid panel, serum 2022 023 [email or web address] 477 Not available 4 08:00:42 hepatic function panel, serum 2022 023 [email or web address] Not available 4 08:00:42 Referral None recorded. Procedures None recorded. Surgeries None recorded. Imaging MRI, lumbar spine, w/o contrast - *Please call pt to schedule* [email or web address] [place] [address] Imaging, [address], [place], [address], 4 09:22:18 Medication Orders albuterol sulfate HFA 90 mcg/actuati on aerosol inhaler 2023 024 [place] [facility] #[id number], [address], [place], [place], [id number], 4 11:49:32 cyanocobala min (vit B-12) 1,000 mcg tablet 2023 024 [facility] #41422, [address], [place], [place], [id number], 4 09:55:39 Trulance 3 mg tablet 2023 024 [email or web address] [facility] #84649, [address], [place], [place], [id number], 4 09:50:38 prednisone 20 mg tablet 2023 024 [facility] #03120, [address], [place], [place], [id number], 4 09:51:26 tramadol 50 mg tablet 2022 023 [place] [facility]364[facility], [address], [place], [place], [id number], 3 09:44:55 Patient TargetsNo targets recorded. Patient InstructionsNo instructions recorded. Reason for Referral None Reported. Results Created Date Observation Date Name Description Value Unit Range Abnormal Flag Note LastModifiedBy Organization Detail LastModifiedTime 12/04/19 24 12/04/2023 CBC/C OMPLE TE BLD COUNT W/DIF F white blood cells 2.2 x10'3 /uL 4.2-10 .8 low Not Available [facility] (Lab) [address] [place], [address], 12/04/2023 19:37:13 12/04/19 24 12/04/2023 CBC/C OMPLE TE BLD COUNT W/DIF F red blood cells 4.09 x10'6 /uL 3.80-5 .20 Not Available [facility] (Lab) [address] [place], [address], 12/04/2023 19:37:13 12/04/19 24 12/04/2023 CBC/C OMPLE TE BLD COUNT W/DIF F hemoglobin 12.5 g/dL 12.0-1 5.6 Not Available [facility] (Lab) [address] [place], [address], 12/04/2023 19:37:13 12/04/19 24 12/04/2023 CBC/C OMPLE TE BLD COUNT W/DIF F hematocrit 40.4 % 35.7-4 5.7 Not Available [facility] (Lab) [address] [place], [address], 12/04/2023 19:37:13 12/04/19 24 12/04/2023 CBC/C OMPLE TE BLD COUNT W/DIF F mean red cell volume 98.8 fL 82.0-9 9.0 Not Available [facility] (Lab) [address] [place], [address], 12/04/2023 19:37:13 12/04/19 24 12/04/2023 CBC/C OMPLE TE BLD COUNT W/DIF F mean red cell hemoglobin 30.6 pg 27.0-3 3.0 Not Available [facility] (Lab) [address] [place], [address], 12/04/2023 19:37:13 12/04/19 24 12/04/2023 CBC/C OMPLE TE BLD COUNT W/DIF F mean RBC HGB concentratio n 30.9 g/dL 31.0-3 6.0 low Not Available [facility] (Lab) [address] [place], [address], 12/04/2023 19:37:13 12/04/19 24 12/04/2023 CBC/C OMPLE TE BLD COUNT W/DIF F red cell distribution width 14.8 % 11.8-1 5.5 Not Available [facility] (Lab) [address] [place], [address], 12/04/2023 19:37:13 12/04/19 24 12/04/2023 CBC/C OMPLE TE BLD COUNT W/DIF F platelets 193 x10'3 /uL 150-40 0 Not Available [facility] (Lab) [address] [place], [address], 12/04/2023 19:37:13 12/04/19 24 12/04/2023 CBC/C OMPLE TE BLD COUNT W/DIF F mean platelet volume 9.8 fL 9.0-12 .4 Not Available [facility] (Lab) [address] [place], [address], 12/04/2023 19:37:13 12/04/19 24 12/04/2023 CBC/C OMPLE TE BLD COUNT W/DIF F neutrophils 51.8 % 39.0-7 2.0 Not Available [facility] (Lab) [address] [place], [address], 12/04/2023 19:37:13 12/04/19 24 12/04/2023 CBC/C OMPLE TE BLD COUNT W/DIF F lymphocytes 36.6 % 16.0-4 7.0 Not Available [facility] (Lab) [address] [place], [address], 12/04/2023 19:37:13 12/04/19 24 12/04/2023 CBC/C OMPLE TE BLD COUNT W/DIF F monocytes 10.2 % 5.0-12 .0 Not Available [facility] (Lab) [address] [place], [address], 12/04/2023 19:37:13 12/04/19 24 12/04/2023 CBC/C OMPLE TE BLD COUNT W/DIF F eosinophils 0.9 % 1.0-7. 0 low Not Available [facility] (Lab) [address] [place], [address], 12/04/2023 19:37:13 12/04/19 24 12/04/2023 CBC/C OMPLE TE BLD COUNT W/DIF F basophils 0.5 % 0.0-2. 0 Not Available [facility] (Lab) [address] [place], [address], 12/04/2023 19:37:13 12/04/1912/04/2023 CBC/C OMPLE TE BLD COUNT W/DIF F immature granulocytes 0.0 % 0.00-0 .50 Not Available [facility] (Lab) [address] [place], [address], 12/04/2023 19:37:13 12/04/19 24 12/04/2023 CBC/C OMPLE TE BLD COUNT W/DIF F neutrophils, absolute count 1.12 x10'3 /uL 1.5-8. 0 low Not Available [facility] (Lab) [address] [place], [address], 12/04/2023 19:37:13 12/04/19 24 12/04/2023 CBC/C OMPLE TE BLD COUNT W/DIF F lymphocytes, absolute count 0.79 x10'3 /uL 1.07-3 .43 low Not Available [facility] (Lab) [address] [place], [address], 12/04/2023 19:37:13 12/04/19 24 12/04/2023 CBC/C OMPLE TE BLD COUNT W/DIF F monocytes, absolute count 0.22 x10'3 /uL 0.29-0 .99 low Not Available [facility] (Lab) [address] [place], [address], 12/04/2023 19:37:13 12/04/19 24 12/04/2023 CBC/C OMPLE TE BLD COUNT W/DIF F eosinophils, absolute count 0.02 x10'3 /uL 0.02-0 .53 Not Available [facility] (Lab) [address] [place], [address], 12/04/2023 19:37:13 12/04/19 24 12/04/2023 CBC/C OMPLE TE BLD COUNT W/DIF F basophils, absolute count 0.01 x10'3 /uL 0.01-0 .08 Not Available [facility] (Lab) [address] [place], [address], 12/04/2023 19:37:13 12/04/19 24 12/04/2023 CBC/C OMPLE TE BLD COUNT W/DIF F immature granulocytes ,absolute 0.00 x10'3 /uL 0.00-0 .05 Not Available [facility] (Lab) [address] [place], [address], 12/04/2023 19:37:13 12/04/19 24 12/04/2023 CBC/C OMPLE TE BLD COUNT W/DIF F nucleated red blood cells 0.0 % -0 Not Available [facility] (Lab) [address] [place], [address], 12/04/2023 19:37:13 12/04/19 24 12/04/2023 CBC/C OMPLE TE BLD COUNT W/DIF F NRBC# 0.00 x10'3 /uL Not Available [facility] (Lab) [address] [place], [address], 12/04/2023 19:37:13 12/04/19 24 12/04/2023 IRON/ TIBC PANEL total iron binding capacity 305 mcg/d L 265-47 5 Not Available [facility] (Lab) [address] [place], [address], 12/04/2023 20:10:19 12/04/19 24 12/04/2023 IRON/ TIBC PANEL % transferrin saturation 29 % 20-55 Not Available [facility] (Lab) [address] [place], [address], 12/04/2023 20:10:19 12/04/19 24 12/04/2023 IRON/ TIBC PANEL unsaturated iron bind capacity 217 mcg/d L 126-38 2 Not Available [facility] (Lab) [address] [place], [address], 12/04/2023 20:10:19 12/04/19 24 12/04/2023 IRON/ TIBC PANEL iron 88 mcg/d L 42-175 Not Available [facility] (Lab) [address] [place], [address], 12/04/2023 20:10:19 12/04/19 24 12/04/2023 LIPID PANEL cholesterol 192 mg/dL 140-19 9 [facility] ELISEO NSUS RECOM MENDA TION FOR ABEL STERO L: ADULT CHILD LOW RISK: <200 <170 BORDE RLINE : <200- 239 ----- HIGH RISK: >240 >200 Not Available [facility] (Lab) [address] [place], [address], 12/04/2023 19:43:32 12/04/1912/04/2023 LIPID PANEL triglyceride s 107 mg/dL 0-150 [facility] ELISEO NSUS REPOR T RECOM MENDA TION FOR TRIGL YCERI EDWIN: ADULT CHILD LOW RISK: <150 ----- BODER LINE: 150-1 99 ----- HIGH RISK: >200 ----- Not Available [facility] (Lab) [address] [place], [address], 12/04/2023 19:43:32 12/04/19 24 12/04/2023 LIPID PANEL HDL cholesterol 66 mg/dL 40- Not Available [facility] (Lab) [address] [place], [address], 12/04/2023 19:43:32 12/04/19 24 12/04/2023 LIPID PANEL LDL cholesterol, calculated 105 mg/dL 0-130 [facility] ELISEO NSUS REPOR T RECOM MENDA TIONS FOR LDL: ADULT CHILD LOW RISK <130 <110 (OPTI MAL LDL) <100 ----- BORDE RLINE : 130-1 59 ----- HIGH RISK: >160 >130 A TRIGL YCERI DE RESUL T >400 INVAL IDATE S THE CALCU LATIO N FOR LDL FRACT IONAT ION - THE LDL RESUL T WILL NOT BE REPOR CHIKA. Not Available [facility] (Lab) [address] [place], [address], 12/04/2023 19:43:32 12/04/19 24 12/04/2023 HEPAT IC/LI ELIZABETH PANEL alkaline phosphatase 84 U/L 38-126 Not Available [facility] (Lab) [address] [place], [address], 12/04/2023 19:43:34 12/04/19 24 12/04/2023 HEPAT IC/LI ELIZABETH PANEL alanine aminotransfe rase 22 U/L 0-35 Not Available [facility] (Lab) [address] [place], [address], 12/04/2023 19:43:34 12/04/19 24 12/04/2023 HEPAT IC/LI ELIZABETH PANEL aspartate aminotransfe rase 27 U/L 15-37 Not Available [facility] (Lab) [address] [place], [address], 12/04/2023 19:43:34 12/04/19 24 12/04/2023 HEPAT IC/LI ELIZABETH PANEL bilirubin, total 0.70 mg/dL 0.20-1 .30 Not Available [facility] (Lab) [address] [place], [address], 12/04/2023 19:43:34 12/04/19 24 12/04/2023 HEPAT IC/LI ELIZABETH PANEL bilirubin, conjugated (direct) 0.00 mg/dL 0.00-0 .30 Not Available [facility] (Lab) [address] [place], [address], 12/04/2023 19:43:34 12/04/19 24 12/04/2023 HEPAT IC/LI ELIZABETH PANEL biliurubin,u ncong. (indirect) 0.40 mg/dL 0.00-1 .1 Not Available [facility] (Lab) [address] [place], [address], 12/04/2023 19:43:34 12/04/19 24 12/04/2023 HEPAT IC/LI ELIZABETH PANEL total protein 7.4 g/dL 6.3-8. 2 Not Available [facility] (Lab) [address] [place], [address], 12/04/2023 19:43:34 12/04/19 24 12/04/2023 HEPAT IC/LI ELIZABETH PANEL albumin 4.1 g/dL 3.0-4. 4 Not Available [facility] (Lab) [address] [place], [address], 12/04/2023 19:43:34 12/04/19 24 12/04/2023 HEPAT IC/LI ELIZABETH PANEL globulin 3.3 g/dL 2.6-4. 2 Not Available [facility] (Lab) [address] [place], [address], 12/04/2023 19:43:34 12/04/19 24 12/04/2023 HEPAT IC/LI ELIZABETH PANEL A/G ratio 1.2 ratio 1.0-2. 0 Not Available [facility] (Lab) [address] [place], [address], 12/04/2023 19:43:34 12/04/19 24 12/04/2023 BASIC METAB OLIC PANEL sodium 138 mmol/ L 137-14 5 Not Available [facility] (Lab) [address] [place], [address], 12/04/2023 19:43:38 12/04/19 24 12/04/2023 BASIC METAB OLIC PANEL potassium 4.2 mmol/ L 3.5-5. 1 Not Available [facility] (Lab) [address] [place], [address], 12/04/2023 19:43:38 12/04/19 24 12/04/2023 BASIC METAB OLIC PANEL chloride 104 mmol/ L 98-107 Not Available [facility] (Lab) [address] [place], [address], 12/04/2023 19:43:38 12/04/19 24 12/04/2023 BASIC METAB OLIC PANEL carbon dioxide 33 mmol/ L 22-30 high Not Available [facility] (Lab) [address] [place], [address], 12/04/2023 19:43:38 12/04/19 24 12/04/2023 BASIC METAB OLIC PANEL anion gap 5.2 mmol/ L 14-22 low Not Available [facility] (Lab) [address] [place], [address], 12/04/2023 19:43:38 12/04/19 24 12/04/2023 BASIC METAB OLIC PANEL glucose 115 mg/dL 70-99 high Not Available [facility] (Lab) [address] [place], [address], 12/04/2023 19:43:38 12/04/19 24 12/04/2023 BASIC METAB OLIC PANEL BUN 19 mg/dL 8-19 Not Available [facility] (Lab) [address] [place], [address], 12/04/2023 19:43:38 12/04/19 24 12/04/2023 BASIC METAB OLIC PANEL creatinine 0.99 mg/dL 0.66-1 .25 Not Available [facility] (Lab) [address] [place], [address], 12/04/2023 19:43:38 12/04/19 24 12/04/2023 BASIC METAB OLIC PANEL GFR 55 Refer ence Range : [place] ge GFR Healt hy Adult : >60 mL/mi n/1.7 3 m2 Chron ic Kidne y Disea se: 15-60 mL/mi n/1.7 3 m2 Kidne y Failu re: <15/m L/min /1.73 m2 www.n iddk. nih.g ov The MDRD study equat ion has not been valid ated in child jayleen <18 years of age; pregn ant women ; the elder ly >85 years of age; or in some racia l or ethni c subgr oups, such as Hisne nics. Outsi de the valid ated светлана eters , estim ated GFR is less accur ate, requi ring clini norma judgm ent on a case- by-ca se basis . Clini norma inter preta tion for other races and ages must be made by the clini peng. The MDRD study equat ion has not been valid ated for the evalu ation of serum creat inine relat ed to nutri duglas l statu s or medic ation usage . For perso ns <18 years of age, a pedia tric GFR calcu lator is avail able on the F websi te: https ://vasquez ashely.jaclyn rodriguez/pr ofess ional s/kdo qi/gf r_cal culat or Not Available [facility] (Lab) [address] [place], [address], 12/04/2023 19:43:38 12/04/19 24 12/04/2023 BASIC METAB OLIC PANEL calcium 9.6 mg/dL 8.4-10 .2 Not Available [facility] (Lab) [address] [place], [address], 12/04/2023 19:43:38 12/04/19 24 12/04/2023 VITAM IN D 25-HY DROXY vd25oh 37.6 NG/mL 30-100 Vitam in D Statu s: Defic ient: <20 ng/mL Insuf ficie nt: 20-29 ng/mL Suffi cient : 30-10 0 ng/mL Not Available [facility] (Lab) [address] [place], [address], 12/04/2023 20:10:06 12/04/19 24 12/04/2023 JAYA TIN ferritin 24 NG/mL 11.1-2 64 Not Available [facility] (Lab) [address] [place], [address], 12/04/2023 20:13:43 12/04/19 24 12/04/2023 VITAM IN B12 (JUHI TIFFANY ) vb12 386 pg/mL 239-93 1 Not Available [facility] (Lab) [address] [place], [address], 12/04/2023 20:34:25 12/04/19 24 12/04/2023 HEMOG LOBIN A1C HA1C 6.4 % 4.0-6. 0 high Diabe jun Scree sanjeev Crite susie: <5.7% Consi stent with absen ce of diabe jun 5.7-6 .4% Consi stent with incre ased risk for diabe jun (pred iabet es) >OR=6 .5% Consi stent with diabe jun REFER ENCE: Diabe jun Care 2016, 39(Grayson ppl.1 ):s13 -s22 Not Available [facility] (Lab) [address] [place], [address], 12/04/2023 20:52:38 08/21/2008/21/2024 urina lysis , dipst ick Leukocytes (reference range: negative rishi/ l) Negati ve Not Available [address], [place], [address], 08/21/2024 11:40:19 08/21/2008/21/2024 urina lysis , dipst ick Nitrite (reference rage: negative mg/dl) negati ve Not Available [address], [place], [address], 08/21/2024 11:40:19 08/21/2008/21/2024 urina lysis , dipst ick Urobilinogen (reference range: 0.2-1 mg/dl) 0.2 Not Available [address], [place], [address], 08/21/2024 11:40:19 08/21/20 24 08/21/2024 urina lysis , dipst ick Protein (reference range: negative mg/dl) Negati ve Not Available [address], [place], [address], 08/21/2024 11:40:19 08/21/20 24 08/21/2024 urina lysis , dipst ick pH (reference range: 5-7) 5.0 Not Available [address], [place], [address], 08/21/2024 11:40:19 08/21/20 24 08/21/2024 urina lysis , dipst ick Blood (reference range: negative Delano/ l) Negati ve Not Available [address], [place], [address], 08/21/2024 11:40:19 08/21/20 24 08/21/2024 urina lysis , dipst ick Specific [place] (reference range: 1.005-1.030) 1.015 Not Available [address], [place], [address], 08/21/2024 11:40:19 08/21/20 24 08/21/2024 urina lysis , dipst ick Ketone (reference range: negative mg/dl) Trace Not Available [address], [place], [address], 08/21/2024 11:40:19 08/21/2008/21/2024 urina lysis , dipst ick Bilirubin (reference range: negative mg/dl) Trace Not Available [address], [place], [address], 08/21/2024 11:40:19 08/21/20 24 08/21/2024 urina lysis , dipst ick Glucose (reference range: negative mg/dl) 500 Not Available [address], [place], [address], 08/21/2024 11:40:19 08/21/20 24 08/21/2024 urina lysis , dipst ick Appearance Clear Not Available [address], [place], [address], 08/21/2024 11:40:19 08/21/20 24 08/21/2024 urina lysis , dipst ick Color Yellow Not Available [address], [place], [address], 08/21/2024 11:40:19 03/05/20 24 03/05/2024 CT, abdom en + pelvi s, w/o contr ast No observ ation record ed. [email or web address] [address], [place], [address], 03/06/2024 14:04:53 08/07/20 24 08/07/2024 XR, chest , 2 view No observ ation record ed. [address], [place], [address], 08/08/2024 09:05:45 08/07/20 24 08/07/2024 CT, brain , w/o contr ast No observ ation record ed. [address], [place], [address], 08/08/2024 09:03:13 09/09/20 24 09/09/2024 XR, chest , 2 view No observ ation record ed. [email or web address] [address], [place], [address], 09/10/2024 08:10:29 10/04/20 24 10/04/2024 imagi ng/di agnos tic resul t No observ ation record ed. [email or web address] [facility] [address] [address], [place], [address], 11/28/2024 15:40:07 10/24/19 25 09/30/2024 imagi ng/di agnos tic resul t No observ ation record ed. [email or web address] [facility] [address], [place], [address], 11/28/2024 15:40:07 Result Notes None recorded. Problems Name Problem SNOMED Code Status Onset Date Resolution Date Notes Provider Name and Address Organization Details Recorded Time Edema of lower extremity 173247097 Active Not Available [facility] 4 05:02:01 Benign hypertension 25123472 Active Not Available [facility] 4 05:02:02 Increased frequency of urination 860400276 Active Not Available [facility] 4 05:02:02 Impacted cerumen 79487354 Active Not Available [facility] 4 05:02:02 Lipoma of axilla 827849057 Active Not Available [facility] 4 05:02:02 Incomplete uterovaginal prolapse 571270887 Active Not Available [facility] 4 05:02:02 Open wound of anterior abdominal wall 682140146 Active Not Available [facility] 4 05:02:02 Gastroesophag eal reflux disease 334692149 Active Not Available [facility] 4 05:02:02 Morbid obesity 155567123 Active Not Available [facility] 4 05:02:02 Malignant tumor of breast 129772327 Active Not Available [facility] 4 05:02:02 Anemia 290600013 Active Not Available [facility] 4 05:02:02 Mass of body structure 534456705 Active Not Available [facility] 4 05:02:02 Vitamin D deficiency 74535361 Active Not Available [facility] 4 05:02:02 Hypertensive disorder 65582855 Active Not Available [facility] 4 05:02:02 Memory impairment 085427426 Active Not Available [facility] 4 05:02:02 Osteoarthriti s 746971790 Active Not Available [facility] 4 05:02:02 Body mass index 40+ - severely obese 266922427 Active Not Available [facility] 4 05:02:02 Candidiasis of skin 68510934 Active Not Available [facility] 4 05:02:02 White blood cell disorder 18433930 Active Not Available [facility] 4 05:02:02 Hyperlipidemi a 41230023 Active Not Available [facility] 4 05:02:02 Carpal tunnel syndrome 77945891 Active Not Available [facility] 4 05:02:02 Hidradenitis suppurativa 54534009 Active Not Available [facility] 4 05:02:02 Visual disturbance 33460352 Active Not Available [facility] 4 05:02:02 Abscess of Bartholin's gland 53287918 Active Not Available [facility] 4 05:02:02 Diabetes mellitus 82168212 Active Not Available [facility] 4 05:02:02 Sleep apnea 83545590 Active Not Available [facility] 4 05:02:02 Urgent desire to urinate 13205294 Active Not Available [facility] 4 05:02:02 Pain in limb 00619914 Active Not Available [facility] 4 05:02:02 Systemic lupus erythematosus 81098147 Active 2016 Not Available [facility] 4 05:02:02 Atrial fibrillation 00272447 Active 2018 Not Available [facility] 4 05:02:02 Fatigue 18386114 Active 2022 Not Available [facility] 4 05:02:02 Lumbar spondylosis 826619389 Active 2022 Not Available [facility] 4 05:02:02 Rheumatoid arthritis 74895000 Active 2022 Not Available [facility] 4 05:02:02 Onychomycosis of toenails 639932902 Active 2022 Not Available [facility] 4 05:02:02 Constipation 40395077 Active 2022 Not Available [facility] 4 05:02:02 Chronic idiopathic constipation 22917558 Active 2023 Catalina Patrick MD [address], [place], [address] , [employer] [facility] [employer] [facility] 4 09:41:28 Degeneration of lumbar intervertebra l disc 15082004 Active 2023 Catalina Patrick MD [address], [place], [address] , [employer] [facility] [employer] [facility] 4 09:46:57 Dyspnea 453649873 Active 2023 CHRISTIAN Christine [address], [place], [address] , [employer] [facility] [employer] [facility] 4 09:34:41 Swelling of bilateral lower limbs 743006550 Active 2023 Severiano Romanvishal [facility] [address], [address], [place], [address] , [employer] 4 09:34:48 Weakness of bilateral lower limb Active 2023 Severiano Romanvishal [facility] [address], [address], [place], [address] , [employer] 4 09:36:58 Paresthesia of lower extremity 288550066 Active 2023 Severiano Richards, [facility] [address], [address], [place], [address] , [employer] 4 09:37:06 Dysuria 67409790 Active 2023 Severiano Romanvishal [facility] [address], [address], [place], [address] , [employer] 4 11:40:14 Cardiomegaly 6046917 Active 2023 Rhea Andrade APRN [address], [place], [address] , [employer] 4 08:10:14 Problem Notes None recorded. Procedures Surgical History Date Name Laterality Status Provider Name and Address Organization Details Recorded Time 08/03/20 23 Nail Debridement completed Wlimer Triplett DPM [address], [address], [place], [address], Linebacker 08/07/2023 09:34:44 11/17/19 16 Most Recent Bone Density completed Not Available [facility] 12/21/2022 01:12:40 10/26/19 14 Date of Last Colonoscopy completed Not Available [facility] 12/21/2022 01:12:40 10/23/18 84 section completed Aliyah Bolaños [employer] 08/03/2023 14:49:04 10/23/18 81 section completed Aliyah Bolaños Str[employer] 08/03/2023 14:49:00 10/23/18 80 section completed Aliyah Bolaños [place] [facility] 08/03/2023 14:48:58 Imaging Results None recorded. Procedure Notes None recorded. Medical Equipment None Reported. Allergies Allergen ID Allergen Name Allergen Category Reaction Reaction Severity Criticality Documentation Date Start Date Code Code System Note Provider Name and Address Organization Details Recorded Time 2887 Demerol medicatio n dizziness Not available Not available 12/21/2022 59416 1 RxNorm Not Available [facility] 3 01:42:00 Medications Name Sig Start Date Stop Date Status Note LastModified by Organization Details LastModified Time cyclobenzap rine 10 mg tablet TAKE 1 TABLET BY MOUTH EVERY 8 HOURS prn 12/12 completed Not Available Not Available Not Available amoxicillin 500 mg capsule 12/12 completed Not Available Not Available Not Available furosemide 40 mg tablet TK 2 TS PO QAM AND 1 T D AT NOON 12/12 completed Not Available Not Available Not Available atorvastati n 40 mg tablet TAKE 1 TABLET BY MOUTH EVERY DAY active Not Available Not Available No t Available silver sulfadiazin e 1 % topical cream APPLY TOPICALLY TO THE AFFECTED AREA DAILY active Not Available Not Available No t Available anastrozole 1 mg tablet 07/25 completed Not Available Not Available Not Available atorvastati n 80 mg tablet TAKE 1 TABLET BY MOUTH DAILY active Not Available Not Available No t Available venlafaxine ER 37.5 mg capsule,ext ended release 24 hr active Not Available Not Available Not Available doxycycline hyclate 100 mg capsule TK ONE C PO Q 12 H FOR 10 DAYS 07/25 completed Not Available Not Available Not Available clindamycin HCl 300 mg capsule Take 1 capsule every 6 hours by oral route for 7 days. active Not Available Not Available No t Available polyethylen e glycol 3350 17 gram oral powder packet DISSOLVE 17 GRAMS IN LIQUID AND DRINK TWICE DAILY active Not Available Not Available No t Available oxybutynin chloride ER 10 mg tablet,exte nded release 24 hr TAKE 1 TABLET BY MOUTH EVERY DAY DIRECTED 08/25 completed Not Available Not Available Not Available azithromyci n 250 mg tablet TAKE 2 TABLETS (500 MG) BY ORAL ROUTE ONCE DAILY FOR 1 DAY THEN 1 TABLET (250 MG) BY ORAL ROUTE ONCE DAILY FOR 4 DAYS active Not Available Not Available No t Available glyburide 5 mg tablet 1 po qAM-- 12/09 completed Not Available Not Available Not Available fluconazole 150 mg tablet active Not Available Not Available Not Available amiodarone 200 mg tablet TAKE 1 TABLET BY MOUTH DAILY active Not Available Not Available No t Available benzonatate 200 mg capsule Take 1 capsule 3 times a day by oral route as needed for 10 days. 12/12 completed Not Available Not Available Not Available hydrocodone 5 mg-acetamin ophen 325 mg tablet TK 1 T PO Q 6 H PRN active Not Available Not Available No t Available ondansetron HCl 8 mg tablet 07/20 completed Not Available Not Available Not Available meloxicam 15 mg tablet TK 1 T PO QD active Not Available Not Available No t Available famotidine 40 mg tablet TK 1 T PO QHS FOR REFLUX AND DYSPEPSIA 02/09 completed Not Available Not Available Not Available prednisone 20 mg tablet 3 po qday x 3 days then 2 po qday x 3 days then 1 po qday x 3 days then 1/2 po qday x 3 days then stop active Not Available Not Available No t Available miconazole nitrate 2 % vaginal cream Insert 1 applicato rful every day by vaginal route. active Not Available Not Available No t Available glipizide ER 5 mg tablet, extended release 24 hr TAKE 1 TABLET BY MOUTH EVERY MORNING WITH FOOD 07/25 completed Not Available Not Available Not Available metolazone 5 mg tablet 1-2 tabs po qAM active Not Available Not Available No t Available cyanocobala min (vit B-12) 1,000 mcg tablet Take 1 tablet every day by oral route for 90 days. 2023 active Not Available Not Available Not Avai lable warfarin 2.5 mg tablet TAKE 1 TABLET BY MOUTH DAILY 07/01 completed Not Available Not Available Not Available hydralazine 25 mg tablet TAKE 1 TABLET BY MOUTH THREE TIMES DAILY active Not Available Not Available No t Available nifedipine ER 30 mg tablet,exte nded release 12/12 completed Not Available Not Available Not Available acetaminoph en 300 mg-codeine 30 mg tablet TAKE 1 TABLET BY MOUTH EVERY 4 HOURS NEEDED FOR PAIN 09/04 completed Not Available Not Available Not Available ciprofloxac in 250 mg tablet 10/25 completed Not Available Not Available Not Available amlodipine 5 mg tablet 1/2 tab 07/22 completed Not Available Not Available Not Available bacitracin zinc 500 unit/gram topical ointment Apply thin layer to affected area TID and keep covered. active Not Available Not Available No t Available prochlorper azine maleate 10 mg tablet active Not Available Not Available No t Available ciprofloxac in 500 mg tablet Take 1 tablet every 12 hours by oral route for 5 days. 12/12 completed Not Available Not Available Not Available sulfamethox azole 800 mg-trimetho prim 160 mg tablet TAKE 1 TABLET BY MOUTH TWICE DAILY FOR 7 DAYS active Not Available Not Available No t Available omeprazole 40 mg capsule,del ayed release TK 1 C PO BID 05/09 completed Not Available Not Available Not Available tramadol 50 mg tablet TAKE 1 TABLET BY MOUTH EVERY 6 HOURS NEEDED active Not Available Not Available No t Available acetaminoph en 500 mg tablet TAKE TWO TABLETS BY MOUTH THREE TIMES A DAY active Not Available Not Available No t Available hydrocortis one acetate 25 mg rectal suppository Insert 1 supposito ry twice a day by rectal route for 14 days. 10/11 completed Not Available Not Available Not Available Kenalog 40 mg/mL suspension for injection 1 ml IM x 1 12/01 completed [facility]-0 [phone] Not Available Not Available Not Available potassium chloride ER 20 mEq tablet,exte nded release(par t/cryst) TAKE 1 TABLET BY MOUTH TWICE DAILY 07/20 completed Not Available Not Available Not Available famotidine 20 mg tablet active Not Available Not Available Not Available oxycodone-a cetaminophe n 10 mg-325 mg tablet TAKE 1 TABLET BY MOUTH EVERY 6 HOURS NEEDED FOR PAIN 09/04 completed Not Available Not Available Not Available furosemide 80 mg tablet TAKE 1 TABLET BY MOUTH TWICE DAILY active Not Available Not Available No t Available meclizine 25 mg tablet Take 1 tab eveyr 8 hours as needed for dizziness 05/24 completed Not Available Not Available Not Available doxycycline monohydrate 100 mg capsule TAKE 1 CAPSULE BY MOUTH TWICE DAILY 04/19 completed Not Available Not Available Not Available cephalexin 500 mg capsule TAKE 1 CAPSULE BY MOUTH THREE TIMES DAILY FOR 7 DAYS active Not Available Not Available No t Available pantoprazol e 40 mg tablet,jyothi yed release TAKE 1 TABLET BY MOUTH DAILY active Not Available Not Available No t Available metformin 1,000 mg tablet TK 1 T PO BID active Not Available Not Available No t Available fosinopril 40 mg tablet TK 1 T PO QD 04/04 completed Not Available Not Available Not Available triamcinolo ne acetonide 0.1 % topical ointment STEVEN EXT AA BID FOR 7 DAYS PRN 05/07 completed Not Available Not Available Not Available ranitidine 150 mg tablet TK 1 T PO BID active Not Available Not Available No t Available dexamethaso ne 4 mg tablet TAKE 2 TABLETS BY MOUTH ONCE DAILY ON DAYS 2 AND 3 OF EACH TREATMENT CYCLE 07/20 completed Not Available Not Available Not Available hyoscyamine 0.125 mg sublingual tablet DISSOLVE 2 TABLETS UNDER THE TONGUE AT BEDTIME active Not Available Not Available No t Available warfarin 5 mg tablet TK 1/2 T PO QD 12/12 completed Not Available Not Available Not Available metoprolol tartrate 50 mg tablet TAKE 1 TABLET BY MOUTH TWICE DAILY active Not Available Not Available No t Available docusate sodium 100 mg capsule TAKE 1 CAPSULE BY MOUTH EVERY 12 HOURS active Not Available Not Available No t Available gabapentin 300 mg capsule TK ONE C PO QHS active Not Available Not Available No t Available diclofenac sodium 75 mg tablet,jyothi yed release TK 1 T PO BID PRN 12/12 completed Not Available Not Available Not Available cephalexin 500 mg tablet Take 1 tablet twice a day by oral route. 07/25 completed Not Available Not Available Not Available lidocaine HCl 3 % topical cream APPLY A QUARTER SIZE AMOUNT OF CREAM ON SKIN ABOVE PORT-A-CA TH 30 MINUTES PRIOR TO APPOINTME NT. COVER WITH PLASTIC WRAP TO PROTECT CLOTHING 07/25 completed Not Available Not Available Not Available hydralazine 50 mg tablet TAKE 1 TABLET BY MOUTH THREE TIMES DAILY active Not Available Not Available No t Available hydrochloro thiazide 25 mg tablet TK 1 T PO QD 12/01 completed Not Available Not Available Not Available mupirocin 2 % topical ointment APPLY TOPICALLY TO THE AFFECTED AREA THREE TIMES DAILY active Not Available Not Available No t Available furosemide 20 mg tablet TAKE 1 TABLET BY MOUTH DAILY active Not Available Not Available No t Available ibuprofen 600 mg tablet 07/25 completed Not Available Not Available Not Available cefuroxime axetil 500 mg tablet TAKE 1 TABLET BY MOUTH TWICE DAILY active Not Available Not Available No t Available polyethylen e glycol 3350 17 gram/dose oral powder DISSOLVE 17 GRAMS IN 4 TO 8 OUNCES OF LIQUID AND TAKE BY MOUTH DAILY NEEDED FOR CONSTIPAT ION active Not Available Not Available No t Available levofloxaci n 500 mg tablet TAKE 1 TABLET BY MOUTH DAILY 07/25 completed Not Available Not Available Not Available levofloxaci n 750 mg tablet TAKE 1 TABLET BY MOUTH DAILY FOR 5 DAYS 12/20 completed Not Available Not Available Not Available letrozole 2.5 mg tablet TAKE 1 TABLET BY MOUTH EVERY MORNING active Not Available Not Available No t Available methylpredn isolone 4 mg tablets in a dose pack TK DIRECTED active Not Available Not Available No t Available albuterol sulfate HFA 90 mcg/actuati on aerosol inhaler INHALE 2 PUFFS BY MOUTH EVERY 4 HOURS NEEDED active Not Available Not Available No t Available Vitamin D2 1,250 mcg (50,000 unit) capsule TAKE 1 CAPSULE BY MOUTH EVERY WEEK active Not Available Not Available No t Available ketoconazol e 2 % topical cream APPLY TO TO THE AFFECTED AREA ON TOENAILS ONCE DAILY active Not Available Not Available No t Available cefdinir 300 mg capsule TAKE 1 CAPSULE BY MOUTH EVERY 12 HOURS FOR 1 WEEK 08/25 completed Not Available Not Available Not Available losartan 100 mg tablet TAKE ONE TABLET BY MOUTH DAILY active Not Available Not Available No t Available fluticasone propionate 50 mcg/actuati on nasal spray,suspe nsion SHAKE WELL AND U 1 SPR IEN QD 05/07 completed Not Available Not Available Not Available doxycycline hyclate 100 mg tablet TAKE 1 TABLET BY MOUTH TWICE DAILY active Not Available Not Available No t Available tamoxifen 20 mg tablet TK 1 T PO DAILY active Not Available Not Available No t Available gentamicin 0.1 % topical ointment active Not Available Not Available Not Available amoxicillin 875 mg-potassiu m clavulanate 125 mg tablet TAKE 1 TABLET BY MOUTH EVERY 12 HOURS FOR 10 DAYS active Not Available Not Available No t Available amoxicillin 500 mg-potassiu m clavulanate 125 mg tablet TAKE 1 TABLET BY MOUTH EVERY 12 HOURS FOR 7 DAYS active Not Available Not Available No t Available oxycodone 5 mg tablet 07/20 completed Not Available Not Available Not Available Coricidin HBP Flu 2 mg-15 mg-500 mg tablet Take per package direction s 05/24 completed Not Available Not Available Not Available azithromyci n 500 mg tablet active Not Available Not Available Not Available cyclobenzap rine 5 mg tablet Take 1 tablet 3 times a day by oral route. 08/08 completed Not Available Not Available Not Available Premarin 0.625 mg/gram vaginal cream active Not Available Not Available Not Available nitrofurant oin monohydrate /macrocryst als 100 mg capsule TAKE 1 CAPSULE BY MOUTH EVERY 12 HOURS FOR 7 DAYS active Not Available Not Available No t Available duloxetine 20 mg capsule,del ayed release 08/25 completed Not Available Not Available Not Available lactulose 10 gram/15 mL oral solution Take 15 mL every day by oral route for 30 days. active Not Available Not Available No t Available solifenacin 5 mg tablet 07/25 completed Not Available Not Available Not Available pregabalin 75 mg capsule 07/01 completed Not Available Not Available Not Available diazepam 5 mg-7.5 mg-10 mg rectal kit Insert 10 mg by rectal route. 02/15 completed [facility] [place]# [phone] Not Available Not Available Not Available chlorhexidi ne gluconate 0.12 % mouthwash Place 15 mL twice a day by mucous membrane route. 07/25 completed Not Available Not Available Not Available famotidine 08/17 completed Not Available Not Available Not Available potassium Cl-calcium phos-mag 07/25 completed Not Available Not Available Not Available Amitiza 24 mcg capsule Take 1 capsule twice a day by oral route. 05/07 completed Not Available Not Available Not Available Amitiza 8 mcg capsule Take 1 capsule twice a day by oral route. 01/02 completed Not Available Not Available Not Available Dexilant 60 mg capsule, delayed release Take 1 capsule every day by oral route for 56 days. 11/08 completed Not Available Not Available Not Available Xarelto 20 mg tablet active Not Available Not Available No t Available OneTouch Verio test strips USE TO TEST THREE TIMES DAILY dx e11.9 active Not Available Not Available No t Available Myrbetriq 25 mg tablet,exte nded release Take 1 tablet every day by oral route. 12/29 completed Not Available Not Available Not Available Myrbetriq 50 mg tablet,exte nded release Take 1 tablet every day by oral route. 09/04 completed Not Available Not Available Not Available Linzess 145 mcg capsule TAKE 1 CAPSULE BY MOUTH EVERY DAY 12/12 completed Not Available Not Available Not Available Linzess 290 mcg capsule Take 1 capsule every day by oral route. 05/07 completed Not Available Not Available Not Available Farxiga 10 mg tablet TAKE 1 TABLET BY MOUTH DAILY active Not Available Not Available No t Available potassium chloride ER 20 mEq tablet,exte nded release Take 1 tablet twice a day by oral route. 12/04 completed Not Available Not Available Not Available Entresto 24 mg-26 mg tablet TAKE 1 TABLET BY MOUTH TWICE DAILY active Not Available Not Available No t Available OneTouch Verio Flex Meter TEST TID active Not Available Not Available Not Available Trulance 3 mg tablet Take 1 tablet every day by oral route. 2023 active Not Available Not Available Not Avai lable OneTouch Delica Plus Lancet 33 gauge USE TO TEST THREE TIMES DAILY dx e11.9 active Not Available Not Available No t Available Voltaren Arthritis Pain 1 % topical gel APPLY 2 GRAMS TO THE AFFECTED AREA(S) BY TOPICAL ROUTE 4 TIMES PER DAY 08/25 completed Not Available Not Available Not Available Vitals Date Recorded Body height Body temperature Heart rate Oxygen saturation Oxygen saturation in Arterial blood by Pulse oximetry Systolic And Diastolic Provider Name and Address Organization Details Last Updated DateTime 4 172.72 cm 97.3 [degF] 55 /min 94 % 94 % 170/80 mm[Hg] Estefanía Dillard RN [facility] [employer] [facility] 4 09:13:47 Date Recorded Body height Body mass index (BMI) Body weight Body temperature Heart rate Oxygen saturation Oxygen saturation in Arterial blood by Pulse oximetry Systolic And Diastolic Provider Name and Address Organization Details Last Updated DateTime 4 172.72 cm 42.7 kg/m2 356015. 46 g 97.9 [degF] 70 /min 97 % 97 % 160/70 mm[Hg] Estefanía Dillard RN [facility] [employer] [facility] 4 09:26:04 Date Recorded Body height Body mass index (BMI) Body weight Body temperature Heart rate Oxygen saturation Oxygen saturation in Arterial blood by Pulse oximetry Systolic And Diastolic Provider Name and Address Organization Details Last Updated DateTime 4 172.72 cm 43.3 kg/m2 626274. 83 g 97.1 [degF] 67 /min 94 % 94 % 144/86 mm[Hg] Liliam Millard RN [facility] [employer] [facility] 4 09:12:32 Date Recorded Body height Body mass index (BMI) Body weight Body temperature Heart rate Oxygen saturation Oxygen saturation in Arterial blood by Pulse oximetry Systolic And Diastolic Provider Name and Address Organization Details Last Updated DateTime 4 172.72 cm 43.8 kg/m2 528403. 6 g 96.7 [degF] 87 /min 97 % 97 % 178/86 mm[Hg] Liliam Millard RN [facility] [employer] [facility] 4 11:26:17 Date Recorded Body height Body mass index (BMI) Body weight Body temperature Heart rate Oxygen saturation Oxygen saturation in Arterial blood by Pulse oximetry Systolic And Diastolic Provider Name and Address Organization Details Last Updated DateTime 3 172.72 cm 42.3 kg/m2 337363. 68 g 97.5 [degF] 52 /min 88 % 88 % 148/80 mm[Hg] Estefanía Dillard RN [facility] [employer] [facility] 3 09:25:01 Social History Question Answer Notes LastModified by Organization Details LastModified Time Tobacco Smoking Status Former Smoker Not Available [facility] 12/21/2022 01:08:23 Do You Wear A Helmet When Biking? No [id number] Information not available 12/21/2022 Are You Blind Or Do You Have Difficulty Seeing? Yes [id number] Information not available 12/21/2022 What Is Your Level Of Caffeine Consumption? Occasional [id number] Information not available 12/21/2022 In The 14 Days Before Symptom Onset, Have You Had Close Contact With A Laboratory-confi rmed COVID-19 While That Case Was Ill? No [id number] Information not available 12/21/2022 In The 14 Days Before Symptom Onset, Have You Had Close Contact With A Person Who Is Under Investigation For COVID-19 While That Person Was Ill? No [id number] Information not available 12/21/2022 Are You Deaf Or Do You Have Serious Difficulty Hearing? Yes [id number].[id number] [id number] Information not available 12/21/2022 What Type Of Diet Are You Following? REGULAR MIGRATION.0301 [id number] Information not available 12/21/2022 What Is The Highest Grade Or Level Of School You Have Completed Or The Highest Degree You Have Received? [id number] MIGRATION.030 [id number] Information not available 12/21/2022 Have There Been Any Changes To Your Family Or Social Situation? No MIGRATION.0301 [id number] Information not available 12/21/2022 What Is The Fluoride Status Of Your Home? Unknown MIGRATION.0301 [id number] Information not available 12/21/2022 When Did You Quit Smoking? 15+yearssincelrossy taoradha Quit Age 44 MIGRATION.0301 [id number] Information not available 12/21/2022 Are There Any Guns Present In Your Home? No MIGRATION.0301 [id number] Information not available 12/21/2022 Do You Use Insect Repellent Routinely? Yes MIGRATION.0301 [id number] Information not available 12/21/2022 Where Do You Live? [place]House MIGRATION.0301 [id number] Information not available 12/21/2022 Do You Have Any Pets? No MIGRATION.0301 [id number] Information not available 12/21/2022 What Is Your Relationship Status? MIGRATION.0301 [id number] Information not available 12/21/2022 Do You Use Your Seat Belt Or Car Seat Routinely? Yes MIGRATION.0301 [id number] Information not available 12/21/2022 Do You Have Smoke And Carbon Monoxide Detectors In Your Home? Yes MIGRATION.0301 [id number] Information not available 12/21/2022 Are You Passively Exposed To Smoke? No MIGRATION.0301 [id number] Information not available 12/21/2022 Are There Any Smokers In Your House? No MIGRATION.0301 753502 Information not available 12/21/2022 Do You Use Sunscreen Routinely? No MIGRATION.0301 [id number] Information not available 12/21/2022 Has Tobacco Cessation Counseling Been Provided? No MIGRATION.0301 [id number] Information not available 12/21/2022 How Many Years Have You Smoked Tobacco? 6 MIGRATION.0301 [id number] Information not available 12/21/2022 Have You Recently Traveled Abroad? No MIGRATION.0301 130052 Information not available 12/21/2022 Do You Have Difficulty Walking Or Climbing Stairs? Yes MIGRATION.0301 [id number] Information not available 12/21/2022 Are You Currently In School? No MIGRATION.0301 167841 Information not available 12/21/2022 Sex: Unknown Functional Status Question Answer Note LastModified by Organizat ion Details LastModified Time Do you use any illicit or recreational drugs? No [id number] Information not available 12/21/2022 Do you or have you ever used any other forms of tobacco or nicotine? No MIGRATION.[id number] 026 Information not available 12/21/2022 What is your level of alcohol consumption? None MIGRATION.[id number] 026 Information not available 12/21/2022 Do you have transportation difficulties? No [id number] 026 Information not available 12/21/2022 Are you able to walk? YESASSIST MIGRATION.[id number] 026 Information not available 12/21/2022 Do you have difficulty doing errands alone? No MIGRATION.[id number] 026 Information not available 12/21/2022 Are you able to care for yourself? Yes MIGRATION.[id number] 026 Information not available 12/21/2022 What is your occupation? retired MIGRATION.[id number] 026 Information not available 12/21/2022 Do you have difficulty dressing or bathing? No MIGRATION.[id number] 026 Information not available 12/21/2022 What is your exercise level? None MIGRATION.[id number] 026 Information not available 12/21/2022 Mental Status Question Answer Note LastModified by Organizat ion Details LastModified Time Do you feel stressed (tense, restless, nervous, or anxious, or unable to sleep at night)? [id number] [id number] 26 Information not available 12/21/2022 Do you have difficulty concentrating, remembering or making decisions? Yes MIGRATION.[id number] 26 Information not available 12/21/2022 Family History Relationship Description Onset Age of this Age Resolved Age Notes LastModified by Organization Details LastModified Time Mother Hypertensive disorder MIGRATION.811 [id number] Not available 12/21/2022 01:12:53 Mother Heart disease MIGRATION.665 [id number] Not available 12/21/2022 01:12:53 Mother Family history of malignant neoplasm MIGRATION.708 [id number] Not available 12/21/2022 01:12:53 Mother Malignant tumor of breast MIGRATION.940 [id number] Not available 12/21/2022 01:12:53 Mother Hyperthyroid ism MIGRATION.966 [id number] Not available 12/21/2022 01:12:53 Brother Hypertensive disorder MIGRATION.581 [id number] Not available 12/21/2022 01:12:53 Brother Diabetes mellitus MIGRATION.560 [id number] Not available 12/21/2022 01:12:53 Sister Hypertensive disorder MIGRATION.621 [id number] Not available 12/21/2022 01:12:53 Sister Diabetes mellitus MIGRATION.568 [id number] Not available 12/21/2022 01:12:54 Sister Hyperthyroid ism MIGRATION.844 [id number] Not available 12/21/2022 01:12:54 Father Heart disease MIGRATION.084 [id number] Not available 12/21/2022 01:12:54 Father Alzheimer's disease MIGRATION.649 [id number] Not available 12/21/2022 01:12:54 Medical History Condition Response SLEEP APNEA Y MRSA N ALLERGIES/HAYFEVER N LUNG DISEASE/DISORDER N HISTORY OF DRUG ABUSE N INSOMNIA N RADIATION / CHEMOTHERAPY N COPD N HIGH CHOLESTEROL / HYPERLIPIDEMIA Y HYPERTHYROIDISM N BLOOD DISEASES N EAR OR HEARING PROBLEMS N HYPOTHYROIDISM N SHINGLES N DEPRESSION (INCLUDING POST ) N HAVE YOU BEEN HOSPITALIZED OR SEEN [facility] IN THE PAST YEAR ? N STROKE/TIA N ULCERS N OBESITY N ANEURYSM N HISTORY WITH COMPLICATIONS WITH ANESTHES IA ? N NO SIGNIFICANT PAST MEDICAL HISTORY N USE OF BLOOD THINNERS Y DIABETES, TYPE Y PARATHYROID DISEASE N ENT N SEASONAL ALLERGIES Y HEARTBURN / REFLUX Y HEPATITIS / LIVER DISEASE N SLEEP DISORDER N SEIZURES/EPILEPSY N HEADACHES/MIGRAINES N CHF N PACEMAKER N DIZZINESS N AIDS/HIV N HEART DISEASE/HEART PROBLEMS N FRACTURES N HYPERTENSION Y CANCER: SPECIFY Y TOURETTE'S N BLOOD TRANSFUSION Y ANEMIA/BLOOD DISORDER N ANESTHESIA COMPLICATIONS N CHRONIC EAR INFECTIONS N TUBERCULOSIS N Gynecological History Statement/Question Response Abnormal Pap N Current Control Method None Date of Last Colonoscopy 10/26/2013 Date of LMP Most Recent Bone Density 11/17/2015 Obstetrics History GPAL:G 5 P 0 0 0 5 Type Value Living 5 Total 5 Past Encounters Encounter ID Performer Location Encounter Start Date Encounter Closed Date Diagnosis/Indication Diagnosis SNOMED-CT Code Diagnosis ICD10 Code Diagnosis Note [id number] Catalina Patrick MD [facility] Primary [facility] [place] [address] [place] [address] 12/30/2020 00:00:00 12/30/2020 08:25:33 [id number] Catalina Patrick MD [facility] Primary Care [place] [address] [place] [address] 03/05/2021 00:00:00 03/08/2021 14:06:18 [id number] Catalina Patrick MD [facility] Primary Care [place] [address] [place] [address] 04/01/2021 00:00:00 04/20/2021 16:39:21 [id number] Catalina Patrick MD [facility] Primary Care [place] [address] [place] [address] 07/01/2021 00:00:00 07/02/2021 15:55:34 [id number] Latrell Sanz MD [facility] ENT [place] [address] [place] [address] 08/26/2021 00:00:00 08/26/2021 10:33:10 [id number] Catalina Patrick MD [facility] Primary Care [place] [address] [place] [address] 10/19/2021 00:00:00 10/21/2021 11:18:58 [id number] Catalina Patrick MD [facility] Primary Care [place] [address] [place] [address] 12/20/2021 00:00:00 12/20/2021 09:53:54 [id number] Catalina Patrick MD [facility] Primary Care [place] [address] [place] [address] 2022 00:00:00 02/13/2022 16:45:57 [id number] Catalina Patrick MD [facility] Primary Care [place] [address] [facility] [address] [place] [address] 07/25/2022 00:00:00 08/02/2022 09:12:19 [id number] Catalina Patrick MD [facility] Primary Care [address] [place] [address] 10/25/2022 00:00:00 10/25/2022 10:49:13 [id number] Catalina Patrick MD [facility] Primary Care [address] 140 [facility] [place] [place] [address] 12/29/2022 14:31:08 12/29/2022 14:54:18 [id number] Catalina Patrick MD 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 Primary Care [address] 140 [facility] [place] [address] 07/20/2023 08:51:33 07/20/2023 09:32:19 Lumbar spondylosis 882609652 M47.896 long h/o lumbar spondylosi s that is worseningp ain is radiating down buttocks and b/l legsshe has constant numbness/t ingling in b/l legs and feetlegs get weak and give out on her, she has to ambulate with walker at all timesshe has participat ed in PT and received epidural steroid injection in the past without improvemen tconcerned for spinal stenosis with leg weakness and paresthesi a, need MRI to evaluate furtherpt physically unable to participat e in PT due to lack of mobility and weaknessMR I ordered Rheumatoid arthritis 698 10263 M06.9 ESR 74RF 18.4Rheuma tology referral given Onychomyco sis of toenails 495600142 B35.1 [id number] Wilmer Triplett DPM [facility] Podiatry Ashley Perera [address] [place] [address] 08/03/2023 14:00:51 08/07/2023 11:49:34 Onychomycosis of toenails [id number] B35.1 educated the patient on treatment optionsWe will start topical ketoconazo Sandra patient returns in [facility] 3 months and has not improved we will perform total nail avulsion. [id number] Catalina Patrick MD [facility] Primary Care [facility] [address] [employer] [address] [place] [address] 09/04/2023 09:12:47 09/04/2023 09:51:25 Benign hypertension 54216515 I10 Diabetes mellitus 248733 09 E11.9 Vitamin D deficiency 347 41068 E55.9 Hyperlipidemia 51568200 E78.5 Z79.899 Lumbar spondylosis 07452 0009 M47.896 long h/o lumbar spondylosi s that is worseningp ain is radiating down buttocks and b/l legsshe has constant numbness/t ingling in b/l legs and feetlegs get weak and give out on her, she has to ambulate with walker at all timesshe has participat ed in PT and received epidural steroid injection in the past without improvemen tconcerned for spinal stenosis with leg weakness and paresthesi a, need MRI to evaluate furtherpt physically unable to participat e in PT due to lack of mobility and weaknessMR I ordered update 09/04/23: MRI declined, pt cannot participat e in PT, will hold off for nowtramado l 50 mg up to TID, new script sentdo not take before driving/wo rking [id number] Catalina Patrick MD [facility] Primary Care [facility] [address] [place] [address] 12/04/2023 09:07:36 12/04/2023 09:40:00 Hyperlipidemia 94402918 E78.5 Z79.899 Hypertensive disorder 38 809588 I10 Vitamin D deficiency 347 18431 E55.9 Diabetes mellitus 774142 09 E11.9 Anemia 659264466 D64.9 [id number] Catalina Patrick MD [facility] Primary Care [address] [place] [address] 02/05/2024 09:18:17 02/05/2024 11:03:37 Diabetes mellitus 49665649 E11.9 a1c 6.4 Chronic id iopathic constipation 87011606 K59.04 trial of trulanceco ntinue good fiber and fluid intake Degenerati on of lumbar intervertebral disc 35914660 M51.36 severe low back painh/o lumbar spondylosi sweakness in b/l LEparesthe perri b/l LEirregula r gaithas h/o rheumatoid arthritisc oncern for spinal stenosis, need MRI to evaluatePr ednisone taper with food, avoid other nsaidsrevi ewed s/s that warrant urgent/anderson rgent eval in meantime [id number] CHRISTIAN Christine [facility] Primary Care [address] [place] [address] 07/11/2024 08:55:06 07/11/2024 09:58:11 Swelling of bilateral lower limbs 105911320 M79.89 already seeing cardiologi , plans to call today to get an apptencour aged to take her furosemide , she has plenty, declines refilldisc ussed used of compressio n socks Weakness o f bilateral lower limb [id number] 29443 M62.81 currently using wheeled walker, unable to sit on her d/t her sizeROM and strength are greatly limitedmul tiple wheels on her walker are starting to shred, causing imbalancei mperative to get replacemen t walker repaired/e xchanged to decrease risk of falls Paresthesi a of lower extremity 638505989 R20.2 hx of trying many different meds for this, all with negative side effectsshe just tries to deal with the symptoms [id number] CHRISTIAN Christine [facility] Primary Care [address] [place] [address] 08/21/2024 10:59:28 08/21/2024 12:39:14 Dyspnea 632041060 R06.00 was in ER on 08/07 fro this issue, told it was CAPgiven doxy, completeds ome sob continuest rial albuterol inhaler Dysuria 07136124 R30.0 Health Concerns Section Related Observation LastModified by Organization Imtiaz drummond LastModified Time None Recorded Concern Status LastModified by Organization Details LastModified Time None Recorded Advance Directives Directive None Recorded Payers Insurance Date Sequence Insurance Name Policy Number Policy Baugh Covered Member ID Baugh Member ID Guarantor Name 01/22/2025 1 [facility] - DOS ON OR AFTER 21 (MEDICAID REPLACEMENT - HMO) Ivanna Beckman [id number] Ivanna Beckman Notes Date Note Type Note Provider Name and Address Organization Details Recorded Time 09/04/2023 text/html Home blood readings are 140s/80s. She is c/o severe daily back pain, can wax and wane in intensity. Pain is 9/10 in intensity at its worst. It is low back and radiates to buttocks, and b/l legs. She can't stand straight up, has to hunch forward. PT has not helped in the past. She has had injections in the back in the past which did help some at the time. She has failed gabapentin and tramadol. update 09/04/23: Her back pain improved with prednisone but now back to baseline. MRI declined, pt does not want to go back through PT since it did not help her previously. Catalina Patrick MD [address] [place] [address], [facility] [address], [place], [address], [facility] [employer] 09/04/2023 09:44:56 12/04/2023 text/html Home blood readings are 140s/80s. She is c/o severe daily back pain, can wax and wane in intensity. Pain is 9/10 in intensity at its worst. It is low back and radiates to buttocks, and b/l legs. She can't stand straight up, has to hunch forward. PT has not helped in the past. She has had injections in the back in the past which did help some at the time. She has failed gabapentin and tramadol. update 09/04/23: Her back pain improved with prednisone but now back to baseline. MRI declined, pt does not want to go back through PT since it did not help her previously. update 12/04/23: Home blood pressures are running up to 140s-150s on high end. Has cardiology appt upcoming and they monitor her bp remotely. Home blood sugars are running well. Her joint pain is not in good control, has not heard from rheumatology yet. Catalina Patrick MD [address], [place], [address], [employer] [facility] 12/21/2023 17:58:59 02/05/2024 text/html Home blood readings are 140s/80s. She is c/o severe daily back pain, can wax and wane in intensity. Pain is 9/10 in intensity at its worst. It is low back and radiates to buttocks, and b/l legs. She can't stand straight up, has to hunch forward. PT has not helped in the past. She has had injections in the back in the past which did help some at the time. She has failed gabapentin and tramadol. update 09/04/23: Her back pain improved with prednisone but now back to baseline. MRI declined, pt does not want to go back through PT since it did not help her previously. update 12/04/23: Home blood pressures are running up to 140s-150s on high end. Has cardiology appt upcoming and they monitor her bp remotely. Home blood sugars are running well. Her joint pain is not in good control, has not heard from rheumatology yet. update 02/05/24: Cardiology continues to manage blood pressure. Has not heard yet from rheumatology. Has been having some severe lower back pain, pain with movement. Standing, walking, sitting are very painful. She has chronic constipation, has gotten worse recently. She seems to only have a small bowel movement at at time, has to strain, no sense of complete evacuation. She has increased gas, nausea. She takes miralax daily. She has used otc laxatives and stool softeners. She is having increased numbness/tingling in legs/feet, bilateral legs are increasingly weak. Catalina Patrick MD [address], [place], [address], [employer] [facility] 02/25/2024 18:26:11 07/11/2024 text/html Pt is here for micaela/u CHRISTIAN Lacey [address] [address], [place], [address], [facility] [employer] [facility] 07/11/2024 09:57:10 08/21/2024 text/html pt is here for micaela/u CHRISTIAN Lacey [address] [address], [place], [address], [facility] [employer] [facility] 08/21/2024 11:50:49 OBGyn Episode No OBEpisode recorded.
--- OUTSIDE RECORDS SUMMARY | 2025-05-08 10:06 | XMS_ITS | Encounter Summary ---
Author Organization [facility] Healthcare Address [address] [place] [address] Care Team Providers Care Rail Filler Name Role Phone Mimi Patrick MD Primary Care Provider + Lesli Kinney MD Unavailable [phone] Monika Doyle MD Unavailable Aft, Doreen Oliva MD PhD Unavailable [phone] Pamella Henry PhD Unavailable [phone] Stephen Phan NP Primary Care Provider [phone] Encounter Details Date Type Department Care Team (Late st Contact Info) Description 04/26/2023 Telephone [facility] ([facility]) [address] [place] [address] Diego Grewal, RT Social History Tobacco Use Types Packs/Day Years Used Date Smoking Tobacco: Former Cigarettes 1 31.7 1 969 - 07/09/2000 Smokeless Tobacco: Never Alcohol Use Standard Drinks/Week Comments No 0 (1 standard drink = 0.6 oz pur e alcohol) AUDIT-C Answer Date Recorded Q1: How often do you have a drink containing alcohol? Never 04/05/2023 Q2: How many drinks containi ng alcohol do you have on a typical day when you are drinking? Patient does not drink Q3: How often do you have si x or more drinks on one occasion? Never 04/05/2023 Hunger Vital Sign Answer Date Recorded Within the past 12 months, y ou worried that your food would run out before you got the money to buy more. Never true 04/03/20 23 Within the past 12 months, t he food you bought just didn't last and you didn't have money to get more. Never true 04/03/2023 Personal Safety Answer Date Recorded Have you ever been in or are you currently in a harmful physical or emotional relationship or is someone making you feel afraid or unsafe? 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 Gender Identity Female 04/20/2018 8:43 AM CDT Sexual Orientation Not on file documented as of this encounter Plan of Treatment Not on file documented as of this encounter Visit Diagnoses Not on filedocumented in this encounter Care Teams Rail Filler Relationship Specialty Start Date End Date Mimi Patrick MD PCP - General Family Medicine 04/12/18 04/07/25 Stephen Phan NP [address] [place], [place] [id number] PCP - General Family Practice 04/08/25 Lesli Kinney MD [address] [place] [address] Medical Oncologist/Barrel Plater Medical Oncology 05/17/22 Monika Doyle MD [email or web address] [place] [address] Radiation Oncologist Radiation Oncology 06/27/22 Doreen Patricia MD PhD [address] [email or web address] [address] Surgeon Surgical Oncology 06/27/22 Pamella Henry PhD [address] [place] [address] Nurse Practitioner Radiation Oncology 01/16/23 documented as of this encounter
--- OUTSIDE RECORDS SUMMARY | 2025-05-08 10:06 | XMS_ITS | Encounter Summary ---
Author Organization [facility] Healthcare Address [address] [place] [address] Care Team Providers Care Account Executive Sales Representative Name Role Phone Mimi Patrick MD Primary Care Provider + Reason for Visit * Diagnostic Imaging (Routine) - Closed Specialty Diagnoses / Procedures Referred By Contac t Referred To Contact Procedures Breast Imaging Screening Outside Reference Aft, Doreen Oliva MD PhD [address] [place] [address] Phone: tel: fax: Referral ID Status Reason Start Date Expiration Date Visits Re quested Visits Authorized [id number] Closed 01/20/2022 02/19/2023 1 1 Encounter Details Date Type Department Care Team (Late st Contact Info) Description 03/28/2019 Hospital Encounter [facility] [address] [place] [address] Social History Tobacco Use Types Packs/Day Years [...] on file 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 Never 10/04/2023 9:33 AM SUBMARINE WORKER Nelia Cabrera i Q2: How many drinks containing alcohol do you have on a typical day when you are drinking? Patient does not drink 03/29/2023 9:24 AM CDT Tano Hays RN Q3: How often do you have six or more drinks on one occasion? Never 12/22/2022 2:31 PM SUBMARINE WORKER Patricia Gerardo RN documented as of this [...] only and have not been reviewed by [facility]. There will be no report generated by a [facility] Radiologist. Narrative [facility] - 01/20/2022 4:29 PM CDT EXAMINATION: Images For Reference Purposes Only us Doreen Patricia MD PhD IMG MAMMO PROCEDURES Final Result [facility] documented in this encounter Visit Diagnoses Not on filedocumented in this encounter Care Teams Account Executive Sales Representative Relationship Specialty Start Date End Date Mimi Patrick MD PCP - General Family Medicine 04/12/18 04/07/25 documented as of this encounter
--- OUTSIDE RECORDS SUMMARY | 2025-05-08 10:06 | XMS_ITS | Encounter Summary ---
Author Organization [facility] Healthcare Address [address] [place] [address] Care Team Providers Care Body Painter Name Role Phone Unavailable Primary Care Provider Unavailabl e Reason for Visit * Diagnostic Imaging (Routine) - Closed Specialty Diagnoses / Procedures Referred By Contac t Referred To Contact Procedures Breast Imaging Screening Outside Reference Aft, Doreen Oliva MD PhD [address] [place] [address] Phone: tel: fax: Referral ID Status Reason Start Date Expiration Date Visits Re quested Visits Authorized [id number] Closed 01/20/2022 02/19/2023 1 1 Encounter Details Date Type Department Care Team (Late st Contact Info) Description 01/03/2018 Hospital Encounter [facility] [address] [place] [id number] Social History Tobacco Use Types Packs/Day Years [...] on file 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 Never 10/04/2023 9:33 AM LIPCOAT SPRAYER Nelia Cabrera i Q2: How many drinks containing alcohol do you have on a typical day when you are drinking? Patient does not drink 03/29/2023 9:24 AM CDT Tano Hays RN Q3: How often do you have six or more drinks on one occasion? Never 12/22/2022 2:31 PM LIPCOAT SPRAYER Patricia Gerardo, ISIS documented as of this [...] only and have not been reviewed by [facility]. There will be no report generated by a [facility] Radiologist. Narrative [facility] - 01/20/2022 4:30 PM CDT EXAMINATION: Images For Reference Purposes Only us Doreen Patricia MD PhD IMG MAMMO PROCEDURES Final Result [facility] documented in this encounter Visit Diagnoses Not on filedocumented in this encounter
--- OUTSIDE RECORDS SUMMARY | 2025-05-08 10:06 | XMS_ITS | Encounter Summary ---
Author Organization [facility] Address [address] [place] [address] Phone Care Team Providers Care Guest Room Inspector Name Role Phone Mimi Partick MD Primary Care Provider + Lesli Kinney MD Unavailable [phone] Monika Doyle MD Unavailable Aft, Doreen Oliva MD PhD Unavailable [phone] Pamella Henry PhD Unavailable [phone] Stephen Phan NP Primary Care Provider Encounter Details Date Type Department Care Team (Latest Contact Info) Description 08/17/2022 Orders Only [facility] Scanning, Provider Social History Tobacco Use Types Packs/Day Years Used Date Smoking Tobacco: Former Cigarettes 1 31.7 1 969 - 07/09/2000 Smokeless Tobacco: Never Alcohol Use Standard Drinks/Week Comments No 0 (1 standard drink = 0.6 oz pur e alcohol) AUDIT-C Answer Date Recorded Q1: How often do you have a drink containing alcohol? Never 07/14/2022 Q2: How many drinks containi ng alcohol do you have on a typical day when you are drinking? Patient does not drink Q3: How often do you have si x or more drinks on one occasion? 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 Gender Identity Female 04/20/2018 8:43 AM CDT Sexual Orientation Not on file documented as of this encounter Plan of Treatment Not on file documented as of this encounter Procedures Procedure Name Priority Date/Time Associated Diagnosis Comments SCAN - PATHOLOGY 08/17/2022 SCAN - LABS 08/17/2022 documented in this encounter Results * SCAN - PATHOLOGY (08/17/2022) us Provider Scanning Final Result * SCAN - LABS (08/17/2022) us Provider Scanning Final Result documented in this encounter Visit Diagnoses Not on filedocumented in this encounter Care Teams Guest Room Inspector Relationship Specialty Start Date End Date Mimi Patrick MD PCP - General Family Medicine 04/12/18 04/07/25 Stephen Phan NP [address] [place] [address] PCP - General Family Practice 04/08/25 Lesli Kinney MD [address] [place] [address] Medical Oncologist/Cement Finisher Helper Medical Oncology 05/17/22 Monika Doyle MD [address] [facility] [address] [place] [address] Radiation Oncologist Radiation Oncology 06/27/22 Doreen Patricia MD PhD [address] [place] [address] Surgeon Surgical Oncology 06/27/22 Pamella Henry, PhD [address] [place] [address] Nurse Practitioner Radiation Oncology 01/16/23 documented as of this encounter
--- OUTSIDE RECORDS SUMMARY | 2025-05-08 10:06 | XMS_ITS | Encounter Summary ---
Author Organization [facility] Healthcare Address [address] [place] [address] Care Team Providers Care Mandrel Maker Name Role Phone Unavailable Primary Care Provider Unavailabl e Reason for Visit * Diagnostic Imaging (Routine) - Closed Specialty Diagnoses / Procedures Referred By Contac t Referred To Contact Procedures Breast Imaging Diagnostic Outside Reference Aft, Doreen Oliva MD PhD [address] [place] [address] Phone: tel: fax: Referral ID Status Reason Start Date Expiration Date Visits Re quested Visits Authorized [id number] Closed 01/20/2022 02/19/2023 1 1 Encounter Details Date Type Department Care Team (Late st Contact Info) Description 2017 Hospital Encounter [facility] [address] [place] [phone] Social History Tobacco Use Types Packs/Day Years [...] on file Legal 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 Never 10/04/2023 9:33 AM CASHIER PAYMENTS RECEIVED Nleia Cabrera i Q2: How many drinks containing alcohol do you have on a typical day when you are drinking? Patient does not drink 03/29/2023 9:24 AM CDT Tano Hays RN Q3: How often do you have six or more drinks on one occasion? Never 12/22/2022 2:31 PM CASHIER PAYMENTS RECEIVED Patricia Gerardo, ISIS documented as of this [...] only and have not been reviewed by [facility] Rad[facility]. There will be no report generated by a [facility] Radiologist. Narrative [facility] - 01/20/2022 4:22 PM CDT EXAMINATION: Images For Reference Purposes Only us Doreen Patricia MD PhD IMG MAMMO PROCEDURES Final Result [facility] documented in this encounter Visit Diagnoses Not on filedocumented in this encounter
[2025-05-08 10:48] LABS: Hematocrit 37.6 % (37.0-47.0); Hemoglobin 11.5 g/dL (12.0-15.0); Mean Corpuscular HGB Conc 30.6 g/dl (32-36); Mean Corpuscular Hemoglobin 30.3 pg (26-34); Mean Corpuscular Volume 99.2 fl (80-100); Platelet Count Result 159 k/mm3 (150-375); Red Blood Count 3.79 M/mm3 (4.2-5.4); White Blood Count 2.3 K/mm3 (4.5-10.0)
[2025-05-08 11:15] LABS: Alanine Aminotransferase 20 U/L (6-35); Albumin Level 4.0 g/dL (3.5-5.1); Alkaline Phosphatase 54 U/L (38-126); Anion Gap 6 mmol/L (4-12); Aspartate Amino Transferase 28 U/L (14-36); Bilirubin,Total 0.4 mg/dL (0.2-1.3); Blood Urea Nitrogen 15 mg/dL (7-17); Calcium 9.5 mg/dL (8.4-10.2); Carbon Dioxide 31 mmol/L (22-30); Chloride 102 mmol/L (98-107); Cholesterol 212 mg/dL (0-200); Estimated Glomerular Filt Rate > 60; Glucose 97 mg/dL (65-110); HDL Direct 53 mg/dL; Potassium 4.6 mmol/L (3.4-5.0); Sodium 139 mmol/L (137-145); Total Protein 7.7 g/dL (6.3-8.2); Triglycerides 99 mg/dL (<150)
[2025-05-08 11:38] LABS: Hemoglobin A1C 5.9 % (<5.7)
[2025-05-08 11:51] LABS: Thyroid Stimulating Hormone 3.780 uIU/mL (0.465-4.680)
[2025-05-08 12:10] LABS: Vitamin B12 382.0 pg/mL (239-931)
== END 2025-05-08 09:52 | disposition home or self-care (01) ==
PROVIDERS: PCP Nurse Practitioner Family; Referring Provider Internal Medicine
DX: I48.91 Unspecified atrial fibrillation (principal); E78.5 Hyperlipidemia, unspecified; E11.9 Type 2 diabetes mellitus without complications; D64.9 Anemia, unspecified; E53.8 Deficiency of other specified B group vitamins
CPT/HCPCS: 36415; 80053; 80061; 82306; 82607; 83036; 84443; 85027; 87086

== ENCOUNTER 2025-08-06 10:01 | Observation (INO) | payer OTHER, SELFPAY ==
--- OUTSIDE RECORDS SUMMARY | 2017-01-06 | XMS_ITS | Encounter Summary ---
Author Organization [facility] Healthcare Address [address] [place] [address] Care Team Providers Care System Software Developer Name Role Phone Unavailable Primary Care Provider Unavailabl e Reason for Visit * Diagnostic Imaging (Routine) - Closed Specialty Diagnoses / Procedures Referred By Contac t Referred To Contact Procedures Breast Imaging Diagnostic Outside Reference Aft, Doreen Oliva MD PhD [address] [place] [address] Phone: tel: fax: Referral ID Status Reason Start Date Expiration Date Visits Re quested Visits Authorized [id number] Closed 01/20/2022 02/19/2023 1 1 Encounter Details Date Type Department Care Team (Late st Contact Info) Description 01/06/2017 Hospital Encounter [facility] [address] [place] [address] [phone] Social History Tobacco Use Types Packs/Day Years [...] you got the money to buy more. Patient declined Within the past 12 months, t he food you bought just didn't last and you didn't have money to get more. Patient declined Personal Safety Answer Date Recorded Have you ever been in or are you currently in a harmful physical or emotional relationship or is someone making you feel afraid or unsafe? Denies 03/23/2023 Comments No Sex and Gender Information Value Date Recorded Sex Assigned at Not on file Legal Sex Female 9:06 AM INFORMATICS NURSE SPECIALIST Gender Identity Female 04/20/2018 8:43 AM CDT Sexual Orientation Not on file documented as of this encounter Functional Status * AUDIT-C Score Answer Date of Assessment Author 0 11/29/2022 11:55 AM INFORMATICS NURSE SPECIALIST Jeannette De Oliveira, ISIS * Question Answer Date of Assessment Author Q1: How often do you have a drink containing alcohol? Never 10/04/2023 9:33 AM INFORMATICS NURSE SPECIALIST Nelia Cabrera i Q2: How many drinks containing alcohol do you have on a typical day when you are drinking? Patient does not drink 03/29/2023 9:24 AM CDT Tano Hays RN Q3: How often do you have six or more drinks on one occasion? Never 12/22/2022 2:31 PM INFORMATICS NURSE SPECIALIST Patricia Gerardo, ISIS documented as of this encounter Plan of [...] only and have not been reviewed by [facility] Radiology. There will be no report generated by a [facility] Radiologist. Narrative [facility] - 01/20/2022 4:39 PM CDT EXAMINATION: Images For Reference Purposes Only us Doreen Patricia MD PhD IMG MAMMO PROCEDURES Final Result [facility] documented in this encounter Visit Diagnoses Not on filedocumented in this encounter
--- OUTSIDE RECORDS SUMMARY | 2017-01-27 | XMS_ITS | Encounter Summary ---
Author Organization [facility] Healthcare Address [address] [place] [address] Care Team Providers Care Hospital Aides And Assistants Teacher Name Role Phone Unavailable Primary Care Provider Unavailabl e Reason for Visit * Diagnostic Imaging (Routine) - Closed Specialty Diagnoses / Procedures Referred By Contac t Referred To Contact Procedures Breast Imaging Diagnostic Outside Reference Aft, Doreen Oliva MD PhD [address] [place] [address] Phone: tel: fax: Referral ID Status Reason Start Date Expiration Date Visits Re quested Visits Authorized [id number] Closed 01/20/2022 02/19/2023 1 1 Encounter Details Date Type Department Care Team (Late st Contact Info) Description 2017 Hospital Encounter [facility] Radiology [facility] [address] [place] [address] [phone] Social History Tobacco Use Types Packs/Day Years [...] on file Legal Sex Female 9:06 AM NITRO WORKER Gender Identity Female 04/20/2018 8:43 AM CDT Sexual Orientation Not on file documented as of this encounter Functional Status * AUDIT-C Score Answer Date of Assessment Author 0 11/29/2022 11:55 AM NITRO WORKER Jeannette De Oliveira, ISIS * Question Answer Date of Assessment Author Q1: How often do you have a drink containing alcohol? Never 10/04/2023 9:33 AM NITRO WORKER Nelia Cabrera i Q2: How many drinks containing alcohol do you have on a typical day when you are drinking? Patient does not drink 03/29/2023 9:24 AM CDT Tano Hays RN Q3: How often do you have six or more drinks on one occasion? Never 12/22/2022 2:31 PM NITRO WORKER Patricia Gerardo, ISIS documented as of this [...] only and have not been reviewed by [facility] Radiology. There will be no report generated by a [facility] Radiologist. Narrative [facility] - 01/20/2022 4:22 PM CDT EXAMINATION: Images For Reference Purposes Only us Doreen Patricia MD PhD IMG MAMMO PROCEDURES Final Result [facility] documented in this encounter Visit Diagnoses Not on filedocumented in this encounter
--- OUTSIDE RECORDS SUMMARY | 2018-01-03 | XMS_ITS | Encounter Summary ---
Author Organization [facility] Healthcare Address [address] [place] [address] Care Team Providers Care Fitting Room Attendant Name Role Phone Unavailable Primary Care Provider Unavailabl e Reason for Visit * Diagnostic Imaging (Routine) - Closed Specialty Diagnoses / Procedures Referred By Contac t Referred To Contact Procedures Breast Imaging Screening Outside Reference Aft, Doreen Oliva MD PhD [address] [place] [phone] Phone: tel: fax: Referral ID Status Reason Start Date Expiration Date Visits Re quested Visits Authorized [id number] Closed 01/20/2022 02/19/2023 1 1 Encounter Details Date Type Department Care Team (Late st Contact Info) Description 01/03/2018 Hospital Encounter [facility] [address] [place] [address] [phone] Social History Tobacco Use Types Packs/Day Years [...] on file Legal Sex Female 9:06 AM SUBSURFACE AUGMENTEE OPERATOR Gender Identity Female 04/20/2018 8:43 AM CDT Sexual Orientation Not on file documented as of this encounter Functional Status * AUDIT-C Score Answer Date of Assessment Author 0 11/29/2022 11:55 AM SUBSURFACE AUGMENTEE OPERATOR Jeannette De Oliveira, ISIS * Question Answer Date of Assessment Author Q1: How often do you have a drink containing alcohol? Never 10/04/2023 9:33 AM SUBSURFACE AUGMENTEE OPERATOR Nelia Cabrera i Q2: How many drinks containing alcohol do you have on a typical day when you are drinking? Patient does not drink 03/29/2023 9:24 AM CDT Tano Hays RN Q3: How often do you have six or more drinks on one occasion? Never 12/22/2022 2:31 PM SUBSURFACE AUGMENTEE OPERATOR Patricia Gerardo, ISIS documented as of this [...] only and have not been reviewed by [facility] Radiology. There will be no report generated by a [facility] Radiologist. Narrative [facility] - 01/20/2022 4:30 PM CDT EXAMINATION: Images For Reference Purposes Only us Doreen Patricia MD PhD IMG MAMMO PROCEDURES Final Result [facility] documented in this encounter Visit Diagnoses Not on filedocumented in this encounter
--- OUTSIDE RECORDS SUMMARY | 2019-03-28 | XMS_ITS | Encounter Summary ---
Author Organization [facility] Healthcare Address [address] [place] [address] Care Team Providers Care Instructional Technology Director Name Role Phone Mimi Patrick MD Primary Care Provider + Reason for Visit * Diagnostic Imaging (Routine) - Closed Specialty Diagnoses / Procedures Referred By Contac t Referred To Contact Procedures Breast Imaging Screening Outside Reference Aft, Doreen Oliva MD PhD [address] [place] [address] Phone: tel: fax: Referral ID Status Reason Start Date Expiration Date Visits Re quested Visits Authorized [id number] Closed 01/20/2022 02/19/2023 1 1 Encounter Details Date Type Department Care Team (Late st Contact Info) Description 03/28/2019 Hospital Encounter [facility] [address] [place] [address] [phone] Social History Tobacco Use Types Packs/Day Years [...] on file Legal Sex Female 9:06 AM FINISHED CLOTH CHECKER Gender Identity Female 04/20/2018 8:43 AM CDT Sexual Orientation Not on file documented as of this encounter Functional Status * AUDIT-C Score Answer Date of Assessment Author 0 11/29/2022 11:55 AM FINISHED CLOTH CHECKER Jeannette De Oliveira RN * Question Answer Date of Assessment Author Q1: How often do you have a drink containing alcohol? Never 10/04/2023 9:33 AM FINISHED CLOTH CHECKER Nelia Cabrera i Q2: How many drinks containing alcohol do you have on a typical day when you are drinking? Patient does not drink 03/29/2023 9:24 AM CDT Tano Hays RN Q3: How often do you have six or more drinks on one occasion? Never 12/22/2022 2:31 PM FINISHED CLOTH CHECKER Patricia Gerardo RN documented as of this encounter Plan of [...] only and have not been reviewed by [facility] Radiology. There will be no report generated by a [facility] Radiologist. Narrative [facility] - 01/20/2022 4:29 PM CDT EXAMINATION: Images For Reference Purposes Only us Doreen Patricia MD PhD IMG MAMMO PROCEDURES Final Result [facility] documented in this encounter Visit Diagnoses Not on filedocumented in this encounter Care Teams Instructional Technology Director Relationship Specialty Start Date End Date Mimi Patrick MD PCP - General Family Medicine 04/12/18 04/07/25 documented as of this encounter
--- OUTSIDE RECORDS SUMMARY | 2025-08-05 10:30 | XMS_ITS | Encounter Summary ---
Author Organization [facility] Address [address] [place] [address] Care Team Providers Care Mold Yard Worker Name Role Phone Lesli Kinney MD Unavailable [phone]- [phone] Monika Doyle MD Unavailable Aft, Doreen Oliva MD PhD Unavailable [phone] Pamella Henry PhD Unavailable [phone] Hernesto Molina MD Primary Care Provider [phone] Reason for Visit * Reason Comments Hyperlipidemia Atrial Fibrillation Hypertension Having issues with s welling hard to breathe. 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 Gender Identity Female 04/20/2018 8:43 AM CDT Sexual Orientation Not on file documented as of this encounter Last Filed Vital Signs Vital Sign Reading Time Taken Comments Blood Pressure 138/64 08/05/2025 10:21 AM CDT Pulse 55 08/05/2025 10:21 AM CDT Temperature - - Respiratory Rate - - Oxygen Saturation 99% 08/05/2025 10: 21 AM CDT Inhaled Oxygen Concentration - - Weight 130.7 kg (288 lb 1.6 oz) 025 10:21 AM CDT Height 172.7 cm (5' 8) 08/05/2025 10:2 1 AM CDT Body Mass Index 43.81 08/05/2025 10:21 AM CDT documented in this encounter Ordered Prescriptions Prescription Sig Dispense Quantity Refills Last Filled Start Date End Date furosemide (LASIX) 80 mg tabletIndications: Edema, lower extremity Take 1 tablet (80 mg total) by mouth 2 (two) times a day 180 tablet 3 08/05/2025 08/05/2026 potassium chloride ER (KLOR-CON) 20 mEq CR tabletIndications: Edema, lower extremity Take 1 tablet (20 mEq total) by mouth daily Take with food 90 tablet 3 08/05/2025 documented in this encounter Progress Notes * Sanjana Earl NP - 08/05/2025 10:30 AM CDT Images from the original note were not included. [facility] [address] [place] [address] Date of Visit: 08/05/2025 Patient ID: Ivanna Beckman [id number] Chief Complaint Patient presents with Hyperlipidemia Atrial Fibrillation Hypertension Having issues with swelling hard to breathe. Ivanna Beckman is a 75 y.o. female with a history of CHF, MR and AFib coming to the office for complaint of worsening swelling and shortness of breath. History of Present Illness: Ivanna Beckman is a 75 y.o. female with chronic systolic heart failure, aortic stenosis, mitral regurgitation, paroxysmal atrial fibrillation on Xarelto and amiodarone, breast cancer maintenance therapy, diabetes, hypertension, and hyperlipidemia. She was previously followed by Dr. Spears who no longer accepts her insurance and she is now established with Dr. Lutz. Initial appointment with Dr. Lutz was 04/08/2025. 08/05/2025 office visit with [employer]: Since she was last here 4 months ago she states her swelling has gotten worse particularly in the lower extremities and even in her stomach and buttocks. The worsening swelling is making it more difficult for her to walk and stand. Her shortness of breath comes and goes in an unpredictable fashion. She denies orthopnea, PND or cough. She is using her CPAP without problem. She denies chest pain, palpitations, lightheadedness or dizziness. Her current prescriptionfor furosemide is 20 mg daily. However she has an old prescription for 80 mg tablets that she took in 2020 and she resumed this dose about 7 or 8 days ago and it has helped. Medical History: Past Medical History: Diagnosis Date Arthritis Atrial fibrillation (HCC) Back pain Breast cancer (HCC) Right Breast CA dx s/p mastectomy 2011 with recurrence Left 01/2022 s/p mastectomy, chemo (last 10/2022) and radiation (last 12/12/2022) Breast cancer, right breast (HCC) 04/19/2018 Congestive heart failure (CHF) (HCC) Constipation Coronavirus infection 01/19/2021 Diabetes mellitus, type 2 Dxd ~2007 Dysuria 08/21/2024 Fecal impaction (HCC) 06/27/2025 Heart disease Hiatal hernia History of chemotherapy 10/2022 Hypertension Kidney cysts Malignant neoplasm of left breast (HCC) 04/06/2022 Malignant neoplasm of right breast (HCC) 04/06/2022 On home oxygen therapy Open wound 12/17/2010 Overweight Prolapsed uterus Sleep apnea CPAP machine nightly with O2 Past Surgical History: Procedure Laterality Date BLADDER SURGERY 07/19/2021 InsterStim 1 insertion BLADDER SURGERY 08/02/2021 Removal InterStim BREAST BIOPSY Left 02/02/2022 CATARACT EXTRACTION Bilateral 2018 cataract surgery CATARACT EXTRACTION 2018 SECTION 1980,1981,1984 CHOLECYSTECTOMY 1989 COLONOSCOPY 2019 CYST REMOVAL back, chest and under arm FLUORO GUIDED INJECTION SHOULDER RIGHT Right 04/27/2023 HERNIA REPAIR 2011 w/ mesh MASTECTOMY Right 2010 MASTECTOMY Left 05/12/2022 PORTACATH PLACEMENT Right 07/14/2022 removed REPLACEMENT TOTAL KNEE Right 06/2012 US GUIDED BIOPSY LYMPH NODE SUPERFICIAL LEFT N/A 02/02/2022 Social History Tobacco Use Smoking Status Former Current packs/day: 0.00 Average packs/day: 1 pack/day for 31.7 years (31.7 ttl pk-yrs) Types: Cigarettes Start date: 1968 Quit date: 07/09/2000 Years since quittin.0 Smokeless Tobacco Never Social History Tobacco Use Smoking status: Former Current packs/day: 0.00 Average packs/day: 1 pack/day for 31.7 years (31.7 ttl pk-yrs) Types: Cigarettes Start date: 1968 Quit date: 07/09/2000 Years since quittin.0 Smokeless tobacco: Never Substance and Sexual Activity Drug use: Never Sexual activity: Defer Alcohol Use: Not At Risk (10/04/2023) AUDIT-C Frequency of Alcohol Consumption: Never Average Number of Drinks: Not on file Frequency of Binge Drinking: Not on file Family History Problem Relation Age of Onset Breast cancer Mother Diabetes type II Sister Kidney disease Brother Kidney disease Brother Stomach cancer Maternal Grandmother Sleep apnea Son Hypertension Son Hypertension Son Sleep apnea Son Anesthesia problems Neg Hx Review of Systems Constitutional: Positive for weight gain. Negative for malaise/fatigue and weight loss. Cardiovascular: Positive for leg swelling. Negative for chest pain, near- syncope, orthopnea, palpitations, paroxysmal nocturnal dyspnea and syncope. Respiratory: Positive for shortness of breath. Negative for cough and sleep disturbances due to breathing. Hematologic/Lymphatic: Negative for bleeding problem. Does not bruise/bleed easily. Neurological: Positive for loss of balance. Vital Signs: BP 138/64 (BP Location: Right arm, Patient Position: Sitting) Pulse 55 Ht 172.7 cm (5' 8) Wt130.7 kg (288 lb 1.6 oz) SpO2 99% BMI 43.81 kg/m?? Physical Exam Constitutional: General: She is not in acute distress. Appearance: She is well-developed. She is obese. HENT: Head: Normocephalic and atraumatic. Eyes: General: No scleral icterus. Conjunctiva/sclera: Conjunctivae normal. Neck: Vascular: No JVD. Trachea: No tracheal deviation. Cardiovascular: Rate and Rhythm: Normal rate and regular rhythm. Heart sounds: Murmur heard. Pulmonary: Effort: Pulmonary effort is normal. No respiratory distress. Breath sounds: Normal breath sounds. Musculoskeletal: Right lower leg: Edema present. Left lower leg: Edema present. Comments: 2+ feet/ankle edema R>L, very little edema above the ankles. Skin: General: Skin is warm and dry. Neurological: Mental Status: She is alert and oriented to person, place, and time. Psychiatric: Mood and Affect: Mood normal. Behavior: Behavior normal. Allergies Allergen Reactions Vancomycin Hives, Itching and Rash Meperidine Other (See comments) and Dizziness (Demerol) Dizziness and confusion Current Outpatient Medications: acetaminophen (TYLENOL) 500 mg tablet, Take 1 tablet (500 mg total) by mouth every 6 (six) hours asneeded for pain, Disp: , Rfl: amiodarone (PACERONE) 200 mg tablet, Take 1 tablet (200 mg total) by mouth nightly, Disp: , Rfl: atorvastatin (LIPITOR) 80 mg tablet, Take 1 tablet (80 mg total) by mouth nightly, Disp: , Rfl: Entresto 24-26 mg tablet, Take 1 tablet by mouth 2 (two) times a day, Disp: 180 tablet, Rfl: 1 ergocalciferol (VITAMIN D) 50,000 unit capsule, Take 1 capsule (50,000 Units total) by mouth once aweek monday, Disp: , Rfl: 0 hydrALAZINE (APRESOLINE) 50 mg tablet, Take 1 tablet (50 mg total) by mouth 3 (three) times a day, Disp: , Rfl: letrozole (FEMARA) 2.5 mg tablet, Take 1 tablet (2.5 mg total) by mouth every morning, Disp: 90 tablet, Rfl: 3 methenamine (HIPREX) 1 gram tablet, Take 1 tablet (1 g total) by mouth 2 (two) times a day with meals, Disp: 180 tablet, Rfl: 0 metoprolol (LOPRESSOR) 50 mg tablet, Take 1 tablet (50 mg total) by mouth 2 (two) times a day, Disp: , Rfl: OneTouch Delica Plus Lancet 33 gauge misc, every morning Daily in the morning, Disp: , Rfl: OneTouch Verio test strips strip, , Disp: , Rfl: polyethylene glycol (MIRALAX) 17 gram/dose powder, Take 17 g by mouth as needed, Disp: , Rfl: Xarelto 20 mg tablet, Take 1 tablet (20 mg total) by mouth nightly Hold Xarelto for 5 days after surgery and then start taking normally., Disp: , Rfl: furosemide (LASIX) 80 mg tablet, Take 1 tablet (80 mg total) by mouth 2 (two) times a day, Disp: 180 tablet, Rfl: 3 potassium chloride ER (KLOR-CON) 20 mEq CR tablet, Take 1 tablet (20 mEq total) by mouth daily Takewith food, Disp: 90 tablet, Rfl: 3 Lab Results Component Value Date POTASSIUM 4.5 07/31/2025 BUNSER 20 07/31/2025 CREATININE 0.90 07/31/2025 CHOL 179 10/06/2023 TRIG 108 10/06/2023 LDLCALC 99 10/06/2023 HDL 58 10/06/2023 Lab Results Component Value Date WBC 2.51 (L) 07/31/2025 HGB 11.3 (L) 07/31/2025 HCT 35.1 (L) 07/31/2025 MCV 94.2 07/31/2025 No results found for this or any previous visit (from the past 4 hours). 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 Her shortness of breath complaint is atypical for CHF. Therefore I do not think she is having any significant decompensation of systolic or diastolic heart failure this point in time. Her edema has improved on a higher dose of furosemide over the past week. Therefore I advised her that she may continue the furosemide 80 mg once daily and we will start potassium chloride 20 mEq once daily. She will need to repeat a BMP next week. Her BMP last week showed normal renal function and potassium level. I reminded her that if her edema and shortness of breath worsens from this point on, she needs to notify me. Otherwise we will see her back in November as previously scheduled. 08/05/2025 BENNETT Ba- Nurse Practitioner with [facility] [place] [facility] This note is dictated and transcribed using [employer] Direct Software. Radiophone Operator variancesmay occur. Despite proofreading, typographical errors may occur. 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) documented in this encounter Discontinued Medications Medication Sig Discontinue Reason Start Date End Da te pantoprazole DR (PROTONIX) 40 mg EC tabletIndications:Stress Ulcer Prophylaxis,heartburn Take 1 tablet (40 mg total) by mouth every morning Patient Reported 01/15/2022 08/05/2025 furosemide (LASIX) 20 mg tablet Take 1 tablet (20 mg total) by mouth daily Alternate therapy 12/01/2024 08/05/2025 documented as of this encounter Care Teams Mold Yard Worker Relationship Specialty Start Date End Date Hernesto Molina MD [address] [address] PCP - General Family Medicine 08/05/25 Lesli Kinney MD [address] [place], [place] [id number] Medical Oncologist/Scheduler Medical Oncology 05/17/22 Monika Doyle MD [address] [facility] [address] [place] [address] Radiation Oncologist Radiation Oncology 06/27/22 AftDoreen MD PhD [address] [place], [place] [id number] Surgeon Surgical Oncology 06/27/22 Pamella Henry, PhD [address] [place] [address] Nurse Practitioner Radiation Oncology 01/16/23 documented as of this encounter
[2025-08-06] VITALS (23 sets, daily range): BP systolic 139–167; BP diastolic 72–82; PULSE 55–65; RESP 15–22; TEMP 36.7–36.8; O2SAT 95–100; BMI 44.2
--- NOTE | ~2025-08-06 | XR_ITS ---
EXAMINATION: XR chest 2V DATE: 08/06/2025 11:21 INDICATION: Shortness of breath, weakness. TECHNIQUE: frontal and lateral views of the chest were obtained. COMPARISON: Chest radiograph dated 09/19/2024 FINDINGS: Mild increased interstitial pattern at the posterior lower lung zones most likely related mild pulmonary edema and/or atelectasis although differential includes pneumonia. No pleural effusion or pneumothorax. Cardiomegaly with prominent right atrial enlargement. Mild to moderate midthoracic spondylosis. Surgical clips at the right axilla. IMPRESSION: 1. Mild increased interstitial pattern in the dependent lower lungs most likely mild pulmonary edema and/or atelectasis although differential includes less likely pneumonia. 2. Cardiomegaly with right atrial enlargement. Reviewed, dictated and finalized at location A. IMPRESSION: 1. Mild increased interstitial pattern in the dependent lower lungs most likely mild pulmonary edema and/or atelectasis although differential includes less li junie pneumonia. 2. Cardiomegaly with right atrial enlargement.
--- NOTE | ~2025-08-06 | XR_ITS ---
XR chest 1V portable INDICATION:chf . REFERENCE: None FINDINGS: A single AP of the chest demonstrates normal heart size. The lungs are clear. There is no evidence of pneumothorax or pleural effusion. IMPRESSION: No acute pulmonary findings. Reviewed, dictated and finalized at location S.
--- NOTE | 2025-08-06 10:12 | ECG_ITS ---
Test Date: 2025-08-06 10:17:12 Measurements Intervals [place] Rate: 57 P: 0 MN: 0 QRS: -20 QRSD: 106 T: 34 QT: 464 QTc: 452 Interpretive Statements SINUS BRADYCARDIA WITH FIRST DEGREE AV BLOCK INCOMPLETE RIGHT BUNDLE BRANCH BLOCK PEAKED T WAVES- CONSIDER HYPERKALEMIA BASELINE ARTIFACT- I, II, AVR, AVF, V2 ABNORMAL ECG Compared to ECG 08/07/2024 12:54:40 NO SIGNIFICANT CHANGE Electronically Signed On 08-06-2025 10:45:53 CDT by Maxi Castro D.O.
[2025-08-06 10:25] LABS: Hematocrit 36.8 % (37.0-47.0); Hemoglobin 11.2 g/dL (12.0-15.0); Immature Granulocyte Percent A 0.3 % (0-0.5); Lymphocytes Absolute Auto 0.93 K/mm3 (0.9-3.2); Mean Corpuscular HGB Conc 30.4 g/dl (32-36); Mean Corpuscular Hemoglobin 30.3 pg (26-34); Mean Corpuscular Volume 99.5 fl (80-100); Nucleated Red Blood Cells Absolute Auto 0.000 K/mm3 (0.0-0.012); Nucleated Red Blood Cells Perc 0.0 % (0.0-0.2); Platelet Count Result 187 k/mm3 (150-375); Red Blood Count 3.70 M/mm3 (4.2-5.4); White Blood Count 3.1 K/mm3 (4.5-10.0)
[2025-08-06 10:36] LABS: INR 2.3; Prothrombin Time 24.7 Seconds (11.1-14.7)
[2025-08-06 10:37] LABS: Partial Thromboplastin Time 39.6 Seconds (22.3-36.8)
[2025-08-06 10:44] LABS: Alanine Aminotransferase 27 U/L (6-35); Albumin Level 4.3 g/dL (3.5-5.1); Alkaline Phosphatase 74 U/L (38-126); Anion Gap 8 mmol/L (4-12); Aspartate Amino Transferase 31 U/L (14-36); Bilirubin,Total 0.6 mg/dL (0.2-1.3); Blood Urea Nitrogen 20 mg/dL (7-17); Calcium 9.2 mg/dL (8.4-10.2); Carbon Dioxide 27 mmol/L (22-30); Chloride 104 mmol/L (98-107); Estimated CRCL calculation 72 ml/min; Estimated Glomerular Filt Rate > 60; Glucose 116 mg/dL (65-110); Potassium 4.3 mmol/L (3.4-5.0); Sodium 139 mmol/L (137-145); Total Protein 8.1 g/dL (6.3-8.2)
[2025-08-06 10:51] LABS: NT Pro B Type Natriuretic Pept 400 pg/mL (19.9-100); Troponin I < 0.012 ng/mL (0.000-0.034)
[2025-08-06] MEDS: FUROSEMIDE INJ 40 MG/4 ML VIAL IV PUSH ×3 (12:14→19:47)
--- NOTE | 2025-08-06 12:27 | ED.WEAKNESS ---
HPI - Weakness General Chief complaint: Weakness Stated complaint: weakness for years Time Seen by Provider: 08/06/25 12:01 History of Present Illness HPI Narrative: 75-year-old female with a complex past medical history including atrial fibrillation on anticoagulation, congestive heart failure on 80 mg Lasix, history of breast cancer, hypertension, diabetes, NESHA on CPAP nightly. Patient presents from her primary care office today for worsening shortness of breath, weight gain, fluid retention. Patient states she has been feeling weak and having weight gain with fluid on her lungs and legs. She has had a weight gain from her dry weight over last 24 hours even despite taking her 80 mg Lasix at home. Denies any specific complaints such as chest pain, nausea vomiting, headache, vision changes, urinary complaints. She was referred to the emergency department for evaluation by her PCPs office this morning. Denies any new medication changes or recent illnesses otherwise. Is compliant with her medications and CPAP according to the patient. Related Data Home Medications ?Medication ?Instructions ?Recorded ?Confirmed ?Last Taken ?Type amiodarone 200 mg tablet 200 mg PO DAILY 03/24/20 08/06/25 09/29/22 History metoprolol tartrate 50 mg tablet 50 mg PO Q12H 03/24/20 08/06/25 09/29/22 History rivaroxaban 20 mg tablet (Xarelto) 20 mg PO DAILY 06/07/21 08/06/25 09/29/22 History atorvastatin 80 mg tablet 80 mg PO DAILY 10/14/21 08/06/25 09/29/22 History letrozole 2.5 mg tablet 2.5 mg PO DAILY 09/30/22 08/06/25 Unknown History ergocalciferol (vitamin D2) 1,250 1,250 mcg PO WEEKLY 03/28/23 08/06/25 Unknown History mcg (50,000 unit) capsule (Vitamin D2) sacubitril 24 mg-valsartan 26 mg 1 tablet PO .BID 12/23/24 08/06/25 Unknown History tablet (Entresto) furosemide 80 mg tablet 80 mg PO DAILY 08/06/25 08/06/25 Unknown History hydralazine 50 mg tablet 50 mg PO .TID 08/06/25 08/06/25 Unknown History losartan 100 mg tablet 100 mg PO DAILY 08/06/25 08/06/25 Unknown History methenamine hippurate 1 gram tablet 1 g PO Q12H 08/06/25 08/06/25 Unknown History polyethylene glycol 3350 17 gram 17 g PO BID PRN constipation 08/06/25 08/06/25 Unknown History oral powder packet (ClearLax) potassium chloride 20 mEq 20 meq PO DAILY 08/06/25 08/06/25 Unknown History tablet,extended release(part/cryst) Allergies Allergy/AdvReac Type Severity Reaction Status Date / Time vancomycin Allergy Unknown Verified 08/06/25 16:24 meperidine (From Demerol) AdvReac Unknown Dizziness Verified 08/06/25 16:24 Review of Systems Review of Systems: As reviewed above in [facility] Past Medical History Medical History Congestive heart failure Hypertension History of gastrointestinal procedure Sleep apnea Diabetes Abscess of Bartholin's gland Visual disturbance Hidradenitis suppurativa Carpal tunnel syndrome White blood cell disorder Candidiasis Class 3 severe obesity due to excess calories with body mass index (BMI) of 40.0 to 44.9 in adult Osteoarthritis Memory impairment Hypertensive disorder Vitamin D deficiency Anemia Malignant tumor of breast Morbid obesity Open wound of anterior abdominal wall Incomplete uterovaginal prolapse Lipoma of axilla Impacted cerumen Increased frequency of urination Benign hypertension Edema of lower extremity Systemic lupus erythematosus Pain in limb Atrial fibrillation Surgical History Surgical History History of cholecystectomy H/O left mastectomy 05/12/22 H/O hernia repair H/O mastectomy right and left 04/2022 H/O colonoscopy History of esophagogastroduodenoscopy (EGD) History of delivery 3x Hx of total knee arthroplasty Family History Family History Mother Hypertension Breast cancer Hypothyroidism Heart disease Family history of cancer Father Heart disease Alzheimer disease Sibling Renal failure syndrome Diabetes mellitus Hypertension Sibling Diabetes mellitus Hypertension Social History Social History Social History: Patient has a 20 pack-year smoking history. Patient states that she quit smoking 20 years ago. Patient occasionally drinks alcohol but has not since her breast cancer diagnosis. Smoking status: Former smoker Alcohol intake: never Substance use: never Substance use type: does not use Lack of Transportation: No Lack of Food: Never True Current Housing: I Have Housing Concerned About Future Housing: No Difficulty Paying Gas/Electric Bills: No Difficulty Paying for Meds: No Currently Unemployed: No Education: High School Diploma/GED Difficulty w/ Childcare or Family Care: No Living arrangements: alone Gender identity (if verbalized by the patient): Female Sexual Orientation (if Verbalized by the Patient): Straight or Heterosexual Spiritual care concerns: No Exam Narrative: GENERAL: Weak and frail but otherwise awake alert oriented not any acute distress. HEAD: [Normocephalic, atraumatic.] EYES: [PERRLA and EOMI.] ENT: Nares clear, no rhinorrhea or epistaxis. Mucous membranes moist. NECK: Supple. CHEST: Coarse rales in the bilateral bases, mild tachypnea, JVD noted in the neck bilaterally although minor. HEART: Regular rate and rhythm. No murmur heard. Normal peripheral pulses and warm extremities ABDOMEN: [Soft, nondistended], [nontender], [No rigidity or guarding] EXTREMITIES: Normal range of motion. 2+ pitting edema to the knees bilaterally. SKIN: Warm, dry, no rash. NEURO: [No focal deficits]. Alert and oriented [x3.] PSYCH: [Normal mood and affect.] Course Vital Signs Vital signs: Vital Signs Temperature 36.8 C 08/06/25 10:03 Pulse Rate 59 L 08/06/25 10:03 Respiratory Rate 21 H 08/06/25 10:03 Pulse Oximetry 95 08/06/25 10:03 Temperature 36.8 C 08/06/25 10:03 Pulse Rate 57 L 08/06/25 17:32 Respiratory Rate 20 08/06/25 14:15 Blood Pressure 167/74 H 08/06/25 13:18 Pulse Oximetry 98 08/06/25 14:15 Oxygen Delivery Room Air 08/06/25 19:47 MDM - Weakness MDM Narrative Medical decision making narrative: 75-year-old female with a complex past medical history including atrial fibrillation on anticoagulation, congestive heart failure on 80 mg Lasix, history of breast cancer, hypertension, diabetes, NESHA on CPAP nightly. Patient presents from her primary care office today for worsening shortness of breath, weight gain, fluid retention. Patient states she has been feeling weak and having weight gain with fluid on her lungs and legs. She has had a weight gain from her dry weight over last 24 hours even despite taking her 80 mg Lasix at home. Denies any specific complaints such as chest pain, nausea vomiting, headache, vision changes, urinary complaints. She was referred to the emergency department for evaluation by her PCPs office this morning. Denies any new medication changes or recent illnesses otherwise. Is compliant with her medications and CPAP according to the patient. Patient is overall showing signs of CHF exacerbation versus other fluid retention/renal failure. She has rales in both bilateral bases of the lungs, 2+ pitting edema, minor JVD noted bilaterally. Is complaining of dyspnea but answering questions appropriately with some minor tachypnea. No tachycardia or significant blood pressure elevations. No fever or hypoxemia. Suspect fluid retention and CHF exacerbation versus electrolyte derangements such as hypokalemia hypo magnesemia versus less likely acute cardiopulmonary process such as ACS or valvular dysfunction. Pulmonary hypertension also possible specially with her combination of past medical history is. Cardiac workup ordered including EKG, chest x-ray, BNP, troponin. Patient given 80 mg of IV Lasix and placed on boardmarker. Workup shows persistent leukopenia around her baseline. Hemoglobin 11.2 also around her baseline. Normal platelet count. Electrolytes are unremarkable. Normal BUN and creatinine. Normal glucose. Normal LFTs. Negative troponin, BNP 400. Chest x-ray shows interstitial edema, dependent fluid pattern consistent with pulmonary edema versus less likely pneumonia. Cardiomegaly with right atrial enlargement which could explain patient's symptoms if she has some pulmonary hypertension especially in the setting of for symptoms. Patient felt slightly better after diuresis but still complaining of some dyspnea. Discussed with her about admission for continued aggressive diuresis and workup. Spoke to the hospitalist Dr. Reed who accepted the patient to a telemetry monitored bed at this juncture. Medical Records Attestation: I reviewed the patient's medical records. Lab Data Attestation: I reviewed the patient's lab results. 08/06/25 10:14 08/06/25 10:14 Labs: Lab Results 08/06/25 Range/Units 10:14 WBC 3.1 L (4.5-10.0) K/mm3 RBC 3.70 L (4.2-5.4) M/mm3 Hgb 11.2 L (12.0-15.0) g/dL Hct 36.8 L (37.0-47.0) % MCV 99.5 (80-100) fl MCH 30.3 (26-34) pg MCHC 30.4 L (32-36) g/dl RDW 15.0 H (11.5-14.5) % Plt Count 187 (150-375) k/mm3 MPV 10.0 (7.4-10.4) fl Immature Gran % (Auto) 0.3 (0-0.5) % Neut % (Auto) 62.5 (45.5-73.1) % Lymph % (Auto) 29.6 (18.3-44.2) % [place] % (Auto) 7.3 (2.6-8.5) % Eos % (Auto) 0.3 (0-4.4) % Baso % (Auto) 0.0 L (0.2-1.2) % Lymph # (Auto) 0.93 (0.9-3.2) K/mm3 [place] # (Auto) 0.2 (0.1-0.6) K/mm3 Eos # (Auto) 0.0 (0-0.3) K/mm3 Baso # (Auto) 0.0 (0.0-0.1) K/mm3 Abs Immat Gran (auto) 0.01 (0.00-0.031) K/mm3 Absolute Neuts (auto) 2.0 (1.3-6.7) K/mm3 Absolute Nucleated RBC 0.000 (0.0-0.012) K/mm3 Nucleated RBC % 0.0 (0.0-0.2) % PT 24.7 H (11.1-14.7) Seconds INR 2.3 APTT 39.6 H (22.3-36.8) Seconds Sodium 139 (137-145) mmol/L Potassium 4.3 (3.4-5.0) mmol/L Chloride 104 (98-107) mmol/L Carbon Dioxide 27 (22-30) mmol/L Anion Gap 8 (4-12) mmol/L BUN 20 H (7-17) mg/dL Creatinine 0.83 (0.7-1.0) mg/dL Estim Creat Clear Calc 72 ml/min Estimated GFR > 60 (59 - ) Glucose 116 H (65-110) mg/dL Calcium 9.2 (8.4-10.2) mg/dL Magnesium 2.0 (1.6-2.3) mg/dL Total Bilirubin 0.6 (0.2-1.3) mg/dL AST 31 (14-36) U/L ALT 27 (6-35) U/L Alkaline Phosphatase 74 (38-126) U/L Troponin I < 0.012 (0.000-0.034) ng/mL NT-Pro-B Natriuret Pep 400 H (19.9-100) pg/mL Total Protein 8.1 (6.3-8.2) g/dL Albumin 4.3 (3.5-5.1) g/dL Imaging Data Attestation: I personally reviewed and interpreted this imaging study as follows: My impression: Impressions Chest X-Ray 08/06/25 11:40 IMPRESSION: 1. Mild increased interstitial pattern in the dependent lower lungs most likely mild pulmonary edema and/or atelectasis although differential includes less likely pneumonia. 2. Cardiomegaly with right atrial enlargement. Critical Care Time Critical Care Time Critical Care Time: Yes Total Critical Care Time: 35 Discharge Plan Discharge Clinical Impression: CHF exacerbation Patient Disposition: Still a Patient Condition: Stable
[2025-08-06 12:30] LABS: Magnesium 2.0 mg/dL (1.6-2.3)
--- OUTSIDE RECORDS SUMMARY | 2025-08-06 14:07 | XMS_ITS | Encounter Summary ---
Author Organization [facility] Address [address] [place] [address] Care Team Providers Care Land Classifier Name Role Phone Mimi Patrick MD Primary Care Provider + Lesli Kinney MD Unavailable +- [phone] Monika Doyle MD Unavailable Aft, Doreen Oliva MD PhD Unavailable [phone] Pamella Henry PhD Unavailable [phone] Stephen Phan NP Primary Care Provider Hernesto Molina MD Primary Care Provider [phone] Encounter Details Date Type Department Care Team (Late st Contact Info) Description 04/26/2023 Telephone [facility] [address] [place], [place] [id number] Diego Grewal, RT Social History Tobacco Use [...] on file 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 Gender Identity Female 04/20/2018 8:43 AM CDT Sexual Orientation Not on file documented as of this encounter Plan of Treatment Not on file documented as of this encounter Visit Diagnoses Not on filedocumented in this encounter Care Teams Land Classifier Relationship Specialty Start Date End Date Mimi Patrick MD PCP - General Family Medicine 04/12/18 04/07/25 Stephen Phan NP [address] [place] [address] PCP - General Family Practice 04/08/25 08/04/25 Hernesto Molina MD [address] [address] PCP - General Family Medicine 08/05/25 Lesli Kinney MD [address] [place], [place] [id number] Medical Oncologist/Physical Aerodynamicist Medical Oncology 05/17/22 Monika Doyle MD [address] [facility] # [facility] LL [address] [place] [address] Radiation Oncologist Radiation Oncology 06/27/22 AftDoreen MD PhD [address] [place] [address] Surgeon Surgical Oncology 06/27/22 Pamella Henry, PhD [address] [place] [address] Nurse Practitioner Radiation Oncology 01/16/23 documented as of this encounter
--- OUTSIDE RECORDS SUMMARY | 2025-08-06 14:07 | XMS_ITS | Encounter Summary ---
Author Organization [facility] Address [address] [place] [address] Phone Care Team Providers Care Interactive Account Manager Name Role Phone Mimi Patrick MD Primary Care Provider + Lesli Kinney MD Unavailable [phone] Monika Doyle MD Unavailable Aft, Doreen Oliva MD PhD Unavailable [phone] Pamella Henry PhD Unavailable [phone] Stephen Phan NP Primary Care Provider Hernesto Molina MD Primary Care Provider [phone] Encounter Details Date Type Department Care Team (Latest Contact Info) Description 08/17/2022 Orders Only [facility] Scanning, Provider Social History Tobacco Use [...] on file 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 Gender Identity Female 04/20/2018 8:43 AM [...] on filedocumented in this encounter Care Teams Interactive Account Manager Relationship Specialty Start Date End Date Mimi Patrick MD PCP - General Family Medicine 04/12/18 04/07/25 Stephen Phan NP [address] [place] [address] PCP - General Family Practice 04/08/25 08/04/25 Hernesto Molina MD [address] [address] PCP - General Family Medicine 08/05/25 Lesli Kinney MD [address] [place] [address] Medical Oncologist/Cnc Mill And Lathe Operator Medical Oncology 05/17/22 Monika Doyle MD [address] [facility] [address] [place] [address] Radiation Oncologist Radiation Oncology 06/27/22 Doreen Patricia MD PhD [address] [place] [address] Surgeon Surgical Oncology 06/27/22 Pamella Henry, PhD [address] [place] [address] Nurse Practitioner Radiation Oncology 01/16/23 documented as of this encounter
--- OUTSIDE RECORDS SUMMARY | 2025-08-06 14:07 | XMS_ITS | Clinical Summary ---
Author Organization [facility] Address [address] [place] [address] Care Team Providers Care Brand Attendant Name Role Phone Lesli Kinney MD Unavailable [phone] Monika Doyle MD Unavailable Aft, Doreen Oliva MD PhD Unavailable [phone] Pamella Henry PhD Unavailable [phone] Hernesto Molina MD Primary Care Provider [phone] Allergies Active Allergy Reactions Criticality Noted Date Comments Meperidine Other (See comments),Dizziness Low 08/24/2015 (Demerol) Dizziness and confusion Vancomycin [...] Daily in the morning 07/07/20 21 Active OneTouch Verio test strips strip 03/17/20 Active polyethylene glycol (MIRALAX) 17 gram/dose powderIndication [...] total) by mouth nightly 04/02/20 23 Active hydrALAZINE (APRESOLINE) 50 mg tablet Take 1 tablet (50 mg total) by mouth 3 (three) times a day 12/01/19 25 Active letrozole (FEMARA) 2.5 mg tabletIndication s:Early Breast Cancer HR Positive and Postmenopausal,b reast cancer Take 1 tablet (2.5 mg total) by mouth every morning 90 tablet 3 04/09/20 25 026 Active methenamine (HIPREX) 1 gram tabletIndication s:Prophylaxis, Medical,Prophyla xis for Marcy Take 1 tablet (1 g total) by mouth 2 (two) times a day with meals 180 tablet 05/15/20 25 025 Active Entresto 24-26 mg tablet Take 1 tablet by mouth 2 (two) times a day 180 tablet 1 06/13/20 25 Active potassium chloride ER (KLOR-CON) 20 mEq CR tabletIndication s:Edema, lower extremity Take 1 tablet (20 mEq total) by mouth daily Take with food 90 tablet 3 08/05/20 25 Active furosemide (LASIX) 80 mg tabletIndication s:Edema, lower extremity Take 1 tablet (80 mg total) by mouth 2 (two) times a day 180 tablet 3 08/05/[address] (PROTONIX) 40 mg EC tabletIndication s:Stress Ulcer Prophylaxis,hear tburn Take 1 tablet (40 mg total) by mouth every morning 01/16/20 22 025 Discontinued(Matti mejia Reported) furosemide (LASIX) 20 mg tablet Take 1 tablet (20 mg total) by mouth daily 02/09 025 Discontinued(Al ternate therapy) Jardiance 10 mg tablet Take 1 tablet (10 mg total) by mouth daily 06/02/20 25 025 Discontinued(Th erapy completed) FeroSuL 325 mg (65 mg iron) tablet Take 1 tablet (325 mg total) by mouth 2 (two) times a day 05/16/20 025 Discontinued Active Problems Problem Noted Date Diagnosed Date Carpal tunnel syndrome 06/27/2025 Abscess of Bartholin's gland 06/27/2025 White blood cell disorder 06/27/2025 Vitamin D deficiency 06/27/2025 Urinary urgency 06/27/2025 Spinal stenosis 06/27/2025 Pulmonary hypertension 06/27/2025 Incomplete uterovaginal prolapse 06/27/2025 Gastroesophageal reflux disease 06/27/2025 Hidradenitis suppurativa 06/27/2025 Chronic combined systolic and diastolic heart fa ilure 04/08/2025 group home (current) use of aromatase inhibitors 03/24/2025 Cardiomegaly 09/09/2024 Mitral valve insufficiency 09/03/2024 Muscle weakness (generalized) 07/11/2024 Chronic idiopathic constipation 02/05/2024 Lumbar spondylosis 07/20/2023 Rheumatoid arthritis 07/20/2023 Uterine polyp 12/08/2022 Overview (12/08/2022): Added automatically from request for surgery [id number] History of bilateral breast cancer 11/29/2022 Postmenopausal bleeding 10/31/2022 Overview (01/20/2023): - P/w 2 episodes of possible J[employer] INTERN sources of bleeding. Alternative sources include urinary vs. Rectal - Patient reports last pap was in 2016 and no history of abnormal paps, unable to obtain records - 10/31 exam without any identified bleeding, no obvious cancers or masses - Pelvic US 12/05: EMS 1.9mm, fluid within endometrial cavity, polyp seen [id number] - s/p hysteroscopy, polypectomy 12/22/22, 3 polyps visualized, benign pathology, no e/o hyperplasia or malignancy Plan: - CTM symptoms Encounter for person encountering health service s 07/04/2022 Urge urinary incontinence 05/18/2021 Overview (05/18/2021): Added automatically from request for surgery [id number] OAB (overactive bladder) 05/18/2021 Overview (05/18/2021): Added automatically from request for surgery [id number] Urinary incontinence 03/17/2021 Vaginal prolapse 03/17/2021 Overview [...] clearance prior to surgery. Patient last saw firm administrator 3 months ago. Renal lesion 03/17/2021 Unspecified atrial fibrillation 01/29/2019 Malignant neoplasm of overla pping sites of left breast in female, estrogen receptor positive 04/19/2018 Cancer Staging:Pathologic stage from 05/12/2022:No Stage Recommended(ypT3, pN2a, cM0, G2, ER+, LA+, HER2-) - Signed by Kurt Wheeler MD on 06/30/2022 Monoclonal gammopathy 04/19/2018 Systemic lupus erythematosus 07/10/2017 Morbid obesity due to excess calories 11/24/2016 Open wound 12/17/2010 Type 2 diabetes mellitus 11/30/2010 Assessment & Plan (06/27/2025 11:50 AM CDT): - Would not favor initiation of abx suppression at this time Patient has chronic bacteriuria with history of daily straight cath, There is no specific step to decolonize with colonized bacteruria, and asymptomatic bacteriuria rarely requires treatment outside of urologic procedures, especially in absence of fever or elevated white blood cell count - We can try to decrease bacterial load with d-mannose, methenamine, cranberry. She is already on methenamine 1 g PO BID, and OTC cranberry, she agrees to add OTC d-mannose 2 g daily to non-abx UTI prophylaxis regiment. - Counseled on avoiding Urine culture without UTI symptoms, - ordered CMP and CBC today for eval of CrCl since starting on methenamine, correlation with clinical sx, and also eval of glucose with concern for possibly polyuria r/t hyperglycemia since self d/c DM med - advised patient to return to PCP and discuss alternative DM management, would continue to avoid SGLT-2 inhibitors as contraindicated in patients with rUTIs - also ordered clean catch UA with reflex micro and clean catch UCx given patient's ongoing sx with plan to compare and trend with previous culture and analyses - reviewed UTI symptoms typically include frequency, urgency, pain with urination, abdominal discomfort, fever, etc. Cloudiness or change in color does not indicate a urinary tract infection. - Recommend evaluation and culture for symptomatic UTIs as they occur (dysuria, fever, abdominal pain, abdominal fullness, frequency and incontinence). - Guidelines recommend against a test of cure at the end of therapy. - discussed rec for continuing to follow with uroGYN for management of urinary retention/OAB/urge incontinence, deferring PFPT recs to uroGYN as uncertain if this would or would not have negative effect on uterine prolapse - additional general UTI prevention measure reminders reviewed and included in AVS with additional time spent reviewing importance of following with her PCP for adjustment to her bowel regiment to avoid straining - Discussed with patient the rational for treatment, risks of infection, signs/symptoms of infection, and to contact ID clinic with any questions or concerns Sleep apnea, unspecified 07/29/2008 Essential (primary) hypertension 10/23/1959 Resolved Problems Problem Noted Date Diagnosed Date Resolved Date Person under investigation for COVID-19 06/27/2025 06/27/2025 Fecal impaction 06/27/2025 06/27/2025 Dysuria 08/21/2024 06/27/2025 Malignant neoplasm of left breast 04/06/2022 06/27/2022 Coronavirus infection 01/19/20212024 Encounters Date Type Department Care Team Description 08/05/2025 10:30 AM CDT Office Visit [facility] Medical [facility] Cardiology [address] [address] [place] [address] Sanjana Earl NP Edema, lower extremity; Compensated heart failure with improved ejection fraction (HFimpEF) 07/31/2025 9:30 AM CDT Office Visit [facility] Hematology [address] [facility] Floor 6 [place] [phone] Kathi Wick NP Bicytopenia (Primary Dx); Neutropenia, unspecified type; Anemia, unspecified type 07/31/2025 9:00 AM CDT Lab [facility] - Lab Collection [address] [facility] Floor 6 [place] [address] Neutropenia, unspecified type; Anemia, unspecified type 07/31/2025 8:45 AM CDT Lab [facility] Oncology Lab [facility] [address] [place] [address] Neutropenia, unspecified type; Anemia, unspecified type 07/04/2025 Telephone [facility] [address] [place] [address] [facility] Floor [address] [place] [phone] Deborah Peterson RN 07/02/2025 Telephone [facility] Clinic [address] [place] [address] Floor [address] [place] [phone] Ronnell Naik MD 06/26/2025 11:45 AM CDT - 06/26/2025 11:59 PM CDT Hospital Encounter [facility] [address] [place] [address] Discharge Disposition: Discharge to home or self care 06/26/2025 8:20 AM CDT Office Visit [facility] Infectious Diseases [address] [place] [phone] Anneliese Marie NP Recurrent UTI (Primary Dx); Lower urinary tract symptoms (LUTS); Type 2 diabetes mellitus with stage 3a chronic kidney disease, without long-term current use of insulin (HCC); Routine screening for STI (sexually transmitted infection) 06/26/2025 Results Follow-Up [facility] Infectious Diseases [address] [phone] Anneliese Marie, STRATEGIC COMMUNICATIONS MANAGER Comprehensive metabolic panel, CBC with auto differential, Urinalysis reflex to microscopic, Additional followed-up results: 3 06/13/[address] [facility] Medical [facility] Cardiology [address] [place] [address] Steve uLtz MD 05/28/2025 Telephone [facility] [address] [place] [address] Outpatient [facility] 3rd Floor [address] [place] [address] Ronnell Naik MD 05/19/2025 Orders Only [facility] Medicine Obstetrics and Gynecology [address] [place] [address] 7th Floor [address] [place] [address] Ronnell Naik MD Urge urinary incontinence (Primary Dx) 05/15/2025 Telephone [facility] [address] [place] [address] 3rd Floor [address] [place] [address] Ronnell Naik MD 05/12/2025 1:00 PM CDT - 05/12/2025 11:59 PM CDT Hospital Encounter [facility] [address] [place] [phone] Urinary frequency; Retention of urine; Recurrent UTI; Incomplete uterovaginal prolapse Discharge Disposition: Discharge to home or self care 05/12/2025 Telephone [facility] [address] [place] [address] 3rd Floor [address] [place] [phone] Thomas Dhillon from Last 3 Months Immunizations Immunization Administration [...] reast (HCC) 04/06/2022 Diabetes mellitus, type 2 Dxd ~2 008 Hiatal hernia Atrial fibrillation (HCC) Prolapsed uterus Kidney cysts Congestive heart failure (CHF) (HCC) On home oxygen therapy History of chemotherapy 10/2022 Open wound 12/17/2010 Dysuria 08/21/2024 Coronavirus infection 01/19/2021 Fecal impaction (HCC) 06/27/2025 Family History Medical History Relation Name Comments [...] file Legal Sex 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 Gender Identity Female 04/20/2018 8:43 AM CDT [...] Pulse 55 08/05/2025 10:21 AM CDT Temperature 36.7 C (98.1 F) 07/31/2025 9:18 AM CDT Respiratory Rate 16 07/31/2025 9:18 AM CDT Oxygen Saturation 99% 08/05/2025 10: 21 AM CDT Inhaled Oxygen Concentration - - Weight 130.7 kg (288 lb 1.6 oz) 025 10:21 AM CDT Height 172.7 cm (5' 8) 08/05/2025 10:2 1 AM CDT Body Mass Index 43.81 08/05/2025 10:21 AM CDT Plan of Treatment Health Maintenance [...] 2025 7, 09/26/2016, 03/17/2016, Additional history exists Lipid Panel 04/08/2026 04/08/2025, 09/22, 08/05/2022 eGFR 07/31/2026 07/31/2025, 01/2025, 01/30/2025, Additional history exists Osteoporosis Screening-Bone Density Scan 02/27/2027 02/27/2025, 02/24/2023 Medical Devices Implanted Type Area Polisher Brass Device Identifier Shelf Expiration Date Model / Serial / Lot Rt Total Knee Arthroplasty Knee Explanted Type Area Polisher Brass Device Identifier Shelf Expiration Date Model / Serial / Lot Metronic Inc [id number] Interstim 100cm Percutaneous Electrode Insulated Kit - [id number] Implanted:Qty: 1 on 07/19/2021 by Antony Mark MD at [facility] Explanted:Qty: 1 on 08/02/2021 by Brian Arana MD at [facility] Neurostimulator Left: Other - see comments [employer] 04/29/2023 [id number] / / [id number] Description:Implant intact [employer] [id number] Interstim 28cm Quadripolar Mri Greens Picker Neurostimulator - [id number] Implanted:Qty: 1 on 07/19/2021 by Antony Mark MD at [facility] Explanted:Qty: 1 on 08/02/2021 by Brian Arana MD at [facility] Neurostimulator Left: Other - see comments [employer] 10/01/2022 [id number] / / [id number] Description:Implanted in the lower back Explant intact [employer] Powerport Clearvue Airguard 8fr 1 Lumen Lightweight Intermediate Latex Free [id number] - [id number] Implanted:Qty: 1 on 07/14/2022 by Doreen Patricia MD PhD at [facility] Explanted:Qty: 1 on 11/29/2022 by [place], Doreen Oliva MD PhD at [facility] Right: Chest [employer] [id number] / / Procedures Procedure Name Priority Date/Time Associated Diagnosis Comments VITAMIN B12 Routine 07/31/2025 9:03 AM CDT Neutropenia, unspecified type Anemia, unspecified type EGFR Routine 07/31/2025 9:03 AM CDT Neutropenia, unspecified type Anemia, unspecified type DIFFERENTIAL AUTO Routine 07/31/2025 9:0 3 AM CDT Neutropenia, unspecified type Anemia, unspecified type CBC WITH AUTO DIFFERENTIAL Routine 07/31/2025 9:03 AM CDT Neutropenia, unspecified type Anemia, unspecified type COMPREHENSIVE METABOLIC PANEL Routine 07/31/2025 9:03 AM CDT Neutropenia, unspecified type Anemia, unspecified type FERRITIN Routine 07/31/2025 9:03 AM CDT Neutropenia, unspecified type Anemia, unspecified type IRON PROFILE W/ IBC Routine 07/31/2025 9 :03 AM CDT Neutropenia, unspecified type Anemia, unspecified type COPPER, SERUM Routine 07/31/2025 9:03 AM CDT Neutropenia, unspecified type Anemia, unspecified type EGFR Routine 06/26/2025 9:51 AM CDT Recurrent UTI Lower urinary tract symptoms (LUTS) Type 2 diabetes mellitus with stage 3a chronic kidney disease, without long-term current use of insulin (HCC) URINALYSIS, MICROSCOPIC ONLY Routine 06/26/2025 9:51 AM CDT Recurrent UTI Lower urinary tract symptoms (LUTS) DIFFERENTIAL AUTO Routine 06/26/2025 9:5 1 AM CDT Recurrent UTI Lower urinary tract symptoms (LUTS) URINALYSIS AND REFLEX TO MICROSCOPIC Routine 06/26/2025 9:51 AM CDT Recurrent UTI Lower urinary tract symptoms (LUTS) CBC WITH AUTO DIFFERENTIAL Routine 06/26/2025 9:51 AM CDT Recurrent UTI Lower urinary tract symptoms (LUTS) COMPREHENSIVE METABOLIC PANEL Routine 06/26/2025 9:51 AM CDT Recurrent UTI Lower urinary tract symptoms (LUTS) Type 2 diabetes mellitus with stage 3a chronic kidney disease, without long-term current use of insulin (HCC) URINE CULTURE Routine 06/26/2025 9:48 AM CDT Recurrent UTI Lower urinary tract symptoms (LUTS) URINE CULTURE Routine 05/22/2025 10:48 AM CDT Urge urinary incontinence US RETROPERITONEAL COMPLETE Schedule Routine, Read Routine (OP Routine) 05/12/2025 3:15 PM CDT Urinary frequency Retention of urine Recurrent UTI Incomplete uterovaginal prolapse POCT LIPID PANEL Routine 04/08/2025 9:13 AM CDT Lipid screening DEXA AXIAL SKELETON BONE DENSITY 1 OR MORE SITES Schedule Routine, Read Routine (OP Routine) 02/27/2025 8:49 AM CDT Malignant neoplasm of overlapping sites of left breast in female, estrogen receptor positive (HCC) group home (current) use of aromatase inhibitors HEMOGLOBIN A1C Routine 10/06/2023 9:07 AM SENIOR MI[employer] 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 73 m2 Comment: Interpretive Data [...] interpretive data was last reviewed 2021. Blood 07/31/2025 9:03 AM CDT 07/31/2025 9:20 AM CDT us Kathi Wick STRATEGIC COMMUNICATIONS MANAGER LAB BLOOD ORDERABLES Final R esult [facility] One [facility] Department of Laboratories [place], [place] [phone] * (ABNORMAL) Differential, auto (07/31/2025 9:03 AM CDT) Neutrophil abs 1.47(L) 1.50 - 6.50 K/cumm Comment:Testing performed by : [facility], [address] [place], [place] [phone] Lymphocyte abs 0.81 0.80 - 3.30 K/cumm [facility] Comment:Testing performed by : [facility], [address] [place] [phone] Monocyte abs 0.21 0.20 - 0.80 K/cumm [facility] Comment:Testing performed by : [facility], [address] [place] [phone] Eosinophil abs 0.01 0.00 - 0.50 K/cumm [facility] Comment:Testing performed by : [facility], [address] [place] [phone] Basophil abs 0.00 0.00 - 0.10 K/cumm [facility] Comment:Testing performed by : [facility], [address] [place] [phone] Neutrophil pct 58.6 % [facility] Comment: Interpretive Data Percent cell count reference ranges are not reported, since discordance with absolute values may lead to misinterpretation of CBC data. Current Interpretive Data was last revised on 2018. Testing performed by: [facility], [address] [place] [phone] Lymphocyte pct 32.3 % [facility] Comment: Interpretive Data Percent cell count reference ranges are not reported, since discordance with absolute values may lead to misinterpretation of CBC data. Current Interpretive Data was last revised on 2018. Testing performed by: [facility], [address] [place] [phone] Monocyte pct 8.4 % [facility] Comment: Interpretive Data Percent cell count reference ranges are not reported, since discordance with absolute values may lead to misinterpretation of CBC data. Current Interpretive Data was last revised on 2018. Testing performed by: [facility], [address] [place] [phone] Eosinophil pct 0.5 % [facility] Comment: Interpretive Data Percent cell count reference ranges are not reported, since discordance with absolute values may lead to misinterpretation of CBC data. Current Interpretive Data was last revised on 2018. Testing performed by: [facility], [address] [place] [phone] Basophil pct 0.1 % [facility] Comment: Interpretive Data Percent cell count reference ranges are not reported, since discordance with absolute values may lead to misinterpretation of CBC data. Current Interpretive Data was last revised on 2018. Testing performed by: [facility], [address] [place] [phone] Blood 07/31/2025 9:03 AM CDT 07/31/2025 9:18 AM CDT Kathi Wick STRATEGIC COMMUNICATIONS MANAGER LAB BLOOD ORDERABLES Final R esult Performing Organization Address City/[facility]/ZIP Co de Phone Number [facility] [place] [address] * (ABNORMAL) Iron profile w/ IBC (07/31/2025 9:03 AM CDT) [facility] Iron 68 35 - 145 mcg/dL TIBC 224(L) 250 - 400 mcg/dL [facility] Transferrin saturation 30 20 - 50 % [facility] Blood 07/31/2025 9:03 AM CDT 07/31/2025 9:20 AM CDT Kathi Wick STRATEGIC COMMUNICATIONS MANAGER LAB BLOOD ORDERABLES Final R esult Performing Organization Address [facility] de Phone Number [facility] [place] [address] * (ABNORMAL) CBC with auto differential (07/31/2025 9:03 AM CDT) [facility] WBC 2.51(L) 3.80 - 9.90 K/cumm Comment:Testing performed by : [facility], [address] [place] [phone] Hgb 11.3(L) 11.9 - 15.5 g/dL [facility] Comment:Testing performed by : [facility], [address] [place] [phone] Hct 35.1(L) 35.6 - 45.5 % [facility] Comment:Testing performed by : [facility], [address] [place] [phone] Plt 162 150 - 400 K/cumm [facility] Comment:Testing performed by : [facility], [address] [place] [phone] MPV 7.4 6.8 - 10.4 fL [facility] Comment:Testing performed by : [facility], [address] [place], [place] [phone] RBC 3.73(L) 3.90 - 5.20 M/cumm [facility] Comment:Testing performed by : [facility], [address] [place], [place] [phone] MCV 94.2 81.3 - 96.4 fL [facility] Comment:Testing performed by : [facility], [address] [place], [place] [phone] MCH 30.3 27.1 - 33.3 pg [facility] Comment:Testing performed by : [facility], [address] [place], [place] [phone] MCHC 32.2(L) 32.3 - 35.7 g/dL [facility] Comment:Testing performed by : [facility], [address] [place], [place] [phone] RDW CV 15.9(H) 11.1 - 14.9 % [facility] Comment:Testing performed by : [facility], [address] [place], [place] [phone] NRBC abs 0.00 0.00 - 0.01 K/cumm [facility] Comment:Testing performed by : [facility], [address] [place], [place] [phone] Blood 07/31/2025 9:03 AM CDT 07/31/2025 9:18 AM CDT us Kathi Wick STRATEGIC COMMUNICATIONS MANAGER LAB BLOOD ORDERABLES Final R esult [facility] One [facility] [place] [address] * Copper, serum (07/31/2025 9:03 AM CDT) Pathologist [facility] Copper 118 77 - 206 mcg/dL [facility] Comment: ADDITIONAL INFORMATION This test was developed and its performance characteristics determined by [facility] in a manner consistent with CLIA requirements. This test has not been cleared or approved by the U.S. Food and Drug Administration. Test Performed by: [facility] [address] [place] [address] Flask Fitter: Tj Stone Ph.D.; CLIA# [id number] Blood 07/31/2025 9:03 AM CDT 07/31/2025 10:59 AM CDT Kathi Wick NP LAB BLOOD ORDERABLES Final R esult Performing Organization Address [facility] Co de Phone Number [facility] [address] [place] [address] [facility] ref [facility] * (ABNORMAL) Ferritin (07/31/2025 9:03 AM CDT) Ferritin 173(H) 13 - 150 ng/mL Blood 07/31/2025 9:03 AM CDT 07/31/2025 9:20 AM CDT Kathi Wick NP LAB BLOOD ORDERABLES Final R esult Performing Organization Address [facility] Co de Phone Number [facility] [address] [place] [address] * Vitamin B12 (07/31/2025 9:03 AM CDT) Vitamin B12 377 230 - 1,250 pg/mL Blood 07/31/2025 9:03 AM CDT 07/31/2025 11:23 AM CDT Paula Moreland MD LAB BLOOD ORDERABLES Final R esult Performing Organization Address City/[facility] Co de Phone Number [facility] [address] [address] * Comprehensive metabolic panel (07/31/2025 9:03 AM CDT) Pathologist [facility] Sodium 142 135 - 145 mmol/L Potassium, pl 4.5 3.3 - 4.9 mmol/L [facility] Chloride 103 97 - 110 mmol/L [facility] CO2 32 22 - 32 mmol/L [facility] Anion gap 7 2 - 15 mmol/L [facility] BUN 20 6 - 25 mg/dL [facility] Creatinine 0.90 0.60 - 1.10 mg/dL [facility] Glucose 109 70 - 199 mg/dL [facility] Comment: Interpretive Data Fasting glucose >/= 126 mg/dl is diagnostic for diabetes. Fasting is defined as no caloric intake for at least 8 hours. Fasting glucose between 100 mg/dl to 125 mg/dl is diagnostic of prediabetes. In a patient with classic symptoms of hyperglycemia or hyperglycemic crisis, a random glucose >/= 200 mg/dl is diagnostic for diabetes. In the absence of unequivocal hyperglycemia, results should be confirmed by repeat testing. The classification and Diagnosis of Diabetes Diabetes Care 2021; 46: S19-S40. Current interpretive data was last revised 2022. Calcium 9.5 8.5 - 10.3 mg/dL [facility] Bilirubin, total 0.5 0.1 - 1.2 mg/dL [facility] Protein, pl 7.7 6.5 - 8.5 g/dL [facility] Albumin 4.2 3.5 - 5.0 g/dL [facility] Alk phos 75 40 - 130 Units/L [facility] ALT 23 7 - 45 Units/L [facility] AST 20 10 - 45 Units/L [facility] Blood 07/31/2025 9:03 AM CDT 07/31/2025 9:20 AM CDT us Kathi Wick NP LAB BLOOD ORDERABLES Final R esult [facility] [place] [address] * eGFR (06/26/2025 9:51 AM CDT) Pathologist [facility] eGFR 69 >=60 mL/min/1. 73 m2 Comment: Interpretive Data [...] interpretive data was last reviewed 2021. Blood 06/26/2025 9:51 AM CDT 06/26/2025 1:40 PM CDT us Anneliese Marie STRATEGIC COMMUNICATIONS MANAGER LAB BLOOD ORDERABLES Final Resu lt [facility] [place] [address] * (ABNORMAL) Differential, auto (06/26/2025 9:51 AM CDT) [facility] Neutrophil abs 1.33(L) 1.50 - 6.50 K/cumm Imm gran abs 0.00 0.00 - 0.10 K/cumm [facility] Lymphocyte abs 0.91 0.80 - 3.30 K/cumm [facility] Monocyte abs 0.21 0.20 - 0.80 K/cumm [facility] Eosinophil abs 0.02 0.00 - 0.50 K/cumm [facility] Basophil abs 0.01 0.00 - 0.10 K/cumm [facility] Neutrophil pct 53.6 % [facility] Comment: Interpretive Data Percent cell count reference ranges are not reported, since discordance with absolute values may lead to misinterpretation of CBC data. Current Interpretive Data was last revised on 2018. Imm gran pct 0.0 % [facility] Comment: Interpretive Data Percent cell count reference ranges are not reported, since discordance with absolute values may lead to misinterpretation of CBC data. Current Interpretive Data was last revised on 2018. Lymphocyte pct 36.7 % [facility] Comment: Interpretive Data Percent cell count reference ranges are not reported, since discordance with absolute values may lead to misinterpretation of CBC data. Current Interpretive Data was last revised on 2018. Monocyte pct 8.5 % [facility] Comment: Interpretive Data Percent cell count reference ranges are not reported, since discordance with absolute values may lead to misinterpretation of CBC data. Current Interpretive Data was last revised on 2018. Eosinophil pct 0.8 % [facility] Comment: Interpretive Data Percent cell count reference ranges are not reported, since discordance with absolute values may lead to misinterpretation of CBC data. Current Interpretive Data was last revised on 2018. Basophil pct 0.4 % [facility] Comment: Interpretive Data Percent cell count reference ranges are not reported, since discordance with absolute values may lead to misinterpretation of CBC data. Current Interpretive Data was last revised on 2018. Blood 06/26/2025 9:51 AM CDT 06/26/2025 1:39 PM CDT us Anneliese Marie NP LAB BLOOD ORDERABLES Final Resu lt [facility] [place] [address] * (ABNORMAL) Urinalysis reflex to microscopic (06/26/2025 9:51 AM CDT) Color, ur Yellow Yellow Clarity, ur Cloudy(A) Clear [facility] Specific gravity, ur 1.027 1.003 - 1.030 [facility] pH, urine 5.5 [facility] Comment: Interpretive Data U rine pH is affected by diet, medications, systemic acid-base disturbances, and renal tubular function. pH may affect urinary stone formation. For example, urine pH below 6.0 may help reduce the tendency for calcium phosphate stones and pH greater than 6.0 may reduce the tendency for uric acid stone formation. Source: [facility] Current Interpretive Data was last revised on 2017 Protein, ur ql 1+(A) Negative [facility] Glucose, ur ql Negative Negative [facility] Ketones, ur Negative Negative [facility] Bilirubin, ur Negative Negative [facility] Blood, ur Negative Negative [facility] Urobilinogen, ur <2.0 <2.0 mg/dL [facility] Nitrite, ur Positive(A) Negative [facility] Leukocyte esterase, ur 3+(A) Negative [facility] UA reflex comment Reflex to microscopic UA will be performed. [facility] Urine 06/26/2025 9:51 AM CDT 06/26/2025 1:38 PM CDT us Anneliese Marie NP LAB URINE ORDERABLES Final Resu lt [facility] [place] [address] * (ABNORMAL) CBC with auto differential (06/26/2025 9:51 AM CDT) WBC 2.48(L) 3.80 - 9.90 K/cumm Hgb 12.0 11.9 - 15.5 g/dL [facility] Hct 38.2 35.6 - 45.5 % [facility] Plt 171 150 - 400 K/cumm [facility] MPV 9.9 9.1 - 12.3 fL [facility] RBC 3.93 3.90 - 5.20 M/cumm [facility] MCV 97.2(H) 81.3 - 96.4 fL [facility] MCH 30.5 27.1 - 33.3 pg [facility] MCHC 31.4(L) 32.3 - 35.7 g/dL [facility] RDW CV 14.7 11.1 - 14.9 % [facility] RDW SD 52.0(H) 35.7 - 48.1 fL [facility] NRBC abs 0.00 0.00 - 0.01 K/cumm [facility] Blood 06/26/2025 9:51 AM CDT 06/26/2025 1:39 PM CDT Anneliese Marie STRATEGIC COMMUNICATIONS MANAGER LAB BLOOD ORDERABLES Final Resu Performing Organization Address [facility] de Phone Number [facility] [place] [address] * (ABNORMAL) Urinalysis, microscopic only (06/26/2025 9:51 AM CDT) [facility] WBC, ur >50(A) 0 - 5 /HPF RBC, ur 0-2 0 - 2 /HPF [facility] Epithelial cells, squamous, ur 6-10(A) 0 - 5 /HPF [facility] Comment:Suggestive of contam ination. Consider recollection by clean catch. Bacteria, ur 1+(A) [facility] Mucous, ur Present(A ) [facility] Urine 06/26/2025 9:51 AM CDT 06/26/2025 1:38 PM CDT Anneliese Marie STRATEGIC COMMUNICATIONS MANAGER LAB URINE ORDERABLES Final Resu Performing Organization Address [facility] de Phone Number [facility] [place] [address] * Comprehensive metabolic panel (06/26/2025 9:51 AM CDT) Sodium 142 135 - 145 mmol/L Potassium, pl 4.0 3.3 - 4.9 mmol/L [facility] Chloride 103 97 - 110 mmol/L [facility] CO2 29 22 - 32 mmol/L [facility] Anion gap 10 2 - 15 mmol/L [facility] BUN 17 6 - 25 mg/dL [facility] Creatinine 0.87 0.60 - 1.10 mg/dL [facility] Glucose 72 70 - 199 mg/dL [facility] Comment: Interpretive Data Fasting glucose >/= 126 mg/dl is diagnostic for diabetes. Fasting is defined as no caloric intake for at least 8 hours. Fasting glucose between 100 mg/dl to 125 mg/dl is diagnostic of prediabetes. In a patient with classic symptoms of hyperglycemia or hyperglycemic crisis, a random glucose >/= 200 mg/dl is diagnostic for diabetes. In the absence of unequivocal hyperglycemia, results should be confirmed by repeat testing. The classification and Diagnosis of Diabetes Diabetes Care 202; 46: S19-S40. Current interpretive data was last revised 2022. Calcium 9.8 8.5 - 10.3 mg/dL [facility] Bilirubin, total 0.6 0.1 - 1.2 mg/dL [facility] Protein, pl 8.0 6.5 - 8.5 g/dL [facility] Albumin 4.2 3.5 - 5.0 g/dL [facility] Alk phos 74 40 - 130 Units/L [facility] ALT 30 7 - 45 Units/L [facility] AST 26 10 - 45 Units/L [facility] Blood 06/26/2025 9:51 AM CDT 06/26/2025 1:39 PM CDT us Anneliese Marie STRATEGIC COMMUNICATIONS MANAGER LAB BLOOD ORDERABLES Final Resu lt [facility] [place] [address] * (ABNORMAL) Urine culture Urine, clean voided (06/26/2025 9:48 AM CDT) Report Final Report: Greater than or equal to 100,000 colonies/mL of Escherichia coli (.) Organism ESCHERICHIA COLI [facility] Urine, clean voided 06/26/2025 9:48 AM CDT 06/26/2025 2:24 PM CDT Narrative [facility] - 06/28/2025 9:42 AM CDT Testing performed by [facility] ([phone]) Organism Antibiotic Method Susceptibility Escherichia coli Ampicillin INTERPRETATION Susceptible Escherichia coli Cefazolin INTERPRETATION Susceptible Escherichia coli [...] Susceptible Escherichia coli Cefdinir INTERPRETATION Susceptible us Anneliese Marie NP LAB MICROBIOLOGY - GENERAL ORDE BETTYE Final Result [facility] Department [place] [address] * (ABNORMAL) Urine culture Urine, clean voided (05/22/2025 10:48 AM CDT) Pathologist [facility] Urine culture (A) [facility] Comment: CULTURE, URINE, ROUTINE Micro Number: [id number] Test Status: Final Specimen Source: Urine, clean catch Specimen Quality: Adequate Result: 10,000-49,000 CFU/mL of Escherichia coli E.coli INT FERMIN AMOX/CLAVULANATE S 8 AMP/SULBACTAM I 16 CEFAZOLIN R >=32 CEFEPIME R 16 CEFTAZIDIME I 8 CEFTRIAXONE R >=64 CIPROFLOXACIN I 0.5 GENTAMICIN S <=1 IMIPENEM S <=0.25 LEVOFLOXACIN I 1 MEROPENEM S <=0.25 NITROFURANTOIN I 64 PIP/TAZOBACTAM S <=4 TRIMETHOPRIM/SULFA R >=320 S = Susceptible I = Intermediate R = Resistant NS = Not susceptible SDD = Susceptible Dose Dependent * = Not Tested NR = Not Reported NN = See Therapy Comments Urine, clean voided 05/22/2025 10:48 AM CDT 05/22/2025 10:49 AM CDT Narrative [facility] - 05/24/2025 10:37 AM CDT FASTING:NO FASTING: NO Ronnell Naik MD LAB MICROBIOLOGY - GENERA L ORDERABLES Final Result [facility] [address] [place] [address] * US Retroperitoneal Complete (05/12/2025 3:15 PM CDT) Anatomical Region Laterality Modality Abdomen N/A Ultrasound 05/12/2025 3:23 PM CDT Impressions 05/12/2025 3:23 PM CDT Normal kidneys. No hydronephrosis. Electronically signed by: Elliot Preston M.D. Narrative 05/12/2025 3:23 PM CDT EXAMINATION: COMPLETE RENAL SONOGRAM HISTORY: Recurrent urinary tract infections. Urinary retention. COMPARISON: CT 03/24/2023. FINDINGS: Kidneys: The echogenicity of both kidneys is normal. The kidneys are normal in size. The right kidney measures 10.0 cm in length, and the left, 11.5 cm in length. There is no hydronephrosis in either kidney. There are no renal calculi visualized. There are bilateral renal cysts. Bladder: The urinary bladder is normal Procedure Note Elliot Preston MD - 05/12/2025 EXAMINATION: COMPLETE RENAL SONOGRAM HISTORY: Recurrent urinary tract infections. Urinary retention. COMPARISON: CT 03/24/2023. FINDINGS: Kidneys: The echogenicity of both kidneys is normal. The kidneys are normal in size. The right kidney measures 10.0 cm in length, and the left, 11.5 cm in length. There is no hydronephrosis in either kidney. There are no renal calculi visualized. There are bilateral renal cysts. Bladder: The urinary bladder is normal IMPRESSION: Normal kidneys. No hydronephrosis. Electronically signed by: Elliot Preston M.D. us Ronnell Naik MD [facility] US PROCEDURES Final R esult * POCT lipid panel (04/08/2025 9:13 AM CDT) Cholesterol, POC 169 <200 MG/DL HDL, POC 57 >=40 mg/dL Triglycerides, POC 80 <=149 mg/dL LDL Cholesterol POC 96 <=129 mg/dL Chol/HDL Ratio, POC 1.7 NONE Non-HDL Cholesterol, POC 113 NONE mg/dL Cholesterol Total, POC 169 30 - 199 mg/dL Capillary blood 04/08/2025 9 :13 AM CDT us Steve Lutz MD POINT OF CARE TEST ORDERABLES Fi nal Result * Dexa Axial Skeleton Bone Density 1 or 2 Site (02/27/2025 8:49 AM CDT) Anatomical Region Laterality Modality Body N/A Radiographic Ashley ging Narrative 02/27/2025 9:49 AM CDT Patient Name: Ivanna Beckman Date of : 1950 Date of scan: 02/27/2025 Bone mineral density was performed on a HoloKivo Discovery Densitometer. Based on machine cross-calibration and [...] by the International Society of Clinical Densitometry. [id number] Lesli Kinney MD [facility] DXA PROCEDURES F inal Result * (ABNORMAL) Hemoglobin A1c (10/06/2023 9:07 AM SENIOR MICROSOFT NET DEVELOPER) [facility] Hgb A1C 6.9(H) 4.0 - 5.6 % [facility] Estimated Average Glucose 151 mg/dL [facility] Comment: The ADA recommends reporting an estimated Average Glucose (eAG) with all Hemoglobin A1c results using the equation derived from a study of 507 normal and diabetic adults. Minority populations were underrepresented and children were not included. (Diabetes Care 2020; 43(S1): S66-S76). The eAG is not equivalent to a fasting glucose. Blood 10/06/2023 9:07 AM SENIOR MICROSOFT NET DEVELOPER 10/06/2023 9:19 AM SENIOR MICROSOFT NET DEVELOPER us Mimi Patrick MD LAB BLOOD ORDERABLES Fin al Result [facility] [place] [address] from Last 3 Months or Most Recently Relevant to Health Maintenance Insurance [address] [id number] [facility] [address] [place] [address] * Guarantor: Ivanna Beckman Account Type Relation to Patient Date of Phone Billing Address Personal/Family Self 1950 [address] [place] [address] [facility] Advance Directives For more information, please contact: [phone] * Full Code (Latest Code Status on File) Date Activated Date Inactivated Comments 05/12/2022 6:55 PM 05/13/2022 9:06 PM Care Teams Brand Attendant Relationship Specialty Start Date End Date Hernesto Molina MD [address] [id number] PCP - General Family Medicine 08/05/25 Lesli Kinney MD [address] [place] [address] Medical Oncologist/Journeyman Molder Medical Oncology 05/17/22 Monika Doyle MD [address] [facility] [address] [place] [address] Radiation Oncologist Radiation Oncology 06/27/22 Doreen Patricia MD PhD [address] [place] [address] Surgeon Surgical Oncology 06/27/22 Pamella Henry, PhD [address] [place] [id number] Nurse Practitioner Radiation Oncology 01/16/23
--- OUTSIDE RECORDS SUMMARY | 2025-08-06 14:07 | XMS_ITS | Clinical Summary ---
Author Organization [facility] [facility] Address [address] [place] [address] Care Team Providers Care Casing Worker Name Role Phone Mimi Patrick MD Primary Care Provider [phone] Source Comments [facility] [employer] [facility],non-owned Affiliates and Associated Physician Practices is amultiple site organization consisting of ambulatory clinics and hospital sitesin [place], [place], [place] and [place]. This disclosure is being madepursuant to the Care Everywhere program and may not contain all information available regarding this patient. 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 [address] PCP - General 02/20/17
--- OUTSIDE RECORDS SUMMARY | 2025-08-06 14:07 | XMS_ITS | Clinical Summary ---
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
--- OUTSIDE RECORDS SUMMARY | 2025-08-06 14:07 | XMS_ITS ---
Author Organization [facility] Address [address] [place] [address] Care Team Providers Care [employer] Assistant Name Role Phone Lesli Kinney MD Unavailable [phone] Monika Doyle MD Unavailable Aft, Doreen Oliva MD PhD Unavailable Pamella Henry PhD Unavailable [phone] Hernesto Molina MD Primary Care Provider Active Problems Problem Noted Date Diagnosed Date Carpal tunnel syndrome 06/27/2025 Abscess of Bartholin's gland 06/27/2025 White blood cell disorder 06/27/2025 Vitamin D deficiency 06/27/2025 Urinary urgency 06/27/2025 Spinal stenosis 06/27/2025 Pulmonary hypertension 06/27/2025 Incomplete uterovaginal prolapse 06/27/2025 Gastroesophageal reflux disease 06/27/2025 Hidradenitis suppurativa 06/27/2025 Chronic combined systolic and diastolic heart fa ilure 04/08/2025 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 Alternative sources include urinary vs. Rectal - Patient reports last pap was in 2016 and no history of abnormal paps, unable to obtain records - 10/31 exam without any identified bleeding, no obvious cancers or masses - Pelvic US 12/05: EMS 1.9mm, fluid within endometrial cavity, polyp seen [id number] - s/p hysteroscopy, polypectomy 12/22/22, 3 polyps visualized, benign pathology, no e/o hyperplasia or malignancy Plan: - CTM symptoms Encounter for person encountering health service s 07/04/2022 Urge urinary incontinence 05/18/2021 Overview (05/18/2021): Added automatically from request for surgery [id number] OAB (overactive bladder) 05/18/2021 Overview (05/18/2021): Added automatically from request for surgery [id number] Urinary incontinence 03/17/2021 Vaginal prolapse 03/17/2021 Overview [...] clearance prior to surgery. Patient last saw site leader 3 months ago. Renal lesion 03/17/2021 Unspecified atrial fibrillation 01/29/2019 Malignant neoplasm of overla pping sites of left breast in female, estrogen receptor positive 04/19/2018 Cancer Staging:Pathologic stage from 05/12/2022:No Stage Recommended(ypT3, pN2a, cM0, G2, ER+, OR+, HER2-) - Signed by Kurt Wheeler MD [...] apnea, unspecified 07/29/2008 Essential (primary) hypertension 10/23/1959 Current Treatment and Therapy Plans IV Maintenance [...] 6 cycles started Radiation Treatments * Course [id number]/06/2022 - 01/06/2023 Treatment Period Energy Fraction Dose Fractions Total Dose Plans Planned DIBH_LT LN 12/26/2022 - 01/06/2023 266 10 / 2,660 DIB LT _LN 12/06/2022 - 12/13/2022 266 6 / 4,256 Reference Points Delivered DIB_LT LN 12/06/2022 - 01/06/2023 4,256 Lifetime Dose [...]
--- OUTSIDE RECORDS SUMMARY | 2025-08-06 14:07 | XMS_ITS | Data Portability ---
Author Organization [facility] [employer], Main Office Address [address] [place] [address] Care Team Providers Care Iron Bender Name Role Phone CATALINA PATRICK Primary Care Provider CATALINA PATRICK Referring Provider [phone] Assessment No assessment recorded. Plan of Treatment Reminders Order Date Submit Date Provider Last Modified By Organization Details Last Modified Time Details Appointments None recorded. Lab urinalysis, dipstick 2023 024 [facility] [address], [place], [address], 4 11:55:46 urinalysis complete, reflex culture 2023 024 [facility] (Lab), [address] [place], [address], 4 22:35:13 CBC w/ auto diff 2023 [...] 14:06:06 ferritin, serum or plasma [address] [facility] Not available 4 10:08:50 iron + total iron-bindin g capacity (TIBC), serum 2023 024 [place] [address] Not available 4 10:09:06 vitamin B12, serum 2023 024 [place] [address] Not available 4 10:09:19 lipid panel, serum 2023 024 [place] [address] Not available 4 10:07:02 hepatic function panel, serum 2023 024 [place] [address] Not available 4 10:07:17 vitamin D3, 25-hydroxy, [...] call pt to schedule* 2023 [email or web address] [place] [address] Imaging, [address], [place], [address], 4 09:22:18 Medication Orders albuterol sulfate HFA 90 mcg/actuati on aerosol inhaler 2023 024 [id number], [address] [facility], [place], [place], [id number], 4 11:49:32 cyanocobala min (vit B-12) 1,000 mcg tablet 2023 024 [facility] #24656, [address] [facility], [place], [place], [id number], 4 09:55:39 Trulance 3 mg tablet 2023 024 [email or web address] [facility] #14496, [address] [facility], [place], [place], [id number], 4 09:50:38 prednisone 20 mg tablet 2023 024 [facility] #36042, [address] [facility], [place], [place], [id number], 4 09:51:26 tramadol 50 mg tablet 2022 023 [place] [facility]11908, [address] [facility], [place], [place], [id number], 3 09:44:55 Patient TargetsNo targets recorded. Patient InstructionsNo instructions recorded. Reason for Referral None Reported. Results Created Date Observation Date Name Description Value Unit Range Abnormal Flag Note LastModifiedBy Organization Detail LastModifiedTime 12/04/19 24 12/04/2023 CBC/C OMPLE TE BLD COUNT W/DIF F white blood cells 2.2 x10'3 /uL 4.2-10 .8 low Not Available [facility] (Lab) [address] [place], [address], 12/04/2023 19:37:13 12/04/19 24 12/04/2023 CBC/C OMPLE TE BLD COUNT W/DIF F red blood cells 4.09 x10'6 /uL 3.80-5 .20 Not Available [facility] (Lab) [address] [place], [address], 12/04/2023 19:37:13 12/04/19 24 12/04/2023 CBC/C OMPLE TE BLD COUNT W/DIF F hemoglobin 12.5 g/dL 12.0-1 5.6 Not Available [facility] (Lab) [address] [place], [address], 12/04/2023 19:37:13 12/04/19 24 12/04/2023 CBC/C OMPLE TE BLD COUNT W/DIF F hematocrit 40.4 % 35.7-4 5.7 Not Available [facility] (Lab) [address] [place], [address], 12/04/2023 19:37:13 12/04/19 24 12/04/2023 CBC/C OMPLE TE BLD COUNT W/DIF F mean red cell volume 98.8 fL 82.0-9 9.0 Not Available [facility] (Lab) [address] [place], [address], 12/04/2023 19:37:13 12/04/19 24 12/04/2023 CBC/C OMPLE TE BLD COUNT W/DIF F mean red cell hemoglobin 30.6 pg 27.0-3 3.0 Not Available [facility] (Lab) [address] [place], [address], 12/04/2023 19:37:13 12/04/19 24 12/04/2023 CBC/C OMPLE TE BLD COUNT W/DIF F mean RBC HGB concentratio n 30.9 g/dL 31.0-3 6.0 low Not Available [facility] (Lab) [address] [place], [address], 12/04/2023 19:37:13 12/04/19 24 12/04/2023 CBC/C OMPLE TE BLD COUNT W/DIF F red cell distribution width 14.8 % 11.8-1 5.5 Not Available [facility] (Lab) [address] [place], [address], 12/04/2023 19:37:13 12/04/19 24 12/04/2023 CBC/C OMPLE TE BLD COUNT W/DIF F platelets 193 x10'3 /uL 150-40 0 Not Available [facility] (Lab) [address] [place], [address], 12/04/2023 19:37:13 12/04/19 24 12/04/2023 CBC/C OMPLE TE BLD COUNT W/DIF F mean platelet volume 9.8 fL 9.0-12 .4 Not Available [facility] (Lab) [address] [place], [address], 12/04/2023 19:37:13 12/04/19 24 12/04/2023 CBC/C OMPLE TE BLD COUNT W/DIF F neutrophils 51.8 % 39.0-7 2.0 Not Available [facility] (Lab) [address] [place], [address], 12/04/2023 19:37:13 12/04/19 24 12/04/2023 CBC/C OMPLE TE BLD COUNT W/DIF F lymphocytes 36.6 % 16.0-4 7.0 Not Available [facility] (Lab) [address] [place], [address], 12/04/2023 19:37:13 12/04/19 24 12/04/2023 CBC/C OMPLE TE BLD COUNT W/DIF F monocytes 10.2 % 5.0-12 .0 Not Available [facility] (Lab) [address] [place], [address], 12/04/2023 19:37:13 12/04/19 24 12/04/2023 CBC/C OMPLE TE BLD COUNT W/DIF F eosinophils 0.9 % 1.0-7. 0 low Not Available [facility] (Lab) [address] [place], [address], 12/04/2023 19:37:13 12/04/19 24 12/04/2023 CBC/C OMPLE TE BLD COUNT W/DIF F basophils 0.5 % 0.0-2. 0 Not Available [facility] (Lab) [address] [place], [address], 12/04/2023 19:37:13 12/04/1912/04/2023 CBC/C OMPLE TE BLD COUNT W/DIF F immature granulocytes 0.0 % 0.00-0 .50 Not Available [facility] (Lab) [address] [place], [address], 12/04/2023 19:37:13 12/04/19 24 12/04/2023 CBC/C OMPLE TE BLD COUNT W/DIF F neutrophils, absolute count 1.12 x10'3 /uL 1.5-8. 0 low Not Available [facility] (Lab) [address] [place], [address], 12/04/2023 19:37:13 12/04/19 24 12/04/2023 CBC/C OMPLE TE BLD COUNT W/DIF F lymphocytes, absolute count 0.79 x10'3 /uL 1.07-3 .43 low Not Available [facility] (Lab) [address] [place], [address], 12/04/2023 19:37:13 12/04/19 24 12/04/2023 CBC/C OMPLE TE BLD COUNT W/DIF F monocytes, absolute count 0.22 x10'3 /uL 0.29-0 .99 low Not Available [facility] (Lab) [address] [place], [address], 12/04/2023 19:37:13 12/04/19 24 12/04/2023 CBC/C OMPLE TE BLD COUNT W/DIF F eosinophils, absolute count 0.02 x10'3 /uL 0.02-0 .53 Not Available [facility] (Lab) [address] [place], [address], 12/04/2023 19:37:13 12/04/19 24 12/04/2023 CBC/C OMPLE TE BLD COUNT W/DIF F basophils, absolute count 0.01 x10'3 /uL 0.01-0 .08 Not Available [facility] (Lab) [address] [place], [address], 12/04/2023 19:37:13 12/04/19 24 12/04/2023 CBC/C OMPLE TE BLD COUNT W/DIF F immature granulocytes ,absolute 0.00 x10'3 /uL 0.00-0 .05 Not Available [facility] (Lab) [address] [place], [address], 12/04/2023 19:37:13 12/04/19 24 12/04/2023 CBC/C OMPLE TE BLD COUNT W/DIF F nucleated red blood cells 0.0 % -0 Not Available [facility] (Lab) [address] [place], [address], 12/04/2023 19:37:13 12/04/19 24 12/04/2023 CBC/C OMPLE TE BLD COUNT W/DIF F NRBC# 0.00 x10'3 /uL Not Available [facility] (Lab) [address] [place], [address], 12/04/2023 19:37:13 12/04/19 24 12/04/2023 IRON/ TIBC PANEL total iron binding capacity 305 mcg/d L 265-47 5 Not Available [facility] (Lab) [address] [place], [address], 12/04/2023 20:10:19 12/04/19 24 12/04/2023 IRON/ TIBC PANEL % transferrin saturation 29 % 20-55 Not Available [facility] (Lab) [address] [place], [address], 12/04/2023 20:10:19 12/04/19 24 12/04/2023 IRON/ TIBC PANEL unsaturated iron bind capacity 217 mcg/d L 126-38 2 Not Available [facility] (Lab) [address] [place], [address], 12/04/2023 20:10:19 12/04/19 24 12/04/2023 IRON/ TIBC PANEL iron 88 mcg/d L 42-175 Not Available [facility] (Lab) [address] [place], [address], 12/04/2023 20:10:19 12/04/19 24 12/04/2023 LIPID PANEL cholesterol 192 mg/dL 140-19 9 [facility] ELISEO NSUS RECOM MENDA TION FOR ABEL STERO L: ADULT CHILD LOW RISK: <200 <170 BORDE RLINE : <200- 239 ----- HIGH RISK: >240 >200 Not Available [facility] (Lab) [address] [place], [address], 12/04/2023 19:43:32 12/04/1912/04/2023 LIPID PANEL triglyceride s 107 mg/dL 0-150 NIH ELISEO NSUS REPOR T RECOM MENDA TION FOR TRIGL YCERI EDWIN: ADULT CHILD LOW RISK: <150 ----- BODER LINE: 150-1 99 ----- HIGH RISK: >200 ----- Not Available [facility] (Lab) [address] [place], [address], 12/04/2023 19:43:32 12/04/19 24 12/04/2023 LIPID PANEL HDL cholesterol 66 mg/dL 40- Not Available [facility] (Lab) [address] [place], [address], 12/04/2023 19:43:32 12/04/19 24 12/04/2023 LIPID PANEL [...] WILL NOT BE REPOR CHIKA. Not Available [facility] (Lab) [address] [place], [address], 12/04/2023 19:43:32 12/04/19 24 12/04/2023 HEPAT IC/LI ELIZABETH PANEL alkaline phosphatase 84 U/L 38-126 Not Available [facility] (Lab) [address] [place], [address], 12/04/2023 19:43:34 12/04/19 24 12/04/2023 HEPAT IC/LI ELIZABETH PANEL alanine aminotransfe rase 22 U/L 0-35 Not Available [facility] (Lab) [address] [place], [address], 12/04/2023 19:43:34 12/04/19 24 12/04/2023 HEPAT IC/LI ELIZABETH PANEL aspartate aminotransfe rase 27 U/L 15-37 Not Available [facility] (Lab) [address] [place], [address], 12/04/2023 19:43:34 12/04/19 24 12/04/2023 HEPAT IC/LI ELIZABETH PANEL bilirubin, total 0.70 mg/dL 0.20-1 .30 Not Available [facility] (Lab) [address] [place], [address], 12/04/2023 19:43:34 12/04/19 24 12/04/2023 HEPAT IC/LI ELIZABETH PANEL bilirubin, conjugated (direct) 0.00 mg/dL 0.00-0 .30 Not Available [facility] (Lab) [address] [place], [address], 12/04/2023 19:43:34 12/04/19 24 12/04/2023 HEPAT IC/LI ELIZABETH PANEL biliurubin,u ncong. (indirect) 0.40 mg/dL 0.00-1 .1 Not Available [facility] (Lab) [address] [place], [address], 12/04/2023 19:43:34 12/04/19 24 12/04/2023 HEPAT IC/LI ELIZAEBTH PANEL total protein 7.4 g/dL 6.3-8. 2 Not Available [facility] (Lab) [address] [place], [address], 12/04/2023 19:43:34 12/04/19 24 12/04/2023 HEPAT IC/LI ELIZABETH PANEL albumin 4.1 g/dL 3.0-4. 4 Not Available [facility] (Lab) [address] [place], [address], 12/04/2023 19:43:34 12/04/19 24 12/04/2023 HEPAT IC/LI ELIZABETH PANEL globulin 3.3 g/dL 2.6-4. 2 Not Available [facility] (Lab) [address] [place], [address], 12/04/2023 19:43:34 12/04/19 24 12/04/2023 HEPAT IC/LI ELIZABETH PANEL A/G ratio 1.2 ratio 1.0-2. 0 Not Available [facility] (Lab) [address] [place], [address], 12/04/2023 19:43:34 12/04/19 24 12/04/2023 BASIC METAB OLIC PANEL sodium 138 mmol/ L 137-14 5 Not Available [facility] (Lab) [address] [place], [address], 12/04/2023 19:43:38 12/04/19 24 12/04/2023 BASIC METAB OLIC PANEL potassium 4.2 mmol/ L 3.5-5. 1 Not Available [facility] (Lab) [address] [place], [address], 12/04/2023 19:43:38 12/04/19 24 12/04/2023 BASIC METAB OLIC PANEL chloride 104 mmol/ L 98-107 Not Available [facility] (Lab) [address] [place], [address], 12/04/2023 19:43:38 12/04/19 24 12/04/2023 BASIC METAB OLIC PANEL carbon dioxide 33 mmol/ L 22-30 high Not Available [facility] (Lab) [address] [place], [address], 12/04/2023 19:43:38 12/04/19 24 12/04/2023 BASIC METAB OLIC PANEL anion gap 5.2 mmol/ L 14-22 low Not Available [facility] (Lab) [address] [place], [address], 12/04/2023 19:43:38 12/04/19 24 12/04/2023 BASIC METAB OLIC PANEL glucose 115 mg/dL 70-99 high Not Available [facility] (Lab) [address] [place], [address], 12/04/2023 19:43:38 12/04/19 24 12/04/2023 BASIC METAB OLIC PANEL BUN 19 mg/dL 8-19 Not Available [facility] (Lab) [address] [place], [address], 12/04/2023 19:43:38 12/04/19 24 12/04/2023 BASIC METAB OLIC PANEL creatinine 0.99 mg/dL 0.66-1 .25 Not Available [facility] (Lab) [address] [place], [address], 12/04/2023 19:43:38 12/04/19 24 12/04/2023 BASIC METAB OLIC PANEL GFR 55 Refer ence Range : [place] ge GFR Healt hy Adult : >60 [...] or ethni c subgr oups, such as Hisks nics. Outsi de the valid ated светлана [...] on the F websi te: https ://vasquez ashley.jaclyn rodriguez/pr ofess ional s/kdo qi/gf r_cal culat or Not Available [facility] (Lab) [address] [place], [address], 12/04/2023 19:43:38 12/04/19 24 12/04/2023 BASIC METAB OLIC PANEL calcium 9.6 mg/dL 8.4-10 .2 Not Available [facility] (Lab) [address] [place], [address], 12/04/2023 19:43:38 12/04/19 24 12/04/2023 VITAM IN D 25-HY DROXY vd25oh 37.6 NG/mL 30-100 Vitam in D Statu s: Defic ient: <20 ng/mL Insuf ficie nt: 20-29 ng/mL Suffi cient : 30-10 0 ng/mL Not Available [facility] (Lab) [address] [place], [address], 12/04/2023 20:10:06 12/04/19 24 12/04/2023 JAYA TIN ferritin 24 NG/mL 11.1-2 64 Not Available [facility] (Lab) [address] [place], [address], 12/04/2023 20:13:43 12/04/19 24 12/04/2023 VITAM IN B12 (JUHI TIFFANY ) vb12 386 pg/mL 239-93 1 Not Available [facility] (Lab) [address] [place], [address], 12/04/2023 20:34:25 12/04/19 24 12/04/2023 HEMOG LOBIN A1C HA1C 6.4 % 4.0-6. 0 high Diabe jun Scree sanjeev Crite susie: <5.7% Consi stent with absen ce of diabe jun 5.7-6 .4% Consi stent with incre ased risk for diabe jun (pred iabet es) >OR=6 .5% Consi stent with diabe jun REFER ENCE: Diabe jun Care 2016, 39(Grayson ppl.1 ):s13 -s22 Not Available [facility] (Lab) [address] [place], [address], 12/04/2023 20:52:38 08/21/2008/21/2024 urina lysis , dipst ick Leukocytes (reference range: negative rishi/ l) Negati ve Not Available [address], [place], [address], 08/21/2024 11:40:19 08/21/2008/21/2024 urina lysis , dipst ick Nitrite (reference rage: negative mg/dl) negati ve Not Available [address], [place], [address], 08/21/2024 11:40:19 08/21/2008/21/2024 urina lysis , dipst ick Urobilinogen (reference range: 0.2-1 mg/dl) 0.2 Not Available [address], [place], [address], 08/21/2024 11:40:19 08/21/20 24 08/21/2024 urina lysis , dipst ick Protein (reference range: negative mg/dl) Negati ve Not Available [address], [place], [address], 08/21/2024 11:40:19 08/21/20 24 08/21/2024 urina lysis , dipst ick pH (reference range: 5-7) 5.0 Not Available [address], [place], [address], 08/21/2024 11:40:19 08/21/20 24 08/21/2024 urina lysis , dipst ick Blood (reference range: negative Delano/ l) Negati ve Not Available [address], [place], [address], 08/21/2024 11:40:19 08/21/20 24 08/21/2024 urina lysis , dipst ick Specific Seneca (reference range: 1.005-1.030) 1.015 Not Available [address], [place], [address], 08/21/2024 11:40:19 08/21/20 24 08/21/2024 urina lysis , dipst ick Ketone (reference range: negative mg/dl) Trace Not Available [address], [place], [address], 08/21/2024 11:40:19 08/21/2008/21/2024 urina lysis , dipst ick Bilirubin (reference range: negative mg/dl) Trace Not Available [address], [place], [address], 08/21/2024 11:40:19 08/21/20 24 08/21/2024 urina lysis , dipst ick Glucose (reference range: negative mg/dl) 500 Not Available [address], [place], [address], 08/21/2024 11:40:19 08/21/20 24 08/21/2024 urina lysis , dipst ick Appearance Clear Not Available [address], [place], [address], 08/21/2024 11:40:19 08/21/20 24 08/21/2024 urina lysis , dipst ick Color Yellow Not Available [address], [place], [address], 08/21/2024 11:40:19 03/05/20 24 03/05/2024 CT, abdom en + pelvi s, w/o contr ast No observ ation record ed. [address] [facility] [address], [place], [address], 03/06/2024 14:04:53 08/07/20 24 08/07/2024 XR, chest , 2 view No observ ation record ed. [address], [place], [address], 08/08/2024 09:05:45 08/07/20 24 08/07/2024 CT, brain , w/o contr ast No observ ation record ed. [address], [place], [address], 08/08/2024 09:03:13 09/09/20 24 09/09/2024 XR, chest , 2 view No observ ation record ed. [email or web address] [address], [place], [address], 09/10/2024 08:10:29 10/04/20 24 10/04/2024 heart failu re check (PROC ) No observ ation record ed. [email or web address] [facility] [address] [address], [place], [address], 08/04/2025 11:43:30 10/24/19 25 09/30/2024 imagi ng inter preta tion No observ ation record ed. [facility] [address], [place], [address], 08/04/2025 15:50:37 Result Notes None recorded. Problems Name Problem SNOMED Code Status Onset Date Resolution Date Notes Provider Name and Address Organization Details Recorded Time Edema of lower extremity 724273446 Active Not Available [facility] 4 05:02:01 Benign hypertension 42256020 Active Not Available [facility] 4 05:02:02 Increased frequency of urination 333302741 Active Not Available [facility] 4 05:02:02 Impacted cerumen 11622501 Active Not Available [facility] 4 05:02:02 Lipoma of axilla 366738958 Active Not Available [facility] 4 05:02:02 Incomplete uterovaginal prolapse 555280935 Active Not Available [facility] 4 05:02:02 Open wound of anterior abdominal wall 291100657 Active Not Available [facility] 4 05:02:02 Gastroesophag eal reflux disease 070144415 Active Not Available [facility] 4 05:02:02 Morbid obesity 088318755 Active Not Available [facility] 4 05:02:02 Malignant neoplasm of breast 253783471 Active Not Available [facility] 4 05:02:02 Anemia 834461483 Active Not Available [facility] 4 05:02:02 Mass of body structure 809292954 Active Not Available [facility] 4 05:02:02 Vitamin D deficiency 06683142 Active Not Available [facility] 4 05:02:02 Hypertensive disorder 27974348 Active Not Available [facility] 4 05:02:02 Memory impairment 087992291 Active Not Available [facility] 4 05:02:02 Osteoarthriti s 413896905 Active Not Available [facility] 4 05:02:02 Body mass index 40+ - severely obese 441746988 Active Not Available [facility] 4 05:02:02 Candidiasis of skin 66014017 Active Not Available [facility] 4 05:02:02 White blood cell disorder 53010555 Active Not Available [facility] 4 05:02:02 Hyperlipidemi a 39091247 Active Not Available [facility] 4 05:02:02 Carpal tunnel syndrome 16988301 Active Not Available [facility] 4 05:02:02 Hidradenitis suppurativa 97092726 Active Not Available [facility] 4 05:02:02 Visual disturbance 63839915 Active Not Available [facility] 4 05:02:02 Abscess of Bartholin's gland 15099056 Active Not Available [facility] 4 05:02:02 Diabetes mellitus 87918777 Active Not Available [facility] 4 05:02:02 Sleep apnea 85326329 Active Not Available [facility] 4 05:02:02 Urgent desire to urinate 44334927 Active Not Available [facility] 4 05:02:02 Pain in limb 10291316 Active Not Available [facility] 4 05:02:02 Systemic lupus erythematosus 04943777 Active 2016 Not Available [facility] 4 05:02:02 Atrial fibrillation 13989094 Active 2018 Not Available [facility] 4 05:02:02 Fatigue 80784869 Active 2022 Not Available [facility] 4 05:02:02 Lumbar spondylosis 629765654 Active 2022 Not Available [facility] 4 05:02:02 Rheumatoid arthritis 48389393 Active 2022 Not Available [facility] 4 05:02:02 Onychomycosis of toenails 903382050 Active 2022 Not Available [facility] 4 05:02:02 Constipation 56161547 Active 2022 Not Available [facility] 4 05:02:02 Chronic idiopathic constipation 64810979 Active 2023 Catalina Patrick MD [address], [place], [address] , [address] [facility] [employer] [facility] 4 09:41:28 Degeneration of lumbar intervertebra l disc 51849019 Active 2023 Catalina Patrick MD [address], [place], [address] , [facility] [employer] [facility] [employer] [facility] 4 09:46:57 Dyspnea 736725264 Active 2023 CHRISTIAN Christine [address], [place], [address] , [facility] [employer] [facility] 4 09:34:41 Swelling of bilateral lower limbs 125385149 Active 2023 Severiano Romanvishal [employer]IST[employer] [address], [place], [address] , [employer] 4 09:34:48 Weakness of bilateral lower limb Active 2023 Severiano Romanvishal [employer]IST[employer] [address], [address], [place], [address] , [employer] 4 09:36:58 Paresthesia of lower extremity 956645837 Active 2023 Severiano Maurice [employer]IST[employer] [address], [address], [place], [address] , [employer] 4 09:37:06 Dysuria 49818798 Active 2023 Severiano Romanvishal [employer]IST[employer] [address], [address], [place], [address] , [employer] 4 11:40:14 Cardiomegaly 0836150 Active 2023 Rhea Andrade APRN [address], [place], [address] , [employer] 4 08:10:14 Problem Notes None recorded. Procedures Surgical History Date Name Laterality Status Provider Name and Address Organization Details Recorded Time 08/03/20 23 Nail Debridement completed Wilmer Triplett DPM [address], [place], [address], [employer] 08/07/2023 09:34:44 11/17/19 16 Most Recent Bone Density completed Not Available [facility] 12/21/2022 01:12:40 10/26/19 14 Date of Last Colonoscopy completed Not Available [facility] 12/21/2022 01:12:40 10/23/18 84 section completed Aliyah Bolaños [employer] 08/03/2023 14:49:04 10/23/18 81 section completed Aliyah Bolaños [employer] 08/03/2023 14:49:00 10/23/18 80 section completed Aliyah Bolaños [place] [facility] [employer] 08/03/2023 14:48:58 Imaging Results None recorded. Procedure Notes None recorded. Medical Equipment None Reported. Allergies Allergen ID Allergen Name Allergen Category Reaction Reaction Severity Criticality Documentation Date Start Date Code Code System Note Provider Name and Address Organization Details Recorded Time 2887 Demerol medicatio n dizziness Not available Not available 12/21/2022 93064 1 RxNorm Not Available [facility] 3 01:42:00 Medications Name Sig Start Date [...] Available Not Available amlodipine 5 mg tablet /2 tab 07/22 completed Not Available Not Available [...] 1 ml IM x 1 12/[address] [id number] Not Available Not Available [...] 10 mg by rectal route. 02/[address] [facility]# [id number] Not Available Not Available [...] 94 % 170/80 mm[Hg] Estefanía Dillard RN [facility] 4 09:13:47 Date Recorded Body height Body mass index (BMI) Body weight Body temperature Heart rate Oxygen saturation Oxygen saturation in Arterial blood by Pulse oximetry Systolic And Diastolic Provider Name and Address Organization Details Last Updated DateTime 4 172.72 cm 42.7 kg/m2 765082. 46 g 97.9 [degF] 70 /min 97 % 97 % 160/70 mm[Hg] Estefanía Dillard RN [facility] 4 09:26:04 Date Recorded Body height Body mass index (BMI) Body weight Body temperature Heart rate Oxygen saturation Oxygen saturation in Arterial blood by Pulse oximetry Systolic And Diastolic Provider Name and Address Organization Details Last Updated DateTime 4 172.72 cm 43.3 kg/m2 134991. 83 g 97.1 [degF] 67 /min 94 % 94 % 144/86 mm[Hg] Liliam Millard RN [facility] [employer] [facility] 4 09:12:32 Date Recorded Body height Body mass index (BMI) Body weight Body temperature Heart rate Oxygen saturation Oxygen saturation in Arterial blood by Pulse oximetry Systolic And Diastolic Provider Name and Address Organization Details Last Updated DateTime 4 172.72 cm 43.8 kg/m2 817863. 6 g 96.7 [degF] 87 /min 97 % 97 % 178/86 mm[Hg] Liliam Millard RN [facility] [employer] [facility] 4 11:26:17 Date Recorded Body height Body mass index (BMI) Body weight Body temperature Heart rate Oxygen saturation Oxygen saturation in Arterial blood by Pulse oximetry Systolic And Diastolic Provider Name and Address Organization Details Last Updated DateTime 3 172.72 cm 42.3 kg/m2 001893. 68 g 97.5 [degF] 52 /min 88 % 88 % 148/80 mm[Hg] Estefanía Dillard RN [facility] [employer] [facility] 3 09:25:01 Social History Question Answer Notes LastModified by Organization Details LastModified Time Tobacco Smoking Status Former Smoker Not Available [facility] 12/21/2022 01:08:23 Do You Wear A Helmet When Biking? No MIGRATION.300026 Information not available 12/21/2022 Are You Blind Or Do You Have Difficulty Seeing? Yes MIGRATION.300026 Information not available 12/21/2022 What Is Your Level Of Caffeine Consumption? Occasional MIGRATION.300026 Information not available 12/21/2022 In The 14 Days Before Symptom Onset, Have You Had Close Contact With A Laboratory-confi rmed COVID-19 While That Case Was Ill? No MIGRATION.300026 Information not available 12/21/2022 In The 14 Days Before Symptom Onset, Have You Had Close Contact With A Person Who Is Under Investigation For COVID-19 While That Person Was Ill? No MIGRATION.[id number] Information not available 12/21/2022 Are You Deaf Or Do You Have Serious Difficulty Hearing? Yes MIGRATION.0301 491949 Information not available 12/21/2022 What Type Of Diet Are You Following? REGULAR MIGRATION.0301 718697 Information not available 12/21/2022 What Is The Highest Grade Or Level Of School You Have Completed Or The Highest Degree You Have Received? [id number] MIGRATION.0301 917632 Information not available 12/21/2022 Have There Been Any Changes To Your Family Or Social Situation? No MIGRATION.0301 941176 Information not available 12/21/2022 What Is The Fluoride Status Of Your Home? Unknown MIGRATION.0301 184904 Information not available 12/21/2022 When Did You Quit Smoking? 15+yearssincelrossy fior Quit Age 44 MIGRATION.0301 525035 Information not available 12/21/2022 Are There Any Guns Present In Your Home? No MIGRATION.0301 725631 Information not available 12/21/2022 Do You Use Insect Repellent Routinely? Yes MIGRATION.0301 483540 Information not available 12/21/2022 Where Do You Live? SingleLevelHouse MIGRATION.0301 455847 Information not available 12/21/2022 Do You Have Any Pets? No MIGRATION.0301 836562 Information not available 12/21/2022 What Is Your Relationship Status? MIGRATION.0301 438226 Information not available 12/21/2022 Do You Use Your Seat Belt Or Car Seat Routinely? Yes MIGRATION.0301 907597 Information not available 12/21/2022 Do You Have Smoke And Carbon Monoxide Detectors In Your Home? Yes MIGRATION.0301 866250 Information not available 12/21/2022 Are You Passively Exposed To Smoke? No MIGRATION.0301 965488 Information not available 12/21/2022 Are There Any Smokers In Your House? No MIGRATION.0301 014821 Information not available 12/21/2022 Do You Use Sunscreen Routinely? No MIGRATION.0301 118834 Information not available 12/21/2022 Has Tobacco Cessation Counseling Been Provided? No MIGRATION.0301 470412 Information not available 12/21/2022 How Many Years Have You Smoked Tobacco? 6 MIGRATION.0301 250879 Information not available 12/21/2022 Have You Recently Traveled Abroad? No MIGRATION.0301 808161 Information not available 12/21/2022 Do You Have Difficulty Walking Or Climbing Stairs? Yes MIGRATION.0301 021917 Information not available 12/21/2022 Are You Currently In School? No MIGRATION.0301 808103 Information not available 12/21/2022 Sex: Unknown Functional Status Question Answer Note LastModified by Organizat ion Details LastModified Time Do you use any illicit or recreational drugs? No MIGRATION.0024982 026 Information not available 12/21/2022 Do you or have you ever used any other forms of tobacco or nicotine? No MIGRATION.8132750 026 Information not available 12/21/2022 What is your level of alcohol consumption? None MIGRATION.2478928 026 Information not available 12/21/2022 Do you have transportation difficulties? No MIGRATION.1425313 026 Information not available 12/21/2022 Are you able to walk independently without assistance or assistive devices? YESASSIST MIGRATION.9312140 026 Information not available 12/21/2022 Do you have difficulty doing errands alone? No MIGRATION.2311958 026 Information not available 12/21/2022 Are you able to care for yourself independently? Yes MIGRATION.1697650 026 Information not available 12/21/2022 What is your occupation? retired MIGRATION.5009967 026 Information not available 12/21/2022 Do you have difficulty dressing, bathing, grooming, or toileting? No MIGRATION.9607262 026 Information not available 12/21/2022 What is your exercise level? None MIGRATION.8021176 026 Information not available 12/21/2022 Mental Status Question Answer Note LastModified by Organizat ion Details LastModified Time Do you feel stressed (tense, restless, nervous, or anxious, or unable to sleep at night)? [id number] MIGRATION.17085914 26 Information not available 12/21/2022 Do you have difficulty concentrating, remembering or making decisions? Yes MIGRATION.53587329 26 Information not available 12/21/2022 Family History Relationship Description Onset Age of this Age Resolved Age Notes LastModified by Organization Details LastModified Time Mother Hypertensive disorder MIGRATION.210 1142954 Not available 12/21/2022 01:12:53 Mother Heart disease MIGRATION.238 4630350 Not available 12/21/2022 01:12:53 Mother Family history of malignant neoplasm MIGRATION.722 2266260 Not available 12/21/2022 01:12:53 Mother Malignant neoplasm of breast MIGRATION.574 3673866 Not available 12/21/2022 01:12:53 Mother Hyperthyroid ism MIGRATION.148 1876673 Not available 12/21/2022 01:12:53 Brother Hypertensive disorder MIGRATION.098 1020878 Not available 12/21/2022 01:12:53 Brother Diabetes mellitus MIGRATION.293 6432668 Not available 12/21/2022 01:12:53 Sister Hypertensive disorder MIGRATION.410 1005223 Not available 12/21/2022 01:12:53 Sister Diabetes mellitus MIGRATION.736 3907483 Not available 12/21/2022 01:12:54 Sister Hyperthyroid ism MIGRATION.246 0869218 Not available 12/21/2022 01:12:54 Father Heart disease MIGRATION.985 4393552 Not available 12/21/2022 01:12:54 Father Alzheimer's disease MIGRATION.047 1774868 Not available 12/21/2022 01:12:54 Medical History Condition Response SLEEP APNEA Y MRSA N ALLERGIES/HAYFEVER N LUNG DISEASE/DISORDER N INSOMNIA N HISTORY OF DRUG ABUSE N RADIATION / CHEMOTHERAPY N COPD N HIGH CHOLESTEROL / HYPERLIPIDEMIA Y HYPERTHYROIDISM N BLOOD DISEASES N EAR OR HEARING PROBLEMS N HYPOTHYROIDISM N SHINGLES N DEPRESSION (INCLUDING POST ) N HAVE YOU BEEN HOSPITALIZED OR SEEN IN [facility] IN THE PAST YEAR ? N STROKE/TIA N ULCERS N OBESITY N ANEURYSM N HISTORY WITH COMPLICATIONS WITH ANESTHES IA ? N NO SIGNIFICANT PAST MEDICAL HISTORY N USE OF BLOOD THINNERS Y DIABETES, TYPE Y PARATHYROID DISEASE N ENT N SEASONAL ALLERGIES Y HEARTBURN / REFLUX Y HEPATITIS / LIVER DISEASE N SLEEP DISORDER N HEADACHES/MIGRAINES N SEIZURES/EPILEPSY N CHF N PACEMAKER N DIZZINESS N HEART DISEASE/HEART PROBLEMS N AIDS/HIV N FRACTURES N HYPERTENSION Y CANCER: SPECIFY Y TOURETTE'S N BLOOD TRANSFUSION Y ANESTHESIA COMPLICATIONS N ANEMIA/BLOOD DISORDER N CHRONIC EAR INFECTIONS N TUBERCULOSIS N [...] Diagnosis SNOMED-CT Code Diagnosis ICD10 Code Diagnosis IMO Codes Diagnosis Note [id number] Catalina Patrick MD [facility] Primary Care Scooter alemane [address] [facility] [address] [place] [address] 12/30/2020 00:00:00 12/30/2020 08:25:33 [id number] Catalina Patrick MD [facility] Primary Care Scooter lle [address] [facility] [address] [place] [address] 03/05/2021 00:00:00 03/08/2021 14:06:18 [id number] Catalina Patrick MD [facility] Primary Care Scooter alemane [address] [facility] [address] [place] [address] 04/01/2021 00:00:00 04/20/2021 16:39:21 [id number] Catalina Patrick MD [facility] Primary Care Scooter alemane [address] [place] [address] [address] [place] [address] 07/01/2021 00:00:00 07/02/2021 15:55:34 [id number] Latrell Sanz MD [facility] ENT [address] [place] [address] 08/26/2021 00:00:00 08/26/2021 10:33:10 [id number] Catalina Patrick MD [facility] Primary Care Scooter alemane [address] [place] [address] [address] [place] [address] 10/19/2021 00:00:00 10/21/2021 11:18:58 [id number] Catalina Patrick MD [facility] Primary Care Scooter alemane [address] [facility] [address] [place] [address] 12/20/2021 00:00:00 12/20/2021 09:53:54 [id number] Catalina Patrick MD [facility] Primary Care Scooter lle [address] [place] [address] [address] [place] [address] 2022 00:00:00 02/13/2022 16:45:57 [id number] Catalina Patrick MD [facility] Primary Care Danielvi lle [address] [facility] [address] [place] [address] 07/25/2022 00:00:00 08/02/2022 09:12:19 [id number] Catalina Patrick MD [facility] Primary Care [place] [address] [facility] [address] [place], [place] [address] 10/25/2022 00:00:00 10/25/2022 10:49:13 [id number] Catalina Patrick MD [facility] Primary Care [place] [address] [facility] [address] [place] [address] 12/29/2022 14:31:08 12/29/2022 14:54:18 [id number] Catalina Patrick MD [facility] Primary Care Sc[place] lle [address] [facility] [address] [place] [address] 04/19/2023 11:42:51 04/19/2023 12:42:22 Fatigue 24618872 R53.83 G62.9 M25.50 Hidradenit is suppurativa 27103750 L73.2 has failed doxycyclin e Vitamin D deficiency 347 75474 E55.9 Diabetes mellitus 917688 09 E11.9 [id number] Catalina Patrick MD [facility] Primary Care Scooter alemane [address] [facility] [address] [place] [address] 07/20/2023 08:51:33 07/20/2023 09:32:19 Lumbar spondylosis 948474092 M47.896 long h/o lumbar spondylosi s that [...] and weaknessMR I ordered Rheumatoid arthritis 698 35327 M06.9 ESR 74RF 18.4Rheuma tology referral given Onychomyco sis of toenails 659076736 B35.1 [id number] Wilmer Triplett DPM [facility] Podiatry Ashley Perera [address] [place] [address] 08/03/2023 14:00:51 08/07/2023 11:49:34 Onychomycosis of toenails 795854325 B35.1 educated the patient on treatment optionsWe will start topical ketoconazo [facility] and [facility] not [facility] we will perform total nail avulsion. [id number] Catalina Patrick MD [facility] Primary Care [facility] [address] [place] [address] 09/04/2023 09:12:47 09/04/2023 09:51:25 Benign hypertension 50978341 I10 Diabetes mellitus 775784 09 E11.9 Vitamin D deficiency 347 31799 E55.9 Hyperlipidemia 90689508 E78.5 Z79.899 Lumbar spondylosis 05081 0009 M47.896 long h/o lumbar spondylosi s [...] script sentdo not take before driving/wo rking [id number] Catalina Patrick MD [facility] Primary Care [facility] [address] [place] [address] 12/04/2023 09:07:36 12/04/2023 09:40:00 Hyperlipidemia 80500601 E78.5 Z79.899 Hypertensive disorder 38 495205 I10 Vitamin D deficiency 347 66261 E55.9 Diabetes mellitus 024398 09 E11.9 Anemia 728548360 D64.9 [id number] Catalina Patrick MD [facility] Primary Care [address] [place] [address] 02/05/2024 09:18:17 02/05/2024 11:03:37 Diabetes mellitus 47131907 E11.9 a1c 6.4 Chronic id iopathic constipation 85629302 K59.04 trial of trulanceco ntinue good fiber and fluid intake Degenerati on of lumbar intervertebral disc 86006333 M51.36 severe low back painh/o lumbar spondylosi sweakness in b/l LEparesthe perri b/l LEirregula r gaithas h/o rheumatoid arthritisc oncern for spinal stenosis, need MRI to evaluatePr ednisone taper with food, avoid other nsaidsrevi ewed s/s that warrant urgent/anderson rgent eval in meantime [id number] CHRISTIAN Christine [facility] Primary Care [address] [place] [address] 07/11/2024 08:55:06 07/11/2024 09:58:11 Swelling of bilateral lower limbs 158756378 M79.89 already seeing cardiologi , plans to call today to get an apptencour aged to take her furosemide , she has plenty, declines refilldisc ussed used of compressio n socks Weakness o f bilateral lower limb [id number] 81129 M62.81 currently using wheeled walker, unable to sit on her d/t her sizeROM and strength are greatly limitedmul tiple wheels on her walker are starting to shred, causing imbalancei mperative to get replacemen t walker repaired/e xchanged to decrease risk of falls Paresthesi a of lower extremity 642803431 R20.2 hx of trying many different meds for this, all with negative side effectsshe just tries to deal with the symptoms [id number] CHRISTIAN Christine [facility] Primary Care [address] [place] [address] 08/21/2024 10:59:28 08/21/2024 12:39:14 Dyspnea 580836664 R06.00 was in ER on 08/07 fro this issue, told it was CAPgiven doxy, completeds ome sob continuest rial albuterol inhaler Dysuria 07107861 R30.0 Health Concerns Section Related Observation LastModified by Organization Detai ls LastModified Time None Recorded Concern Status LastModified by Organization Details LastModified Time None Recorded Advance Directives Directive None Recorded Payers Insurance Date Sequence Insurance Name Policy Number Policy Baugh Covered Member ID Baugh Member ID Guarantor Name 01/22/2025 1 [facility] - DOS ON OR AFTER 21 (MEDICAID REPLACEMENT - HMO) Ivanna Beckman [id number] Ivanna Beckman Notes Date Note Type Note Provider Name and Address Organization Details Recorded Time 09/04/2023 text/html ROS as noted in the HPI Home blood readings are 140s/80s. She is [...] not help her previously. Catalina Patrick MD [address] [place] [address], [facility] [address], [place], [address], [facility] 09/04/2023 09:44:56 12/04/2023 text/html ROS as noted in the HPI Home blood readings are 140s/80s. She is [...] from rheumatology yet. Catalina Patrick MD [address] [facility], [facility] [address], [place], [address], [facility] [employer] 12/21/2023 17:58:59 02/05/2024 text/html ROS as noted in the HPI Home blood readings are 140s/80s. She is [...] Patrick MD [address], [place], [address], [employer] [facility] [employer] 02/25/2024 18:26:11 07/11/2024 text/html Pt is here for f/u CHRISTIAN Christine [address], [place] [address], [place], [address], [employer] 07/11/2024 09:57:10 08/21/2024 text/html pt is here for f/u CHRISTIAN Christine [address], [place], [address], [employer] 08/21/2024 11:50:49 OBGyn Episode No OBEpisode recorded.
--- NOTE | 2025-08-06 15:46 | PM.IMHP ---
H&P: HPI History of Present Illness Date/Time: 08/06/25 15:46 Chief Complaint: Increased weakness Narrative: 75-year-old female with a complex past medical history including AFib on anticoagulation, CHF, breast cancer, HTN, dm 2, NESHA on CPAP, presented to the ED on 08/06/2025 from her cardiology office for increasing shortness of breath. Patient states she has been weak for ?years?, but has become weaker ?recently. ? Patient states she was recently restarted on 80 mg Lasix at home. She feels that she is retaining fluid. Patient denies any chest pain, fever, vomiting, vision changes, headache. She states she is compliant with all her medications and CPAP. Patient responds in broken sentences but is not in distress. Initial vital signs in the ED BP 147/73, HR 59, resp 21. Afebrile. 95% on room air Labs revealed leukopenia at baseline and baseline anemia. No electrolyte derangement. BUN and creatinine are normal. Troponin negative. BNP is 400 Chest x-ray with interstitial edema with fluid pattern consistent with pulmonary edema. Pneumonia less likely the cardiomegaly with right atrial enlargement Review of Systems Review of Systems: All systems reviewed & are unremarkable except as noted in HPI and below PMFSH Past Medical History Medical History Congestive heart failure Hypertension History of gastrointestinal procedure Sleep apnea Diabetes Abscess of Bartholin's gland Visual disturbance Hidradenitis suppurativa Carpal tunnel syndrome White blood cell disorder Candidiasis Class 3 severe obesity due to excess calories with body mass index (BMI) of 40.0 to 44.9 in adult Osteoarthritis Memory impairment Hypertensive disorder Vitamin D deficiency Anemia Malignant tumor of breast Morbid obesity Open wound of anterior abdominal wall Incomplete uterovaginal prolapse Lipoma of axilla Impacted cerumen Increased frequency of urination Benign hypertension Edema of lower extremity Systemic lupus erythematosus Pain in limb Atrial fibrillation Surgical History Surgical History History of cholecystectomy H/O left mastectomy 05/12/22 H/O hernia repair H/O mastectomy right and left 04/2022 H/O colonoscopy History of esophagogastroduodenoscopy (EGD) History of delivery 3x Hx of total knee arthroplasty Family History Family History Mother Hypertension Breast cancer Hypothyroidism Heart disease Family history of cancer Father Heart disease Alzheimer disease Sibling Renal failure syndrome Diabetes mellitus Hypertension Sibling Diabetes mellitus Hypertension Social History Social History Social History: Patient has a 20 pack-year smoking history. Patient states that she quit smoking 20 years ago. Patient occasionally drinks alcohol but has not since her breast cancer diagnosis. Smoking status: Former smoker Alcohol intake: never Substance use: never Substance use type: does not use Lack of Transportation: No Lack of Food: Never True Current Housing: I Have Housing Concerned About Future Housing: No Difficulty Paying Gas/Electric Bills: No Difficulty Paying for Meds: No Currently Unemployed: No Education: High School Diploma/GED Difficulty w/ Childcare or Family Care: No Living arrangements: alone Gender identity (if verbalized by the patient): Female Sexual Orientation (if Verbalized by the Patient): Straight or Heterosexual Spiritual care concerns: No Meds Home Medications and Allergies Home Medications ?Medication ?Instructions ?Recorded ?Confirmed ?Type amiodarone 200 mg tablet 200 mg PO DAILY 03/24/20 08/06/25 History metoprolol tartrate 50 mg tablet 50 mg PO Q12H 03/24/20 08/06/25 History rivaroxaban 20 mg tablet (Xarelto) 20 mg PO DAILY 06/07/21 08/06/25 History atorvastatin 80 mg tablet 80 mg PO DAILY 10/14/21 08/06/25 History letrozole 2.5 mg tablet 2.5 mg PO DAILY 09/30/22 08/06/25 History ergocalciferol (vitamin D2) 1,250 1,250 mcg PO WEEKLY 03/28/23 08/06/25 History mcg (50,000 unit) capsule (Vitamin D2) sacubitril 24 mg-valsartan 26 mg 1 tablet PO .BID 12/23/24 08/06/25 History tablet (Entresto) furosemide 80 mg tablet 80 mg PO DAILY 08/06/25 08/06/25 History hydralazine 50 mg tablet 50 mg PO .TID 08/06/25 08/06/25 History losartan 100 mg tablet 100 mg PO DAILY 08/06/25 08/06/25 History methenamine hippurate 1 gram tablet 1 g PO Q12H 08/06/25 08/06/25 History polyethylene glycol 3350 17 gram 17 g PO BID PRN constipation 08/06/25 08/06/25 History oral powder packet (ClearLax) potassium chloride 20 mEq 20 meq PO DAILY 08/06/25 08/06/25 History tablet,extended release(part/cryst) Allergies Allergy/AdvReac Type Severity Reaction Status Date / Time vancomycin Allergy Unknown Verified 08/06/25 16:24 meperidine (From Demerol) AdvReac Unknown Dizziness Verified 08/06/25 16:24 Vital Signs Vital Signs - 24 hr 08/06/25 10:03 08/06/25 10:09 08/06/25 10:13 Temperature 98.3 F Pulse Rate 59 L 59 L 57 L Respiratory Rate 21 H 16 Blood Pressure Pulse Oximetry 95 100 08/06/25 10:15 08/06/25 10:30 08/06/25 10:45 Temperature Pulse Rate 58 L 56 L 65 Respiratory Rate 15 16 22 H Blood Pressure Pulse Oximetry 100 100 100 08/06/25 11:00 08/06/25 11:02 08/06/25 11:20 Temperature Pulse Rate 56 L 56 L 56 L Respiratory Rate 20 21 H 17 Blood Pressure 147/73 H Pulse Oximetry 100 100 100 08/06/25 12:02 08/06/25 12:15 08/06/25 12:30 Temperature Pulse Rate 56 L 56 L 60 Respiratory Rate 18 16 18 Blood Pressure Pulse Oximetry 100 99 99 08/06/25 12:33 08/06/25 12:53 08/06/25 13:00 Temperature Pulse Rate 57 L 55 L 55 L Respiratory Rate 18 20 20 Blood Pressure 155/82 H Pulse Oximetry 100 100 99 08/06/25 13:15 08/06/25 13:18 08/06/25 13:30 Temperature Pulse Rate 57 L 57 L 57 L Respiratory Rate 19 18 21 H Blood Pressure 167/74 H Pulse Oximetry 99 100 100 08/06/25 14:02 08/06/25 14:15 Temperature Pulse Rate 57 L 57 L Respiratory Rate 16 20 Blood Pressure Pulse Oximetry 98 98 Exam Narrative: GENERAL: Weak but in no acute distress. HEAD: Normocephalic, atraumatic. EYES: PERRLA. Conjunctivae clear. NOSE: Normal no drainage. THROAT: Pharynx clear, no exudate. NECK: Trachea midline. No adenopathy, no masses. RESPIRATORY: Airway patent, respirations coarse throughout CARDIOVASCULAR: Regular rate and rhythm BREASTS: Defer GASTROINTESTINAL: Abdomen is soft and nontender. No organomegaly. Bowel sounds normal in all quadrants. Obese GENITOURINARY: PureWick in place with clear yellow urine MUSCULOSKELETAL: Moves all extremities. No gross deformities. No calf tenderness. Generalized weakness SKIN: Warm, dry, normal color. NEURO: A&O X4. Speech clear PSYCHIATRIC: Normal interaction H&P: Results Labs Labs: Short CBC 08/06/25 Range/Units 10:14 WBC 3.1 L (4.5-10.0) K/mm3 Hgb 11.2 L (12.0-15.0) g/dL Hct 36.8 L (37.0-47.0) % Plt Count 187 (150-375) k/mm3 BMP 08/06/25 10:14 Sodium 139 Potassium 4.3 Chloride 104 Carbon Dioxide 27 BUN 20 H Creatinine 0.83 Glucose 116 H Calcium 9.2 Cardiac Enzymes 08/06/25 Range/Units 10:14 Troponin I < 0.012 (0.000-0.034) ng/mL Liver Function 08/06/25 Range/Units 10:14 Total Bilirubin 0.6 (0.2-1.3) mg/dL AST 31 (14-36) U/L ALT 27 (6-35) U/L Alkaline Phosphatase 74 (38-126) U/L Albumin 4.3 (3.5-5.1) g/dL Assessment and Plan Assessment and plan (1) CHF exacerbation: Qualifiers: Heart failure type: unspecified Qualified Code(s): I50.9 - Heart failure, unspecified Code(s): I50.9 - Heart failure, unspecified Status: Acute Assessment and Plan: Patient to the ED with complaints of increased shortness of breath despite 80 mg p.o. Lasix. Chest x-ray with interstitial edema with fluid pattern consistent with pulmonary edema. Pneumonia less likely the cardiomegaly with right atrial enlargement. -Lasix 40 mg IVP q.12 hours -continue Entresto q.12 - BNP 400 -echo ordered - monitor I&Os and daily weights - trend renal function (2) Diabetes: Qualifiers: Diabetes mellitus type: type 2 Diabetes mellitus intermediate card tender insulin use: without mcfp use Code(s): E11.9 - Type 2 diabetes mellitus without complications Status: Acute Assessment and Plan: Currently not on any medications to control diabetes. A1c 5.9 on 05/08/2025 -hypoglycemia protocol -[facility] -no need for correctional dose insulin for now (3) Atrial fibrillation: Code(s): I48.91 - Unspecified atrial fibrillation Status: Acute Assessment and Plan: EKG with sinus Akhil -continue Xarelto Continue amiodarone (4) Hypertension: Code(s): I10 - Essential (primary) hypertension Status: Chronic Assessment and Plan: Continue hydralazine, losartan, metoprolol Plan Diet: Heart healthy GI prophylaxis: Not indicated DVT prophylaxis: SCD lines/drains: PIV Fluids: None indicated Code status: Full code Quality VTE Prophylaxis VTE prophylaxis: pharmacologic ordered Hospitalist MIPS Advance Care Plan I have confirmed that the patient's Advanced Care Plan is present, code status is documented, or surrogate decision maker is listed in patient medical record.: Yes Medication Reconciliation I have utilized all available resources to obtain, update and review the patients current medications (includes all prescriptions, OTC, herbals, cannabis, and nutritional supplements).: Yes
[2025-08-07] VITALS (11 sets, daily range): BP systolic 104–140; BP diastolic 51–71; PULSE 60–77; RESP 16–20; TEMP 36.1–36.8; O2SAT 96–98
[2025-08-07] MEDS: ACETAMINOPHEN 325 MG TABLET 650 MG PO ×3 (03:57→21:48)
[2025-08-07 05:21] LABS: NT Pro B Type Natriuretic Pept 785 pg/mL (19.9-100)
--- NOTE | 2025-08-07 06:00 | ECHO_ITS ---
Patient Info Name: Ivanna Beckman Age: 75 years : 1950 Gender: Female Ht: 68 in Wt: 291 lbs BSA: 2.58 m2 HR: 63 bpm BP: 139 / 72 mmHg Technical Quality: Good Exam Date: 08/07/2025 12:11 PM Patient Status: I Admit Date: 08/06/2025 Exam Type: CA echo doppler color flow Complete two-dimensional, color flow and Doppler transthoracic echocardiogram is performed. Staff Referring Physician: Ladan Castaneda Weld Engineer: Randolph Crow III Attending Provider: Elena Reed MD Summary 1. Complete two-dimensional, color flow and Doppler transthoracic echocardiogram is performed. 2. Left ventricular chamber dimension is normal. 3. Left ventricular systolic function is normal, estimated at 60-65. 4. There is mild concentric increased left ventricular wall thickness. 5. The left ventricular diastolic function is abnormal. 6. E/e' 13 is mildly elevated. 7. Left atrial chamber dimension is severely enlarged. 8. Right atrial chamber dimension is moderately enlarged. 9. There is moderate aortic valve sclerosis. 10. There is mild aortic valve regurgitation. 11. The mitral valve has a moderately calcified annulus. 12. There is mild mitral valve regurgitation. 13. There is mild tricuspid valve regurgitation. 14. No pulmonary hypertension, estimated pulmonary arterial systolic pressure is 38 mmHg. 15. There is small circumferential pericardial effusion. Left Ventricle E/e' 13 is mildly elevated. Left ventricular chamber dimension is normal. Left ventricular systolic function is normal, estimated at 60-65. There is mild concentric increased left ventricular wall thickness. The left ventricular diastolic function is abnormal. Right Ventricle Right ventricular chamber dimension is normal. Right ventricular systolic function is normal and with normal TAPSE 2.4 cm. Left Atria Left atrial chamber dimension is severely enlarged. Right Atria Right atrial chamber dimension is moderately enlarged. Aortic Valve The aortic valve is trileaflet. There is moderate aortic valve sclerosis. There is no aortic valve stenosis. There is mild aortic valve regurgitation. Pulmonic Valve There is no pulmonic regurgitation. Mitral Valve The mitral valve has a moderately calcified annulus. There is no mitral valve stenosis. There is mild mitral valve regurgitation. Tricuspid Valve There is mild tricuspid valve regurgitation. No pulmonary hypertension, estimated pulmonary arterial systolic pressure is 38 mmHg. Pericardium/Pleural There is small circumferential pericardial effusion. No cardiac tamponade. Inferior Vena Cava Normal inferior vena cava with >50% collapse upon inspiration consistent with normal right atrial pressure, 5 mmHg. Aorta The aortic root size at the sinus of Valsalva is normal. Left Ventricular Outflow Tract Name Value Normal LVOT 2D LVOT Diameter 2.2 cm LVOT Doppler LVOT Peak Velocity 123 cm/s LVOT Peak Gradient 6 mmHg LVOT Mean Gradient 2 mmHg LVOT VTI 22 cm LVOT VTI/AV VTI Ratio 0.7 LVOT Stroke Volume 82 ml LVOT CO 5.1 l/min LVOT CI 2.0 l/min/m2 Pulmonic Valve Name Value Normal PV Doppler PV Peak Velocity 127 cm/s PV Peak Gradient 6 mmHg PV Mean Gradient 3 mmHg PV Regurgitation Doppler RI Peak End Diastolic Velocity 117 cm/s Mitral Valve Name Value Normal MV Doppler MV Peak Gradient 5 mmHg MV Mean Gradient 2 mmHg MV Area (Cont Eq VTI) 2.4 cm2 MV Regurgitation Doppler MR Peak Gradient 134 mmHg MV Diastolic Function MV E Peak Velocity 104 cm/s MV A Peak Velocity 89 cm/s MV E/A 1.2 MV Decel Time (PW) 233 ms MV Annular TDI MV E/e' (Septal) 15.3 MV E/e' (Lateral) 12.5 MV E/e' (Average) 13.9 Tricuspid Valve Name Value Normal TV Regurgitation Doppler TR Peak Velocity 288 cm/s TR Peak Gradient 27 mmHg Estimated PAP/RSVP RA Pressure 5 mmHg <=5 PA Systolic Pressure 38 mmHg <36 RV Systolic Pressure 38 mmHg <36 TV Annular TDI TV Lateral Dina s' Velocity 16.5 cm/s >=9.5 Aortic Valve Name Value Normal AV Doppler AV Peak Velocity 182 cm/s AV Peak Gradient 13 mmHg AV Mean Gradient 6 mmHg AV VTI 32 cm AV Area (Cont Eq VTI) 2.5 cm2 >=3.0 AV Area (Cont Eq Kirby) 2.5 cm2 AV DI (Kirby) 0.68 AV Regurgitation 2D LVOT Area 3.7 cm2 Ventricles Name Value Normal LV Dimensions 2D/MM IVS Diastolic Thickness (2D) 0.8 cm 0.6-1.0 LVID Diastole (2D) 5.8 cm 3.8-5.2 LVIW Diastolic Thickness (2D) 0.9 cm 0.6-0.9 LVID Systole (2D) 3.7 cm 2.2-3.5 LVOT Diameter 2.2 cm LV Mass (2D Cubed) 192.08 g 67.00-162.00 LV Mass Index (2D Cubed) 74 g/m2 43-95 Relative Wall Thickness (2D) 0.32 <=0.42 LV Fractional Shortening/Ejection Fraction 2D/MM LV Fractional Shortening (2D) 36 % 27-45 LV EF (2D [place]) 65 % LV Diastolic Volume (4C MOD) 103 ml LV EF (4C MOD) 70 % LV Diastolic Volume (2C MOD) 103 ml LV EF (2C MOD) 81 % LV Diastolic Volume (BP MOD) 110 ml 46-106 LV Diastolic Volume Index (BP MOD) 43 ml/m2 29-61 LV Systolic Volume (BP MOD) 26 ml 14-42 LV Systolic Volume Index (BP MOD) 10 ml/m2 8-24 LV EF (BP MOD) 77 % 54-74 LV Diastolic Length (4C) 6.8 cm LV Systolic Length (4C) 5.1 cm LV Stroke Volume (4C MOD) 73 ml Atria Name Value Normal LA Dimensions LA Volume (4C A-L) 118 ml LA Volume (BP A-L) 126 ml RA Dimensions RA Systolic Major [place] Length (4C) 6.5 cm 2.2-2.8 RA Area (4C) 24.2 cm2 <=18.0 Report Signatures
[2025-08-07] MEDS: LOSARTAN POTASSIUM 100 MG TABLET PO (09:33)
[2025-08-07] MEDS: SACUBITRIL/VALSARTAN 24-26 MG TABLET 1 TAB PO (09:33)
[2025-08-07] MEDS: ATORVASTATIN 40 MG TABLET 80 MG PO (09:33)
[2025-08-07] MEDS: POTASSIUM CHLORIDE 20 MEQ ER TABLET PO (09:33)
[2025-08-07] MEDS: FUROSEMIDE INJ 40 MG/4 ML VIAL IV PUSH (09:34)
[2025-08-07] MEDS: LETROZOLE (*CHEMO) 2.5 MG TABLET PO (09:34)
[2025-08-07] MEDS: Non-Formulary (methenamine hippurate 1 gram ORAL tablet) 1 EACH PO ×2 (09:35→21:49)
[2025-08-07] MEDS: METOPROLOL TARTRATE 50 MG TAB PO ×2 (09:37→21:48)
[2025-08-07] MEDS: AMIODARONE HCL 200 MG TABLET PO (09:37)
--- NOTE | 2025-08-07 09:49 | PM.IMPN ---
Progress Note: A&P Assessment and Plan (1) CHF exacerbation: Qualifiers: Heart failure type: unspecified Qualified Code(s): I50.9 - Heart failure, unspecified Code(s): I50.9 - Heart failure, unspecified Status: Acute Assessment and Plan: Patient to the ED with complaints of increased shortness of breath despite 80 mg p.o. Lasix. Chest x-ray with interstitial edema with fluid pattern consistent with pulmonary edema. Pneumonia less likely the cardiomegaly with right atrial enlargement. -Lasix 40 mg IVP q.12 hours -continue Entresto q.12 - BNP 400 - echo ordered - monitor I&Os and daily weights - trend renal function 08/07: -ECHO: Summary 1. Complete two-dimensional, color flow and Doppler transthoracic echocardiogram is performed. 2. Left ventricular chamber dimension is normal. 3. Left ventricular systolic function is normal, estimated at 60-65. 4. There is mild concentric increased left ventricular wall thickness. 5. The left ventricular diastolic function is abnormal. 6. E/e' 13 is mildly elevated. 7. Left atrial chamber dimension is severely enlarged. 8. Right atrial chamber dimension is moderately enlarged. 9. There is moderate aortic valve sclerosis. 10. There is mild aortic valve regurgitation. 11. The mitral valve has a moderately calcified annulus. 12. There is mild mitral valve regurgitation. 13. There is mild tricuspid valve regurgitation. 14. No pulmonary hypertension, estimated pulmonary arterial systolic pressure is 38 mmHg. 15. There is small circumferential pericardial effusion. Continue to diuresis, assess for SOB, and obtain daily labs. 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 A1c 5.9 on 05/08/2025 -hypoglycemia protocol -[facility] -no need for correctional dose insulin for now 08/07: -BS with AM labs 116, continue to monitor (3) Atrial fibrillation: Code(s): I48.91 - Unspecified atrial fibrillation Status: Acute Assessment and Plan: EKG with sinus Akhil -continue Xarelto Continue amiodarone 08/07: -TELE: 69 (4) Hypertension: Code(s): I10 - Essential (primary) hypertension Status: Chronic Assessment and Plan: Continue hydralazine, losartan, metoprolol (5) Nausea: Code(s): R11.0 - Nausea Status: Acute Assessment and Plan: 08/07: States has been apparent since yesterday, zofran PRN (6) Acid reflux: Code(s): K21.9 - Gastro-esophageal reflux disease without esophagitis Status: Acute Assessment and Plan: 08/07: States has been intermittent. Has a hx of and has had relief with pantoprazole in the past. Ordered PRN. Plan Diet: Heart healthy GI prophylaxis: Not indicated DVT prophylaxis: SCD lines/drains: PIV Fluids: None indicated Code status: Full code Time Spent With Patient Time: 35 Subjective Date/time seen: 08/07/25 1215 Interval history: Pt undergoing echo US upon me entering her room. Pt reporting SOB still but does believe her swelling is going down. Pt denies CP but does report persistent nausea and acid reflux. Pt able to ambulte with assistance to restroom, she had a BM this AM. Pt also has chronic sciatic pain to her R lower back and RLE, takes acetaminophen at home, continue here. Review of Systems Review of Systems: All systems reviewed & are unremarkable except as noted in HPI and below Exam Narrative: GENERAL: Weak but in no acute distress. Obese. HEAD: Normocephalic, atraumatic. EYES: PERRLA. Conjunctivae clear. NOSE: Normal no drainage. THROAT: Pharynx clear, no exudate. NECK: Trachea midline. No adenopathy, no masses. RESPIRATORY: Airway patent, respirations coarse throughout CARDIOVASCULAR: Regular rate and rhythm BREASTS: L surgically removed breast GASTROINTESTINAL: Abdomen is soft and nontender. No organomegaly. Bowel sounds normal in all quadrants. GENITOURINARY: PureWick in place with clear yellow urine MUSCULOSKELETAL: Moves all extremities. No gross deformities. No calf tenderness. Generalized weakness SKIN: Warm, dry, normal color. No BLE edema. NEURO: A&O X4. Speech clear PSYCHIATRIC: Normal interaction Objective Data Vital Signs Vital Signs: Vital Signs - 24 hr 08/06/25 10:03 08/06/25 10:09 08/06/25 10:13 Temperature 98.3 F Pulse Rate 59 L 59 L 57 L Respiratory Rate 21 H 16 Blood Pressure Pulse Oximetry 95 100 Oxygen Delivery 08/06/25 10:15 08/06/25 10:30 08/06/25 10:45 Temperature Pulse Rate 58 L 56 L 65 Respiratory Rate 15 16 22 H Blood Pressure Pulse Oximetry 100 100 100 Oxygen Delivery 08/06/25 11:00 08/06/25 11:02 08/06/25 11:20 Temperature Pulse Rate 56 L 56 L 56 L Respiratory Rate 20 21 H 17 Blood Pressure 147/73 H Pulse Oximetry 100 100 100 Oxygen Delivery 08/06/25 12:02 08/06/25 12:15 08/06/25 12:30 Temperature Pulse Rate 56 L 56 L 60 Respiratory Rate 18 16 18 Blood Pressure Pulse Oximetry 100 99 99 Oxygen Delivery 08/06/25 12:33 08/06/25 12:53 08/06/25 13:00 Temperature Pulse Rate 57 L 55 L 55 L Respiratory Rate 18 20 20 Blood Pressure 155/82 H Pulse Oximetry 100 100 99 Oxygen Delivery 08/06/25 13:15 08/06/25 13:18 08/06/25 13:30 Temperature Pulse Rate 57 L 57 L 57 L Respiratory Rate 19 18 21 H Blood Pressure 167/74 H Pulse Oximetry 99 100 100 Oxygen Delivery 08/06/25 14:02 08/06/25 14:15 08/06/25 17:13 Temperature Pulse Rate 57 L 57 L Respiratory Rate 16 20 Blood Pressure Pulse Oximetry 98 98 Oxygen Delivery Room Air 08/06/25 17:32 08/06/25 19:47 08/06/25 20:00 Temperature Pulse Rate 57 L 60 Respiratory Rate Blood Pressure Pulse Oximetry Oxygen Delivery Room Air 08/06/25 22:00 08/07/25 00:00 08/07/25 06:00 Temperature 98.1 F 97.0 F L Pulse Rate 60 63 60 Respiratory Rate 18 18 Blood Pressure 139/72 140/71 Pulse Oximetry 96 98 Oxygen Delivery 08/07/25 09:37 08/07/25 09:37 Temperature Pulse Rate 69 69 Respiratory Rate Blood Pressure Pulse Oximetry Oxygen Delivery Intake/Output Intake/Output: Intake & Output 08/04/25 08/05/25 08/06/25 08/07/25 23:59 23:59 23:59 23:59 Intake Total 240 300 Output Total 500 1100 Balance -260 -800 Meds/Results Medications: Active Medications Generic Name Dose Route Start Last Admin Trade Name Freq PRN Reason Stop Dose Admin Acetaminophen 650 mg 08/06/25 13:34 08/07/25 03:57 Acetaminophen 325 Mg Tablet PO 650 mg Q4H PRN Administration Mild Pain (1-3) or Fever Amiodarone HCl 200 mg 08/07/25 09:00 08/07/25 09:37 Amiodarone Hcl 200 Mg Tablet PO 200 mg DAILY JOSE MIGUEL Administration Atorvastatin Calcium 80 mg 08/07/25 09:00 08/07/25 09:33 Atorvastatin 40 Mg Tablet PO 80 mg DAILY JOSE MIGUEL Administration Dextrose 12.5 gm 08/06/25 22:38 Dextrose 50% 25 Gm/50 Ml Syringe IV PUSH PRN PRN Hypoglycemia Protocol Furosemide 40 mg 08/06/25 21:00 08/07/25 09:34 Furosemide Inj 40 Mg/4 Ml Vial IV PUSH 40 mg Q12HR JOSE MIGUEL Administration Glucagon 1 mg 08/06/25 22:38 Glucagon For Inj 1 Mg Vial IM PRN PRN Hypoglycemia Protocol Glucose 15 gm 08/06/25 22:38 Glucose Oral Gel 15 Gm Of Glucse In 37.5 Gm Tube PO PRN PRN Hypoglycemia Protocol Hydralazine HCl 50 mg 08/06/25 22:30 08/07/25 05:52 Hydralazine Hcl 50 Mg Tablet PO 50 mg Q8HR JOSE MIGUEL Administration Dextrose 1,000 mls @ 100 mls/hr 08/06/25 22:38 Dextrose 5% 1,000 Ml IVPB PRN PRN Hypoglycemia Protocol Letrozole 2.5 mg 08/07/25 09:00 08/07/25 09:34 Letrozole (*Chemo) 2.5 Mg Tablet PO 2.5 mg DAILY JOSE MIGUEL Administration Losartan Potassium 100 mg 08/07/25 09:00 08/07/25 09:33 Losartan Potassium 100 Mg Tablet PO 100 mg DAILY JOSE MIGUEL Administration Metoprolol Tartrate 50 mg 08/06/25 22:30 08/07/25 09:37 Metoprolol Tartrate 50 Mg Tab PO 50 mg Q12HR JOSE MIGUEL Administration Non-Formulary ( 1 each 08/06/25 22:50 08/07/25 09:35 Methenamine PO 09/05/25 22:49 1 each Hippurate 1 Gram Q12HR JOSE MIGUEL Administration Oral Tablet) Ondansetron HCl 4 mg 08/06/25 13:34 Ondansetron Inj 4 Mg/2 Ml Vial IV PUSH Q4H PRN Nausea Perflutren Lipid Microsphere 0 ml 08/06/25 13:34 Perflutren Lipid Microspheres 1.5 Ml Vial Diluted To 10 Ml Total Volume IV PUSH 08/09/25 13:34 ONCE PRN adequate visualization Protocol Polyethylene Glycol 17 gm 08/06/25 22:30 08/07/25 09:37 Polyethylene Glycol 3350 17 Gm Powd.Pack PO 17 gm BID PRN Administration Constipation Potassium Chloride 20 meq 08/07/25 09:00 08/07/25 09:33 Potassium Chloride 20 Meq Er Tablet PO 20 meq DAILY JOSE MIGUEL Administration Rivaroxaban 20 mg 08/06/25 22:50 08/07/25 00:44 Rivaroxaban 20 Mg Tablet PO Not Given DAILY@1700 JOSE MIGUEL Sacubitril/Valsartan 1 tab 08/06/25 22:30 08/07/25 09:33 Sacubitril/Valsartan 24-26 Mg Tablet PO 1 tab Q12HR JOSE MIGUEL Administration Radiology Results: ITS Impressions Chest X-Ray 08/06/25 11:40 IMPRESSION: 1. Mild increased interstitial pattern in the dependent lower lungs most likely mild pulmonary edema and/or atelectasis although differential includes less likely pneumonia. 2. Cardiomegaly with right atrial enlargement. Labs Labs: Laboratory Results - last 24 hr 08/06/25 08/06/25 08/07/25 10:14 16:35 04:40 WBC 3.1 L RBC 3.70 L Hgb 11.2 L Hct 36.8 L MCV 99.5 MCH 30.3 MCHC 30.4 L RDW 15.0 H Plt Count 187 MPV 10.0 Immature Gran % (Auto) 0.3 Neut % (Auto) 62.5 Lymph % (Auto) 29.6 [place] % (Auto) 7.3 Eos % (Auto) 0.3 Baso % (Auto) 0.0 L Lymph # (Auto) 0.93 [place] # (Auto) 0.2 Eos # (Auto) 0.0 Baso # (Auto) 0.0 Abs Immat Gran (auto) 0.01 Absolute Neuts (auto) 2.0 Absolute Nucleated RBC 0.000 Nucleated RBC % 0.0 PT 24.7 H INR 2.3 APTT 39.6 H Sodium 139 Potassium 4.3 Chloride 104 Carbon Dioxide 27 Anion Gap 8 BUN 20 H Creatinine 0.83 Estim Creat Clear Calc 72 Estimated GFR > 60 Glucose 116 H POC Capillary Glucose 85 Calcium 9.2 Magnesium 2.0 Total Bilirubin 0.6 AST 31 ALT 27 Alkaline Phosphatase 74 Troponin I < 0.012 NT-Pro-B Natriuret Pep 400 H 785 H Total Protein 8.1 Albumin 4.3 08/07/25 08:10 WBC RBC Hgb Hct MCV MCH MCHC RDW Plt Count MPV Immature Gran % (Auto) Neut % (Auto) Lymph % (Auto) [place] % (Auto) Eos % (Auto) Baso % (Auto) Lymph # (Auto) [place] # (Auto) Eos # (Auto) Baso # (Auto) Abs Immat Gran (auto) Absolute Neuts (auto) Absolute Nucleated RBC Nucleated RBC % PT INR APTT Sodium Potassium Chloride Carbon Dioxide Anion Gap BUN Creatinine Estim Creat Clear Calc Estimated GFR Glucose POC Capillary Glucose 109 H Calcium Magnesium Total Bilirubin AST ALT Alkaline Phosphatase Troponin I NT-Pro-B Natriuret Pep Total Protein Albumin Quality VTE Prophylaxis VTE prophylaxis: mechanical ordered and pharmacologic ordered
[2025-08-07] MEDS: ONDANSETRON INJ 4 MG/2 ML VIAL IV PUSH ×2 (13:14→19:49)
[2025-08-07] MEDS: RIVAROXABAN 20 MG TABLET PO (17:24)
--- NOTE | 2025-08-07 20:09 | PM.CCN ---
Critical Care Event Note Summary Code activated: No Narrative: Called by nurse for patient being dizzy with soft blood pressure CMP, chest x-ray, hold hypertension medications Chest X ray was some improvement Hold diuretics for tonight Critical Care Time Critical Care Time: Yes Total Critical Care Time: 35 Due to a high probability of clinically significant, life threatening deterioration, the patient required my highest level of preparedness to intervene emergently and I personally spent this critical care time directly and personally managing the patient. This critical care time included obtaining a history; examining the patient; pulse oximetry; ordering and review of studies; arranging urgent treatment with development of a management plan; evaluation of patient's response to treatment; frequent reassessment; and discussions with other providers. It was exclusive of separately billable procedures and treating other patients and teaching time. Please see Assessment and Plan section and the rest of the note for further information on patient assessment and treatment. This case had a high probability of a clinically significant, sudden, or life threatening deterioration of this patient's condition which required my full and direct attention, intervention and personal management. Critical care time: 30 - 74 mins
[2025-08-07 21:11] LABS: Alanine Aminotransferase 27 U/L (6-35); Albumin Level 3.8 g/dL (3.5-5.1); Alkaline Phosphatase 70 U/L (38-126); Anion Gap 5 mmol/L (4-12); Aspartate Amino Transferase 27 U/L (14-36); Bilirubin,Total 0.7 mg/dL (0.2-1.3); Blood Urea Nitrogen 28 mg/dL (7-17); Calcium 8.8 mg/dL (8.4-10.2); Carbon Dioxide 31 mmol/L (22-30); Chloride 98 mmol/L (98-107); Estimated CRCL calculation 56 ml/min; Estimated Glomerular Filt Rate 50; Glucose 167 mg/dL (65-110); Potassium 4.0 mmol/L (3.4-5.0); Sodium 134 mmol/L (137-145); Total Protein 7.2 g/dL (6.3-8.2)
[2025-08-08] VITALS (7 sets, daily range): BP systolic 116–118; BP diastolic 52–64; PULSE 54–67; RESP 16–20; TEMP 36.3; O2SAT 95
[2025-08-08 06:33] LABS: Hematocrit 35.6 % (37.0-47.0); Hemoglobin 11.0 g/dL (12.0-15.0); Immature Granulocyte Percent A 0.0 % (0-0.5); Lymphocytes Absolute Auto 1.11 K/mm3 (0.9-3.2); Mean Corpuscular HGB Conc 30.9 g/dl (32-36); Mean Corpuscular Hemoglobin 30.1 pg (26-34); Mean Corpuscular Volume 97.5 fl (80-100); Nucleated Red Blood Cells Absolute Auto 0.000 K/mm3 (0.0-0.012); Nucleated Red Blood Cells Perc 0.0 % (0.0-0.2); Platelet Count Result 172 k/mm3 (150-375); Red Blood Count 3.65 M/mm3 (4.2-5.4); White Blood Count 2.8 K/mm3 (4.5-10.0)
[2025-08-08] MEDS: ACETAMINOPHEN 325 MG TABLET 650 MG PO (06:51)
[2025-08-08 06:54] LABS: Alanine Aminotransferase 25 U/L (6-35); Albumin Level 3.7 g/dL (3.5-5.1); Alkaline Phosphatase 65 U/L (38-126); Anion Gap 4 mmol/L (4-12); Aspartate Amino Transferase 24 U/L (14-36); Bilirubin,Total 0.6 mg/dL (0.2-1.3); Blood Urea Nitrogen 27 mg/dL (7-17); Calcium 8.8 mg/dL (8.4-10.2); Carbon Dioxide 32 mmol/L (22-30); Chloride 99 mmol/L (98-107); Estimated CRCL calculation 60 ml/min; Estimated Glomerular Filt Rate 55; Glucose 110 mg/dL (65-110); Potassium 4.2 mmol/L (3.4-5.0); Sodium 135 mmol/L (137-145); Total Protein 7.0 g/dL (6.3-8.2)
[2025-08-08] MEDS: LETROZOLE (*CHEMO) 2.5 MG TABLET PO (08:17)
[2025-08-08] MEDS: METOPROLOL TARTRATE 50 MG TAB PO (08:18)
[2025-08-08] MEDS: POTASSIUM CHLORIDE 20 MEQ ER TABLET PO (08:18)
[2025-08-08] MEDS: ATORVASTATIN 40 MG TABLET 80 MG PO (08:18)
[2025-08-08] MEDS: Non-Formulary (methenamine hippurate 1 gram ORAL tablet) 1 EACH PO (08:19)
--- NOTE | 2025-08-08 12:40 | PM.DS ---
DS: Admitting Diagnosis Discharge Date 08/08/2025 Admitting Diagnosis CHF exacerbation DS: Discharge Diagnosis Discharge Diagnosis (1) CHF exacerbation: Qualifiers: Heart failure type: unspecified Qualified Code(s): I50.9 - Heart failure, unspecified Code(s): I50.9 - Heart failure, unspecified Status: Acute Assessment and Plan: Patient to the ED with complaints of increased shortness of breath despite 80 mg p.o. Lasix. Chest x-ray with interstitial edema with fluid pattern consistent with pulmonary edema. Pneumonia less likely the cardiomegaly with right atrial enlargement. -Lasix 40 mg IVP q.12 hours -continue Entresto q.12 - BNP 400 - echo ordered - monitor I&Os and daily weights - trend renal function 08/07: -ECHO: Summary 1. Complete two-dimensional, color flow and Doppler transthoracic echocardiogram is performed. 2. Left ventricular chamber dimension is normal. 3. Left ventricular systolic function is normal, estimated at 60-65. 4. There is mild concentric increased left ventricular wall thickness. 5. The left ventricular diastolic function is abnormal. 6. E/e' 13 is mildly elevated. 7. Left atrial chamber dimension is severely enlarged. 8. Right atrial chamber dimension is moderately enlarged. 9. There is moderate aortic valve sclerosis. 10. There is mild aortic valve regurgitation. 11. The mitral valve has a moderately calcified annulus. 12. There is mild mitral valve regurgitation. 13. There is mild tricuspid valve regurgitation. 14. No pulmonary hypertension, estimated pulmonary arterial systolic pressure is 38 mmHg. 15. There is small circumferential pericardial effusion. Continue to diuresis, assess for SOB, and obtain daily labs. 08/08: Pt reports very mild SOB, she feels as if she is back to her baseline. Pt has no swelling of note, lung sounds are distant but clear. Pt comfortable with going home with a prompt follow-up with her established batch or continuous still operator Dr. Lutz. 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 A1c 5.9 on 05/08/2025 -hypoglycemia protocol -ACHS -no need for correctional dose insulin for now 08/07: -BS with AM labs 116, continue to monitor 08/08: Pt continues to be stable. will D/C on home regimen. (3) Atrial fibrillation: Code(s): I48.91 - Unspecified atrial fibrillation Status: Acute Assessment and Plan: EKG with sinus Akhil -continue Xarelto Continue amiodarone 08/07: -TELE: 69 (4) Hypertension: Code(s): I10 - Essential (primary) hypertension Status: Chronic Assessment and Plan: Continue hydralazine, losartan, metoprolol (5) Nausea: Code(s): R11.0 - Nausea Status: Acute Assessment and Plan: 08/07: States has been apparent since yesterday, zofran PRN 08/08: Denies nausea today, pt has been eating like normal. (6) Acid reflux: Code(s): K21.9 - Gastro-esophageal reflux disease without esophagitis Status: Acute Assessment and Plan: 08/07: States has been intermittent. Has a hx of and has had relief with pantoprazole in the past. Ordered PRN. Plan Discharge today with cards f/u DS: Summary Hospital Course Reason for hospitalization: CHF exacerbation Hospital Course: 75-year-old female with a complex past medical history including atrial fibrillation on anticoagulation, congestive heart failure on 80 mg Lasix, history of breast cancer, hypertension, diabetes, NESHA on CPAP nightly. Patient presents from her primary care office today for worsening shortness of breath, weight gain, fluid retention. Patient states she has been feeling weak and having weight gain with fluid on her lungs and legs. She has had a weight gain from her dry weight over last 24 hours even despite taking her 80 mg Lasix at home. Denies any specific complaints such as chest pain, nausea vomiting, headache, vision changes, urinary complaints. She was referred to the emergency department for evaluation by her PCPs office this morning. Denies any new medication changes or recent illnesses otherwise. Is compliant with her medications and CPAP according to the patient. Patient is overall showing signs of CHF exacerbation versus other fluid retention/renal failure. She has rales in both bilateral bases of the lungs, 2+ pitting edema, minor JVD noted bilaterally. Is complaining of dyspnea but answering questions appropriately with some minor tachypnea. No tachycardia or significant blood pressure elevations. No fever or hypoxemia. Suspect fluid retention and CHF exacerbation versus electrolyte derangements such as hypokalemia hypo magnesemia versus less likely acute cardiopulmonary process such as ACS or valvular dysfunction. Pulmonary hypertension also possible specially with her combination of past medical history is. Cardiac workup ordered including EKG, chest x-ray, BNP, troponin. Patient given 80 mg of IV Lasix and placed on director of cardiac rehabilitation. Workup shows persistent leukopenia around her baseline. Hemoglobin 11.2 also around her baseline. Normal platelet count. Electrolytes are unremarkable. Normal BUN and creatinine. Normal glucose. Normal LFTs. Negative troponin, BNP 400. Chest x-ray shows interstitial edema, dependent fluid pattern consistent with pulmonary edema versus less likely pneumonia. Cardiomegaly with right atrial enlargement which could explain patient's symptoms if she has some pulmonary hypertension especially in the setting of for symptoms. Patient felt slightly better after diuresis but still complaining of some dyspnea. During admission, pt underwent echocardiogram which yielded similar results to prior echo. During the night between 08/07 and 08/08, pt had an episode of SOB and soft BPs. CXR was obtained, WDL. Pt reporting very mild SOB now, which is her baseline. Pt to be discharged on current medication regimen and prompt established cards f/u. Pt comfortable with discharge. Status at Discharge Overall status at discharge: patient is back to baseline Time Spent with Patient Time attestation: Total time spent providing and/or coordinating discharge services: 45 Exam Narrative: GENERAL: Weak but in no acute distress. Obese. HEAD: Normocephalic, atraumatic. EYES: PERRLA. Conjunctivae clear. NOSE: Normal no drainage. THROAT: Pharynx clear, no exudate. NECK: Trachea midline. No adenopathy, no masses. RESPIRATORY: Airway patent, BS clear throughout, diminished in bilateral lower lobes CARDIOVASCULAR: Regular rate and rhythm BREASTS: L surgically removed breast GASTROINTESTINAL: Abdomen is soft and nontender. No organomegaly. Bowel sounds normal in all quadrants. GENITOURINARY: PureWick in place with clear yellow urine MUSCULOSKELETAL: Moves all extremities. No gross deformities. No calf tenderness. Generalized weakness SKIN: Warm, dry, normal color. No BLE edema. NEURO: A&O X4. Speech clear PSYCHIATRIC: Normal interaction DS: Data Data Completed and Pending Completed studies during hospitalization: labs, CXR, ECHO Labs on day of discharge: Labs from last 24 hours 08/08/25 08/08/25 08/08/25 11:44 08:00 05:49 WBC 2.8 L RBC 3.65 L Hgb 11.0 L Hct 35.6 L MCV 97.5 MCH 30.1 MCHC 30.9 L RDW 15.0 H Plt Count 172 MPV 9.3 Immature Gran % (Auto) 0.0 Neut % (Auto) 48.2 Lymph % (Auto) 39.4 [place] % (Auto) 11.3 H Eos % (Auto) 0.7 Baso % (Auto) 0.4 Lymph # (Auto) 1.11 [place] # (Auto) 0.3 Eos # (Auto) 0.0 Baso # (Auto) 0.0 Abs Immat Gran (auto) 0.00 Absolute Neuts (auto) 1.4 Absolute Nucleated RBC 0.000 Nucleated RBC % 0.0 Sodium 135 L Potassium 4.2 Chloride 99 Carbon Dioxide 32 H Anion Gap 4 BUN 27 H Creatinine 0.98 Estim Creat Clear Calc 60 Estimated GFR 55 L Glucose 110 POC Capillary Glucose 129 H 113 H Calcium 8.8 Phosphorus 3.8 Total Bilirubin 0.6 AST 24 ALT 25 Alkaline Phosphatase 65 Total Protein 7.0 Albumin 3.7 08/07/25 08/07/25 08/07/25 20:34 19:49 16:47 WBC RBC Hgb Hct MCV MCH MCHC RDW Plt Count MPV Immature Gran % (Auto) Neut % (Auto) Lymph % (Auto) [place] % (Auto) Eos % (Auto) Baso % (Auto) Lymph # (Auto) [place] # (Auto) Eos # (Auto) Baso # (Auto) Abs Immat Gran (auto) Absolute Neuts (auto) Absolute Nucleated RBC Nucleated RBC % Sodium 134 L Potassium 4.0 Chloride 98 Carbon Dioxide 31 H Anion Gap 5 BUN 28 H Creatinine 1.06 H Estim Creat Clear Calc 56 Estimated GFR 50 L Glucose 167 H POC Capillary Glucose 185 H 118 H Calcium 8.8 Phosphorus Total Bilirubin 0.7 AST 27 ALT 27 Alkaline Phosphatase 70 Total Protein 7.2 Albumin 3.8 Imaging Radiologist's impression: CXR: 08/06: IMPRESSION: 1. Mild increased interstitial pattern in the dependent lower lungs most likely mild pulmonary edema and/or atelectasis although differential includes less likely pneumonia. 2. Cardiomegaly with right atrial enlargement. 08/07: IMPRESSION: No acute pulmonary findings. ECHO: Summary 1. Complete two-dimensional, color flow and Doppler transthoracic echocardiogram is performed. 2. Left ventricular chamber dimension is normal. 3. Left ventricular systolic function is normal, estimated at 60-65. 4. There is mild concentric increased left ventricular wall thickness. 5. The left ventricular diastolic function is abnormal. 6. E/e' 13 is mildly elevated. 7. Left atrial chamber dimension is severely enlarged. 8. Right atrial chamber dimension is moderately enlarged. 9. There is moderate aortic valve sclerosis. 10. There is mild aortic valve regurgitation. 11. The mitral valve has a moderately calcified annulus. 12. There is mild mitral valve regurgitation. 13. There is mild tricuspid valve regurgitation. 14. No pulmonary hypertension, estimated pulmonary arterial systolic pressure is 38 mmHg. 15. There is small circumferential pericardial effusion. Discharge Plan Discharge Attending physician on discharge: Donis Flores Consulting providers: Ramya Culp Discharging Clinician: Ramya Culp Anticipated Discharge Date/Time: 08/08/25 14:00 Patient Disposition: Home Activity: may shower Diet: heart healthy Discharge Instructions: 1. Make an appt with Dr. Lutz to check in with him for this admission before your November scheduled visit. Continue your medications as usual with below parameters. 2. Also to keep your primary care provider up to date, make an appt with them as well. 3. Make sure to continue to monitor your blood pressure at home. If your blood pressure is consistently under 110/60, or your pulse is under 60, or you are feeling light headed, do NOT take your scheduled dose of hydralazine, losartan, lasix, or metoprolol at that time. Continue to check your blood pressure and pulse prior to taking any of these medications. Continue to check your blood pressure and blood sugar at home if applicable. Keep your scheduled appts with your primary care provider and any specialist that you may see. Return to the emergency department if you develop sudden shortness of breath, chest pain, a fever of greater than 101.5, or nausea, vomiting, abd pain, or diarrhea that does not go away. Follow-up with your primary care provider within 1-2 weeks, they will want to be updated on your inpatient stay in the hospital. Thank you for choosing [facility] for your healthcare needs. Patient Instructions: Heart Failure (DC) Patient Language: Croatian Stand Alone Forms: General Discharge Information Follow-up/Referrals: Steve Lutz MD [Physician, Interventional Cardiology] - 2 Weeks Hernesto Molina MD [Primary Care Provider, [facility]] - 2 Weeks Discharge Medications: Continued atorvastatin 80 mg tablet 80 mg PO DAILY sacubitril-valsartan [Entresto] 24-26 mg tablet 1 tablet PO .BID ergocalciferol (vitamin D2) [Vitamin D2] 1,250 mcg (50,000 unit) capsule 1,250 mcg PO WEEKLY Patient Comments: Patient states she takes on monday amiodarone 200 mg tablet 200 mg PO DAILY metoprolol tartrate 50 mg tablet 50 mg PO Q12H Xarelto 20 mg tablet 20 mg PO DAILY Rx Instructions: must administer with evening meal letrozole 2.5 mg tablet 2.5 mg PO DAILY furosemide 80 mg tablet 80 mg PO DAILY hydralazine 50 mg tablet 50 mg PO .TID losartan 100 mg tablet 100 mg PO DAILY methenamine hippurate 1 gram tablet 1 g PO Q12H potassium chloride 20 mEq tablet,ER particles/crystals 20 meq PO DAILY polyethylene glycol 3350 [ClearLax] 17 gram powder in packet 17 g PO BID PRN (Reason: constipation) Date of admission: 08/06/25 13:34 Primary Care Provider: Hernesto Molina Admitting Provider: Elena Reed Attending physician on admission: Elena Reed Condition: Stable Quality VTE Prophylaxis VTE prophylaxis: mechanical ordered and pharmacologic ordered Hospitalist MIPS Heart Failure (Exclusion) Patient has history of Heart Transplant or Left Ventricular Assistive Device?: No IF YES, STOP HERE Heart Failure (Qualifier) Patient has current or prior documentation of LVEF less than or equal to 40%, or mod/servere depressed LVSF?: No IF NO, STOP HERE
== END 2025-08-08 14:30 | disposition home or self-care (01) ==
LOC: ANHED 12:28 → ANH3MED 14:59 → ANH3MEDSUR 08-11 07:03
PROVIDERS: Nurse Practitioner Adult Health; Nurse Practitioner Gerontology; Student in an Organized Health Care Education/Training Program; Admitting Provider Family Medicine; Emergency Provider Student in an Organized Health Care Education/Training Program; PCP Family Medicine; Visit Provider Internal Medicine
DX: I50.9 Heart failure, unspecified (principal); R11.0 Nausea; K21.9 Gastro-esophageal reflux disease without esophagitis; R42 Dizziness and giddiness; I48.91 Unspecified atrial fibrillation; Z79.01 Long term (current) use of anticoagulants; I11.0 Hypertensive heart disease with heart failure; Z85.3 Personal history of malignant neoplasm of breast; E11.9 Type 2 diabetes mellitus without complications; G47.33 Obstructive sleep apnea (adult) (pediatric); Z99.89 Dependence on other enabling machines and devices; E55.9 Vitamin D deficiency, unspecified; M32.9 Systemic lupus erythematosus, unspecified; Z90.13 Acquired absence of bilateral breasts and nipples; Z96.659 Presence of unspecified artificial knee joint; Z87.891 Personal history of nicotine dependence; E66.01 Morbid (severe) obesity due to excess calories; Z68.41 Body mass index [BMI] 40.0-44.9, adult; Z80.3 Family history of malignant neoplasm of breast; Z83.3 Family history of diabetes mellitus; Z82.49 Family history of ischemic heart disease and other diseases of the circulatory system
CPT/HCPCS: 36415; 71045; 71046; 80053; 82948; 83735; 83880; 84100; 84484; 85025; 85610; 85730; 93005; 93306; 96374; 96375; 96376; 99285; A9270; G0378; G0379; J1938; J2405

== ENCOUNTER 2025-10-12 10:07 | Emergency (ER) | payer OTHER, SELFPAY ==
--- OUTSIDE RECORDS SUMMARY | 2017-01-05 23:00 | XMS_ITS | Encounter Summary ---
Author Organization [facility] Healthcare Address [address] [place] [address] Care Team Providers Care Tetryl Boiling Tub Operator Name Role Phone Unavailable Primary Care Provider Unavailabl e Reason for Visit * Diagnostic Imaging (Routine) - Closed Specialty Diagnoses / Procedures Referred By Contac t Referred To Contact Procedures Breast Imaging Diagnostic Outside Reference Aft, Doreen Oliva MD PhD [address] [place] [address] Phone: tel: fax: Referral ID Status Reason Start Date Expiration Date Visits Re quested Visits Authorized [id number] Closed 01/20/2022 02/19/2023 1 1 Encounter Details Date Type Department Care Team (Late st Contact Info) Description 01/06/2017 Hospital Encounter [facility] [address] [place] [address] [phone] Social History Tobacco Use Types Packs/Day Years Used Date Smoking Tobacco: Former Cigarettes 1 31.7 1 969 - 07/09/2000 Smokeless Tobacco: Never Alcohol Use Standard Drinks/Week Comments No 0 (1 standard drink = 0.6 oz pur e alcohol) AUDIT-C Answer Date Recorded Q1: How often do you have a drink containing alc ohol? Never 10/04/2023 Average Number of Drinks Not on file 023 Frequency of Binge Drinking Not on file 09/22 Hunger Vital Sign Answer Date Recorded Within the past 12 months, y ou worried that your food would run out before you got the money to buy more. Never true 09/29/20 25 Within the past 12 months, t he food you bought just didn't last and you didn't have money to get more. Never true 09/29/2025 Personal Safety Answer Date Recorded Have you ever been in or are you currently in a harmful physical or emotional relationship or is someone making you feel afraid or unsafe? Denies 03/23/2023 Comments No Sex and Gender Information Value Date Recorded Sex Assigned at Not on file Legal Sex Female 9:06 AM ACETYLENE GAS COMPRESSOR Gender Identity Female 04/20/2018 8:43 AM CDT Sexual Orientation Not on file documented as of this encounter Plan of Treatment Not on file documented as of this encounter Procedures Procedure Name Priority Date/Time Associated Diagnosis Comments BREAST IMAGING MG DIAGNOSTIC OUTSIDE REFERENCE Routine 01/06/2017 12:00 AM CDT documented in this encounter Results * Breast Imaging Diagnostic Outside Reference (01/06/2017 12:00 AM CDT) Impressions [facility] - 01/20/2022 4:39 PM CDT These images are for Reference purposes only and have not been reviewed by [facility] Radiology. There will be no report generated by a [facility] Radiologist. Narrative [facility] - 01/20/2022 4:39 PM CDT EXAMINATION: Images For Reference Purposes Only us Doreen Patricia MD PhD IMG MAMMO PROCEDURES Final Result [facility] documented in this encounter Visit Diagnoses Not on filedocumented in this encounter
--- OUTSIDE RECORDS SUMMARY | 2017-01-26 23:00 | XMS_ITS | Encounter Summary ---
Author Organization [facility] Healthcare Address [address] [place] [address] Care Team Providers Care Secured Entrance Monitor Name Role Phone Unavailable Primary Care Provider Unavailabl e Reason for Visit * Diagnostic Imaging (Routine) - Closed Specialty Diagnoses / Procedures Referred By Contac t Referred To Contact Procedures Breast Imaging Diagnostic Outside Reference Aft, Doreen Oliva MD PhD [address] [place] [address] Phone: tel: fax: Referral ID Status Reason Start Date Expiration Date Visits Re quested Visits Authorized [id number] Closed 01/20/2022 02/19/2023 1 1 Encounter Details Date Type Department Care Team (Late st Contact Info) Description 2017 Hospital Encounter [facility]iology [facility] [address] [place] [address] [phone] Social History Tobacco Use Types Packs/Day Years [...] on file Legal Sex Female 9:06 AM PATHOLOGY TRANSCRIPTIONIST Gender Identity Female 04/20/2018 8:43 AM CDT Sexual Orientation Not on file documented as of this encounter Plan of Treatment Not on file documented as of this encounter Procedures Procedure Name Priority Date/Time Associated Diagnosis Comments BREAST IMAGING MG DIAGNOSTIC OUTSIDE REFERENCE Routine 2017 12:00 AM CDT documented in this encounter Results * Breast Imaging Diagnostic Outside Reference (2017 12:00 AM CDT) Impressions [facility] - 01/20/2022 4:22 PM CDT These images are for Reference purposes only and have not been reviewed by [facility] Radiology. There will be no report generated by a [facility] Radiologist. Narrative [facility] - 01/20/2022 4:22 PM CDT EXAMINATION: Images For Reference Purposes Only us Doreen Patricia MD PhD IMG MAMMO PROCEDURES Final Result [facility] documented in this encounter Visit Diagnoses Not on filedocumented in this encounter
--- OUTSIDE RECORDS SUMMARY | 2018-01-02 23:00 | XMS_ITS | Encounter Summary ---
Author Organization [facility] Healthcare Address [address] [place] [address] Care Team Providers Care Spray Ii Painter Name Role Phone Unavailable Primary Care Provider Unavailabl e Reason for Visit * Diagnostic Imaging (Routine) - Closed Specialty Diagnoses / Procedures Referred By Contac t Referred To Contact Procedures Breast Imaging Screening Outside Reference Aft, Doreen Oliva MD PhD [address] [place] [address] Phone: tel: fax: Referral ID Status Reason Start Date Expiration Date Visits Re quested Visits Authorized [id number] Closed 01/20/2022 02/19/2023 1 1 Encounter Details Date Type Department Care Team (Late st Contact Info) Description 01/03/2018 Hospital Encounter [facility] [address] [place] [address] [phone] Social History Tobacco Use Types Packs/Day Years [...] on file Legal Sex Female 9:06 AM INTERNET MARKETING MANAGER Gender Identity Female 04/20/2018 8:43 AM CDT Sexual Orientation Not on file documented as of this encounter Plan of Treatment Not on file documented as of this encounter Procedures Procedure Name Priority Date/Time Associated Diagnosis Comments BREAST IMAGING MG SCREENING OUTSIDE REFERENCE Routine 01/03/2018 12:00 AM CDT documented in this encounter Results * Breast Imaging Screening Outside Reference (01/03/2018 12:00 AM CDT) Impressions [facility] - 01/20/2022 4:30 PM CDT These images are for Reference purposes only and have not been reviewed by [facility] Radiology. There will be no report generated by a [facility] Radiologist. Narrative [facility] - 01/20/2022 4:30 PM CDT EXAMINATION: Images For Reference Purposes Only us Doreen Patricia MD PhD IMG MAMMO PROCEDURES Final Result [facility] documented in this encounter Visit Diagnoses Not on filedocumented in this encounter
--- OUTSIDE RECORDS SUMMARY | 2019-03-27 23:00 | XMS_ITS | Encounter Summary ---
Author Organization [facility] Healthcare Address [address] [place] [address] Care Team Providers Care Weapons And Tactics Instructor Name Role Phone Mimi Patrick MD Primary Care Provider + Reason for Visit * Diagnostic Imaging (Routine) - Closed Specialty Diagnoses / Procedures Referred By Contac t Referred To Contact Procedures Breast Imaging Screening Outside Reference Aft, Doreen Oliva MD PhD [address] [place] [address] Phone: tel: fax: Referral ID Status Reason Start Date Expiration Date Visits Re quested Visits Authorized [id number] Closed 01/20/2022 02/19/2023 1 1 Encounter Details Date Type Department Care Team (Late st Contact Info) Description 03/28/2019 Hospital Encounter [facility] Radiology [facility] [address] [place] [address] [phone] Social History Tobacco Use Types Packs/Day Years [...] on file Legal Sex Female 9:06 AM FUR JOINER Gender Identity Female 04/20/2018 8:43 AM CDT Sexual Orientation Not on file documented as of this encounter Plan of Treatment Not on file documented as of this encounter Procedures Procedure Name Priority Date/Time Associated Diagnosis Comments BREAST IMAGING MG SCREENING OUTSIDE REFERENCE Routine 03/28/2019 12:00 AM CDT documented in this encounter Results * Breast Imaging Screening Outside Reference (03/28/2019 12:00 AM CDT) Impressions [facility] - 01/20/2022 4:29 PM CDT These images are for Reference purposes only and have not been reviewed by [facility] Radiology. There will be no report generated by a [facility] Radiologist. Narrative [facility] - 01/20/2022 4:29 PM CDT EXAMINATION: Images For Reference Purposes Only us Doreen Patricia MD PhD IMG MAMMO PROCEDURES Final Result [facility] documented in this encounter Visit Diagnoses Not on filedocumented in this encounter Care Teams Weapons And Tactics Instructor Relationship Specialty Start Date End Date Mimi Patrick MD PCP - General Family Medicine 04/12/18 04/07/25 documented as of this encounter
--- NOTE | ~2025-10-12 | CT_ITS ---
EXAMINATION: CT brain wo con DATE: 10/12/2025 14:23 INDICATION: Trauma due to fall. TECHNIQUE: Computed tomography (CT) of the head was performed without intravenous contrast. The mA was adjusted according to patient size. Iterative reconstruction technique was employed. The dose-length product was 983.67 mGy-cm. COMPARISON: CT head dated 08/07/2024. FINDINGS: No acute intracranial bleed or extra-axial collections. No evidence of ventriculomegaly or midline shift. No effacement of sulci. Large hematoma the scalp is noted in the superior left parietal region. No acute cranial fracture is seen. IMPRESSION: 1. No acute intracranial bleed. Large hematoma the scalp in the upper left parietal region. No acute cranial fracture is seen. Reviewed, dictated and finalized at location T. STED LIVING NURSING DIRECTOR IMPRESSION: 1. No acute intracranial bleed. Large hematoma the scalp in the upper left earnestine etal region. No acute cranial fracture is seen.
--- OUTSIDE RECORDS SUMMARY | 2025-10-12 10:08 | XMS_ITS | Clinical Summary ---
Author Organization [facility] [employer] Address [address] [place] [address] Care Team Providers Care Elevator Repairer Helper Name Role Phone Mimi Patrick MD Primary Care Provider [phone] Source Comments [facility] [employer],non-owned Affiliates and Associated Physician Practices is amultiple site organization consisting of ambulatory clinics and hospital sitesin [place], [place], [place] and [place]. This disclosure is being madepursuant to the Care Everywhere program and may not contain all information available regarding this patient. 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 [address] PCP - General 02/20/17
--- OUTSIDE RECORDS SUMMARY | 2025-10-12 10:08 | XMS_ITS | Clinical Summary ---
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
--- OUTSIDE RECORDS SUMMARY | 2025-10-12 10:08 | XMS_ITS | Encounter Summary ---
Author Organization [facility] Address [address] [place] [address] Care Team Providers Care Home Assessment Nurse Name Role Phone NirmalLesli MD Unavailable [phone] Monika Doyle MD Unavailable Aft, Doreen Oliva MD PhD Unavailable [phone] Pamella Henry PhD Unavailable [phone] Hernesto Molina MD Primary Care Provider Encounter Details Date Type Department Care Team (Late st Contact Info) Description 09/09/2025 Results Follow-Up Obstetrics and Gynecology Clinic [address] [facility] 3rd Floor [address] [place] [address] Didier Nunes MD [address] [facility] [address] [place], [place] [id number] Urinalysis reflex to microscopic and culture Urine, in and out catheter, Urinalysis, microscopic only, Urine culture Urine, in and out catheter Social History Tobacco Use Types Packs/Day Years [...] on file 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 She reports that gelhorn pessary fell out the day after her visit and was not replaced. She is open to trying a donut pessary and would like to return to urogyn clinic. She reports that her bladder symptoms are the same. She notes very intermittent dysuria and continued urgency and frequency. Urge incontinence a few times per month. As her bladder symptoms are not aggravated at this time will not treat for UTI. Recommended that she call if she develops dysuria or worsening incontinence as these are symptoms of an infection vs colonization. Has ID follow up 09/25/25. Reviewed treatment options for OAB. The patient will try a medication which has been prescribed by her PCP. Will follow up symptoms at return visit/pessary fitting. NESS PROCESS ENGINEER documented in this encounter Plan of Treatment Not on file documented as of this encounter Visit Diagnoses Not on filedocumented in this encounter Care Teams Home Assessment Nurse Relationship Specialty Start Date End Date Hernesto Molina MD [address] [place] [id number] PCP - General Family Medicine 08/05/25 Lesli Kinney MD [address] [place] [address] Medical Oncologist/Multimedia Authoring Specialist Medical Oncology 05/17/22 Monika Doyle MD [address] [facility] [address] [place] [address] Radiation Oncologist Radiation Oncology 06/27/22 Aft, Doreen Oliva MD PhD [address] [place] [address] Surgeon Surgical Oncology 06/27/22 Pamella Henry, PhD [address] [place] [address] Nurse Practitioner Radiation Oncology 01/16/23 documented as of this encounter
--- OUTSIDE RECORDS SUMMARY | 2025-10-12 10:09 | XMS_ITS | Data Portability ---
Author Organization [facility] [employer], Main Office Address [address] [place] [address] Care Team Providers Care Vapor Coater Name Role Phone CATALINA PATRICK Primary Care Provider CATALINA PATRICK Referring Provider [phone] Assessment No assessment recorded. Plan of Treatment Reminders Order Date Submit Date Provider Last Modified By Organization Details Last Modified Time Details Appointments New Patient 15 2025 11:15A M Catalina Pratt MD Not available Not available Not available Lab urinalys is, dipstick 2023 024 [facility] [place], [address] [place] [address] [address], [place], [address], 08/21/2024 11:55:46 urinalys is complete , reflex culture 2023 024 [facility] (Lab), [address] [place], [address], 08/21/2024 22:35:13 CBC w/ auto diff 2023 024 [email or web address] Not available 12/04/2023 10:07:31 BMP, serum or plasma 2023 024 [email or web address] Not available 12/04/2023 10:07:50 vitamin D3, 25-hydro xy, serum 2023 024 [email or web address] Not available 12/04/2023 10:08:06 HbA1c (hemoglo bin A1c), blood 2023 024 [email or web address] Not available 12/04/2023 10:08:22 CBC w/ auto diff 2023 024 [email or web address] Not available 03/06/2024 14:06:06 ferritin , serum or plasma 2023 024 [email or web address] Not available 12/04/2023 10:08:50 iron + total iron-bin ding capacity (TIBC), serum 2023 024 [email or web address] Not available 12/04/2023 10:09:06 vitamin B12, serum 2023 024 [email or web address] Not available 12/04/2023 10:09:19 lipid panel, serum 2023 024 [email or web address] Not available 12/04/2023 10:07:02 hepatic function panel, serum 2023 024 [email or web address] 12/04/2023 10:07:17 vitamin D3, 25-hydro xy, serum 2022 023 [email or web address] 77 Not available 10/26/2023 08:00:42 CBC w/ auto diff 2022 023 [email or web address] 77 Not available 10/26/2023 08:00:41 BMP, serum or plasma 2022 023 [email or web address] 77 Not available 10/26/2023 08:00:42 HbA1c (hemoglo bin A1c), blood 2022 023 [email or web address] 77 Not available 10/26/2023 08:00:42 BMP, serum or plasma 2022 023 77 Not available 10/26/2023 08:00:42 lipid panel, serum 2022 023 [email or web address] 77 Not available 10/26/2023 08:00:42 hepatic function panel, serum 2022 023 [email or web address] 77 Not available 10/26/2023 08:00:42 Referral None recorded . Procedures None recorded . Surgeries None recorded . Imaging MRI, lumbar spine, w/o contrast - *Please call pt to schedule * 2023 [email or web address] [place] [address] Imaging, [address], [place], [address], 04/08/2024 09:22:18 Medication Orders albutero l sulfate HFA 90 mcg/actu ation aerosol inhaler 2023 [facility] [facility], [address], [place], [place], [id number], 08/21/2024 11:49:32 cyanocob alamin (vit B-12) 1,000 mcg tablet [address] [facility], [address], [place], [place], [id number], 07/11/2024 09:55:39 Trulance 3 mg tablet 2023 024 [email or web address] [facility] #03914, [address], [place], [place], [id number], 02/05/2024 09:50:38 predniso ne 20 mg tablet [address] [facility] [facility] [address] [facility], [address], [place], [place], [id number], 02/05/2024 09:51:26 tramadol 50 mg tablet 2022 [address] [facility], [address], [place], [place], [id number], 09/04/2023 09:44:55 Patient TargetsNo targets recorded. Patient InstructionsNo instructions recorded. Reason for Referral None Reported. Results Created Date Observation Date Name Description Value Unit Range Abnormal Flag Note LastModifiedBy Organization Detail LastModifiedTime 12/04/19 24 12/04/2023 CBC/C OMPLE TE BLD COUNT W/DIF F white blood cells 2.2 x10'3 /uL 4.2-10 .8 low Not Available [facility] (Lab) [address] [place], [address], 12/04/2023 19:37:13 12/04/19 24 12/04/2023 CBC/C OMPLE TE BLD COUNT W/DIF F red blood cells 4.09 x10'6 /uL 3.80-5 .20 Not Available [facility] (Lab) [address] [place], [address], 12/04/2023 19:37:13 12/04/19 24 12/04/2023 CBC/C OMPLE TE BLD COUNT W/DIF F hemoglobin 12.5 g/dL 12.0-1 5.6 Not Available [facility] (Lab) [address] [place], [address], 12/04/2023 19:37:13 12/04/19 24 12/04/2023 CBC/C OMPLE TE BLD COUNT W/DIF F hematocrit 40.4 % 35.7-4 5.7 Not Available [facility] (Lab) [address] [place], [address], 12/04/2023 19:37:13 12/04/19 24 12/04/2023 CBC/C OMPLE TE BLD COUNT W/DIF F mean red cell volume 98.8 fL 82.0-9 9.0 Not Available [facility] (Lab) [address] [place], [address], 12/04/2023 19:37:13 12/04/19 24 12/04/2023 CBC/C OMPLE TE BLD COUNT W/DIF F mean red cell hemoglobin 30.6 pg 27.0-3 3.0 Not Available [facility] (Lab) [address] [place], [address], 12/04/2023 19:37:13 12/04/19 24 12/04/2023 CBC/C OMPLE TE BLD COUNT W/DIF F mean RBC HGB concentratio n 30.9 g/dL 31.0-3 6.0 low Not Available [facility] (Lab) [address] [place], [address], 12/04/2023 19:37:13 12/04/19 24 12/04/2023 CBC/C OMPLE TE BLD COUNT W/DIF F red cell distribution width 14.8 % 11.8-1 5.5 Not Available [facility] (Lab) [address] [place], [address], 12/04/2023 19:37:13 12/04/19 24 12/04/2023 CBC/C OMPLE TE BLD COUNT W/DIF F platelets 193 x10'3 /uL 150-40 0 Not Available [facility] (Lab) [address] [place], [address], 12/04/2023 19:37:13 12/04/19 24 12/04/2023 CBC/C OMPLE TE BLD COUNT W/DIF F mean platelet volume 9.8 fL 9.0-12 .4 Not Available [facility] (Lab) [address] [place], [address], 12/04/2023 19:37:13 12/04/19 24 12/04/2023 CBC/C OMPLE TE BLD COUNT W/DIF F neutrophils 51.8 % 39.0-7 2.0 Not Available [facility] (Lab) [address] [place], [address], 12/04/2023 19:37:13 12/04/19 24 12/04/2023 CBC/C OMPLE TE BLD COUNT W/DIF F lymphocytes 36.6 % 16.0-4 7.0 Not Available [facility] (Lab) [address] [place], [address], 12/04/2023 19:37:13 12/04/19 24 12/04/2023 CBC/C OMPLE TE BLD COUNT W/DIF F monocytes 10.2 % 5.0-12 .0 Not Available [facility] (Lab) [address] [place], [address], 12/04/2023 19:37:13 12/04/19 24 12/04/2023 CBC/C OMPLE TE BLD COUNT W/DIF F eosinophils 0.9 % 1.0-7. 0 low Not Available [facility] (Lab) [address] [place], [address], 12/04/2023 19:37:13 12/04/19 24 12/04/2023 CBC/C OMPLE TE BLD COUNT W/DIF F basophils 0.5 % 0.0-2. 0 Not Available [facility] (Lab) [address] [place], [address], 12/04/2023 19:37:13 12/04/19 24 12/04/2023 CBC/C OMPLE TE BLD COUNT W/DIF F immature granulocytes 0.0 % 0.00-0 .50 Not Available [facility] (Lab) [address] [place], [address], 12/04/2023 19:37:13 12/04/19 24 12/04/2023 CBC/C OMPLE TE BLD COUNT W/DIF F neutrophils, absolute count 1.12 x10'3 /uL 1.5-8. 0 low Not Available [facility] (Lab) [address] [place], [address], 12/04/2023 19:37:13 12/04/19 24 12/04/2023 CBC/C OMPLE TE BLD COUNT W/DIF F lymphocytes, absolute count 0.79 x10'3 /uL 1.07-3 .43 low Not Available [facility] (Lab) [address] [place], [address], 12/04/2023 19:37:13 12/04/19 24 12/04/2023 CBC/C OMPLE TE BLD COUNT W/DIF F monocytes, absolute count 0.22 x10'3 /uL 0.29-0 .99 low Not Available [facility] (Lab) [address] [place], [address], 12/04/2023 19:37:13 12/04/19 24 12/04/2023 CBC/C OMPLE TE BLD COUNT W/DIF F eosinophils, absolute count 0.02 x10'3 /uL 0.02-0 .53 Not Available [facility] (Lab) [address] [place], [address], 12/04/2023 19:37:13 12/04/19 24 12/04/2023 CBC/C OMPLE TE BLD COUNT W/DIF F basophils, absolute count 0.01 x10'3 /uL 0.01-0 .08 Not Available [facility] (Lab) [address] [place], [address], 12/04/2023 19:37:13 12/04/19 24 12/04/2023 CBC/C OMPLE TE BLD COUNT W/DIF F immature granulocytes ,absolute 0.00 x10'3 /uL 0.00-0 .05 Not Available [facility] (Lab) [address] [place], [address], 12/04/2023 19:37:13 12/04/19 24 12/04/2023 CBC/C OMPLE TE BLD COUNT W/DIF F nucleated red blood cells 0.0 % -0 Not Available [facility] (Lab) [address] [place], [address], 12/04/2023 19:37:13 12/04/19 24 12/04/2023 CBC/C OMPLE TE BLD COUNT W/DIF F NRBC# 0.00 x10'3 /uL Not Available [facility] (Lab) [address] [place], [address], 12/04/2023 19:37:13 12/04/19 24 12/04/2023 IRON/ TIBC PANEL total iron binding capacity 305 mcg/d L 265-47 5 Not Available [facility] (Lab) [address] [place], [address], 12/04/2023 20:10:19 12/04/19 24 12/04/2023 IRON/ TIBC PANEL % transferrin saturation 29 % 20-55 Not Available [facility] (Lab) [address] [place], [address], 12/04/2023 20:10:19 12/04/19 24 12/04/2023 IRON/ TIBC PANEL unsaturated iron bind capacity 217 mcg/d L 126-38 2 Not Available [facility] (Lab) [address] [place], [address], 12/04/2023 20:10:19 12/04/19 24 12/04/2023 IRON/ TIBC PANEL iron 88 mcg/d L 42-175 Not Available [facility] (Lab) [address] [place], [address], 12/04/2023 20:10:19 12/04/19 24 12/04/2023 LIPID PANEL cholesterol 192 mg/dL 140-19 9 NIH ELISEO NSUS RECOM MENDA TION FOR ABEL STERO L: ADULT CHILD LOW RISK: <200 <170 BORDE RLINE : <200- 239 ----- HIGH RISK: >240 >200 Not Available [facility] (Lab) [address] [place], [address], 12/04/2023 19:43:32 12/04/19 24 12/04/2023 LIPID PANEL triglyceride s 107 mg/dL 0-150 NIH ELISEO NSUS REPOR T RECOM MENDA TION FOR TRIGL YCERI EDWIN: ADULT CHILD LOW RISK: <150 ----- BODER LINE: 150-1 99 ----- HIGH RISK: >200 ----- Not Available [facility] (Lab) [address] [place], [address], 12/04/2023 19:43:32 12/04/19 24 12/04/2023 LIPID PANEL HDL cholesterol 66 mg/dL 40- Not Available [facility] (Lab) [address] [place], [address], 12/04/2023 19:43:32 12/04/19 24 12/04/2023 LIPID PANEL [...] WILL NOT BE REPOR CHIKA. Not Available [facility] (Lab) [address] [place], [address], 12/04/2023 19:43:32 12/04/19 24 12/04/2023 HEPAT IC/LI ELIZABETH PANEL alkaline phosphatase 84 U/L 38-126 Not Available [facility] (Lab) [address] [place], [address], 12/04/2023 19:43:34 12/04/19 24 12/04/2023 HEPAT IC/LI ELIZABETH PANEL alanine aminotransfe rase 22 U/L 0-35 Not Available [facility] (Lab) [address] [place], [address], 12/04/2023 19:43:34 12/04/19 24 12/04/2023 HEPAT IC/LI ELIZABETH PANEL aspartate aminotransfe rase 27 U/L 15-37 Not Available [facility] (Lab) [address] [place], [address], 12/04/2023 19:43:34 12/04/19 24 12/04/2023 HEPAT IC/LI ELIZABETH PANEL bilirubin, total 0.70 mg/dL 0.20-1 .30 Not Available [facility] (Lab) [address] [place], [address], 12/04/2023 19:43:34 12/04/19 24 12/04/2023 HEPAT IC/LI ELIZABETH PANEL bilirubin, conjugated (direct) 0.00 mg/dL 0.00-0 .30 Not Available [facility] (Lab) [address] [place], [address], 12/04/2023 19:43:34 12/04/19 24 12/04/2023 HEPAT IC/LI ELIZABETH PANEL biliurubin,u ncong. (indirect) 0.40 mg/dL 0.00-1 .1 Not Available [facility] (Lab) [address] [place], [address], 12/04/2023 19:43:34 12/04/19 24 12/04/2023 HEPAT IC/LI ELIZABETH PANEL total protein 7.4 g/dL 6.3-8. 2 Not Available [facility] (Lab) [address] [place], [address], 12/04/2023 19:43:34 12/04/19 24 12/04/2023 HEPAT IC/LI ELIZABETH PANEL albumin 4.1 g/dL 3.0-4. 4 Not Available [facility] (Lab) [address] [place], [address], 12/04/2023 19:43:34 12/04/19 24 12/04/2023 HEPAT IC/LI ELIZABETH PANEL globulin 3.3 g/dL 2.6-4. 2 Not Available [facility] (Lab) [address] [place], [address], 12/04/2023 19:43:34 12/04/19 24 12/04/2023 HEPAT IC/LI ELIZABETH PANEL A/G ratio 1.2 ratio 1.0-2. 0 Not Available [facility] (Lab) [address] [place], [address], 12/04/2023 19:43:34 12/04/19 24 12/04/2023 BASIC METAB OLIC PANEL sodium 138 mmol/ L 137-14 5 Not Available [facility] (Lab) [address] [place], [address], 12/04/2023 19:43:38 12/04/19 24 12/04/2023 BASIC METAB OLIC PANEL potassium 4.2 mmol/ L 3.5-5. 1 Not Available [facility] (Lab) [address] [place], [address], 12/04/2023 19:43:38 12/04/19 24 12/04/2023 BASIC METAB OLIC PANEL chloride 104 mmol/ L 98-107 Not Available [facility] (Lab) [address] [place], [address], 12/04/2023 19:43:38 12/04/19 24 12/04/2023 BASIC METAB OLIC PANEL carbon dioxide 33 mmol/ L 22-30 high Not Available [facility] (Lab) [address] [place], [address], 12/04/2023 19:43:38 12/04/19 24 12/04/2023 BASIC METAB OLIC PANEL anion gap 5.2 mmol/ L 14-22 low Not Available [facility] (Lab) [address] [place], [address], 12/04/2023 19:43:38 12/04/19 24 12/04/2023 BASIC METAB OLIC PANEL glucose 115 mg/dL 70-99 high Not Available [facility] (Lab) [address] [place], [address], 12/04/2023 19:43:38 12/04/19 24 12/04/2023 BASIC METAB OLIC PANEL BUN 19 mg/dL 8-19 Not Available [facility] (Lab) [address] [place], [address], 12/04/2023 19:43:38 12/04/19 24 12/04/2023 BASIC METAB OLIC PANEL creatinine 0.99 mg/dL 0.66-1 .25 Not Available [facility] (Lab) [address] [place], [address], 12/04/2023 19:43:38 12/04/19 24 12/04/2023 BASIC METAB OLIC PANEL GFR 55 Refer ence Range : [place] ge GFR Healt hy Adult : >60 [...] or ethni c subgr oups, such as Natasha nics. Outsi de the valid ated светлана [...] calcu lator is avail able on the [facility] websi te: https :[email or web address] w.robert ashley.o rg/pr ofess ional s/kdo qi/gf r_cal culat or Not Available [facility] (Lab) [address] [place], [address], 12/04/2023 19:43:38 12/04/19 24 12/04/2023 BASIC METAB OLIC PANEL calcium 9.6 mg/dL 8.4-10 .2 Not Available [facility] (Lab) [address] [place], [address], 12/04/2023 19:43:38 12/04/19 24 12/04/2023 VITAM IN D 25-HY DROXY vd25oh 37.6 NG/mL 30-100 Vitam in D Statu s: Defic ient: <20 ng/mL Insuf ficie nt: 20-29 ng/mL Suffi cient : 30-10 0 ng/mL Not Available [facility] (Lab) [address] [place], [address], 12/04/2023 20:10:06 12/04/19 24 12/04/2023 JAYA TIN ferritin 24 NG/mL 11.1-2 64 Not Available [facility] (Lab) [address] [place], [address], 12/04/2023 20:13:43 12/04/19 24 12/04/2023 VITAM IN B12 (JUHI TIFFANY ) vb12 386 pg/mL 239-93 1 Not Available [facility] (Lab) [address] [place], [address], 12/04/2023 20:34:25 12/04/19 24 12/04/2023 HEMOG LOBIN A1C HA1C 6.4 % 4.0-6. 0 high Diabe jun Scree sanjeev Crite susie: <5.7% Consi stent with absen ce of diabe jun 5.7-6 .4% Consi stent with incre ased risk for diabe jun (pred iabet es) >OR=6 .5% Consi stent with diabe jun REFER ENCE: Diabe jun Care 2016, 39(Grayson ppl.1 ):s13 -s22 Not Available [facility] (Lab) [address], [place], [address], 12/04/2023 20:52:38 08/21/2008/21/2024 urina lysis , dipst ick Leukocytes (reference range: negative rishi/ l) Negati ve Not Available [address], [place], [address], 08/21/2024 11:40:19 08/21/20 24 08/21/2024 urina lysis , dipst ick Nitrite (reference rage: negative mg/dl) negati ve Not Available [address], [place], [address], 08/21/2024 11:40:19 08/21/20 24 08/21/2024 urina lysis , dipst ick Urobilinogen (reference range: 0.2-1 mg/dl) 0.2 Not Available [address], [place], [address], 08/21/2024 11:40:19 08/21/20 24 08/21/2024 urina lysis , dipst ick Protein (reference range: negative mg/dl) Negati ve Not Available [address], [place], [address], 08/21/2024 11:40:19 08/21/20 24 08/21/2024 urina lysis , dipst ick pH (reference range: 5-7) 5.0 Not Available [address], [place], [address], 08/21/2024 11:40:19 08/21/20 24 08/21/2024 urina lysis , dipst ick Blood (reference range: negative Delano/ l) Negati ve Not Available [address], [place], [address], 08/21/2024 11:40:19 08/21/2008/21/2024 urina lysis , dipst ick Specific [place] (reference range: 1.005-1.030) 1.015 Not Available s _[address], [place], [address], 08/21/2024 11:40:19 08/21/2008/21/2024 urina lysis , dipst ick Ketone (reference range: negative mg/dl) Trace Not Available s_ g [address], [place], [address], 08/21/2024 11:40:19 08/21/20 24 08/21/2024 urina lysis , dipst ick Bilirubin (reference range: negative mg/dl) Trace Not Available s_ g [address], [place], [address], 08/21/2024 11:40:19 08/21/2008/21/2024 urina lysis , dipst ick Glucose (reference range: negative mg/dl) 500 Not Available s_ g [address], [place], [address], 08/21/2024 11:40:19 08/21/2008/21/2024 urina lysis , dipst ick Appearance Clear Not Available s_[address], [place], [address], 08/21/2024 11:40:19 08/21/20 24 08/21/2024 urina lysis , dipst ick Color Yellow Not Available s_[address], [place], [address], 08/21/2024 11:40:19 03/05/20 24 03/05/2024 CT, abdom en + pelvi s, w/o contr ast No observ ation record ed. [email or web address] [address], [place], [address], 03/06/2024 14:04:53 08/07/20 24 08/07/2024 XR, chest , 2 view No observ ation record ed. [address], [place], [address], 08/08/2024 09:05:45 08/07/20 24 08/07/2024 CT, brain , w/o contr ast No observ ation record ed. [address] [address], [place], [address], 08/08/2024 09:03:13 09/09/20 24 09/09/2024 XR, chest , 2 view No observ ation record ed. [email or web address] [address] [facility], [place], [address], 09/10/2024 08:10:29 10/04/20 24 10/04/2024 heart failu re check (PROC ) No observ ation record ed. [email or web address] [facility] [address] [address], [place], [address], 08/04/2025 11:43:30 10/24/19 25 09/30/2024 imagi ng inter preta tion No observ ation record ed. [facility] [address], [place], [address], 08/04/2025 15:50:37 Result Notes None recorded. Problems Name Problem SNOMED Code Status Onset Date Resolution Date Notes Provider Name and Address Organization Details Recorded Time Edema of lower extremity 374937618 Active Not Available [employer] 4 05:02:01 Benign hypertension 09869068 Active Not Available [facility] 4 05:02:02 Increased frequency of urination 589648512 Active Not Available [employer] 4 05:02:02 Impacted cerumen 96304543 Active Not Available [facility] 4 05:02:02 Lipoma of axilla 291947412 Active Not Available [facility] 4 05:02:02 Incomplete uterovaginal prolapse 418566110 Active Not Available [facility] 4 05:02:02 Open wound of anterior abdominal wall 026854964 Active Not Available [facility] 4 05:02:02 Gastroesophag eal reflux disease 923415118 Active Not Available [facility] 4 05:02:02 Morbid obesity 233598366 Active Not Available [facility] 4 05:02:02 Malignant neoplasm of breast 797123646 Active Not Available [facility] 4 05:02:02 Anemia 184917738 Active Not Available [facility] 4 05:02:02 Mass of body structure 027340874 Active Not Available [facility] 4 05:02:02 Vitamin D deficiency 02254135 Active Not Available [facility] 4 05:02:02 Hypertensive disorder 17207093 Active Not Available [facility] 4 05:02:02 Memory impairment 432565967 Active Not Available [facility] 4 05:02:02 Osteoarthriti s 791791970 Active Not Available [facility] 4 05:02:02 Body mass index 40+ - severely obese 307213410 Active Not Available [facility] 4 05:02:02 Candidiasis of skin 62045853 Active Not Available [facility] 4 05:02:02 White blood cell disorder 13535468 Active Not Available [facility] 4 05:02:02 Hyperlipidemi a 46765229 Active Not Available [facility] 4 05:02:02 Carpal tunnel syndrome 83692677 Active Not Available [facility] 4 05:02:02 Hidradenitis suppurativa 37672583 Active Not Available [facility] 4 05:02:02 Visual disturbance 05554080 Active Not Available [facility] 4 05:02:02 Abscess of Bartholin's gland 78004656 Active Not Available [facility] 4 05:02:02 Diabetes mellitus 22737169 Active Not Available [facility] 4 05:02:02 Sleep apnea 80888052 Active Not Available [facility] 4 05:02:02 Urgent desire to urinate 32709319 Active Not Available [facility] 4 05:02:02 Pain in limb 42115929 Active Not Available [facility] 4 05:02:02 Systemic lupus erythematosus 05843420 Active 2016 Not Available [facility] 4 05:02:02 Atrial fibrillation 53541720 Active 2018 Not Available [facility] 4 05:02:02 Fatigue 37820507 Active 2022 Not Available [facility] 4 05:02:02 Lumbar spondylosis 669328743 Active 2022 Not Available [facility] 4 05:02:02 Rheumatoid arthritis 73643623 Active 2022 Not Available [facility] 4 05:02:02 Onychomycosis of toenails 747041445 Active 2022 Not Available [facility] 4 05:02:02 Constipation 24307588 Active 2022 Not Available [facility] 4 05:02:02 Chronic idiopathic constipation 11257099 Active 2023 Catalina Patrick MD [address], [place], [address] , [employer] [facility] [employer] [facility] 4 09:41:28 Degeneration of lumbar intervertebra l disc 16983693 Active 2023 Catalina Patrick MD [address], [place], [address] , [facility] 4 09:46:57 Dyspnea 239264807 Active 2023 CHRISTIAN Christine [address], [place], [address] , [employer] [employer] 4 09:34:41 Swelling of bilateral lower limbs 709323691 Active 2023 KALA Christine-C [address], [place], [address] , [facility] [employer] 4 09:34:48 Weakness of bilateral lower limb Active 2023 KALA Christine-C [address], [address], [place], [address] , [employer] 4 09:36:58 Paresthesia of lower extremity 972300748 Active 2023 GARCIA ChristineP-C [address], [address], [place], [address] , [employer] 4 09:37:06 Dysuria 78888434 Active 2023 KALA Christine-C [address], [address], [place], [address] , [employer] 4 11:40:14 Cardiomegaly 5975019 Active 2023 Rhea Andrade APRN [address], [address], [place], [address] , [employer] 4 08:10:14 Problem Notes None recorded. Procedures Surgical History Date Name Laterality Status Provider Name and Address Organization Details Recorded Time 08/03/20 23 Nail Debridement completed Wilmer Triplett DPM [address], [address], [place], [address], [employer] 08/07/2023 09:34:44 11/17/19 16 Most Recent Bone Density completed Not Available [facility] 12/21/2022 01:12:40 10/26/19 14 Date of Last Colonoscopy completed Not Available [facility] 12/21/2022 01:12:40 10/23/18 84 section completed Aliyah Bolaños [facility] 08/03/2023 14:49:04 10/23/18 81 section completed Aliyah Bolaños [facility] 08/03/2023 14:49:00 10/23/18 80 section completed Aliyah Smithd [facility] 08/03/2023 14:48:58 Imaging Results None recorded. Procedure Notes None recorded. Medical Equipment None Reported. Allergies Allergen ID Allergen Name Allergen Category Reaction Reaction Severity Criticality Documentation Date Start Date Code Code System Note Provider Name and Address Organization Details Recorded Time 2887 Demerol medicatio n dizziness Not available Not available 12/21/2022 39042 1 RxNorm Not Available [facility] 3 01:42:00 Medications Name Sig Start [...] 1 ml IM x 1 12/01 completed [facility]-0 [id number] Not Available Not Available [...] No t Available pantoprazol e 40 mg tablet,yjothi yed release TAKE 1 TABLET BY MOUTH [...] No t Available ibuprofen 600 mg tablet 10/03 /2022 completed Not Available Not Available Not Available [...] 10 mg by rectal route. 02/[address] [facility]# [id number] Not Available Not Available [...] height Body temperature Heart rate Oxygen saturation Systolic And Diastolic Provider Name and Address Organization Details Last Updated DateTime 4 172.72 cm 97.3 [degF] 55 /min 94 % 170/80 mm[Hg] [employer] [facility] Njini [facility] 4 09:13:47 Date Recorded Body height Body mass index (BMI) Body weight Body temperature Heart rate Oxygen saturation Systolic And Diastolic Provider Name and Address Organization Details Last Updated DateTime 4 172.72 cm 42.7 kg/m2 279155. 46 g 97.9 [degF] 70 /min 97 % 160/70 mm[Hg] [employer] [facility] Njini [facility] 4 09:26:04 Date Recorded Body height Body mass index (BMI) Body weight Body temperature Heart rate Oxygen saturation Systolic And Diastolic Provider Name and Address Organization Details Last Updated DateTime 4 172.72 cm 43.3 kg/m2 533825. 83 g 97.1 [degF] 67 /min 94 % 144/86 mm[Hg] Liliam Millard RN [facility] [employer] [facility] 4 09:12:32 Date Recorded Body height Body mass index (BMI) Body weight Body temperature Heart rate Oxygen saturation Systolic And Diastolic Provider Name and Address Organization Details Last Updated DateTime 4 172.72 cm 43.8 kg/m2 498452. 6 g 96.7 [degF] 87 /min 97 % 178/86 mm[Hg] Liliam Millard RN [facility] [employer] [facility] 4 11:26:17 Date Recorded Body height Body mass index (BMI) Body weight Body temperature Heart rate Oxygen saturation Systolic And Diastolic Provider Name and Address Organization Details Last Updated DateTime 3 172.72 cm 42.3 kg/m2 326745. 68 g 97.5 [degF] 52 /min 88 % 148/80 mm[Hg] Estefanía Dillard RN [facility] [employer] [facility] 3 09:25:01 Social History Question Answer Notes LastModified by Organization Details LastModified Time Tobacco Smoking Status Former Smoker Not Available [facility] 12/21/2022 01:08:23 Do You Wear A Helmet When Biking? No MIGRATION.030 222472 Information not available 12/21/2022 Are You Blind Or Do You Have Difficulty Seeing? Yes MIGRATION.030 703702 Information not available 12/21/2022 What Is Your Level Of Caffeine Consumption? Occasional MIGRATION.030 585232 Information not available 12/21/2022 In The 14 Days Before Symptom Onset, Have You Had Close Contact With A Laboratory-confi rmed COVID-19 While That Case Was Ill? No MIGRATION.030 107480 Information not available 12/21/2022 In The 14 Days Before Symptom Onset, Have You Had Close Contact With A Person Who Is Under Investigation For COVID-19 While That Person Was Ill? No MIGRATION.030 559106 Information not available 12/21/2022 Are You Deaf Or Do You Have Serious Difficulty Hearing? Yes MIGRATION.0301 298108 Information not available 12/21/2022 What Type Of Diet Are You Following? REGULAR MIGRATION.0301 143490 Information not available 12/21/2022 What Is The Highest Grade Or Level Of School You Have Completed Or The Highest Degree You Have Received? MP16319-8 MIGRATION.0301 484362 Information not available 12/21/2022 Have There Been Any Changes To Your Family Or Social Situation? No MIGRATION.0301 809696 Information not available 12/21/2022 What Is The Fluoride Status Of Your Home? Unknown MIGRATION.0301 448836 Information not available 12/21/2022 When Did You Quit Smoking? 15+yearssineric fior Quit Age 44 MIGRATION.0301 177093 Information not available 12/21/2022 Are There Any Guns Present In Your Home? No MIGRATION.0301 543667 Information not available 12/21/2022 Do You Use Insect Repellent Routinely? Yes MIGRATION.0301 894492 Information not available 12/21/2022 Where Do You Live? SingleLevelHouse MIGRATION.0301 311265 Information not available 12/21/2022 Do You Have Any Pets? No MIGRATION.0301 986817 Information not available 12/21/2022 What Is Your Relationship Status? MIGRATION.0301 131404 Information not available 12/21/2022 Do You Use Your Seat Belt Or Car Seat Routinely? Yes MIGRATION.0301 920849 Information not available 12/21/2022 Do You Have Smoke And Carbon Monoxide Detectors In Your Home? Yes MIGRATION.0301 405337 Information not available 12/21/2022 Are You Passively Exposed To Smoke? No MIGRATION.0301 543710 Information not available 12/21/2022 Are There Any Smokers In Your House? No MIGRATION.0301 789191 Information not available 12/21/2022 Do You Use Sunscreen Routinely? No MIGRATION.0301 038199 Information not available 12/21/2022 Has Tobacco Cessation Counseling Been Provided? No MIGRATION.0301 828441 Information not available 12/21/2022 How Many Years Have You Smoked Tobacco? 6 MIGRATION.0301 273410 Information not available 12/21/2022 Have You Recently Traveled Abroad? No MIGRATION.0301 076274 Information not available 12/21/2022 Do You Have Difficulty Walking Or Climbing Stairs? Yes MIGRATION.0301 697757 Information not available 12/21/2022 Are You Currently In School? No MIGRATION.0301 894974 Information not available 12/21/2022 Sex: Unknown Functional Status Question Answer Note LastModified by [employer] Details LastModified Time Do you use any illicit or recreational drugs? No MIGRATION.1651838 026 Information not available 12/21/2022 Do you or have you ever used any other forms of tobacco or nicotine? No MIGRATION.5738019 026 Information not available 12/21/2022 What is your level of alcohol consumption? None MIGRATION.6625417 026 Information not available 12/21/2022 Do you have transportation difficulties? No MIGRATION.6519298 026 Information not available 12/21/2022 Are you able to walk independently without assistance or assistive devices? YESASSIST MIGRATION.9996151 026 Information not available 12/21/2022 Do you have difficulty doing errands alone? No MIGRATION.4087628 026 Information not available 12/21/2022 Are you able to care for yourself independently? Yes MIGRATION.8561578 026 Information not available 12/21/2022 What is your occupation? retired MIGRATION.0498587 026 Information not available 12/21/2022 Do you have difficulty dressing, bathing, grooming, or toileting? No MIGRATION.6683071 026 Information not available 12/21/2022 What is your exercise level? None MIGRATION.9916268 026 Information not available 12/21/2022 Mental Status Question Answer Note LastModified by Organ[employer]at [employer] Details LastModified Time Do you feel stressed (tense, restless, nervous, or anxious, or unable to sleep at night)? UI81249-9 MIGRATION.17833454 26 Information not available 12/21/2022 Do you have difficulty concentrating, remembering or making decisions? Yes MIGRATION.25352402 26 Information not available 12/21/2022 Family History Relationship Description Onset Age of this Age Resolved Age Notes LastModified by Organization Details LastModified Time Mother Hypertensive disorder MIGRATION.393 1779194 Not available 12/21/2022 01:12:53 Mother Heart disease MIGRATION.895 9420954 Not available 12/21/2022 01:12:53 Mother Family history of malignant neoplasm MIGRATION.206 5116690 Not available 12/21/2022 01:12:53 Mother Malignant neoplasm of breast MIGRATION.001 9701829 Not available 12/21/2022 01:12:53 Mother Hyperthyroid ism MIGRATION.052 8771569 Not available 12/21/2022 01:12:53 Brother Hypertensive disorder MIGRATION.192 7963969 Not available 12/21/2022 01:12:53 Brother Diabetes mellitus MIGRATION.792 8297899 Not available 12/21/2022 01:12:53 Sister Hypertensive disorder MIGRATION.937 3475459 Not available 12/21/2022 01:12:53 Sister Diabetes mellitus MIGRATION.320 0563127 Not available 12/21/2022 01:12:54 Sister Hyperthyroid ism MIGRATION.734 2735233 Not available 12/21/2022 01:12:54 Father Heart disease MIGRATION.056 9026924 Not available 12/21/2022 01:12:54 Father Alzheimer's disease MIGRATION.716 3845720 Not available 12/21/2022 01:12:54 Medical History Condition Response SLEEP APNEA Y MRSA N ALLERGIES/HAYFEVER N LUNG DISEASE/DISORDER N HISTORY OF DRUG ABUSE N INSOMNIA N RADIATION / CHEMOTHERAPY N COPD N HIGH CHOLESTEROL / HYPERLIPIDEMIA Y HYPERTHYROIDISM N BLOOD DISEASES N EAR OR HEARING PROBLEMS N HYPOTHYROIDISM N SHINGLES N DEPRESSION (INCLUDING POST ) N HAVE YOU BEEN HOSPITALIZED OR SEEN IN [facility] IN THE PAST YEAR ? N STROKE/TIA [...] ICD10 Code Diagnosis IMO Codes Diagnosis Note [id number] Catalina Patrick MD [facility] Primary [place] [address] [place] [address] 12/30/2020 00:00:00 12/30/2020 08:25:33 [id number] Catalina Patrick MD [facility] Primary [place] [address] [place] [address] 03/05/2021 00:00:00 03/08/2021 14:06:18 [id number] Catalina Patrick MD [facility] Primary [place] [address] [place] [address] 04/01/2021 00:00:00 04/20/2021 16:39:21 [id number] Catalina Patrick MD [facility] Primary [place] [address] [place] [address] 07/01/2021 00:00:00 07/02/2021 15:55:34 [id number] Latrell Sanz MD [facility] [place] [address] [facility] [address] [place] [address] 08/26/2021 00:00:00 08/26/2021 10:33:10 [id number] Catalina Patrick MD [facility] Primary Care [place] [address] [place] [address] 10/19/2021 00:00:00 10/21/2021 11:18:58 [id number] Catalina Patrick MD [facility] Primary Care [place] [address] [place] [address] 12/20/2021 00:00:00 12/20/2021 09:53:54 [id number] Catalina Patrick MD [facility] Primary Care [place] [address] [place] [address] 2022 00:00:00 02/13/2022 16:45:57 [id number] Catalina Patrick MD [facility] [place] [place] Primary Care [facility] [address] [facility] [address] [place] [address] 07/25/2022 00:00:00 08/02/2022 09:12:19 [id number] Catalina Patrick MD [facility] Primary Care [address] [place] [address] 10/25/2022 00:00:00 10/25/2022 10:49:13 [id number] Catalina Patrick MD [facility] Primary Care [address] [place] [address] 12/29/2022 14:31:08 12/29/2022 14:54:18 [id number] Catalina Patrick MD [facility] Care [address] [facility] [place] [address] 04/19/2023 11:42:51 04/19/2023 12:42:22 Fatigue 30890999 R53.83 G62.9 M25.50 Hidradenit is suppurativa 21147935 L73.2 has failed doxycyclin e Vitamin D deficiency 347 76371 E55.9 Diabetes mellitus 418027 09 E11.9 [id number] Catalina Patrick MD [facility] Primary Care [address] [facility] [place] [address] 07/20/2023 08:51:33 07/20/2023 09:32:19 Lumbar spondylosis 107178900 M47.896 long h/o lumbar spondylosi s that [...] and weaknessMR I ordered Rheumatoid arthritis 698 23748 M06.9 ESR 74RF 18.4Rheuma tology referral given Onychomyco sis of toenails 076560173 B35.1 [id number] Wilmer Triplett DPM [facility] Podiatry Ashley Perera [address] [place] [address] 08/03/2023 14:00:51 08/07/2023 11:49:34 Onychomycosis of toenails 021227067 B35.1 educated the patient on treatment optionsWe will start topical ketoconazo [facility] and has not improved we will perform total nail avulsion. [id number] Catalina Patrick MD [facility] Primary Care [facility] [address] [place] [address] 09/04/2023 09:12:47 09/04/2023 09:51:25 Benign hypertension 10234004 I10 Diabetes mellitus 411319 09 E11.9 Vitamin D deficiency 347 93873 E55.9 Hyperlipidemia 70035230 E78.5 Z79.899 Lumbar spondylosis 08180 0009 M47.896 long h/o lumbar spondylosi s [...] script sentdo not take before driving/wo rking [id number] Catalina Patrick MD [facility] Primary Care [facility] [address] [place] [address] 12/04/2023 09:07:36 12/04/2023 09:40:00 Hyperlipidemia 55299716 E78.5 Z79.899 Hypertensive disorder 38 797845 I10 Vitamin D deficiency 347 29318 E55.9 Diabetes mellitus 533794 09 E11.9 Anemia 362723081 D64.9 [id number] Catalina Patrick MD [facility] Primary Care [address] [place] [address] 02/05/2024 09:18:17 02/05/2024 11:03:37 Diabetes mellitus 06521806 E11.9 a1c 6.4 Chronic id iopathic constipation 34337184 K59.04 trial of trulanceco ntinue good fiber and fluid intake Degenerati on of lumbar intervertebral disc 82502820 M51.36 severe low back painh/o lumbar spondylosi sweakness in b/l LEparesthe perri b/l LEirregula r gaithas h/o rheumatoid arthritisc oncern for spinal stenosis, need MRI to evaluatePr ednisone taper with food, avoid other nsaidsrevi ewed s/s that warrant urgent/anderson rgent eval in meantime [id number] CHRISTIAN Christine [facility] Primary Care [address] [place] [address] 07/11/2024 08:55:06 07/11/2024 09:58:11 Swelling of bilateral lower limbs 587885728 M79.89 already seeing cardiologi , plans to call today to get an apptencour aged to take her furosemide , she has plenty, declines refilldisc ussed used of compressio n socks Weakness o f bilateral lower limb 6032376922 29794 M62.81 currently using wheeled walker, unable to sit on her d/t her sizeROM and strength are greatly limitedmul tiple wheels on her walker are starting to shred, causing imbalancei mperative to get replacemen t walker repaired/e xchanged to decrease risk of falls Paresthesi a of lower extremity 201827471 R20.2 hx of trying many different meds for this, all with negative side effectsshe just tries to deal with the symptoms [id number] CHRISTIAN Christine [facility] Primary Care [address] [facility] [place] [address] 08/21/2024 10:59:28 08/21/2024 12:39:14 Dyspnea 668527145 R06.00 was in ER on 08/07 fro this issue, told it was CAPgiven doxy, completeds ome sob continuest rial albuterol inhaler Dysuria 44682500 R30.0 Health Concerns Section Related Observation LastModified by Organization Charyamber hoda LastModified Time None Recorded Concern Status LastModified by Organization Details LastModified Time None Recorded Advance Directives Directive None Recorded Payers Insurance Date Sequence Insurance Name Policy Number Policy Baugh Covered Member ID Baugh Member ID Guarantor Name 01/22/2025 1 [facility] - DOS ON OR AFTER 21 (MEDICAID REPLACEMENT - HMO) Ivanna Beckman [id number] Ivanna Beckman Notes Date Note Type Note [...] not help her previously. Catalina Patrick MD [address] [place] [address], [facility] [address], [place], [address], [facility] [employer] 09/04/2023 09:44:56 12/04/2023 text/html ROS as noted [...] Patrick MD [address], [place], [address], [facility] [employer] 12/21/2023 17:58:59 02/05/2024 text/html ROS as noted [...] increasingly weak. Catalina Patrick MD [address], [place], [address], [employer] [facility] [employer] [facility] 02/25/2024 18:26:11 07/11/2024 text/html Pt is here for micaela/u CHRISTIAN Christine [address], [place] [address], [place], [address], [facility] [email or web address] [facility] [employer] [facility] 07/11/2024 09:57:10 08/21/2024 text/html pt is here for micaela/CHRISTIAN Hazel [address], [place] [address], [place], [address], [employer] [facility] [employer] [facility] 08/21/2024 11:50:49 OBGyn Episode No OBEpisode recorded.
--- OUTSIDE RECORDS SUMMARY | 2025-10-12 10:09 | XMS_ITS | Encounter Summary ---
Author Organization [facility] Healthcare Address [address] [place] [address] Care Team Providers Care Refrigeration Tech Name Role Phone NirmalLesli MD Unavailable [phone] Monika Doyle MD Unavailable Aft, Doreen Oliva MD PhD Unavailable [phone] Pamella Henry PhD Unavailable [phone] Hernesto Molina MD Primary Care Provider [phone] Encounter Details Date Type Department Care Team (Late st Contact Info) Description 08/21/2025 Results Follow-Up [facility] Cardiology [address] [facility] [address] [address] Sanjana Earl, JAYE [address] [place] [address] Basic metabolic panel Social History Tobacco Use Types Packs/Day Years [...] on file Legal Sex Female 9:06 AM [employer] Gender Identity Female 04/20/2018 8:43 AM CDT Sexual Orientation Not on file documented as of this encounter Plan of Treatment Not on file documented as of this encounter Visit Diagnoses Not on filedocumented in this encounter Care Teams Refrigeration Tech Relationship Specialty Start Date End Date Hernesto Molina MD [address] [id number] PCP - General Family Medicine 08/05/25 Lesli Kinney MD [address] [place] [address] Medical Oncologist/Educational Guidance Counselor Medical Oncology 05/17/22 Monika Doyle MD [address] [facility] [address] [place] [address] Radiation Oncologist Radiation Oncology 06/27/22 Doreen Patricia MD PhD [address] [place] [address] Surgeon Surgical Oncology 06/27/22 Pamella Henry, PhD [address] [place] [address] Nurse Practitioner Radiation Oncology 01/16/23 documented as of this encounter
--- OUTSIDE RECORDS SUMMARY | 2025-10-12 10:09 | XMS_ITS | Clinical Summary ---
Author Organization [facility] Address [address] [place] [address] Care Team Providers Care Talent Manager Name Role Phone Lesli Kinney MD Unavailable [phone] Monika Doyle MD Unavailable Aft, Doreen Oliva MD PhD Unavailable [phone] Pamella Henry PhD Unavailable [phone] Hernesto Molina MD Primary Care Provider [phone] Allergies Active Allergy Reactions Criticality Noted Date Comments Meperidine Dizziness,Other (See comments) Low 08/24/2015 (Demerol) Dizziness and confusion dizzyness Vancomycin Hives,Itching,Rash Medium 07/19/2021 Medications metoprolol (LOPRESSOR) 50 mg tabletIndications :hypertension Take 1 tablet (50 mg total) by mouth 2 (two) times a day 8 Active ergocalciferol (VITAMIN D) 50,000 unit capsuleIndication s:Vitamin D Deficiency,Monday Take 1 capsule (50,000 Units total) by mouth once a week monday 0 8 Active amiodarone (PACERONE) 200 mg tabletIndications :A Fib Take 1 tablet (200 mg total) by mouth nightly 1 Active OneTouch Delica Plus Lancet 33 gauge misc every morning Daily in the morning 1 Active OneTouch Verio test strips strip 2 Active polyethylene glycol (MIRALAX) 17 gram/dose powderIndications :constipation Take 17 g by mouth as needed 2 Active Xarelto 20 mg tabletIndications :atrial fibrillation Take 1 tablet (20 mg total) by mouth nightly Hold Xarelto for 5 days after surgery and then start taking normally. 3 Active acetaminophen (TYLENOL) 500 mg tablet Take 1 tablet (500 mg total) by mouth every 6 (six) hours as needed for pain Active atorvastatin (LIPITOR) 80 mg tablet Take 1 tablet (80 mg total) by mouth nightly 3 Active hydrALAZINE (APRESOLINE) 50 mg tablet Take 1 tablet (50 mg total) by mouth 3 (three) times a day 5 Active letrozole (FEMARA) 2.5 mg tabletIndications :Early Breast Cancer HR Positive and Postmenopausal,br east cancer Take 1 tablet (2.5 mg total) by mouth every morning 90 tablet 3 5 04/09/20 26 Active Entresto 24-26 mg tablet Take 1 tablet by mouth 2 (two) times a day 180 tablet 1 5 Active potassium chloride ER (KLOR-CON) 20 mEq CR tabletIndications :Edema, lower extremity Take 1 tablet (20 mEq total) by mouth daily Take with food 90 tablet 3 5 Active furosemide (LASIX) 80 mg tabletIndications :Edema, lower extremity Take 1 tablet (80 mg total) by mouth 2 (two) times a day 180 tablet 3 5 08/05/20 26 Active methenamine (HIPREX) 1 gram tablet Take 1 tablet (1 g total) by mouth 2 (two) times a day with meals Active pantoprazole DR (PROTONIX) 20 mg EC tablet Take 1 tablet (20 mg total) by mouth daily 5 Active ondansetron (ZOFRAN) 4 mg tablet Take 1 tablet (4 mg total) by mouth every 6 (six) hours as needed for nausea 5 Active Active Problems Problem Noted Date Diagnosed Date Carpal tunnel syndrome 06/27/2025 Abscess of Bartholin's gland 06/27/2025 White blood cell disorder 06/27/2025 Vitamin D deficiency 06/27/2025 Urinary urgency 06/27/2025 Spinal stenosis 06/27/2025 Pulmonary hypertension 06/27/2025 Incomplete uterovaginal prolapse 06/27/2025 Gastroesophageal reflux disease 06/27/2025 Hidradenitis suppurativa 06/27/2025 Chronic combined systolic and diastolic heart fa ilure 04/08/2025 terminal 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 Alternative sources include urinary vs. Rectal - Patient reports last pap was in 2015 and no history of abnormal paps, unable to obtain records - 10/31 exam without any identified bleeding, no obvious cancers or masses - Pelvic US 12/05: EMS 1.9mm, fluid within endometrial cavity, polyp seen [id number] - s/p hysteroscopy, polypectomy 12/22/22, 3 polyps visualized, benign pathology, no e/o hyperplasia or malignancy Plan: - CTM symptoms Encounter for person encountering health service s 07/04/2022 Urge urinary incontinence 05/18/2021 Overview (05/18/2021): Added automatically from request for surgery [id number] OAB (overactive bladder) 05/18/2021 Overview (05/18/2021): Added automatically from request for surgery [id number] Urinary incontinence 03/17/2021 Vaginal prolapse 03/17/2021 Overview [...] clearance prior to surgery. Patient last saw print operator 3 months ago. 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, estrogen receptor positive (HCC) (Primary Dx); terminal operations 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 (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) use of aromatase inhibitors 09/29/2025 3:30 PM BOTTLE DEALER Office [facility] [address] [place] [address] 3rd [address] [place] [phone] Vaginal prolapse (Primary Dx) 09/11/2025 Telephone [facility] [address] [place] [address] 3rd [address] [place] [address] Deborah Peterson RN 09/11/[address] [phone] Steve Lutz MD 09/09/2025 Telephone [place] [address] [place] [phone] Sanjana Earl NP Amiodarone 09/09/2025 Results Follow-Up [facility] [address] [place] [address] [place] [phone] Didier Nunes MD Urinalysis reflex to microscopic and culture Urine, in and out catheter, Urinalysis, microscopic only, Urine culture Urine, in and out catheter 09/08/2025 3:00 PM BOTTLE DEALER Office Visit [facility] [address] [place] [address] [place] [phone] OAB (overactive bladder) (Primary Dx); Female genital prolapse, unspecified type; Recurrent UTI 08/26/2025 9:00 AM BOTTLE DEALER Office Visit [address] [phone] Sanjana Earl NP Chronic heart failure with preserved ejection fraction (HFpEF) (Primary Dx); Shortness of breath; Paroxysmal atrial fibrillation (HCC); terminal operations supervisor current use of amiodarone; Hospital discharge follow-up 08/26/2025 Orders Only [facility] Cardiology [address] [place] [phone] Rony Alberto MD 08/21/2025 Results Follow-Up [facility] Cardiology [address] [place] [phone] Sanjana Earl NP Basic metabolic panel 08/13/2025 Telephone [facility] Cardiology [address] [place] [phone] Steve Lutz MD 08/05/2025 10:30 AM CDT Office Visit [facility] Cardiology [address] [place] [phone] Sanjana Earl NP Edema, lower extremity; Compensated heart failure with improved ejection fraction (HFimpEF) 07/31/2025 9:30 AM CDT Office Visit [facility] Medicine Hematology [facility] [place] [phone] Kathi Wick NP Bicytopenia (Primary Dx); Neutropenia, unspecified type; Anemia, unspecified type 07/31/2025 9:00 AM CDT Lab [facility] - Lab Collection [address] [facility] [address] [place] [address] Neutropenia, unspecified type; Anemia, unspecified type 07/31/2025 8:45 AM CDT Lab [facility] Medicine Oncology Lab [address] [place] [address] Neutropenia, unspecified type; Anemia, unspecified type from Last 3 Months Immunizations Immunization Administration Dates Next Due Influenza, Unspecified 04/04/2017,2015,03/17/2016,09/04/2015, 5,11/18/2014,09/23/2014,07/22/2014,05/27/2014, 014,01/23/2014,10/17/2013 ZOSTER LIVE 04/04/2017,09/26/2016 Surgical History Surgery Date Site/Laterality Comments COLONOSCOPY 10/23/2019 - 10/22/2020 REPLACEMENT TOTAL KNEE 06/23/2012 - 07/22/2012 Right CATARACT EXTRACTION 10/23/2017 - 10/22/2018 Bilateral cataract surgery CHOLECYSTECTOMY 10/23/1989 - 10/22/1990 SECTION 1980,1980,1984 HERNIA REPAIR 10/23/2010 - 10/22/2011 w/ mesh BREAST BIOPSY 02/02/2022 Left US GUIDED BIOPSY LYMPH NODE SUPERFICIAL LEFT 02/02/2022 N/A MASTECTOMY 10/23/2010 - 10/22/2011 Right CYST REMOVAL back, chest and under arm BLADDER SURGERY 07/19/2021 InsterStim 1 insertion BLADDER SURGERY 08/02/2021 Removal InterStim CATARACT EXTRACTION 10/23/2017 - 10/22/2018 MASTECTOMY 05/12/2022 Left PORTACATH PLACEMENT 07/14/2022 Right removed FLUORO GUIDED INJECTION SHOULDER RIGHT 04/27/2023 Right BREAST BIOPSY 02/02/2022 JOINT REPLACEMENT 2010 right knee SINUS SURGERY Medical History Medical History Date Comments Breast cancer (HCC) Right Breast CA dx s/p mastectomy 2011 with recurrence Left 01/2022 s/p mastectomy, chemo (last 10/2022) and radiation (last 12/12/2022) Hypertension Constipation Back pain Sleep apnea CPAP machine nig htly with O2 Overweight Heart disease Arthritis Breast cancer, right breast (HCC) 04/19/2018 Malignant neoplasm of right breast (HCC) 04/06/2022 Malignant neoplasm of left breast (HCC) 04/06/2022 Diabetes mellitus, type 2 Dxd ~2 008 Hiatal hernia Atrial fibrillation (HCC) Prolapsed uterus Kidney cysts Congestive heart failure (CH F) (HCC) On home oxygen therapy History of chemotherapy 10/2022 Open wound 12/17/2010 Dysuria 08/21/2024 Coronavirus infection 01/19/2021 Fecal impaction (HCC) 06/27/2025 Urinary tract infection Urinary incontinence Anemia On and off problems maybe 10 years History of transfusion Coronary artery disease GERD (gastroesophageal reflu x disease) Maybe 2004 Cataract 2018 Family History Medical History Relation Name Comments Kidney disease Brother 1 Brother Kidney disease Brother 2 Sister Arthritis Maternal Grandmother Grandfather Stomach cancer Maternal Grandmother Grandfather Stroke Maternal Grandmother Grandfather Breast cancer Mother Mother Hypertension Mother Mother Alcohol abuse Mother's Brother Uncle Diabetes Sister Sister Diabetes type II Sister Sister Hypertension Son 1 Ron Mental illness Son 1 Ron Sleep apnea Son 1 Ron Hypertension Son 2 Mental illness Son 2 Sleep apnea Son 2 Anesthesia problems Neg Hx Relation Name Status Comments Brother 1 Brother Brother 2 Sister Maternal Grandmother Grandfather Mother Mother Mother's Brother Uncle Alive Sister Sister Alive Son 1 Ron Alive Son 2 Alive Social History Tobacco [...] on file Legal Sex Female 9:06 AM BOTTLE DEALER Gender Identity Female 04/20/2018 8:43 AM CDT Sexual Orientation Not on file Obstetrics History Para Term AB IAB SAB Ectopic Multiple Livin g Live Births 5 5 Date Outcome GA Total Labor Labor/2nd/3rd Weight Sex Type Anes PTL Khadijah A1 A5 Name Clin Para Para Para Para Para Last Filed Vital Signs Vital Sign Reading Time Taken Comments Blood Pressure 155/82 10/06/2025 9:09 AM BOTTLE DEALER Pulse 62 10/06/2025 9:09 AM BOTTLE DEALER Temperature 36.7 C (98.1 F) 10/06/2025 9:09 AM BOTTLE DEALER Respiratory Rate 18 10/06/2025 9:09 AM BOTTLE DEALER Oxygen Saturation 99% 10/06/2025 9:09 AM BOTTLE DEALER Inhaled Oxygen Concentration - - Weight 129.8 kg (286 lb 3.2 oz) 10/06/2025 9:09 AM BOTTLE DEALER Height 172.7 cm (5' 8) 08/26/2025 8:39 AM BOTTLE DEALER Body Mass Index 43.52 08/26/2025 8:39 AM BOTTLE DEALER Plan of Treatment Health Maintenance Due Date [...] 09/26 Fall Risk Assessment 12/23/2023 12/22/2022, 06/30/20 Hemoglobin A1C 04/06/2024 10/06/2023, 08/05/2022 Influenza Vaccine (#1) 2025 7, 09/26/2016, 03/17/2016, Additional history exists Lipid Panel 04/08/2026 04/08/2025, 09/22, 08/05/2022 eGFR 08/20/2026 08/20/2025, 06/2025, 06/26/2025, Additional history exists Osteoporosis Screening-Bone Density Scan 02/27/2027 02/27/2025, 02/24/2023 Medical Devices Implanted Type Area Dictaphone Technician Device Identifier Shelf Expiration Date Model / Serial / Lot Rt Total Knee Arthroplasty Knee Explanted Type Area Dictaphone Technician Device Identifier Shelf Expiration Date Model / Serial / Lot Metronic Inc [id number] Interstim 100cm Percutaneous Electrode Insulated Kit - [id number] Implanted:Qty: 1 on 07/19/2021 by Antony Mark MD at [facility] Explanted:Qty: 1 on 08/02/2021 by Brian Arana MD at [facility] Neurostimulator Left: Other - see comments Med[employer]onic [employer] 04/29/2023 [id number] / / [id number] Description:Implant intact [employer] [id number] Interstim 28cm Quadripolar Mri Glass Frame Fitter Neurostimulator - [id number] Implanted:Qty: 1 on 07/19/2021 by Antony Mark MD at [facility] Explanted:Qty: 1 on 08/02/2021 by Brian Arana MD at [facility] Neurostimulator Left: Other - see comments [employer] 10/01/2022 [id number] / / [id number] Description:Implanted in the lower back Explant intact [employer] Peripheral Vascular Powerport Clearvue Airguard 8fr 1 Lumen Lightweight Intermediate Latex Free [id number] - [id number] Implanted:Qty: 1 on 07/14/2022 by Doreen Patricia MD PhD at [facility] Explanted:Qty: 1 on 11/29/2022 by Doreen Patricia MD PhD at [facility] Medicine Right: Chest Bard Peripheral Vascular [id number] / / Procedures Procedure Name Priority Date/Time Associated Diagnosis Comments URINALYSIS, MICROSCOPIC ONLY Routine 09/08/2025 4:25 PM BOTTLE DEALER OAB (overactive bladder) URINE CULTURE Routine 09/08/2025 4:25 PM BOTTLE DEALER URINALYSIS AND REFLEX TO MICROSCOPIC AND CULTURE Routine 09/08/2025 4:25 PM BOTTLE DEALER OAB (overactive bladder) POCT URINALYSIS (CLINITEK) Routine 09/08/2025 4:22 PM BOTTLE DEALER BASIC METABOLIC PANEL Routine 08/20/2025 7:26 AM CDT Edema, lower extremity VITAMIN B12 Routine 07/31/2025 9:03 AM CDT [...] CDT Neutropenia, unspecified type Anemia, unspecified type POCT LIPID PANEL Routine 04/08/2025 9:13 AM CDT Lipid screening DEXA AXIAL SKELETON BONE DENSITY 1 OR MORE SITES Schedule Routine, Read Routine (OP Routine) 02/27/2025 8:49 AM CDT Malignant neoplasm of overlapping sites of left breast in female, estrogen receptor positive (HCC) terminal operations 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 (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) use of aromatase inhibitors HEMOGLOBIN A1C Routine 10/06/2023 9:07 AM BOTTLE DEALER from Last 3 Months or Most Recently Relevant to Health Maintenance Results * (ABNORMAL) Urinalysis reflex to microscopic and culture Urine, in and out catheter (09/08/2025 4:25PM BOTTLE DEALER) Color, ur Yellow Yellow Clarity, ur Clear Clear [facility] Specific gravity, ur 1.020 1.003 - 1.030 [facility] pH, urine 5.5 [facility] Comment: Interpretive Data U rine pH is affected by diet, medications, systemic acid-base disturbances, and renal tubular function. pH may affect urinary stone formation. For example, urine pH below 6.0 may help reduce the tendency for calcium phosphate stones and pH greater than 6.0 may reduce the tendency for uric acid stone formation. Source: [facility] Current Interpretive Data was last revised on 2017 Protein, ur ql Trace Negative [facility] Glucose, ur ql Negative Negative [facility] Ketones, ur Negative Negative [facility] Bilirubin, ur Negative Negative [facility] Blood, ur Negative Negative [facility] Urobilinogen, ur <2.0 <2.0 mg/dL [facility] Nitrite, ur Positive(A) Negative [facility] Leukocyte esterase, ur 3+(A) Negative [facility] UA reflex comment Reflex to microscopic UA will be performed. [facility] Urine, in and out catheter 09/08/2025 4:25 PM BOTTLE DEALER 09/08/2025 6:53 PM BOTTLE DEALER Didier Nunes MD LAB MICROBIOLOGY - GENERAL OR DERABLES Final Result Performing Organization Address [facility] [place] [address] * (ABNORMAL) Urinalysis, microscopic only (09/08/2025 4:25 PM BOTTLE DEALER) WBC, ur 21-50(A) 0 - 5 /HPF RBC, ur 0-2 0 - 2 /HPF [facility] Epithelial cells, squamous, ur 1-5 0 - 5 /HPF [facility] Bacteria, ur 1+(A) [facility] Mucous, ur Present(A) [facility] Culture Reflex Comment Reflex to urine culture will be performed. [facility] Urine, in and out catheter 09/08/2025 4:25 PM BOTTLE DEALER 09/08/2025 6:53 PM BOTTLE DEALER Didier Nunes MD LAB URINE ORDERABLES Final Re sult Performing Organization Address [facility] Co de Phone Number [facility] [place] [address] * (ABNORMAL) Urine culture Urine, in and out catheter (09/08/2025 4:25 PM BOTTLE DEALER) Report Final Report: Greater than or equal to 100,000 colonies/mL of Escherichia coli (.) Organism ESCHERICHIA COLI [facility] Urine, in and out catheter 09/08/2025 4:25 PM BOTTLE DEALER 09/08/2025 8:25 PM BOTTLE DEALER Narrative [facility] - 09/10/2025 2:27 PM BOTTLE DEALER Urine culture reflexed based upon urinalysis results. Testing performed by [facility] Microbiology Laboratory ([phone]) Organism Antibiotic Method Susceptibility Escherichia coli Ampicillin [...] INTERPRETATION Susceptible Escherichia coli Cefdinir INTERPRETATION Susceptible Didier Nunes MD LAB MICROBIOLOGY - GENERAL OR DERABLES Final Result Performing Organization Address City/[facility]/ZIP Co de Phone Number [facility] Department [place] [address] * (ABNORMAL) POCT urinalysis (Clinitek) (09/08/2025 4:22 PM BOTTLE DEALER) Color, ur, POC Yellow Yellow Clarity, UA, POC Clear Clear [facility] Glucose, ur, POC Negative Negative [facility] Bilirubin, ur, POC Negative Negative [facility] Ketones, ur, POC Negative Negative [facility] Specific gravity, ur, POC 1.025 1.010 - 1.025 [facility] Blood, ur, POC Negative Negative [facility] pH, ur, POC 6.0 [facility] Comment: Interpretive Data Urine pH is affected by diet, medications, systemic acid-base disturbances, and renal tubular function. pH may affect urinary stone formation. For example, urine pH below 6.0 may help reduce the tendency for calcium phosphate stones and pH greater than 6.0 may reduce the tendency for uric acid stone formation. Source: [facility]. Last Revised Date: 11-02-2017 Protein, ur, POC Trace Negative [facility] Urobilinogen, ur, POC 0.2 mg/dL mg/dL [facility] Nitrites, ur, POC Positive(A) Negative [facility] Leukocyte esterase, ur, POC 1+(A) Negative [facility] Urine 09/08/2025 4:22 PM BOTTLE DEALER 09/08/2025 4:22 PM BOTTLE DEALER us Esther Burton MD LAB POCT ORDER ANGÉLICA - DEVICE Final Result [facility] [place] [address] * Basic metabolic panel (08/20/2025 7:26 AM CDT) [facility] Glucose 105 65 - 139 mg/dL [facility] Comment: Non-fasting reference interval BUN 22 7 - 25 mg/dL [facility] Creatinine 0.86 0.60 - 1.00 mg/dL [facility] eGFR 70 > OR = 60 mL/min/1.7 3m2 [facility] BUN/creat ratio SEE NOTE: (calc) [facility] Comment: Not Reported: BUN and Creatinine are within reference range. Sodium 139 135 - 146 mmol/L [facility] Potassium, pl 4.3 3.5 - 5.3 mmol/L [facility] Chloride 106 98 - 110 mmol/L [facility] CO2 28 20 - 32 mmol/L [facility] Calcium 9.2 8.6 - 10.4 mg/dL [facility] Blood 08/20/2025 7:26 AM CDT 08/20/2025 7:27 AM CDT Narrative [facility] - 08/20/2025 4:08 PM CDT FASTING:NO FASTING: NO us Sanjana Earl NP LAB BLOOD ORDERABLES Kimberli l Result [facility] [employer] [address] [place] [address] * eGFR (07/31/2025 9:03 AM CDT) [facility] eGFR 66 >=60 mL/min/1. 73 m2 Comment: [...] of Race in Diagnosing Kidney Disease, JASN 202). The CKD-EPI equation should not be used for patients with unstable renal function and has not been validated in children and those over 70. Current interpretive data was last reviewed 2021. Blood 07/31/2025 9:03 AM CDT 07/31/2025 9:20 AM CDT us Kathi Wick DATA MINING ANALYST LAB BLOOD ORDERABLES Final R esult [facility] [place] [address] * (ABNORMAL) Differential, auto (07/31/2025 9:03 AM CDT) Neutrophil abs 1.47(L) 1.50 - 6.50 K/cumm Comment:Testing performed by : [facility], [address] [place], [place] [phone] Lymphocyte abs 0.81 0.80 - 3.30 K/cumm UDAY MAIER Comment:Testing performed by : [facility], [address] [place] [phone] Monocyte abs 0.21 0.20 - 0.80 K/cumm UDAY MAIER Comment:Testing performed by : [facility], [address] [place], [place] [phone] Eosinophil abs 0.01 0.00 - 0.50 K/cumm UDAY MAIER Comment:Testing performed by : [facility], [address] [place], [place] [phone] Basophil abs 0.00 0.00 - 0.10 K/cumm UDAY MAIER Comment:Testing performed by : [facility], [address] [place] [phone] Neutrophil pct 58.6 % U[facility] MAIER Comment: Interpretive Data Percent cell count reference ranges are not reported, since discordance with absolute values may lead to misinterpretation of CBC data. Current Interpretive Data was last revised on 2018. Testing performed by: [facility], [address] [place], [place] [phone] Lymphocyte pct 32.3 % [facility] Comment: Interpretive Data Percent cell count reference ranges are not reported, since discordance with absolute values may lead to misinterpretation of CBC data. Current Interpretive Data was last revised on 2018. Testing performed by: [facility], [address] [place] [address] Monocyte pct 8.4 % [facility] Comment: Interpretive Data Percent cell count reference ranges are not reported, since discordance with absolute values may lead to misinterpretation of CBC data. Current Interpretive Data was last revised on 2018. Testing performed by: [facility], [address] [place] [address] Eosinophil pct 0.5 % [facility] Comment: Interpretive Data Percent cell count reference ranges are not reported, since discordance with absolute values may lead to misinterpretation of CBC data. Current Interpretive Data was last revised on 2018. Testing performed by: [facility], [address] [place] [phone] Basophil pct 0.1 % [facility] Comment: Interpretive Data Percent cell count reference ranges are not reported, since discordance with absolute values may lead to misinterpretation of CBC data. Current Interpretive Data was last revised on 2018. Testing performed by: [facility], [address] [place] [id number] Blood 07/31/2025 9:03 AM CDT 07/31/2025 9:18 AM CDT us Kathi Wick DATA MINING ANALYST LAB BLOOD ORDERABLES Final R esult [facility] [place] [address] * (ABNORMAL) Iron profile w/ IBC (07/31/2025 9:03 AM CDT) Iron 68 35 - 145 mcg/dL TIBC 224(L) 250 - 400 mcg/dL UDAY MAIER Transferrin saturation 30 20 - 50 % UDAY MAIER Blood 07/31/2025 9:03 AM CDT 07/31/2025 9:20 AM CDT Kathi Wick DATA MINING ANALYST LAB BLOOD ORDERABLES Final R esult [facility] MARYVALEROSALIE [facility] [place] [address] * (ABNORMAL) CBC with auto differential (07/31/2025 9:03 AM CDT) Pathologist [facility] WBC 2.51(L) 3.80 - 9.90 K/cumm Comment:Testing performed by : [facility], [address] [place] [address] Hgb 11.3(L) 11.9 - 15.5 g/dL UDAY MAIER Comment:Testing performed by : [facility], [address] [place] [address] Hct 35.1(L) 35.6 - 45.5 % UDAY MAIER Comment:Testing performed by : [facility], [address] [place] [address] Plt 162 150 - 400 K/cumm UDAY BJ Comment:Testing performed by : [facility], [address] [place] [address] MPV 7.4 6.8 - 10.4 fL UDAY BJ Comment:Testing performed by : [facility], [address] [place] [address] RBC 3.73(L) 3.90 - 5.20 M/cumm UDAY BJ Comment:Testing performed by : [facility], [address] [place] [address] MCV 94.2 81.3 - 96.4 fL CERROSALIE MAIER Comment:Testing performed by : [facility], [address] [place] [phone] MCH 30.3 27.1 - 33.3 pg UDAY MAIER Comment:Testing performed by : [facility], [address] [place] [address] MCHC 32.2(L) 32.3 - 35.7 g/dL UDAY MAIER Comment:Testing performed by : [facility], [address] [place] [address] RDW CV 15.9(H) 11.1 - 14.9 % UDAY MAIER Comment:Testing performed by : [facility], [address] [place], [place] [id number] NRBC abs 0.00 0.00 - 0.01 K/cumm UDAY [facility] Comment:Testing performed by : [facility], [address] [place] [address] Blood 07/31/2025 9:03 AM CDT 07/31/2025 9:18 AM CDT us Kathi Wick DATA MINING ANALYST LAB BLOOD ORDERABLES Final R esult UDAY [facility] [place] [address] * Copper, serum (07/31/2025 9:03 AM CDT) Copper 118 77 - 206 mcg/dL [facility] Comment: ADDITIONAL INFORMATION This test was developed and its performance characteristics determined by [facility] in a manner consistent with CLIA requirements. This test has not been cleared or approved by the U.S. Food and Drug Administration. Test Performed by: [facility] - [address] [address] Parent Partner: Tj Stone Ph.D.; CLIA# [id number] Blood 07/31/2025 9:03 AM CDT 07/31/2025 10:59 AM CDT Kathi Wick DATA MINING ANALYST LAB BLOOD ORDERABLES Final R esult Performing Organization Address [facility] Co de Phone Number [facility] [place] [address] [facility] ref [facility] * (ABNORMAL) Ferritin (07/31/2025 9:03 AM CDT) [facility] Ferritin 173(H) 13 - 150 ng/mL Blood 07/31/2025 9:03 AM CDT 07/31/2025 9:20 AM CDT Kathi Wick DATA MINING ANALYST LAB BLOOD ORDERABLES Final R esult Performing Organization Address [facility] Co de Phone Number [facility] Department [place] [address] * Vitamin B12 (07/31/2025 9:03 AM CDT) [facility] Vitamin B12 377 230 - 1,250 pg/mL Blood 07/31/2025 9:03 AM CDT 07/31/2025 11:23 AM CDT Paula Moreland MD LAB BLOOD ORDERABLES Final R [facility] Performing Organization Address City/[facility] [place] [address] * Comprehensive metabolic panel (07/31/2025 9:03 AM CDT) [facility] Sodium 142 135 - 145 mmol/L Potassium, pl 4.5 3.3 - 4.9 mmol/L [facility] Chloride 103 97 - 110 mmol/L [facility] CO2 32 22 - 32 mmol/L [facility] Anion gap 7 2 - 15 mmol/L [facility] BUN 20 6 - 25 mg/dL [facility] Creatinine 0.90 0.60 - 1.10 mg/dL [facility] Glucose 109 70 - 199 mg/dL [facility] Comment: Interpretive Data Fasting glucose >/= [...] 2022. Calcium 9.5 8.5 - 10.3 mg/dL [facility] Bilirubin, total 0.5 0.1 - 1.2 mg/dL [facility] Protein, pl 7.7 6.5 - 8.5 g/dL [facility] Albumin 4.2 3.5 - 5.0 g/dL [facility] Alk phos 75 40 - 130 Units/L [facility] ALT 23 7 - 45 Units/L [facility] AST 20 10 - 45 Units/L [facility] Blood 07/31/2025 9:03 AM CDT 07/31/2025 9:20 AM CDT Kathi Wick DATA MINING ANALYST LAB BLOOD ORDERABLES Final R esult [facility] [place] [address] * POCT lipid panel (04/08/2025 9:13 AM [...] Bone mineral density was performed on a HoloAllegorithmic Discovery Densitometer. Based on machine cross-calibration and [...] by the International Society of Clinical Densitometry. [id number] Lesli Kinney MD Aminah DXA PROCEDURES F inal Result * (ABNORMAL) Hemoglobin A1c (10/06/2023 9:07 AM BOTTLE DEALER) Hgb A1C 6.9(H) 4.0 - 5.6 % UDAY MAIER Estimated Average Glucose 151 mg/dL UDAY MAIER Comment: The ADA recommends reporting an estimated Average Glucose (eAG) with all Hemoglobin A1c results using the equation derived from a study of 507 normal and diabetic adults. Minority populations were underrepresented and children were not included. (Diabetes Care 2020; 43(S1): S66-S76). The eAG is not equivalent to a fasting glucose. Blood 10/06/2023 9:07 AM BOTTLE DEALER 10/06/2023 9:19 AM BOTTLE DEALER us Mimi Patrick MD LAB BLOOD ORDERABLES Fin al Result Performing Organization Address City/State/[facility] Co de Phone Number UDAY [facility] [place] [address] from Last 3 Months or Most Recently Relevant to Health Maintenance Insurance [address] [id number] [facility] * Guarantor: Ivanna Beckman Account Type Relation to Patient Date of Phone Billing Address Personal/Family Self [address] [place] [address] [employer] Advance Directives For more information, please contact: [phone] * Full Code (Latest Code Status on File) Date Activated Date Inactivated Comments 05/12/2022 6:55 PM 05/13/2022 9:06 PM Care Teams Talent Manager Relationship Specialty Start Date End Date Hernesto Molina MD [address] [address] PCP - General Family Medicine 08/05/25 Lesli Kinney MD [address] [place] [address] Medical Oncologist/Flarer Medical Oncology 05/17/22 Monika Doyle MD [address] [facility] [address] [place] [address] Radiation Oncologist Radiation Oncology 06/27/22 Doreen Patricia MD PhD [address] [place] [address] Surgeon Surgical Oncology 06/27/22 Pamella Henry, PhD [address] [place] [address] Nurse Practitioner Radiation Oncology 01/16/23
--- OUTSIDE RECORDS SUMMARY | 2025-10-12 10:09 | XMS_ITS ---
Author Organization [facility] Address [address] [place] [address] Care Team Providers Care Offshore Diver Name Role Phone Lesli Kinney MD Unavailable [phone] Monika Doyle MD Unavailable Aft, Doreen Oliva MD PhD Unavailable [phone] Pamella Henry PhD Unavailable [phone] Hernesto Molina MD Primary Care Provider Active Problems Problem Noted Date Diagnosed Date Carpal tunnel syndrome 06/27/2025 Abscess of Bartholin's gland 06/27/2025 White blood cell disorder 06/27/2025 Vitamin D deficiency 06/27/2025 Urinary urgency 06/27/2025 Spinal stenosis 06/27/2025 Pulmonary hypertension 06/27/2025 Incomplete uterovaginal prolapse 06/27/2025 Gastroesophageal reflux disease 06/27/2025 Hidradenitis suppurativa 06/27/2025 Chronic combined systolic and diastolic heart fa ilure 04/08/2025 [facility] (current) use of aromatase inhibitors 03/24/2025 Cardiomegaly 09/09/2024 Mitral valve insufficiency 09/03/2024 Muscle weakness (generalized) 07/11/2024 Chronic idiopathic constipation 02/05/2024 Lumbar spondylosis 07/20/2023 Rheumatoid arthritis 07/20/2023 Uterine polyp 12/08/2022 Overview (12/08/2022): Added automatically from request for surgery [id number] History of bilateral breast cancer 11/29/2022 Postmenopausal bleeding 10/31/2022 Overview (01/20/2023): - P/w 2 episodes of possible PERSONAL FINANCIAL PLANNER sources of bleeding. Alternative sources include urinary vs. Rectal - Patient reports last pap was in 2016 and no history of abnormal paps, unable to obtain records - 10/31 exam without any identified bleeding, no obvious cancers or masses - Pelvic US 12/05: EMS 1.9mm, fluid within endometrial cavity, polyp seen [id number] - s/p hysteroscopy, polypectomy 12/22/22, 3 polyps visualized, benign pathology, no e/o hyperplasia or malignancy Plan: - CTM symptoms Encounter for person encountering health service s 07/04/2022 Urge urinary incontinence 05/18/2021 Overview (05/18/2021): Added automatically from request for surgery [id number] OAB (overactive bladder) 05/18/2021 Overview (05/18/2021): Added automatically from request for surgery [id number] Urinary incontinence 03/17/2021 Vaginal prolapse 03/17/2021 Overview [...] clearance prior to surgery. Patient last saw hothouse worker 3 months ago. Renal lesion 03/17/2021 Unspecified atrial fibrillation 01/29/2019 Malignant neoplasm of overla pping sites of left breast in female, estrogen receptor positive 04/19/2018 Cancer Staging:Pathologic stage from 05/12/2022:No Stage Recommended(ypT3, pN2a, cM0, G2, ER+, MD+, HER2-) - Signed by Kurt Wheeler MD [...]
--- OUTSIDE RECORDS SUMMARY | 2025-10-12 10:09 | XMS_ITS | Encounter Summary ---
Author Organization [facility] Address [address] [place] [address] Phone Care Team Providers Care Wastewater Treatment Supervisor Name Role Phone Mimi Patrick MD Primary Care Provider + Lesli Kinney MD Unavailable [phone] Monika Doyle MD Unavailable Aft, Doreen Oliva MD PhD Unavailable [phone] Pamella Henry PhD Unavailable [phone] Stephen Phan NP Primary Care Provider Hernesto Molina MD Primary Care Provider [phone] Encounter Details Date Type Department Care Team [...] on file Legal 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 Gender Identity Female 04/20/2018 8:43 AM CDT [...] on filedocumented in this encounter Care Teams Wastewater Treatment Supervisor Relationship Specialty Start Date End Date Mimi Patrick MD PCP - General Family Medicine 04/12/18 04/07/25 Stephen Phan NP [address] [place] [address] PCP - General Family Practice 04/08/25 08/04/25 Hernesto Molina MD [address] [address] PCP - General Family Medicine 08/05/25 Lesli Kinney MD [address] [place] [address] Medical Oncologist/Electrician Sound Medical Oncology 05/17/22 Monika Doyle MD [address] [facility] [address] [place] [address] Radiation Oncologist Radiation Oncology 06/27/22 Doreen Patricia MD PhD [address] [place] [address] Surgeon Surgical Oncology 06/27/22 Pamella Henry, PhD [address] [place] [address] Nurse Practitioner Radiation Oncology 01/16/23 documented as of this encounter
--- OUTSIDE RECORDS SUMMARY | 2025-10-12 10:09 | XMS_ITS | Encounter Summary ---
Author Organization [facility] Address [address] [place] [address] Care Team Providers Care Helper Animal Laboratory Name Role Phone Mimi Patrick MD Primary Care Provider + Lesli Kinney MD Unavailable [phone] Monika Doyle MD Unavailable Aft, Doreen Oliva MD PhD Unavailable [phone] Pamella Henry PhD Unavailable [phone] Stephen Phan NP Primary Care Provider [phone] Hernesto Molina MD Primary Care Provider [phone] Encounter Details Date Type Department Care Team (Late st Contact Info) Description 04/26/2023 Telephone [facility] [address] [place], [place] [id number] Diego Grewal, RT Social History Tobacco Use [...] on file 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 Gender Identity Female 04/20/2018 8:43 AM CDT Sexual Orientation Not on file documented as of this encounter Plan of Treatment Not on file documented as of this encounter Visit Diagnoses Not on filedocumented in this encounter Care Teams Helper Animal Laboratory Relationship Specialty Start Date End Date Mimi Patrick MD PCP - General Family Medicine 04/12/18 04/07/25 Stephen Phan NP [address] [place] [address] PCP - General Family Practice 04/08/25 08/04/25 Hernesto Molina MD [address] [address] PCP - General Family Medicine 08/05/25 Lesli Kinney MD [address] [place], [place] [id number] Medical Oncologist/Wash Mill Operator Medical Oncology 05/17/22 Moniak Doyle MD [address] [facility] [address] LL [address] [place] [address] Radiation Oncologist Radiation Oncology 06/27/22 AftDoreen MD PhD [address] [place] [address] Surgeon Surgical Oncology 06/27/22 Pamella Henry, PhD [address] [place] [address] Nurse Practitioner Radiation Oncology 01/16/23 documented as of this encounter
[2025-10-12 10:10] VITALS: BP 161/70; PULSE 66; RESP 15; TEMP 36.6; O2SAT 100
--- NOTE | 2025-10-12 12:13 | PC.NURSE ---
called for vitals. no answer.
--- NOTE | 2025-10-12 14:27 | ED.FALL ---
HPI - Fall General Chief Complaint: Fall Stated Complaint: GLF-head pain Time Seen by Provider: 10/12/25 13:14 Source: patient Mode of arrival: EMS Limitations: no limitations History of Present Illness HPI Narrative: 75-year-old with a history of mobility issues, AF on Xarelto was brought in by EMS with a complains of fall. Patient states that her lower extremities are weak lost her balance and fell against the wall. She denies any LOC. MD complaint: fall Onset (ago): hour(s) (1) Fall from: standing Place fall occurred: home Loss of consciousness: none Prolonged down time: no Symptoms prior to fall: none Context: other (Lost balance) Location of injury: head Severity: mild Quality: dull Associated symptoms (after fall): headache Related Data Home Medications ?Medication ?Instructions ?Recorded ?Confirmed ?Last Taken ?Type amiodarone 200 mg tablet 200 mg PO DAILY 03/24/20 08/06/25 09/29/22 History metoprolol tartrate 50 mg tablet 50 mg PO Q12H 03/24/20 08/06/25 09/29/22 History rivaroxaban 20 mg tablet (Xarelto) 20 mg PO DAILY 06/07/21 08/06/25 09/29/22 History atorvastatin 80 mg tablet 80 mg PO DAILY 10/14/21 08/06/25 09/29/22 History letrozole 2.5 mg tablet 2.5 mg PO DAILY 09/30/22 08/06/25 Unknown History ergocalciferol (vitamin D2) 1,250 1,250 mcg PO WEEKLY 03/28/23 08/06/25 Unknown History mcg (50,000 unit) capsule (Vitamin D2) sacubitril 24 mg-valsartan 26 mg 1 tablet PO .BID 12/23/24 08/06/25 Unknown History tablet (Entresto) furosemide 80 mg tablet 80 mg PO DAILY 08/06/25 08/06/25 Unknown History hydralazine 50 mg tablet 50 mg PO .TID 08/06/25 08/06/25 Unknown History losartan 100 mg tablet 100 mg PO DAILY 08/06/25 08/06/25 Unknown History methenamine hippurate 1 gram tablet 1 g PO Q12H 08/06/25 08/06/25 Unknown History polyethylene glycol 3350 17 gram 17 g PO BID PRN constipation 08/06/25 08/06/25 Unknown History oral powder packet (ClearLax) potassium chloride 20 mEq 20 meq PO DAILY 08/06/25 08/06/25 Unknown History tablet,extended release(part/cryst) Allergies Allergy/AdvReac Type Severity Reaction Status Date / Time vancomycin Allergy Unknown Verified 10/12/25 10:14 meperidine (From Demerol) AdvReac Unknown Dizziness Verified 10/12/25 10:14 Review of Systems Review of Systems: All systems reviewed & are unremarkable except as noted in HPI and below Constitutional: Constitutional: Reports no additional constitutional complaints Eyes: Eyes: Reports no additional eye complaints ENT: Reports system reviewed and no additional complaints, except as documented Cardiovascular: Cardiovascular: Reports no additional cardiovascular complaints Respiratory: Respiratory: Reports no additional respiratory complaints Gastrointestinal: Gastrointestinal: Reports no additional gastrointestinal complaints Musculoskeletal: Musculoskeletal: Reports no additional musculoskeletal complaints Neurologic: Reports system reviewed and no additional complaints, except as documented [facility] Past Medical History Medical History Congestive heart failure Hypertension History of gastrointestinal procedure Sleep apnea Diabetes Abscess of Bartholin's gland Visual disturbance Hidradenitis suppurativa Carpal tunnel syndrome White blood cell disorder Candidiasis Class 3 severe obesity due to excess calories with body mass index (BMI) of 40.0 to 44.9 in adult Osteoarthritis Memory impairment Hypertensive disorder Vitamin D deficiency Anemia Malignant tumor of breast Morbid obesity Open wound of anterior abdominal wall Incomplete uterovaginal prolapse Lipoma of axilla Impacted cerumen Increased frequency of urination Benign hypertension Edema of lower extremity Systemic lupus erythematosus Pain in limb Atrial fibrillation Surgical History Surgical History History of cholecystectomy H/O left mastectomy 05/12/22 H/O hernia repair H/O mastectomy right and left 04/2022 H/O colonoscopy History of esophagogastroduodenoscopy (EGD) History of delivery 3x Hx of total knee arthroplasty Family History Family History Mother Hypertension Breast cancer Hypothyroidism Heart disease Family history of cancer Father Heart disease Alzheimer disease Sibling Renal failure syndrome Diabetes mellitus Hypertension Sibling Diabetes mellitus Hypertension Social History Social History Social History: Patient has a 20 pack-year smoking history. Patient states that she quit smoking 20 years ago. Patient occasionally drinks alcohol but has not since her breast cancer diagnosis. Smoking status: Former smoker Alcohol intake: never Substance use: never Substance use type: does not use Lack of Transportation: No Lack of Food: Never True Current Housing: I Have Housing Concerned About Future Housing: No Difficulty Paying Gas/Electric Bills: No Difficulty Paying for Meds: No Currently Unemployed: No Education: High School Diploma/GED Difficulty w/ Childcare or Family Care: No Living arrangements: alone Gender identity (if verbalized by the patient): Female Sexual Orientation (if Verbalized by the Patient): Straight or Heterosexual Spiritual care concerns: No Exam Narrative: GENERAL: Well-appearing, well-nourished, and in no acute distress. HEAD: Normocephalic, atraumatic. EYES: PERRLA and EOMI. ENT: Nares clear, no rhinorrhea or epistaxis. Mucous membranes moist. NECK: Supple. CHEST: Clear to auscultation. No respiratory distress. HEART: Regular rate and rhythm. No murmur heard. Normal peripheral pulses. ABDOMEN: Soft, nontender, nondistended, normal active bowel sounds. EXTREMITIES: Normal range of motion. No edema. SKIN: Warm, dry, no rash. NEURO: No focal deficits. Alert and oriented x3. PSYCH: Normal mood and affect. Course Course Emergency Course: Notified her about the CT findings., fall precautions advised advised her to continue home medication, follow-up with the primary doctor. Vital Signs Vital signs: Vital Signs Temperature 36.6 C 10/12/25 10:10 Pulse Rate 66 10/12/25 10:10 Respiratory Rate 15 10/12/25 10:10 Blood Pressure 161/70 H 10/12/25 10:10 Pulse Oximetry 100 10/12/25 10:10 Oxygen Delivery Room Air 10/12/25 10:10 Temperature 36.6 C 10/12/25 10:10 Pulse Rate 66 10/12/25 10:10 Respiratory Rate 15 10/12/25 10:10 Blood Pressure 161/70 H 10/12/25 10:10 Pulse Oximetry 100 10/12/25 10:10 Oxygen Delivery Room Air 10/12/25 10:10 MDM Differential Diagnosis Differential Diagnosis: Minor head injury, concussion, intracerebral bleed Imaging Data Radiologist's impression: ITS Impressions Head CT 10/12/25 14:26 IMPRESSION: 1. No acute intracranial bleed. Large hematoma the scalp in the upper left parietal region. No acute cranial fracture is seen. Discharge Plan Discharge Clinical Impression: Minor head injury Qualifiers: Encounter type: initial encounter Qualified Code(s): S09.90XA - Unspecified injury of head, initial encounter Patient Disposition: Home Condition: Stable Instructions: Head Injury (ED) Additional Instructions: Continue home medications. Can take Tylenol for pain as needed. Fall precautions advised. Patient Language: Ethiopian Prescriptions: No Action atorvastatin 80 mg tablet 80 mg PO DAILY sacubitril-valsartan [Entresto] 24-26 mg tablet 1 tablet PO .BID ergocalciferol (vitamin D2) [Vitamin D2] 1,250 mcg (50,000 unit) capsule 1,250 mcg PO WEEKLY Patient Comments: Patient states she takes on monday amiodarone 200 mg tablet 200 mg PO DAILY metoprolol tartrate 50 mg tablet 50 mg PO Q12H Xarelto 20 mg tablet 20 mg PO DAILY Rx Instructions: must administer with evening meal letrozole 2.5 mg tablet 2.5 mg PO DAILY furosemide 80 mg tablet 80 mg PO DAILY hydralazine 50 mg tablet 50 mg PO .TID losartan 100 mg tablet 100 mg PO DAILY methenamine hippurate 1 gram tablet 1 g PO Q12H potassium chloride 20 mEq tablet,ER particles/crystals 20 meq PO DAILY polyethylene glycol 3350 [ClearLax] 17 gram powder in packet 17 g PO BID PRN (Reason: constipation) Follow-up/Referrals: Hernesto Molina MD [Primary Care Provider, Family Practice] Time of Disposition: 14:40
== END 2025-10-12 15:36 | disposition home or self-care (01) ==
PROVIDERS: Emergency Provider Family Medicine; PCP Family Medicine
DX: S09.90XA Unspecified injury of head, initial encounter (principal); I48.91 Unspecified atrial fibrillation; I11.0 Hypertensive heart disease with heart failure; I50.9 Heart failure, unspecified; Z79.01 Long term (current) use of anticoagulants; W18.39XA Other fall on same level, initial encounter; Z87.891 Personal history of nicotine dependence
CPT/HCPCS: 70450; 99284